=== PATIENT | female | born 1935 | race Caucasian/White ===

== ENCOUNTER 2016-12-10 23:31 | Inpatient (IN) | payer MEDICARE, OTHER ==
[~2016-12-10] VITALS: Ht 152.4 cm; Wt 103.5 kg
[~2016-12-10 23:31] MED LIST: ALBU2.5V3 NEB; ASPI-664 PO; ATOR40TA68 PO; BEN50 PO; CALC500T12 PO; CHOL50009 PO; ESOM40CA PO; FER325 PO; FURO40TA4 PO; LEVO112T42 PO; LORA-444 PO; METO25TA7 PO; NYST15CR28 TOP; OMEG-135 PO; PIOG45TA15 PO; POTA8CAP PO; QUET150T PO
[2016-12-10 23:45] VITALS: Ht 152.4 cm; Wt 103.5 kg
[2016-12-10] MEDS ORDERED: SOD CHLORIDE 0.9% 250 ML IV STA (23:56)
[2016-12-10] MEDS ORDERED: ONDANSETRON 4 MG INJ IV STA (23:56)
[2016-12-10] MEDS ORDERED: morphine 4 MG/ML VIAL IV STA (23:56)
[2016-12-11] VITALS (9 sets, daily range): BP systolic 90–161; BP diastolic 49–72; PULSE 70–90; RESP 14–27; TEMP 98.4
[2016-12-11 00:39] LABS: ADD SCAN DIFF NO
[2016-12-11 00:40] LABS: BASOPHILS % 0.3 % (0.0-2.0); EOSINOPHILS # 0.1 10^3/ul (0.0-0.5); HEMATOCRIT 39.2 % (37.0-47.0); HEMOGLOBIN 12.7 g/dl (12.0-16.0); LYMPHOCYTES # 2.3 10^3/ul (0.8-2.9); LYMPHOCYTES % 26.1 % (15.0-51.0); MEAN CORPUSCULAR HGB CONC 32.4 g/dl (32.0-37.0); MEAN CORPUSCULAR VOLUME 92.7 fl (82.0-101.0); MEAN PLATELET VOLUME 10.3 fl (7.4-10.4); MONOCYTE # 0.6 10^3/ul (0.3-0.9); MONOCYTES % 6.4 % (0.0-11.0); NEUTROPHIL # 5.8 10^3/ul (1.6-7.5); NEUTROPHILS % 65.7 % (39.0-77.0); PLATELET COUNT 246 10^3/UL (140-415); RED BLOOD COUNT 4.23 10^6/ul (4.20-5.40); RED CELL DISTRIBUTION WIDTH 13.4 % (11.5-14.5); WHITE BLOOD COUNT 8.8 10^3/ul (4.8-10.8)
[2016-12-11 00:54] LABS: INR 0.95; PROTIME 12.7 Sec (12.2-14.2)
[2016-12-11 00:55] LABS: PARTIAL THROMBOPLASTIN TIME 23.8 Sec (25.0-35.0)
[2016-12-11 00:56] LABS: ALANINE AMINOTRANSFERASE 24 IU/L (13-69); ALBUMIN/GLOBULIN RATIO 1.14; ALKALINE PHOSPHATASE 85 IU/L (42-121); ANION GAP 15 (8-16); ASPARTATE AMINO TRANSFERASE 27 IU/L (15-46); BILIRUBIN,INDIRECT 0.6 mg/dl (0-1.1); BILIRUBIN,TOTAL 0.6 mg/dl (0.2-1.3); BLOOD UREA NITROGEN 15 mg/dl (7-20); CALCIUM 8.8 mg/dl (8.4-10.2); CARBON DIOXIDE 32 mmol/L (21-31); CHLORIDE 94 mmol/L (97-110); CREATININE 0.91 mg/dl (0.44-1.00); GLUCOSE 144 mg/dl (70-220); POTASSIUM 4.5 mmol/L (3.5-5.1); SODIUM 136 mmol/L (135-144); TOTAL PROTEIN 7.5 g/dl (6.1-8.1)
[2016-12-11 01:08] LABS: TROPONIN-I < 0.012 ng/ml (0.00-0.12)
--- NOTE | 2016-12-11 02:28 | RADRPT ---
PROCEDURE: CT Abdomen and pelvis without contrast. CLINICAL INDICATION: Abdominal pain. TECHNIQUE: CT scan of the abdomen and pelvis was performed on a multi-detector high-resolution CT scanner. Contiguous axial images were obtained from the lung bases to the ischial tuberosities wit hout intravenous contrast. Coronal and sagittal reformatted images were also obtained. Images were reviewed on the PACS workstation. One or more of the following dose reduction techniques were used: - Automated exposure control. - Adjustment of the mA and/or kV according to patient size. - Use of iterative reconstruction technique. Exam CTD/vol = 22.85 mGy. Total exam DLP = 1325.36 mGy-cm. COMPARISON: 05/04/2016. FINDINGS: Evaluation of the lung bases demonstrates again demonstrates multiple nodules measuring up to 10 mm in size. There is mild bibasilar atelectasis. The heart is moderately enlarged. Abdomen: The liver is normal in size. There is no focal mass or dilatation of the biliary tree. T he gallbladder is not distended. The spleen, pancreas and bilateral adrenal glands are within rui l limits. Bilateral kidneys are normal in size with multiple left renal cysts. There is no radiopa que renal or ureteral calculus identified. There is no hydronephrosis or hydroureter. There is no retroperitoneal adenopathy. The abdominal aorta is of normal caliber with scattered atherosclerotic calcifications. There is a moderate right lower abdominal ventral wall hernia containing loops of small bowel and om ental fat. There is resultant small bowel obstruction. There is no free air. A normal appendix is identified. There is no diverticulosis or diverticulitis. There is no ascites. Pelvis: The bladder is unremarkable. The uterus and adnexa are within normal limits. There is no significant pelvic adenopathy or free fluid. Evaluation of the osseous structures demonstrates no suspicious lytic or blastic lesion. There are b ilateral calcified injection granulomas. IMPRESSION: Moderate right lower ventral abdominal wall hernia containing multiple loops of small bowel, increas ed in size compared with 05/04/2016. There is resultant small bowel obstruction. Multiple pulmonary nodules bilaterally suggestive of metastatic disease, slightly increased compared with 05/14/2016. Moderate cardiomegaly. Vascular calcifications reflective of atherosclerosis. Mild bibasilar atelectasis. .Wilfredo Chowdary MD, MD Date Time Electronically viewed and signed by .Wilfredo Chowdary MD, MD on 12/11/2016 02:27 .T/
[2016-12-11] MEDS ORDERED: FENTAnyl 50 MCG/ML VIAL IV ONE ×2 (03:00→05:00)
[2016-12-11] MEDS ORDERED: ONDANSETRON 4 MG INJ IV PRN ×3 (04:00→17:30)
[2016-12-11] MEDS ORDERED: ACETAMINOPHEN 325 MG TAB PO PRN (04:00)
--- NOTE | 2016-12-11 04:20 | ERA ---
ER Documentation Chief Complaint Date/Time DATE: 12/11/16 TIME: 04:11 Chief Complaint ABDOMINAL PAIN, LACK OF APPETITE HPI 80-year-old female with a history of metastatic thyroid cancer status post tracheostomy and a history of ventral abdominal wall hernia presenting to the ER with generalized abdominal pain. It started about 2 hours prior to arrival. It is a constant, dull pain. 8 out of 10. Nonradiating. No associated nausea, vomiting, diarrhea. Last bowel movement was in the morning. Her grandson notes that she has been burping a lot today. They have also noted that her hernia has been sticking out and is not going back in like it normally does. In May 2016 she had a similar episode like this and they were able to reduce her hernia in the ER. They did not follow-up for surgical repair since. ROS All systems reviewed and are negative except as per history of present illness. Medications Home Meds Reported Medications Lorazepam* (Ativan*) 2 Mg Tablet, 2 MG PO HS Y for ANXIETY, #30 TAB 05/04/16 Potassium Chloride* (Potassium Chloride*) 8 Meq Capsule.er, 8 MEQ PO DAILY, CAP 05/04/16 Diphenhydramine Hcl* (Benadryl*) 50 Mg Cap, 50 MG PO DAILY Y for ALLERGIC REACTION, CAP 05/04/16 Pioglitazone Hcl* (Pioglitazone Hcl*) 45 Mg Tablet, 45 MG PO DAILY, TAB 05/04/16 Albuterol Sulfate* (Albuterol Sulfate* Neb) 0.083%-3 Ml Neb, 2.5 MG NEB Q4H WHILE AWAKE Y for WHEEZING AND SOB, #30 VIAL 05/04/16 Aspirin* (Aspirin* EC) 81 Mg Tablet.dr, 81 MG PO DAILY, TAB 05/04/16 Cholecalciferol* (Vitamin D*) 5,000 Unit Tablet, 5000 UNIT PO DAILY, TAB 08/19/15 Levothyroxine Sodium* (Levoxyl*) 112 Mcg Tablet, 112 MCG PO BEFORE BREAKFAST, # 30 TAB 08/19/15 Quetiapine Fumarate* (Seroquel* XR) 150 Mg Tab.sr.24h, 150 MG PO DAILY, TAB.SA 08/19/15 Calcium Carbonate* (Oysco-500*) 1 Tab Tablet, 1 TAB PO TID, TAB 08/19/15 Nystatin* (Nystatin*) 15 Gm Cr, 1 APPLIC TOP TID, #1 TUB 08/19/15 Esomeprazole Mag Trihydrate (Nexium) 40 Mg Capsule.dr, 40 MG PO DAILY, #30 CAP 08/19/15 Metoprolol Succinate* (Toprol XL*) 25 Mg Tab.sr.24h, 25 MG PO DAILY, #30 TAB 08/19/15 Fish Oil* (Fish Oil*) 1,000 Mg Cap, 1000 MG PO TID, CAP 08/19/15 Atorvastatin* (Atorvastatin*) 40 Mg Tablet, 40 MG PO QHS, #30 TAB 08/19/15 Furosemide* (Furosemide*) 40 Mg Tablet, 40 MG PO DAILY, TAB 08/19/15 Ferrous Sulfate* (Ferrous Sulfate*) 325 Mg Tabec, 325 MG PO DAILY, TAB 08/19/15 Allergies Allergies: Coded Allergies: prednisone (Verified Allergy, Mild, HALLUCINATIONS, 12/04/13) clindamycin (Verified Allergy, Unknown, 12/10/16) PMhx/Soc History of Surgery: Yes (Trach placement) Anesthesia Reaction: No Hx Neurological Disorder: No Hx Respiratory Disorders: Yes (Tracheostomy) Hx Cardiac Disorders: Yes (HTN) Hx Psychiatric Problems: Yes (Anxiety, Bipolar ) Hx Miscellaneous Medical Probl: Yes Hx Alcohol Use: No Hx Substance Use: No Hx Tobacco Use: No Smoking Status: Unknown if ever smoked FmHx Family History: No diabetes Physical Exam Vitals Vital Signs Date Time Temp Pulse Resp B/P Pulse Ox O2 Delivery O2 Flow Rate FiO2 12/11/16 03:06 66 20 129/81 98 Trach Collar Venturi Mask 12/11/16 02:00 68 20 115/81 97 Trach Collar Venturi Mask 12/11/16 01:15 98 8.0 35 12/11/16 01:00 67 20 129/72 97 Trach Collar Venturi Mask 12/11/16 00:00 68 20 113/52 98 Trach Collar Venturi Mask 12/10/16 23:45 98.7 74 18 126/79 95 Physical Exam Const: Chronically ill-appearing, large body habitus, no significant distress, nontoxic Head: Atraumatic Eyes: Normal Conjunctiva ENT: Dry oral mucosa Neck: Full range of motion. Trach in place Resp: Clear to auscultation bilaterally, however she has poor respiratory effort Cardio: Regular rate and rhythm, no murmurs Abd: Soft, mildly distended, supraumbilical hernia, not reducible, mildly tender to palpation. Otherwise no abdominal tenderness. Normal bowel sounds Skin: No petechiae or rashes Back: No midline or flank tenderness Ext: No cyanosis, or edema Neur: Awake and alert Psych: Normal Mood and Affect Result Diagram: 12/11/16 0022 12/11/16 0022 Results 24 hrs Laboratory Tests Test 12/11/16 00:22 White Blood Count 8.810^3/ul Red Blood Count 4.2310^6/ul Hemoglobin 12.7g/dl Hematocrit 39.2% Mean Corpuscular Volume 92.7fl Mean Corpuscular Hemoglobin 30.0pg Mean Corpuscular Hemoglobin Concent 32.4g/dl Red Cell Distribution Width 13.4% Platelet Count 34291^3/UL Mean Platelet Volume 10.3fl Neutrophils % 65.7% Lymphocytes % 26.1% Monocytes % 6.4% Eosinophils % 1.0% Basophils % 0.3% Nucleated Red Blood Cells % 0.0/100WBC Neutrophils # 5.810^3/ul Lymphocytes # 2.310^3/ul Monocytes # 0.610^3/ul Eosinophils # 0.110^3/ul Basophils # 0.010^3/ul Nucleated Red Blood Cells # 0.010^3/ul Prothrombin Time 12.7Sec Prothrombin Time Ratio 1.0 INR International Normalized Ratio 0.95 Activated Partial Thromboplast Time 23.8Sec Sodium Level 136mmol/L Potassium Level 4.5mmol/L Chloride Level 94mmol/L Carbon Dioxide Level 32mmol/L Anion Gap 15 Blood Urea Nitrogen 15mg/dl Creatinine 0.91mg/dl Glucose Level 144mg/dl Lactic Acid Level 1.3mmol/L Calcium Level 8.8mg/dl Total Bilirubin 0.6mg/dl Direct Bilirubin 0.00mg/dl Indirect Bilirubin 0.6mg/dl Aspartate Amino Transf (AST/SGOT) 27IU/L Alanine Aminotransferase (ALT/SGPT) 24IU/L Alkaline Phosphatase 85IU/L Troponin I < 0.012ng/ml Total Protein 7.5g/dl Albumin 4.0g/dl Globulin 3.50g/dl Albumin/Globulin Ratio 1.14 Lipase 23U/L Current Medications Medications (Trade) Dose Ordered Sig/Dahiana Route PRN Reason Start Time Stop Time Status Last Admin Dose Admin Sodium Chloride (NS) 250 ml @ 250 mls/hr Q1H STAT IV 12/10/16 23:56 12/11/16 00:55 DC 12/11/16 00:26 Morphine Sulfate (morphine) 4 mg ONCE STAT IV 12/10/16 23:56 12/10/16 23:58 DC 12/11/16 00:26 Ondansetron HCl (Zofran Inj) 4 mg ONCE STAT IV 12/10/16 23:56 12/10/16 23:58 DC 12/11/16 00:26 Fentanyl (Sublimaze) 50 mcg ONCE ONCE IV 12/11/16 03:00 12/11/16 03:01 DC 12/11/16 03:09 Ondansetron HCl (Zofran Inj) 4 mg BRIDGE ORDER PRN IV NAUSEA AND/OR VOMITING 12/11/16 04:00 12/12/16 03:59 Acetaminophen (Tylenol Tab) 650 mg ER BRIDGE PRN PO MILD PAIN/FEVER 12/11/16 04:00 12/12/16 03:59 Procedures/MDM Labs: CBC and CMP normal, troponin negative EKG: Rate/Rhythm: Normal Sinus Rhythm QRS, ST, T-waves: Nonspecific T-wave changes, no changes consistent w/ acute ischemia Impression: No evidence of ischemia or arrhythmia CT abdomen and pelvis: IMPRESSION: Moderate right lower ventral abdominal wall hernia containing multiple loops of small bowel, increased in size compared with 05/04/2016. There is resultant small bowel obstruction. Multiple pulmonary nodules bilaterally suggestive of metastatic disease, slightly increased compared with 05/14/2016. Moderate cardiomegaly. Vascular calcifications reflective of atherosclerosis. Mild bibasilar atelectasis. .Wilfredo Chowdary MD, Date Time Electronically viewed and signed by .iWlfredo Chowdary MD, on 12/11/2016 02:27 MDM: Patient is presenting with an irreducible ventral hernia, concerning for incarceration and bowel obstruction. Vitals are stable. I have a low suspicion for ischemic bowel, strangulation. CT abdomen and pelvis confirmed ventral hernia with signs of bowel obstruction secondary to hernia. NG tube was placed. I attempted reduction of the hernia after IV pain medications, but this was unsuccessful. I spoke with Dr. Carrillo, who has seen the patient in the past, and he recommended hernia repair. He stated he could not see the patient until tomorrow evening. I spoke with the family regarding need for possible hernia repair and they really do not want her to undergo surgery if possible. I advised him to discuss her options with Dr. Carrillo. I will admit the patient to the [facility] floor. I will defer further management decisions the inpatient team and surgeon. Accepting Care Team: Current data and ongoing care discussed. Time: Time of admission Primary Provider: Karuna Consulting: Lorena Outstanding Data: none Departure Diagnosis: Primary Impression: Incarcerated ventral hernia Condition: Serious EVETTE COWART MD Dec 11, 2016 04:20
--- NOTE | 2016-12-11 05:21 | CONS ---
DATE OF ADMISSION: 12/10/2016 DATE OF CONSULTATION: 12/11/2016 HISTORY OF PRESENT ILLNESS: Ms. Young is an 80-year-old female with a history of metastatic thy roid cancer, status post tracheostomy, who presents to the ER with nausea, vomiting, and generalized abdominal pain. She has had a lot of ____ today and is not feeling well. She presented to the ER. She has a known ventral hernia which was reduced by me in May 2016. She was supposed to und ergo surgical repair but failed to do so. ALLERGIES 1. PREDNISONE. 2. CLINDAMYCIN. PAST SURGICAL HISTORY: She has a tracheostomy for metastatic thyroid cancer and some abdominal surg damien in the past either for an umbilical hernia or possibly hysterectomy. MEDICATIONS: She is on 1. Lorazepam. 2. Potassium chloride. 3. Pioglitazone. 4. Albuterol. 5. Aspirin. 6. Levoxyl. 7. Seroquel 8. Nexium. 9. Toprol. 10. Atorvastatin. 11. Furosemide. 12. Ferrous sulfate. PAST MEDICAL HISTORY: Asthma, hypertension, hypothyroidism, hypercholesterolemia, diabetes mellitus . PHYSICAL EXAMINATION: GENERAL: She is an obese female in no apparent distress. She has a tracheostomy in place but is re sting comfortably. VITAL SIGNS: She is afebrile. Vital signs stable. CHEST: Clear to auscultation bilaterally. HEART: Regular rhythm. ABDOMEN: Soft, nondistended but significant periumbilical nonreducible tender hernia. LABORATORY DATA: Reveal a white count of 9, hematocrit of 39, and platelets of 246. Sodium 136, po tassium 4.5, chloride 94, CO2 32, BUN and creatinine 15 and 0.9, and glucose of 144. INR is 1, and PTT is 23.8. A CT of the abdomen and pelvis revealed a moderate right lower ventral abdominal herni a containing multiple loops of small bowel, increased in size, with resultant small bowel obstructio n. ASSESSMENT AND PLAN: Ms. Young is an 80-year-old female with an incisional hernia with a small bowel obstruction. While it is not strangulated, it is incarcerated and is unable to be reduced. I tried twice to reduce it as well as the emergency room doctor. There really is no other option bes ides surgical. I could attempt to give contrast to see if there is no obstruction, but this would n ot resolve the incarceration and would only lead to further problems. I discussed proceeding with grace knutson with the patient as well as her son. I discussed repair of the incisional hernia with possib le mesh and possible bowel resection. All benefits, risks, and alternatives were discussed in detai l and questions answered. The patient elected to proceed. Right now, NG tube, n.p.o., and IV fluid s. If this spontaneously reduces later in the day, then obviously we can hold off on emergency surg damien, but that is unlikely. Dictated By: CYNTHIA BRANHAM/NTS Conf#: [id number] DID#: [id number]
[2016-12-11] MEDS ORDERED: hydrALAzine 20 MG INJ IV PRN ×2 (06:00→20:30)
[2016-12-11] MEDS ORDERED: morphine 4 MG/ML VIAL IV PRN (06:00)
[2016-12-11] MEDS ORDERED: GLUCOSE GEL 15 GRAM TUBE PO PRN ×2 (06:30)
[2016-12-11] MEDS ORDERED: GLUCOSE GEL 15 GRAM TUBE BUCCAL PRN (06:30)
[2016-12-11] MEDS ORDERED: DEXTROSE 50% 50 ML SYRINGE IV PRN ×2 (06:30)
[2016-12-11] MEDS ORDERED: GLUCAGON 1 MG INJ IM PRN (06:30)
[2016-12-11] MEDS ORDERED: SEVOFLURANE 15 MIN ONE (07:00)
[2016-12-11] MEDS ORDERED: CEFAZOLIN 1 GM INJ ONE (07:00)
[2016-12-11] MEDS: INSULIN ASPART [NOVOLOG] 3 ML PEN SC SCH ×3 (07:39→17:19)
[2016-12-11] MEDS: DEXTROSE 5%-0.45% NACL 1,000 ML IV SCH ×3 (07:39→16:00)
--- NOTE | 2016-12-11 08:35 | HP ---
Date/Time of Note Date/Time of Note DATE: 12/11/16 TIME: 08:27 Assessment/Plan VTE Prophylaxis VTE Prophylaxis Intervention: SCD's Lines/Catheters IV Catheter Type (from Nrsg): Saline Lock Assessment/Plan Assessment/Plan IMPRESSION 1. Incarcerated Abdominal Hernia 2. Metastatic Thyroid Cancer 3. Tracheostomy, to air 4. Diabetes 5. Anxiety/Bipolar PLAN Keep NPO with IV fluid NG tube to suction provide PRN pain meds Hold po meds Insulin for diabetes HPI/ROS Admit Date/Time Admit Date/Time Dec 11, 2016 at 03:42 Hx of Present Illness This is an 80-year-old female with a history of metastatic thyroid cancer status post tracheostomy and a history of ventral abdominal wall hernia presenting to the ER with generalized abdominal pain. It started about 2 hours prior to arrival. It is a constant, dull pain. 8 out of 10. Nonradiating. No associated nausea, vomiting, diarrhea. Last bowel movement was in the morning. Her grandson notes that she has been burping a lot today. They have also noted that her hernia has been sticking out and is not going back in like it normally does. In May 2016 she had a similar episode like this and they were able to reduce her hernia in the ER. Today in ER, CT abd/pelvis showed Moderate right lower ventral abdominal wall hernia containing multiple loops of small bowel, increased in size compared with 05/04/2016. There is resultant small bowel obstruction. Pt has already seen by Dr. Carrillo with plan for surgical intervention. PMH/Family/Social Past Medical History Medical History: cancer, diabetes Past Surgical History Past Surgical Hx: other (tracheostomy) Social History Alcohol Use: none Smoking Status: Never smoker Drug Use: none Exam/Review of Systems Vital Signs Vitals Vital Signs Date Time Temp Pulse Resp B/P Pulse Ox O2 Delivery O2 Flow Rate FiO2 12/11/16 07:11 98.2 72 16 116/53 99 12/11/16 06:04 Trach Collar 12/11/16 05:55 5.0 28 Exam Constitutional: distress Head: atraumatic, normocephalic Eyes: PERRL ENMT: other (NG tube in place) Neck: other (trach tune in place) Respiratory: diminished breath sounds, other (at the bases) Cardiovascular: regular rate and rhythm Gastrointestinal: other (non-reducible hernia), soft, tender Extremities: normal pulses Labs Result Diagram: 12/11/16 0022 12/11/16 0022 Medications Medications Current Medications Dextrose/Sodium Chloride (D5-1/2ns) 1,000 ml @ 100 mls/hr Q10H IV ; Start 12/11 at 06:00 Morphine Sulfate (morphine) 3 mg Q4H PRN IV PAIN; Start 12/11/16 at 06:00 Ondansetron HCl (Zofran Inj) 4 mg Q6H PRN IV NAUSEA AND/OR VOMITING; Start at 06:00 Lorazepam (Ativan) 1 mg Q4H PRN IV ANXIETY; Start 12/11/16 at 06:00 Hydralazine HCl (Apresoline) 10 mg Q6H PRN IV SBP ABOVE 160; Start 12/11/16 at 06:00 Insulin Aspart (Novolog Insulin Pen) NOVOLOG *MILD* ALGORI... Q6 SC ; Start at 06:00 Miscellaneous Information 1 ea NOTE XX ; Start 12/11/16 at 06:30 Glucose (Glutose) 15 gm Q15M PRN PO DECREASED GLUCOSE; Start 12/11/16 at 06:30 Glucose (Glutose) 22.5 gm Q15M PRN PO DECREASED GLUCOSE; Start 12/11/16 at 06: 30 Dextrose (D50w Syringe) 25 ml Q15M PRN IV DECREASED GLUCOSE; Start 12/11/16 at 06:30 Dextrose (D50w Syringe) 50 ml Q15M PRN IV DECREASED GLUCOSE; Start 12/11/16 at 06:30 Glucagon (Glucagen) 1 mg Q15M PRN IM DECREASED GLUCOSE; Start 12/11/16 at 06:30 Glucose (Glutose) 15 gm Q15M PRN BUCCAL DECREASED GLUCOSE; Start 12/11/16 at 06 :30 JESSE NAIDU MD Dec 11, 2016 08:35
[2016-12-11] MEDS: LORAZEPAM 2 MG INJ IV PRN ×2 (08:36→22:58)
--- NOTE | 2016-12-11 15:46 | PN ---
Date/Time of Note Date/Time of Note DATE: 12/11/16 TIME: 15:38 Assessment/Plan VTE Prophylaxis VTE Prophylaxis Intervention: contraindicated (bleeding risk) Lines/Catheters IV Catheter Type (from Nrsg): Peripheral IV Assessment/Plan Chief Complaint/Hosp Course S- abd pain/n remain. min flatus. no cp/dyspnea. occ constipation. family updated. O- vss PE no pallor; trach c/d/i s1s2 reg; no m/g/r ctab Bs dimin; mild tender; nd; obese. hernia noted. no r/r/g mild edema A/P 1. Incarcerated V hernia; stable. may need surgery. -low/intermediate sabine -op risk. r/b ratio weights in favor of proceeding directly to surgery. cxr/ekg pending. 2. M obesity; recurrent risk explained to family. 3. SBO? 4. Trach status 5. Metastatic Thyroid Ca; lung mets. no ho cardiac/liver/colon mets. 6. Dm/DL/obesity/ metabolic syndrome 7. Asthma; no ho intubation 8. Hypothyroidism 9. Psychosis? Problems: Exam/Review of Systems Vital Signs Vitals Vital Signs Date Time Temp Pulse Resp B/P Pulse Ox O2 Delivery O2 Flow Rate FiO2 12/11/16 15:00 95 28 12/11/16 07:11 98.2 72 16 116/53 12/11/16 06:04 Trach Collar 12/11/16 05:55 5.0 Results Result Diagram: 12/11/16 0022 12/11/16 0022 Results 24 hrs Laboratory Tests Test 12/11/16 00:22 12/11/16 12:35 White Blood Count 8.8 # Red Blood Count 4.23 Hemoglobin 12.7 Hematocrit 39.2 Mean Corpuscular Volume 92.7 Mean Corpuscular Hemoglobin 30.0 Mean Corpuscular Hemoglobin Concent 32.4 Red Cell Distribution Width 13.4 Platelet Count 246 Mean Platelet Volume 10.3 # Neutrophils % 65.7 Lymphocytes % 26.1 Monocytes % 6.4 Eosinophils % 1.0 Basophils % 0.3 Nucleated Red Blood Cells % 0.0 Neutrophils # 5.8 Lymphocytes # 2.3 Monocytes # 0.6 Eosinophils # 0.1 Basophils # 0.0 Nucleated Red Blood Cells # 0.0 Prothrombin Time 12.7 Prothrombin Time Ratio 1.0 INR International Normalized Ratio 0.95 Activated Partial Thromboplast Time 23.8 L Sodium Level 136 Potassium Level 4.5 Chloride Level 94 L Carbon Dioxide Level 32 H Anion Gap 15 Blood Urea Nitrogen 15 Creatinine 0.91 Glucose Level 144 Lactic Acid Level 1.3 Calcium Level 8.8 Total Bilirubin 0.6 Direct Bilirubin 0.00 Indirect Bilirubin 0.6 Aspartate Amino Transf (AST/SGOT) 27 Alanine Aminotransferase (ALT/SGPT) 24 Alkaline Phosphatase 85 Troponin I < 0.012 Total Protein 7.5 Albumin 4.0 Globulin 3.50 H Albumin/Globulin Ratio 1.14 Lipase 23 Bedside Glucose 140 Medications Medications Current Medications Dextrose/Sodium Chloride (D5-1/2ns) 1,000 ml @ 100 mls/hr Q10H IV Last administered on 12/11/16 10:15; Admin Dose 100 MLS/HR; Start 12/11/16 at 06:00 Morphine Sulfate (morphine) 3 mg Q4H PRN IV PAIN Last administered on 10:01; Admin Dose 3 MG; Start 12/11/16 at 06:00 Ondansetron HCl (Zofran Inj) 4 mg Q6H PRN IV NAUSEA AND/OR VOMITING; Start at 06:00 Lorazepam (Ativan) 1 mg Q4H PRN IV ANXIETY Last administered on 12/11/16 08:36 ; Admin Dose 1 MG; Start 12/11/16 at 06:00 Hydralazine HCl (Apresoline) 10 mg Q6H PRN IV SBP ABOVE 160; Start 12/11/16 at 06:00 Insulin Aspart (Novolog Insulin Pen) NOVOLOG *MILD* ALGORI... Q6 SC ; Start at 06:00 Miscellaneous Information 1 ea NOTE XX ; Start 12/11/16 at 06:30 Glucose (Glutose) 15 gm Q15M PRN PO DECREASED GLUCOSE; Start 12/11/16 at 06:30 Glucose (Glutose) 22.5 gm Q15M PRN PO DECREASED GLUCOSE; Start 12/11/16 at 06: 30 Dextrose (D50w Syringe) 25 ml Q15M PRN IV DECREASED GLUCOSE; Start 12/11/16 at 06:30 Dextrose (D50w Syringe) 50 ml Q15M PRN IV DECREASED GLUCOSE; Start 12/11/16 at 06:30 Glucagon (Glucagen) 1 mg Q15M PRN IM DECREASED GLUCOSE; Start 12/11/16 at 06:30 Glucose (Glutose) 15 gm Q15M PRN BUCCAL DECREASED GLUCOSE; Start 12/11/16 at 06 :30 Famotidine (Pepcid Iv) 20 mg DAILY IV ; Start 12/11/16 at 15:30 Ibuprofen (Motrin) 800 mg Q6H PRN PO MODERATE PAIN LEVEL 4-6; Start 12/12/16 at 09:00 ADELAIDA MADISON MD Dec 11, 2016 15:46
[2016-12-11] MEDS: FAMOTIDINE 20 MG INJ IV SCH (16:00)
--- NOTE | 2016-12-11 16:49 | RADRPT ---
PROCEDURE: XR Chest. CLINICAL INDICATION: Preoperative. TECHNIQUE: Single frontal view. COMPARISON: Chest x-ray dated 05/04/2016. CT scan of the chest dated 12/11/2016. FINDINGS: There is a nasogastric tube with the tip not visualized. Bilateral pulmonary nodules seen on CT sca n are not well visualized. The heart is enlarged. There is a tracheostomy tube. Sternal wires are noted. Vascular calcificat ions are present consistent with atherosclerosis. There is no pleural effusion. There is no pneumothorax. IMPRESSION: 1. Nasogastric tube tip not visualized. Correlation with abdomen radiograph should be considered. 2. Bilateral pulmonary nodules seen on CT scan are not well seen with plain radiograph. 3. Cardiomegaly and atherosclerosis. 4. Tracheostomy tube and sternal wires. RPTAT: QQ .Dm Bar MD, MD Date Time Electronically viewed and signed by .Dm Bar MD, MD on 12/11/2016 16:49 .R/
[2016-12-11] MEDS ORDERED: IBUPROFEN 600 MG TAB PO PRN (17:30)
[2016-12-11] MEDS ORDERED: OXYCODONE/ACETAMINOPHEN (5/325) TAB PO PRN (17:30)
[2016-12-11] MEDS: CEFAZOLIN 2 GM/50 ML (PMX) 50 ML IVPB SCH (18:30)
--- NOTE | 2016-12-11 19:07 | RADRPT ---
PROCEDURE: CT Chest without contrast. CLINICAL INDICATION: History of thyroid cancer, evaluate great vessels, evaluate for mediastinal mas s TECHNIQUE: CT scan of the chest without contrast was performed on a multidetector high-resolution CT scanner. Coronal and sagittal reformatted images were obtained from the axial source images. The total exam CTDI equals 16.7 mGy and the total exam DLP equals 673.83 mGy-cm. One or more the following does reduction techniques were utilized: Automated exposure control, adjus tment of the mA/ or kV according to patient's size, or use of iterative reconstruction technique. COMPARISON: Chest x-ray of 12/11/2016 FINDINGS: Multiple bilateral lung 1 cm and smaller nodules suspicious for metastases are seen. There is parti al posterior basilar segment region right lower lobe atelectasis. Sternal wires. Tracheostomy tube is well above the milad. Nasogastric tube in stomach. Coronary artery calcification. Scattered l inear atelectasis/fibrosis is seen in the lungs. Calcification in thoracoabdominal aorta and great vessels. Tortuosity of thoracic aorta. Degenerative changes at shoulders. There is appearance of fluid density measuring approximately 1.7 x 1.1 cm to the left of the tracheostomy in region of its insertion in subcutaneous fat of uncertain etiology. No mediastinal mass is seen. Calcification in region of aortic valve. Likely cysts arising from left kidney the largest 4.4 cm superiorly. No ad renal mass is seen. Calcification in superior mesenteric and left renal arteries. Degenerative memo nges in thoracic spine. Thoracic kyphosis. IMPRESSION: Multiple bilateral lung nodules suspicious for metastases. Atherosclerosis. No mediastinal mass see n. Please see above. Discussed with the operating room nurse at 07:02 p.m. on 12/11/2016. RPTAT: HJES .Dominguez Barron MD, Date Time Electronically viewed and signed by .Dominguez Barron MD, on 12/11/2016 19:07 .S/
[2016-12-11] MEDS ORDERED: LORAZEPAM 2 MG INJ IV ONE (19:30)
[2016-12-11] MEDS ORDERED: POLYMYXIN/BACITRACIN 1L IRRIG ONE (20:08)
[2016-12-11] MEDS ORDERED: SUCCINYLCHOLINE CHLORIDE 100 MG/5 ML SYG IV ONE (20:13)
[2016-12-11] MEDS ORDERED: ROCURONIUM 50 MG INJ ONE (20:13)
[2016-12-11] MEDS ORDERED: PROPOFOL 20 ML ONE (20:13)
[2016-12-11] MEDS ORDERED: FENTAnyl 50 MCG/ML VIAL ONE (20:17)
[2016-12-11] MEDS ORDERED: LABETALOL HCL 20MG INJ IV PRN (20:30)
[2016-12-11] MEDS ORDERED: HYDROmorphONE (0.2 MG/ML) 10ML SYG IV PRN ×2 (20:30)
[2016-12-11] MEDS ORDERED: LEVALBUTEROL (NEB) 0.63 MG/3 ML AMP HHN ONE (20:30)
[2016-12-11] MEDS ORDERED: FENTAnyl 50 MCG/ML VIAL IV PRN (20:30)
[2016-12-11] MEDS ORDERED: ALBUTEROL 0.083% (NEB) 2.5 MG/3 ML AMP HHN ONE (20:30)
[2016-12-11] MEDS ORDERED: BUPIVACAINE 0.25%/EPI (SDV) 30 ML INJ ONE (20:34)
[2016-12-11 22:38] LABS: AADO2 Arterial 271.9 mmHg (7.0-24.0); Allen Test ACCEPTAB; Arterial Base Excess 5.2 mmol/L (-3.0-3); Arterial COHb 0.3 % (0.0-3.0); Arterial Fraction of Oxyhgb 96.9 % (93.0-99.0); Arterial HCO3 30.9 mmol/L (22.0-26.0); Arterial MetHb 0.3 % (0.0-1.5); Arterial Total Hemglobin 13.2 g/dl (12.0-18.0); Blood Gas PS 10; MODE VENT - SIMV
[2016-12-11] MEDS: morphine 2 MG INJ IV PRN (22:58)
[2016-12-11] MEDS: D5-NS + KCL 20 MEQ 1,000 ML IV SCH (23:07)
[2016-12-12] VITALS (22 sets, daily range): BP systolic 93–153; BP diastolic 25–62; PULSE 63–95; RESP 11–26
[2016-12-12] MEDS: morphine 2 MG INJ IV PRN ×5 (03:02→20:04)
[2016-12-12] MEDS: D5-NS + KCL 20 MEQ 1,000 ML IV SCH ×2 (03:21→11:55)
[2016-12-12] MEDS: CEFAZOLIN 2 GM/50 ML (PMX) 50 ML IVPB SCH ×2 (03:21→10:58)
[2016-12-12 04:45] LABS: ADD SCAN DIFF NO
[2016-12-12 04:52] LABS: BASOPHILS % 0.4 % (0.0-2.0); EOSINOPHILS % 0.2 % (0.0-7.0); HEMATOCRIT 36.1 % (37.0-47.0); HEMOGLOBIN 11.2 g/dl (12.0-16.0); LYMPHOCYTES # 1.7 10^3/ul (0.8-2.9); LYMPHOCYTES % 21.1 % (15.0-51.0); MEAN CORPUSCULAR HEMOGLOBIN 29.3 pg (29.0-33.0); MEAN CORPUSCULAR VOLUME 94.5 fl (82.0-101.0); MEAN PLATELET VOLUME 9.8 fl (7.4-10.4); MONOCYTE # 0.7 10^3/ul (0.3-0.9); MONOCYTES % 8.1 % (0.0-11.0); NEUTROPHIL # 5.7 10^3/ul (1.6-7.5); NEUTROPHILS % 69.8 % (39.0-77.0); PLATELET COUNT 217 10^3/UL (140-415); RED BLOOD COUNT 3.82 10^6/ul (4.20-5.40); RED CELL DISTRIBUTION WIDTH 13.6 % (11.5-14.5); WHITE BLOOD COUNT 8.2 10^3/ul (4.8-10.8)
[2016-12-12] MEDS: INSULIN ASPART [NOVOLOG] 3 ML PEN SC SCH ×4 (05:40→17:46)
[2016-12-12 05:43] LABS: ALBUMIN 3.2 g/dl (3.3-4.9); ALBUMIN/GLOBULIN RATIO 1.1; CALCIUM 8.1 mg/dl (8.4-10.2); CREATININE 0.9 mg/dl (0.44-1.00); MAGNESIUM 2.1 mg/dl (1.7-2.5); TOTAL PROTEIN 6.1 g/dl (6.1-8.1)
[2016-12-12] MEDS: LORAZEPAM 2 MG INJ IV PRN (06:11)
[2016-12-12] MEDS: ENOXAPARIN 40 MG/0.4 ML SYG SC SCH (06:17)
[2016-12-12 06:52] LABS: THYROID STIMULATING HORMONE 1.1 MIU/L (0.465-4.680)
--- NOTE | 2016-12-12 07:18 | OPR ---
DATE OF OPERATION: 12/11/2016 PREOPERATIVE DIAGNOSIS: Incarcerated umbilical hernia with small-bowel obstruction. POSTOPERATIVE DIAGNOSIS: Incarcerated umbilical hernia with small-bowel obstruction. PROCEDURES: 1. Repair of umbilical hernia with mesh. 2. Reduction of small-bowel obstruction. SURGEON: Cynthia Carrillo MD OIL AND GAS RECRUITER: None. ANESTHESIA: General endotracheal. ANESTHESIOLOGIST: Manny Luu MD ESTIMATED BLOOD LOSS: Minimal. COMPLICATIONS: None. SPECIMENS: None. FINDINGS: A 4 cm umbilical hernia with a small-bowel obstruction. MESH: Large Ventralex mesh. INDICATIONS: Ms. Young is an 80-year-old female with an incarcerated umbilical hernia who has been obstructed in the past. She has elected to not have this elective surgery, but she presented to the ER last night with an incarcerated umbilical hernia with a small bowel obstruction. The hernia was unable to be reduced, and therefore we needed to proceed with surgery. I discussed repair of her umbilical hernia with mesh and possible small-bowel resection depending on the status of her bowel with the patient as well as her family. All benefits, risks, alternatives were discussed in detail, questions answered. Family elected to proceed. This was a high-risk procedure, but we were left with no alternative as the small bowel was obstructed. PROCEDURE: The patient was brought to the operating room, placed supine on the table. After preoperative antibiotics and SCDs were applied, patient was placed on the ventilator since she had a tracheostomy. The abdomen was cleaned , prepped, draped in usual sterile fashion. A midline incision was made over the hernia and used electrocautery to take it down to the subcutaneous tissue until identified the hernia. I then identified and opened the hernia sac. There were multiple loops of colon in the hernia sac. They were not ischemic or necrotic. Using electrocautery, I was able to dissect the omentum as well as the colon off of the fascial defect and reduce the omentum and colon back through the abdominal wall, thus resolving the bowel obstruction. There was no enterotomies made. At this point, once the bowel and omentum was placed back in the abdomen, I removed the hernia sac with electrocautery and identified the fascial defect. The defect was approximately 4 cm. I created space laterally on both sides above the anterior fascia. I then placed a large Ventralex mesh through the fascial defect and brought it up against the abdominal wall. Tjhe two leaves of the mesh were then sutured at the 9- and 3-o 'clock position to the full thickness abdominal wall with 0 Ethibond sutures. I sutured the 12- and 6-o'clock position full-thickness abdominal wall to the polypropylene portion of the Ventralex mesh. The mesh had nicely covered the defect well. There were small gaps between these 4 corners, and these were closed with full-thickness polypropylene and then full-thickness sutures. At this point, there was no gas noted. The wound was irrigated. The subcutaneous tissue was then brought together with interrupted 3-0 Vicryl. Skin was closed with 4-0 Monocryl, Mastisol, Steri-Strips. The patient tolerated procedure well and was transferred back into the ICU in stable condition. Dictated By: CYNTHIA BRANHAM/SIVAKUMAR Conf#: [id number] DID#: [id number]
[2016-12-12] MEDS: FAMOTIDINE 20 MG INJ IV SCH (08:30)
[2016-12-12] MEDS ORDERED: IBUPROFEN 800 MG TAB PO PRN (09:00)
--- NOTE | 2016-12-12 09:05 | RADRPT ---
PROCEDURE: XR Chest. CLINICAL INDICATION: Shortness of breath. TECHNIQUE: Single frontal view. COMPARISON: 12/11/2016. FINDINGS: The tracheostomy tube remains in position. The nasogastric tube has been removed. There is mild at electasis at the right lung base. Small pulmonary nodules seen on prior CT scan are not well seen w ith plain radiograph. The heart is enlarged. There is calcification in the aorta consistent with atherosclerosis. There are sternal wires. There is no pleural effusion. There is no pneumothorax. IMPRESSION: 1. Nasogastric tube removed. 2. No other significant change from 12/11/2016. RPTAT: QQ .Dm Bar MD, MD Date Time Electronically viewed and signed by .Dm Bar MD, MD on 12/12/2016 09:05 .R/
--- NOTE | 2016-12-12 09:54 | CONS ---
Date/Time of Note Date/Time of Note DATE: 12/12/16 TIME: 09:48 Assessment/Plan Assessment/Plan Additional Assessment/Plan Chest x-ray was reviewed from yesterday which is showing bilateral nodular changes which is consistent with metastatic thyroid cancer. CT chest also was reviewed which is showing similar findings. Current ventilator settings are: SIMV of 6, tidal volume 500, PEEP of 5, 40% FiO2. Assessment recommendations; 1. Patient admitted for incarcerated ventral hernia status post surgery. 2. Chronic respiratory failure, maintain on T-piece at prison. 3. Metastatic thyroid cancer. 4. Obesity. Recommendations: switch the patient back to T-piece as tolerated. Meanwhile continue current supportive care. Consultation Date/Type/Reason Admit Date/Time Dec 11, 2016 at 03:42 Date of Consultation: Dec 12, 2016 Type of Consultation: Pulmonary/critical care Reason for Consultation Family consultation requested for evaluation of respiratory failure. History presenting his; patient is a pleasant 80-year-old white lady who was admitted yesterday transferred over from prison with complaints of abdominal pain. Patient was diagnosed with incarcerated ventral hernia she underwent surgical resection yesterday which was uneventful. Patient however could not be weaned off to T-piece and was maintained on mechanical ventilation overnight. By the time I saw the patient the patient completely awake alert denies any shortness of breath chest pain abdominal pain. Past medical history; 1. Patient with history of respiratory failure however maintained on T-piece. 2. Metastatic thyroid cancer. 3. Anxiety and depression. 4. Diabetes. Medications; were reviewed. Allergies; are to clindamycin and prednisone. Social history; most of any smoking. Family history; not available. Occupational history; patient has a miscellaneous occupation. Review systems; denies any headache, seizures. Chest pain. Denies any shortness of breath, denies any nausea, vomiting. General exam; elderly lady, on ventilator via tracheostomy awake and alert. Past Medical History Medical History: cancer, diabetes Past Surgical History Past Surgical Hx: other (tracheostomy) Social History Alcohol Use: none Smoking Status: Never smoker Drug Use: none Exam/Review of Systems Vital Signs Vitals Vital Signs Date Time Temp Pulse Resp B/P Pulse Ox O2 Delivery O2 Flow Rate FiO2 12/12/16 07:22 63 11 100 40 12/12/16 06:00 129/55 Mechanical Ventilator 12/12/16 04:00 98.5 12/11/16 05:55 5.0 Intake and Output 12/11/16 12/11/16 12/12/16 15:00 23:00 07:00 Intake Total 1200 ml 650 ml Output Total 960 ml 360 ml Balance 240 ml 290 ml Exam HEENT exam; supple neck, no JVD. No lymphadenopathy. Midline trachea. No thyromegaly. Tracheostomy in place with clean insertion site. Pupils are equal and reactive to light bilaterally. Extraocular movements are intact. Patient is edentulous. Chest exam; diminished but clear vessel bilaterally. S1-S2 audible, no murmurs. Regular rhythm. Abdomen exam is; soft, there is mild lower abdominal tenderness present. There is a dressing applied over midline area. Bowel sounds are audible. No organomegaly. Extremity exam; trace peripheral edema. Pulses 1+ bilaterally. No clubbing. SURVEYOR'S ASSISTANT examination; no focal deficit. Results Result Diagram: 12/12/16 0427 12/12/16 0427 Results 24 hrs Laboratory Tests Test 12/11/16 12:35 12/11/16 21:21 12/12/16 00:11 12/12/16 04:27 Bedside Glucose 140 141 Blood Gas Specimen Source Blood arterial Arterial Blood Date Drawn 12/11/2016 10:30:12 PM Arterial Blood pH (Temp corrected) 7.412 Arterial Blood pCO2 (Temp correct) 49.6 H Arterial Blood pO2 (Temp corrected) 101.3 H Arterial Blood HCO3 30.9 H Arterial Blood Base Excess 5.2 H Arterial Blood Oxygen Saturation 97.5 Tonny Test ACCEPTAB Arterial Blood Gas Puncture Site Left Radial Arterial Blood Carboxyhemoglobin 0.3 Arterial Blood Methemoglobin 0.3 Blood Gas A-a O2 Differential 271.9 H Oxyhemoglobin Percent 96.9 Total Hemoglobin 13.2 Blood Gas Temperature 37.0 Blood Gas Respiration Rate 6.0 Blood Gas Actual Respiration Rate 16 Blood Gas Modality VENT - SIMV FiO2 60.0 Blood Gas Tidal Volume 500.0 Blood Gas Low PEEP Setting 5.0 Blood Gas Pressure Support 10 Blood Gas Notified Whom MA Blood Gas Notified Time 12/11/2016 10:38:05 PM White Blood Count 8.2 Red Blood Count 3.82 L Hemoglobin 11.2 L Hematocrit 36.1 L Mean Corpuscular Volume 94.5 Mean Corpuscular Hemoglobin 29.3 Mean Corpuscular Hemoglobin Concent 31.0 L Red Cell Distribution Width 13.6 Platelet Count 217 Mean Platelet Volume 9.8 Neutrophils % 69.8 Lymphocytes % 21.1 Monocytes % 8.1 Eosinophils % 0.2 Basophils % 0.4 Nucleated Red Blood Cells % 0.0 Neutrophils # 5.7 Lymphocytes # 1.7 Monocytes # 0.7 Eosinophils # 0.0 Basophils # 0.0 Nucleated Red Blood Cells # 0.0 Sodium Level 139 Potassium Level 4.0 Chloride Level 101 Carbon Dioxide Level 33 H Anion Gap 9 # Blood Urea Nitrogen 12 Creatinine 0.90 Glucose Level 126 Hemoglobin A1c 5.8 Calcium Level 8.1 L Phosphorus Level 4.0 Magnesium Level 2.1 Total Bilirubin 0.0 L Direct Bilirubin 0.00 Indirect Bilirubin 0.0 Aspartate Amino Transf (AST/SGOT) 21 Alanine Aminotransferase (ALT/SGPT) 23 Alkaline Phosphatase 70 Total Protein 6.1 # Albumin 3.2 L Globulin 2.90 Albumin/Globulin Ratio 1.10 Thyroid Stimulating Hormone (TSH) 1.100 Test 12/12/16 05:38 12/12/16 08:42 Bedside Glucose 111 117 Medications Medications Current Medications Lorazepam (Ativan) 1 mg Q4H PRN IV ANXIETY Last administered on 12/12/16t 06:11 ; Admin Dose 1 MG; Start 12/11/16 at 06:00 Hydralazine HCl (Apresoline) 10 mg Q6H PRN IV SBP ABOVE 160; Start 12/11/16 at 06:00 Insulin Aspart (Novolog Insulin Pen) NOVOLOG *MILD* ALGORI... Q6 SC ; Start at 06:00 Miscellaneous Information 1 ea NOTE XX ; Start 12/11/16 at 06:30 Glucose (Glutose) 15 gm Q15M PRN PO DECREASED GLUCOSE; Start 12/11/16 at 06:30 Glucose (Glutose) 22.5 gm Q15M PRN PO DECREASED GLUCOSE; Start 12/11/16 at 06: 30 Dextrose (D50w Syringe) 25 ml Q15M PRN IV DECREASED GLUCOSE; Start 12/11/16 at 06:30 Dextrose (D50w Syringe) 50 ml Q15M PRN IV DECREASED GLUCOSE; Start 12/11/16 at 06:30 Glucagon (Glucagen) 1 mg Q15M PRN IM DECREASED GLUCOSE; Start 12/11/16 at 06:30 Glucose (Glutose) 15 gm Q15M PRN BUCCAL DECREASED GLUCOSE; Start 12/11/16 at 06 :30 Famotidine 20 mg 20 mg DAILY IV Last administered on 12/12/16 08:30; Admin Dose 20 MG; Start 12/11/16 at 15:30 Cefazolin Sodium/ Dextrose (Ancef 2 Gm/50 ml (Pmx)) 50 ml @ 100 mls/hr Q8H IVPB Last administered on 12/12/16 03:21; Admin Dose 100 MLS/HR; Start at 18:30; Stop 12/12/16 at 18:29 Morphine Sulfate (morphine) 2 mg Q2H PRN IV PAIN LEVEL 6-10 Last administered on 12/12/16 08:32; Admin Dose 2 MG; Start 12/11/16 at 17:30 Oxycodone/ Acetaminophen (Percocet (5/ 325)) 1 tab Q6H PRN PO PAIN LEVEL 6-10; Start 12/11/16 at 17:30 Acetaminophen (Tylenol Tab) 650 mg Q6H PRN PO PAIN AND OR ELEVATED TEMP; Start 12/11/16 at 17:30 Ibuprofen (Motrin) 600 mg Q6H PRN PO PAIN LEVEL 1-5; Start 12/11/16 at 17:30 Ondansetron HCl 4 mg 4 mg Q6H PRN IV NAUSEA AND/OR VOMITING; Start 12/11/16 at 17:30 Potassium Chloride/Dextrose/ Sod Cl (D5-NS + KCl 20 Meq) 1,000 ml @ 100 mls/hr Q10H IV Last administered on 12/12/16 03:21; Admin Dose 100 MLS/HR; Start at 17:15 Enoxaparin Sodium (Lovenox) 40 mg DAILY@07 SC Last administered on 12/12/16 06 :17; Admin Dose 40 MG; Start 12/12/16 at 07:00 BRANDEN SCOTT Dec 12, 2016 09:54
--- NOTE | 2016-12-12 10:38 | RADRPT ---
Echocardiogram Report Patient Name: GALE JUÁREZ Gender: Female Date: 1935 Study Date: 11-Dec-2016 Cokeman: [facility] Location: PACU Ref. Physician: CYNTHIA LEE Quality: Technically Difficult Study Procedures: Transthoracic echocardiogram with complete 2D, M-Mode, and doppler examination. Indications: Pre-op. 2D/M Mode Doppler Measurement Value Normal Ranges Measurement Value Normal Ranges LVIDd 2D 2.9 3.5 - 5.6 cm KATHRYN Vmax 1.7 cm2 LVIDs 2D 2.3 2.1 - 4.1 cm KATHRYN VTI 1.7 cm2 LVPWd 2D 1.2 0.6 - 1.1 cm AV Peak Francis 0.9 m/sec IVSd 2D 1.2 0.6 - 1.1 cm AV Peak PG 3.3 mmHg AoR Diam 2D 2.5 2.0 - 3.7 cm LVOT Peak Francis 0.6 m/sec EDV 2D 32.8 cm3 LVOT Peak PG 1.6 mmHg ESV 2D 12.9 cm3 MV E Peak Francis 0.8 m/sec LVOT Diam 1.8 cm MV A Peak Francis 0.6 m/sec MV E/A 1.3 MV Decel Time 187 msec MV Decel [place] 5 MV E/A 1.3 Findings Left Ventricle: Normal left ventricular systolic function. Overall, normal left ventricular systolic function. Not all segments visualized. Normal left ventricular cavity size. Mild concentric left ventricular hypertrophy. Ejection fraction is visually estimated at 65 %. Right Ventricle: Not well visualized. Left Atrium: There is severe enlargement of left atrium. Right Atrium: There is severe enlargement of right atrium. RA Pressure=3. Mitral Valve: Mild mitral annular calcification. Mild mitral valve regurgitation. Aortic Valve: Aortic valve not well visualized. Appears calcified and with some flow acceleration. Possible mild stenosis but doppler studies were not assessed. Tricuspid Valve: Tricuspid valve not well visualized. There is trace tricuspid regurgitation. Pulmonic Valve: There is trace pulmonic regurgitation. Pericardium: There is an anterior echo free space consistent with epicardial fat pad. Aorta: Normal aortic root. IVC: The IVC is not well visualized. Conclusions 1.Technically difficult study. 2.Overall, normal left ventricular systolic function. Not all segments visualized. Normal left ventricular cavity size. Mild concentric left ventricular hypertrophy. Ejection fraction is visually estimated at 65 %. 3.Aortic valve appears calcified and with some flow acceleration. Possible mild stenosis but doppler studies were not assessed. 4.PA and RA pressure could not be assessed. Electronically Signed By: Herrera Trejo 12-Dec-2016 10:36:53 -0700 Patient Name: GALE JUÁREZ Study Date: 11-Dec-2016 [id number]
--- NOTE | 2016-12-12 12:22 | PN ---
Date/Time of Note Date/Time of Note DATE: 12/12/16 TIME: 12:19 Assessment/Plan VTE Prophylaxis VTE Prophylaxis Intervention: LMWH Lines/Catheters IV Catheter Type (from Nrsg): Peripheral IV Urinary Cath still in place: Yes Reason Cath still needed: urinary retention Assessment/Plan Chief Complaint/Hosp Course S- 12/11 abd pain/n remain. min flatus. no cp/dyspnea. occ constipation. family updated. 12/12 sp umbilical hernia repair with mesh. Remains under pulmonary care in ICU. O- vss PE no pallor; trach c/d/i s1s2 reg; no m/g/r ctab Bs dimin; tender; nd; obese. no r/r/g. Dressing c/d/i mild edema A/P 1. Incarcerated Hernia; stable. sp Umbilical hernia repair. Once stable advance diet/ activity. May need short-term snf/PT/DME. 2. M obesity; recurrent risk explained to family. 3. SBO; status post hernia repair 4. Trach status 5. Metastatic Thyroid Ca; lung mets. no ho cardiac/liver/colon mets. Echo stable 6. Dm/DL/obesity/ metabolic syndrome 7. Asthma; no ho intubation 8. Hypothyroidism 9. Psychosis? 10. Deconditioning may need PT. Problems: Exam/Review of Systems Vital Signs Vitals Vital Signs Date Time Temp Pulse Resp B/P Pulse Ox O2 Delivery O2 Flow Rate FiO2 12/12/16 11:16 8.0 30 12/12/16 08:00 71 12/12/16 07:22 11 100 12/12/16 06:00 129/55 Mechanical Ventilator 12/12/16 04:00 98.5 Intake and Output 12/11/16 12/11/16 12/12/16 15:00 23:00 07:00 Intake Total 1200 ml 650 ml Output Total 960 ml 360 ml Balance 240 ml 290 ml Results Result Diagram: 12/12/16 0427 12/12/16 0427 Results 24 hrs Laboratory Tests Test 12/11/16 12:35 12/11/16 21:21 12/12/16 00:11 12/12/16 04:27 Bedside Glucose 140 141 Blood Gas Specimen Source Blood arterial Arterial Blood Date Drawn 12/11/2016 10:30:12 PM Arterial Blood pH (Temp corrected) 7.412 Arterial Blood pCO2 (Temp correct) 49.6 H Arterial Blood pO2 (Temp corrected) 101.3 H Arterial Blood HCO3 30.9 H Arterial Blood Base Excess 5.2 H Arterial Blood Oxygen Saturation 97.5 Tonny Test ACCEPTAB Arterial Blood Gas Puncture Site Left Radial Arterial Blood Carboxyhemoglobin 0.3 Arterial Blood Methemoglobin 0.3 Blood Gas A-a O2 Differential 271.9 H Oxyhemoglobin Percent 96.9 Total Hemoglobin 13.2 Blood Gas Temperature 37.0 Blood Gas Respiration Rate 6.0 Blood Gas Actual Respiration Rate 16 Blood Gas Modality VENT - SIMV FiO2 60.0 Blood Gas Tidal Volume 500.0 Blood Gas Low PEEP Setting 5.0 Blood Gas Pressure Support 10 Blood Gas Notified Whom MA Blood Gas Notified Time 12/11/2016 10:38:05 PM White Blood Count 8.2 Red Blood Count 3.82 L Hemoglobin 11.2 L Hematocrit 36.1 L Mean Corpuscular Volume 94.5 Mean Corpuscular Hemoglobin 29.3 Mean Corpuscular Hemoglobin Concent 31.0 L Red Cell Distribution Width 13.6 Platelet Count 217 Mean Platelet Volume 9.8 Neutrophils % 69.8 Lymphocytes % 21.1 Monocytes % 8.1 Eosinophils % 0.2 Basophils % 0.4 Nucleated Red Blood Cells % 0.0 Neutrophils # 5.7 Lymphocytes # 1.7 Monocytes # 0.7 Eosinophils # 0.0 Basophils # 0.0 Nucleated Red Blood Cells # 0.0 Sodium Level 139 Potassium Level 4.0 Chloride Level 101 Carbon Dioxide Level 33 H Anion Gap 9 # Blood Urea Nitrogen 12 Creatinine 0.90 Glucose Level 126 Hemoglobin A1c 5.8 Calcium Level 8.1 L Phosphorus Level 4.0 Magnesium Level 2.1 Total Bilirubin 0.0 L Direct Bilirubin 0.00 Indirect Bilirubin 0.0 Aspartate Amino Transf (AST/SGOT) 21 Alanine Aminotransferase (ALT/SGPT) 23 Alkaline Phosphatase 70 Total Protein 6.1 # Albumin 3.2 L Globulin 2.90 Albumin/Globulin Ratio 1.10 Thyroid Stimulating Hormone (TSH) 1.100 Test 12/12/16 05:38 12/12/16 08:42 12/12/16 11:53 Bedside Glucose 111 117 97 Medications Medications Current Medications Lorazepam (Ativan) 1 mg Q4H PRN IV ANXIETY Last administered on 12/12/16t 06:11 ; Admin Dose 1 MG; Start 12/11/16 at 06:00 Hydralazine HCl (Apresoline) 10 mg Q6H PRN IV SBP ABOVE 160; Start 12/11/16 at 06:00 Insulin Aspart (Novolog Insulin Pen) NOVOLOG *MILD* ALGORI... Q6 SC ; Start at 06:00 Miscellaneous Information 1 ea NOTE XX ; Start 12/11/16 at 06:30 Glucose (Glutose) 15 gm Q15M PRN PO DECREASED GLUCOSE; Start 12/11/16 at 06:30 Glucose (Glutose) 22.5 gm Q15M PRN PO DECREASED GLUCOSE; Start 12/11/16 at 06: 30 Dextrose (D50w Syringe) 25 ml Q15M PRN IV DECREASED GLUCOSE; Start 12/11/16 at 06:30 Dextrose (D50w Syringe) 50 ml Q15M PRN IV DECREASED GLUCOSE; Start 12/11/16 at 06:30 Glucagon (Glucagen) 1 mg Q15M PRN IM DECREASED GLUCOSE; Start 12/11/16 at 06:30 Glucose (Glutose) 15 gm Q15M PRN BUCCAL DECREASED GLUCOSE; Start 12/11/16 at 06 :30 Famotidine 20 mg 20 mg DAILY IV Last administered on 12/12/16 08:30; Admin Dose 20 MG; Start 12/11/16 at 15:30 Cefazolin Sodium/ Dextrose (Ancef 2 Gm/50 ml (Pmx)) 50 ml @ 100 mls/hr Q8H IVPB Last administered on 12/12/16 10:58; Admin Dose 100 MLS/HR; Start at 18:30; Stop 12/12/16 at 18:29 Morphine Sulfate (morphine) 2 mg Q2H PRN IV PAIN LEVEL 6-10 Last administered on 12/12/16 08:32; Admin Dose 2 MG; Start 12/11/16 at 17:30 Oxycodone/ Acetaminophen (Percocet (5/ 325)) 1 tab Q6H PRN PO PAIN LEVEL 6-10; Start 12/11/16 at 17:30 Acetaminophen (Tylenol Tab) 650 mg Q6H PRN PO PAIN AND OR ELEVATED TEMP; Start 12/11/16 at 17:30 Ibuprofen (Motrin) 600 mg Q6H PRN PO PAIN LEVEL 1-5; Start 12/11/16 at 17:30 Ondansetron HCl 4 mg 4 mg Q6H PRN IV NAUSEA AND/OR VOMITING; Start 12/11/16 at 17:30 Potassium Chloride/Dextrose/ Sod Cl (D5-NS + KCl 20 Meq) 1,000 ml @ 100 mls/hr Q10H IV Last administered on 12/12/16 11:55; Admin Dose 100 MLS/HR; Start at 17:15 Enoxaparin Sodium (Lovenox) 40 mg DAILY@07 SC Last administered on 12/12/16 06 :17; Admin Dose 40 MG; Start 12/12/16 at 07:00 ADELAIDA MADISON MD Dec 12, 2016 12:22
--- NOTE | 2016-12-12 20:58 | RADRPT ---
Vent Rate: 85 bpm RR Interval: 0 msec [place] Interval: 132 msec QRS Duration: 84 msec QT Interval: 384 msec QTC Interval: 456 msec P-R-T [place]: 53 - 2 - 31 degrees Sinus rhythm with premature atrial complexes Possible Anterolateral infarct , age undetermined Abnormal ECG Electronically Signed By: Tong Torre [id number]
--- NOTE | 2016-12-12 23:59 | PN ---
DATE: 12/12/2016 SUBJECTIVE: Ms. Young is postop day 1 from incarcerated incisional hernia repair with mesh. Th e patient is without complaints. She is tolerating clears. PHYSICAL EXAMINATION: She is currently afebrile. Vital signs stable. Her abdomen is soft, nontend er, nondistended. Her wound is clean, dry, and intact. She voided 5 times as well today. LABORATORY DATA: Today reveal white count of 8, hematocrit 36 and platelets of 217. Sodium 139, po tassium 4, chloride 101, CO2 33, BUN and creatinine 12 and 0.9, and glucose 126. ASSESSMENT AND PLAN: 1. Ms. Young is postop day 1 from an incarcerated incisional hernia repair with mesh. 2. Doing well. 3. Advance diet to soft diet in a.m. 4. Okay for discharge from a surgical perspective when cleared by Medicine. 5. The patient is to follow up in my office in 2 weeks. Dictated By: CYNTHIA BRANHAM/SIVAKUMAR Conf#: [id number] DID#: [id number]
[2016-12-13] VITALS (13 sets, daily range): BP systolic 114–158; BP diastolic 58–87; PULSE 77–101; RESP 16–22
[2016-12-13] MEDS: LORAZEPAM 2 MG INJ IV PRN ×3 (00:16→18:21)
[2016-12-13] MEDS: D5-NS + KCL 20 MEQ 1,000 ML IV SCH ×2 (00:44→10:42)
[2016-12-13] MEDS: INSULIN ASPART [NOVOLOG] 3 ML PEN SC SCH ×6 (06:00→20:43)
[2016-12-13] MEDS: ENOXAPARIN 40 MG/0.4 ML SYG SC SCH (06:36)
--- NOTE | 2016-12-13 07:46 | PN ---
Date/Time of Note Date/Time of Note DATE: 12/13/16 TIME: 07:45 Assessment/Plan VTE Prophylaxis VTE Prophylaxis Intervention: LMWH Lines/Catheters IV Catheter Type (from Nrsg): Peripheral IV Urinary Cath still in place: Yes Reason Cath still needed: urinary retention Assessment/Plan Chief Complaint/Hosp Course S- 12/11 abd pain/n remain. min flatus. no cp/dyspnea. occ constipation. family updated. 12/12 sp umbilical hernia repair with mesh. Remains under pulmonary care in ICU. 12/13- dyspnea? trach discomfort? anxiety/ heat intoleance from narcotics? trach adjusted. son updated. advancing activity/diet. O- vss PE no pallor; trach c/d/i s1s2 reg; no m/g/r ctab Bs dimin; tender; nd; obese. no r/r/g. Dressing c/d/i mild edema A/P 1. Incarcerated Hernia; stable. sp Umbilical hernia repair. Stable advance diet / activity. May need short-term snf/PT/DME. 2. M obesity; recurrent risk explained to family. 3. SBO; status post hernia repair 4. Trach status 5. Metastatic Thyroid Ca; lung mets. no ho cardiac/liver/colon mets. Echo stable 6. Dm/DL/obesity/ metabolic syndrome 7. Asthma; no ho intubation 8. Hypothyroidism 9. Psychosis? 10. Deconditioning may need PT. Problems: Exam/Review of Systems Vital Signs Vitals Vital Signs Date Time Temp Pulse Resp B/P Pulse Ox O2 Delivery O2 Flow Rate FiO2 12/13/16 07:29 98.5 95 121/58 95 12/13/16 05:13 22 Aerosol 5.0 30 Aerosol Mask Intake and Output 12/12/16 12/12/16 12/13/16 15:00 23:00 07:00 Intake Total 400 ml Output Total 100 ml Balance 300 ml Results Result Diagram: 12/12/16 0427 12/12/16 0427 Results 24 hrs Laboratory Tests Test 12/12/16 08:42 12/12/16 11:53 12/12/16 17:42 12/13/16 00:43 Bedside Glucose 117 97 126 117 Test 12/13/16 06:38 Bedside Glucose 121 Medications Medications Current Medications Lorazepam (Ativan) 1 mg Q4H PRN IV ANXIETY Last administered on 12/13/16t 06:40 ; Admin Dose 1 MG; Start 12/11/16 at 06:00 Hydralazine HCl (Apresoline) 10 mg Q6H PRN IV SBP ABOVE 160; Start 12/11/16 at 06:00 Insulin Aspart (Novolog Insulin Pen) NOVOLOG *MILD* ALGORI... Q6 SC ; Start at 06:00 Miscellaneous Information 1 ea NOTE XX ; Start 12/11/16 at 06:30 Glucose (Glutose) 15 gm Q15M PRN PO DECREASED GLUCOSE; Start 12/11/16 at 06:30 Glucose (Glutose) 22.5 gm Q15M PRN PO DECREASED GLUCOSE; Start 12/11/16 at 06: 30 Dextrose (D50w Syringe) 25 ml Q15M PRN IV DECREASED GLUCOSE; Start 12/11/16 at 06:30 Dextrose (D50w Syringe) 50 ml Q15M PRN IV DECREASED GLUCOSE; Start 12/11/16 at 06:30 Glucagon (Glucagen) 1 mg Q15M PRN IM DECREASED GLUCOSE; Start 12/11/16 at 06:30 Glucose (Glutose) 15 gm Q15M PRN BUCCAL DECREASED GLUCOSE; Start 12/11/16 at 06 :30 Famotidine (Pepcid Iv) 20 mg DAILY IV Last administered on 12/12/16 08:30; Admin Dose 20 MG; Start 12/11/16 at 15:30 Morphine Sulfate (morphine) 2 mg Q2H PRN IV PAIN LEVEL 6-10 Last administered on 12/12/16 20:04; Admin Dose 2 MG; Start 12/11/16 at 17:30 Oxycodone/ Acetaminophen (Percocet (5/ 325)) 1 tab Q6H PRN PO PAIN LEVEL 6-10; Start 12/11/16 at 17:30 Acetaminophen (Tylenol Tab) 650 mg Q6H PRN PO PAIN AND OR ELEVATED TEMP; Start 12/11/16 at 17:30 Ibuprofen (Motrin) 600 mg Q6H PRN PO PAIN LEVEL 1-5; Start 12/11/16 at 17:30 Ondansetron HCl 4 mg 4 mg Q6H PRN IV NAUSEA AND/OR VOMITING; Start 12/11/16 at 17:30 Potassium Chloride/Dextrose/ Sod Cl (D5-NS + KCl 20 Meq) 1,000 ml @ 100 mls/hr Q10H IV Last administered on 12/13/16 00:44; Admin Dose 100 MLS/HR; Start at 17:15 Enoxaparin Sodium (Lovenox) 40 mg DAILY@07 SC Last administered on 12/13/16 06 :36; Admin Dose 40 MG; Start 12/12/16 at 07:00 ADELAIDA MADISON MD Dec 13, 2016 07:46
[2016-12-13] MEDS ORDERED: LORAZEPAM 2 MG INJ IV ONE (08:30)
[2016-12-13] MEDS: ASPIRIN (EC) 81 MG TAB PO SCH (08:36)
[2016-12-13] MEDS: FAMOTIDINE 20 MG INJ IV SCH (08:43)
[2016-12-13 09:39] LABS: ADD SCAN DIFF NO
[2016-12-13 09:44] LABS: BASOPHILS % 0.3 % (0.0-2.0); EOSINOPHILS # 0.1 10^3/ul (0.0-0.5); HEMATOCRIT 36.7 % (37.0-47.0); HEMOGLOBIN 11.5 g/dl (12.0-16.0); LYMPHOCYTES # 1.8 10^3/ul (0.8-2.9); LYMPHOCYTES % 24.3 % (15.0-51.0); MEAN CORPUSCULAR HEMOGLOBIN 29.9 pg (29.0-33.0); MEAN CORPUSCULAR HGB CONC 31.3 g/dl (32.0-37.0); MEAN CORPUSCULAR VOLUME 95.6 fl (82.0-101.0); MONOCYTE # 0.7 10^3/ul (0.3-0.9); MONOCYTES % 9.5 % (0.0-11.0); NEUTROPHIL # 4.7 10^3/ul (1.6-7.5); NEUTROPHILS % 64.5 % (39.0-77.0); PLATELET COUNT 201 10^3/UL (140-415); RED BLOOD COUNT 3.84 10^6/ul (4.20-5.40); RED CELL DISTRIBUTION WIDTH 13.3 % (11.5-14.5); WHITE BLOOD COUNT 7.3 10^3/ul (4.8-10.8)
[2016-12-13 09:57] LABS: ALBUMIN 3.2 g/dl (3.3-4.9); ALBUMIN/GLOBULIN RATIO 1.06; BILIRUBIN,INDIRECT 0.4 mg/dl (0-1.1); BILIRUBIN,TOTAL 0.4 mg/dl (0.2-1.3); CALCIUM 8.1 mg/dl (8.4-10.2); CREATININE 0.76 mg/dl (0.44-1.00); MAGNESIUM 2.1 mg/dl (1.7-2.5); PHOSPHORUS 3.3 mg/dl (2.5-4.9); POTASSIUM 4.1 mmol/L (3.5-5.1); TOTAL PROTEIN 6.2 g/dl (6.1-8.1)
[2016-12-13 10:25] LABS: THYROID STIMULATING HORMONE 0.886 MIU/L (0.465-4.680)
--- NOTE | 2016-12-13 11:06 | CONS ---
Date/Time of Note Date/Time of Note DATE: 12/13/16 TIME: 11:04 Assessment/Plan Assessment/Plan Additional Assessment/Plan Assessment recommendations; next 1. Patient admitted for incarcerated ventral hernia status post surgery doing very well. 2. Chronic respiratory failure, maintain on tracheostomy with Passy-Baldwin valve. 3. Metastatic thyroid cancer. Continue current treatment. Patient can be discharged home. Consultation Date/Type/Reason Admit Date/Time Dec 12, 2016 at 08:42 Initial Consult Date 12/12/16 Type of Consultation: Pulmonary/critical care 24 HR Interval Summary Free Text/Dictation Patient is doing very well. Has been weaned down to T-piece and is handling Passy-Baldwin valve very well. Transfer out of ICU to telemetry unit. General exam; elderly lady, awake alert currently in no distress able to talk. Denies any shortness of breath or abdominal pain nausea vomiting. Exam/Review of Systems Vital Signs Vitals Vital Signs Date Time Temp Pulse Resp B/P Pulse Ox O2 Delivery O2 Flow Rate FiO2 12/13/16 08:24 101 12/13/16 07:29 98.5 121/58 95 12/13/16 05:13 22 Aerosol 5.0 30 Aerosol Mask Intake and Output 12/12/16 12/12/16 12/13/16 15:00 23:00 07:00 Intake Total 400 ml 100 ml Output Total 100 ml Balance 300 ml 100 ml Exam HEENT exam is; supple neck, no JVD. No lymphadenopathy. Midline trachea. Patient is edentulous. Tracheostomy in place with clean insertion site. Chest exam; diminished but clear vessel bilaterally. S1-S2 audible, no murmurs. Regular rhythm. Abdomen exam is; soft, midline dressing in place. Bowel sounds audible. No organomegaly. Protuberant. Extremity exam; no peripheral edema. Pulses 1+ bilaterally. SIEVE MAKER exam is; no focal deficit. Results Result Diagram: 12/13/1620 12/13/16 0920 Results 24 hrs Laboratory Tests Test 12/12/16 11:53 12/12/16 17:42 12/13/16 00:43 12/13/16 06:38 Bedside Glucose 97 126 117 121 Test 12/13/16 09:20 White Blood Count 7.3 Red Blood Count 3.84 L Hemoglobin 11.5 L Hematocrit 36.7 L Mean Corpuscular Volume 95.6 Mean Corpuscular Hemoglobin 29.9 Mean Corpuscular Hemoglobin Concent 31.3 L Red Cell Distribution Width 13.3 Platelet Count 201 Mean Platelet Volume 10.0 Neutrophils % 64.5 Lymphocytes % 24.3 Monocytes % 9.5 Eosinophils % 1.0 Basophils % 0.3 Nucleated Red Blood Cells % 0.0 Neutrophils # 4.7 Lymphocytes # 1.8 Monocytes # 0.7 Eosinophils # 0.1 Basophils # 0.0 Nucleated Red Blood Cells # 0.0 Sodium Level 139 Potassium Level 4.1 Chloride Level 103 Carbon Dioxide Level 32 H Anion Gap 8 Blood Urea Nitrogen 9 Creatinine 0.76 Glucose Level 111 Hemoglobin A1c 5.8 Calcium Level 8.1 L Phosphorus Level 3.3 Magnesium Level 2.1 Total Bilirubin 0.4 Direct Bilirubin 0.00 Indirect Bilirubin 0.4 Aspartate Amino Transf (AST/SGOT) 21 Alanine Aminotransferase (ALT/SGPT) 22 Alkaline Phosphatase 69 Total Protein 6.2 Albumin 3.2 L Globulin 3.00 Albumin/Globulin Ratio 1.06 Thyroid Stimulating Hormone (TSH) 0.886 Medications Medications Current Medications Lorazepam (Ativan) 1 mg Q4H PRN IV ANXIETY Last administered on 12/13/16t 06:40 ; Admin Dose 1 MG; Start 12/11/16 at 06:00 Hydralazine HCl (Apresoline) 10 mg Q6H PRN IV SBP ABOVE 160; Start 12/11/16 at 06:00 Insulin Aspart (Novolog Insulin Pen) NOVOLOG *MILD* ALGORI... Q6 SC ; Start at 06:00 Miscellaneous Information 1 ea NOTE XX ; Start 12/11/16 at 06:30 Glucose (Glutose) 15 gm Q15M PRN PO DECREASED GLUCOSE; Start 12/11/16 at 06:30 Glucose (Glutose) 22.5 gm Q15M PRN PO DECREASED GLUCOSE; Start 12/11/16 at 06: 30 Dextrose (D50w Syringe) 25 ml Q15M PRN IV DECREASED GLUCOSE; Start 12/11/16 at 06:30 Dextrose (D50w Syringe) 50 ml Q15M PRN IV DECREASED GLUCOSE; Start 12/11/16 at 06:30 Glucagon (Glucagen) 1 mg Q15M PRN IM DECREASED GLUCOSE; Start 12/11/16 at 06:30 Glucose (Glutose) 15 gm Q15M PRN BUCCAL DECREASED GLUCOSE; Start 12/11/16 at 06 :30 Famotidine (Pepcid Iv) 20 mg DAILY IV Last administered on 12/12/16 08:30; Admin Dose 20 MG; Start 12/11/16 at 15:30 Morphine Sulfate (morphine) 2 mg Q2H PRN IV PAIN LEVEL 6-10 Last administered on 12/12/16 20:04; Admin Dose 2 MG; Start 12/11/16 at 17:30 Oxycodone/ Acetaminophen (Percocet (5/ 325)) 1 tab Q6H PRN PO PAIN LEVEL 6-10; Start 12/11/16 at 17:30 Acetaminophen (Tylenol Tab) 650 mg Q6H PRN PO PAIN AND OR ELEVATED TEMP; Start 12/11/16 at 17:30 Ibuprofen (Motrin) 600 mg Q6H PRN PO PAIN LEVEL 1-5; Start 12/11/16 at 17:30 Ondansetron HCl 4 mg 4 mg Q6H PRN IV NAUSEA AND/OR VOMITING; Start 12/11/16 at 17:30 Potassium Chloride/Dextrose/ Sod Cl (D5-NS + KCl 20 Meq) 1,000 ml @ 50 mls/hr Q20H IV Last administered on 12/13/16 00:44; Admin Dose 100 MLS/HR; Start at 17:15 Enoxaparin Sodium (Lovenox) 40 mg DAILY@07 SC Last administered on 12/13/16 06 :36; Admin Dose 40 MG; Start 12/12/16 at 07:00 Senna/Docusate Sodium (Senokot-S) 2 tab HS PO ; Start 12/13/16 at 21:00 Aspirin (Halfprin) 81 mg DAILY PO Last administered on 12/13/16 08:36; Admin Dose 81 MG; Start 12/13/16 at 09:00 BRANDEN SCOTT Dec 13, 2016 11:06
[2016-12-13] MEDS: MUPIROCIN 2% 22 GM OINT TOP SCH ×2 (12:58→23:13)
[2016-12-13] MEDS: ALBUTEROL 0.083% (NEB) 2.5 MG/3 ML AMP HHN PRN (13:41)
[2016-12-13] MEDS: ACETAMINOPHEN 325 MG TAB PO PRN (19:55)
[2016-12-13] MEDS ORDERED: SENNA/DOCUSATE NA (8.6MG/50MG) TAB PO SCH (21:00)
[2016-12-13] MEDS ORDERED: Insulin NOVOLOG SS MILD Algorithm (SS with meals and bedtime) SC SCH (21:00)
[2016-12-13] MEDS ORDERED: INSULIN ASPART [NOVOLOG] 3 ML PEN SC SCH (21:00)
[2016-12-14] VITALS (9 sets, daily range): BP systolic 118–144; BP diastolic 61–91; PULSE 77–116; RESP 18–21
[2016-12-14] MEDS ORDERED: ACCU-CHEK XX SCH (02:00)
[2016-12-14] MEDS ORDERED: ACCUCHECK AT 2AM (Patients on SS coverage) XX SCH (02:00)
[2016-12-14] MEDS: ENOXAPARIN 40 MG/0.4 ML SYG SC SCH (05:47)
[2016-12-14] MEDS: LORAZEPAM 2 MG INJ IV PRN (06:02)
[2016-12-14] MEDS: D5-NS + KCL 20 MEQ 1,000 ML IV SCH (06:03)
[2016-12-14 06:35] LABS: ADD SCAN DIFF NO
[2016-12-14] MEDS: LEVOTHYROXINE 112 MCG TAB PO SCH ×3 (06:37→06:49)
[2016-12-14 06:54] LABS: BASOPHILS % 0.2 % (0.0-2.0); EOSINOPHILS # 0.1 10^3/ul (0.0-0.5); EOSINOPHILS % 0.6 % (0.0-7.0); HEMATOCRIT 35.7 % (37.0-47.0); HEMOGLOBIN 11.1 g/dl (12.0-16.0); LYMPHOCYTES # 2.9 10^3/ul (0.8-2.9); LYMPHOCYTES % 32.5 % (15.0-51.0); MEAN CORPUSCULAR HEMOGLOBIN 29.7 pg (29.0-33.0); MEAN CORPUSCULAR HGB CONC 31.1 g/dl (32.0-37.0); MEAN CORPUSCULAR VOLUME 95.5 fl (82.0-101.0); MEAN PLATELET VOLUME 10.6 fl (7.4-10.4); MONOCYTES % 10.9 % (0.0-11.0); NEUTROPHIL # 4.9 10^3/ul (1.6-7.5); NEUTROPHILS % 55.5 % (39.0-77.0); PLATELET COUNT 220 10^3/UL (140-415); RED BLOOD COUNT 3.74 10^6/ul (4.20-5.40); RED CELL DISTRIBUTION WIDTH 13.6 % (11.5-14.5); WHITE BLOOD COUNT 8.8 10^3/ul (4.8-10.8)
[2016-12-14 07:07] LABS: ALANINE AMINOTRANSFERASE 22 IU/L (13-69); ALBUMIN 3.2 g/dl (3.3-4.9); ALBUMIN/GLOBULIN RATIO 1.03; ALKALINE PHOSPHATASE 69 IU/L (42-121); ANION GAP 10 (8-16); ASPARTATE AMINO TRANSFERASE 19 IU/L (15-46); BILIRUBIN,INDIRECT 0.6 mg/dl (0-1.1); BILIRUBIN,TOTAL 0.6 mg/dl (0.2-1.3); BLOOD UREA NITROGEN 10 mg/dl (7-20); CALCIUM 8.2 mg/dl (8.4-10.2); CARBON DIOXIDE 31 mmol/L (21-31); CHLORIDE 104 mmol/L (97-110); CREATININE 0.76 mg/dl (0.44-1.00); GLUCOSE 134 mg/dl (70-220); MAGNESIUM 2.1 mg/dl (1.7-2.5); PHOSPHORUS 2.9 mg/dl (2.5-4.9); SODIUM 141 mmol/L (135-144); TOTAL PROTEIN 6.3 g/dl (6.1-8.1)
[2016-12-14 07:13] LABS: TROPONIN-I < 0.012 ng/ml (0.00-0.12)
[2016-12-14] MEDS: INSULIN ASPART [NOVOLOG] 3 ML PEN SC SCH ×3 (07:55→17:55)
[2016-12-14] MEDS: ASPIRIN (EC) 81 MG TAB PO SCH (08:54)
[2016-12-14] MEDS: FAMOTIDINE 20 MG INJ IV SCH (08:54)
[2016-12-14] MEDS: MUPIROCIN 2% 22 GM OINT TOP SCH (08:54)
[2016-12-14] MEDS: ALBUTEROL 0.083% (NEB) 2.5 MG/3 ML AMP HHN PRN ×2 (11:34→17:43)
[2016-12-14] MEDS: ACETAMINOPHEN 325 MG TAB PO PRN (12:14)
--- NOTE | 2016-12-14 17:08 | PDOCDIS ---
Discharge Instructions DIAGNOSIS Discharge Diagnosis: bowel obstruction due to hernia CONDITION Patient Condition: Stable HOME CARE INSTRUCTIONS: Diet Instructions: Low Fat /CholesterolSpecial Diet: stay hydrated ACTIVITY: Activity Restrictions: Slowly Increase Activity Avoid heavy lifting FOLLOW UP/APPOINTMENTS Appointments Appt Dr Carrillo (surgeon) 1wk PCP 1wk ADELAIDA MADISON MD Dec 14, 2016 17:08
[2016-12-14] MEDS ORDERED: ACET325T40 PO (17:17)
[2016-12-14] MEDS ORDERED: DOCU-144 PO (17:17)
--- NOTE | 2016-12-14 19:19 | DS ---
DATE OF ADMISSION: 12/12/2016 DATE OF DISCHARGE: 12/14/2016 PRIMARY CARE PHYSICIAN: Unknown. CONSULTANTS: Dr. Lee, Dr. Arguelles DIAGNOSIS ON ADMISSION: Small-bowel obstruction. DIAGNOSES ON DISCHARGE: 1. Small-bowel obstruction. 2. Incarcerated hernia. 3. Tracheostomy status. 4. Deconditioning. 5. Prediabetes. 6. Methicillin resistant Staphylococcus aureus nares status, daughter updated. 7. Mild anemia. HOSPITAL COURSE: This is an 80-year-old female admitted with small-bowel obstruction due to incarce rated ventral hernia. The patient underwent repair of umbilical hernia with mesh, reduction of smal l-bowel obstruction under the care of Dr. Lee. Please see operative report for complete details. Large Ventralex mesh placed. The patient is presently stable, tolerating diet, pain is controlled , and she is stable and fit for discharge. The patient was seen in postoperative care by pulmonary. Tracheostomy addressed. This patient has metastatic thyroid cancer. Needs advanced care planning established. The patient is presently stable and fit for discharge. IMAGING STUDIES: A 2-D echo EF of 65, mild concentric LVH. Last chest x-ray shows cardiomegaly. C AT scan of the chest done notes multiple bilateral lung nodules suspicious for metastases, atheroscl erosis. There is known metastases in the lungs according to the family. CAT scan abdomen and pelvi s was read as moderate right lower ventral abdominal wall hernia containing multiple loops of small bowel, resulting in small-bowel obstruction, multiple bilateral pulmonary nodules, moderate cardiome honey. LABORATORY DATA: MRSA nares positive, colonized. White cell count of 8.8, hemoglobin and hematocri t of 11 and 35, platelets of 220. INR 0.9. CMP unremarkable. A1c of 5.8. TSH 0.88. DISCHARGE PLAN: Home. Follow up with primary in 1 week. General surgery 1 week. DIET: Low cholesterol, salt. ACTIVITY: No heavy lifting. DURABLE MEDICAL EQUIPMENT: Binder. BARRIERS TO DISCHARGE: None. PENDING TESTS: None. FUNCTIONAL STATUS: The patient is awake, alert. She and daughter accept the plan of care and optio ns. REASON FOR ADMISSION: Abdominal pain, bowel obstruction. ALLERGIES: CLINDAMYCIN AND PREDNISONE. STOPPED MEDICATIONS: 1. Os-Jai. 2. Benadryl. 3. Iron. 4. Lasix. 5. Potassium. 6. Ativan. CONTINUED MEDICATIONS: 1. Albuterol every 4 hours as needed. 2. Aspirin 81 daily. 3. Lipitor 40. 4. Vitamin D 50,000 units ____. 5. Nexium 40. 6. Fish oil 1000 mg 3 times daily. 7. Synthroid 112 mcg daily. 8. Toprol-XL 25 mg daily. 9. Nystatin topically daily. 10. Actos 45 daily. 11. Seroquel XR 150 mg at bedtime daily. ALTERED MEDICATIONS: None. NEW MEDICATIONS: 1. Tylenol as needed. 2. Colace 200 daily. 3. Demorest 10 one every 4 to 6 hours as needed for pain. Dictated By: ADELAIDA TREJO/NTS Conf#: [id number] DID#: [id number] CC: CYNTHIA LEE MD; JESSE NAIDU MD; BRANDEN ARGUELLES MD;*EndCC*
== END 2016-12-14 18:20 | disposition home health service (06) | DRG 354 ==
LOC: E/R 23:31 → MS2 12-11 03:42 → ICU 12-11 21:12 → OBSVTOIN 12-12 08:42 → TEL 12-12 23:53
PROVIDERS: ADMIT Internal Medicine; ATTEND Internal Medicine
PROC: 0WUF0JZ Supplement Abdominal Wall with Synthetic Substitute, Open Approach (ICD-10-PCS; principal; 2016-12-11 17:30)
DX: K43.6 Other and unspecified ventral hernia with obstruction, without gangrene (principal); Z68.41 Body mass index [BMI] 40.0-44.9, adult; Z93.0 Tracheostomy status; C78.00 Secondary malignant neoplasm of unspecified lung; J96.10 Chronic respiratory failure, unspecified whether with hypoxia or hypercapnia; D64.9 Anemia, unspecified; E11.9 Type 2 diabetes mellitus without complications; E66.01 Morbid (severe) obesity due to excess calories; E88.81 Metabolic syndrome and other insulin resistance; R73.03 Prediabetes; Z22.322 Carrier or suspected carrier of Methicillin resistant Staphylococcus aureus; E03.9 Hypothyroidism, unspecified; I10 Essential (primary) hypertension; J45.909 Unspecified asthma, uncomplicated; E78.00 Pure hypercholesterolemia, unspecified; F41.9 Anxiety disorder, unspecified; C73 Malignant neoplasm of thyroid gland; F32.9 Major depressive disorder, single episode, unspecified
CPT/HCPCS: 36415; 36600; 71010; 71250; 74176; 80053; 82306; 82803; 82962; 83036; 83605; 83690; 83735; 84100; 84443; 84484; 85025; 85610; 85730; 87081; 93005; 93306; 94002; 94003; 94640; 94664; 96374; 96375; 96376; 97162; 99217; C1781; G0378; J0330; J0690; J1650; J1815; J2060; J2270; J2405; J3010; J3480; J7040; J7042

== ENCOUNTER 2018-07-02 13:09 | Inpatient (IN) | END 2018-07-05 14:15 | disposition home or self-care (01) | DRG 177 ==

== ENCOUNTER 2018-09-13 04:21 | Inpatient (IN) | payer MEDICARE, OTHER ==
[~2018-09-13] VITALS: Ht 165.1 cm; Wt 98.4 kg
[2018-09-13] VITALS (8 sets, daily range): BP systolic 95–110; BP diastolic 47–55; PULSE 72–103; RESP 18–19; Ht 165.1 cm; Wt 98.4 kg
[~2018-09-13 04:21] MED LIST changes: -ALBU2.5V3 NEB; +AMOX1TAB10 PO; -ASPI-664 PO; -ATOR40TA68 PO; -BEN50 PO; -CALC500T12 PO; +CALC500T91 PO; -CHOL50009 PO; +DEXA0.5T PO; +FURO20TA3 PO; -FURO40TA4 PO; +LEVA15HF6 INH; -LEVO112T42 PO; +LEVO25TA6 PO; -LORA-444 PO; +MAGN64TA10 PO; +METO-335 PO; -METO25TA7 PO; -NYST15CR28 TOP; -OMEG-135 PO; +ONDA8TAB14 PO; -PIOG45TA15 PO; +POTA20TA96 PO; -POTA8CAP PO; -QUET150T PO; +QUET50TA PO; +SENN-120 PO; +SPIR25TA PO
[2018-09-13] MEDS ORDERED: CEFEPIME 1GM/50 ML (PMX) 50 ML IVPB STA (05:55)
[2018-09-13] MEDS ORDERED: VANCOMYCIN 1 GM (PMX) 250 ML IVPB STA (05:55)
[2018-09-13] MEDS: PANTOPRAZOLE (EC) 40 MG TAB PO SCH (06:00)
[2018-09-13] MEDS ORDERED: ACETAMINOPHEN 650 MG SUPP PR ONE (06:30)
[2018-09-13] MEDS: SOD CHLORIDE 0.9% 1,000 ML IV SCH ×2 (06:56→22:51)
[2018-09-13] MEDS ORDERED: ONDANSETRON 4 MG INJ IV PRN (07:00)
[2018-09-13] MEDS: LEVOTHYROXINE 25 MCG TAB PO SCH (07:00)
[2018-09-13] MEDS ORDERED: NACL 0.9% 3 ML SYG IV SCH (07:00)
[2018-09-13] MEDS ORDERED: VANCOMYCIN IV PER PHARMACY XX SCH (07:30)
[2018-09-13] MEDS ORDERED: LEVO112T57 ORAL (07:46)
[2018-09-13] MEDS ORDERED: IBUP-1542 ORAL (07:48)
[2018-09-13] MEDS ORDERED: LORA-444 PO (07:48)
[2018-09-13] MEDS ORDERED: PIOG45TA64 ORAL (07:48)
[2018-09-13] MEDS ORDERED: COLC0.6T6 PO (07:53)
--- NOTE | 2018-09-13 07:54 | HP ---
Date/Time of Note Date/Time of Note DATE: 09/13/18 TIME: 07:01 Assessment/Plan VTE Prophylaxis SCD applied (from Nsg): Yes Pharmacological prophylaxis: heparin Lines/Catheters IV Catheter Type (from Nrsg): Saline Lock Assessment/Plan Hospital Course This is a 82-year-old female being admitted to the telemetry floor for: #1 acute on chronic respiratory failure: Hypoxic event secondary to dislodged trach which was subsequently reinserted. Patient at the current time is satting 100% on 4 L trach collar. He does have coarse breath sounds bilaterally however given her history of pulmonary nodules unsure whether there is a possible underlying infectious process. Given that the fact that she did present with a fever and in respiratory distress, there is concern for possible sepsis with source possibly being underlying pneumonia. #2 suspect sepsis: Patient did present with a fever In respiratory distress, suspect possible community-acquired/aspiration pneumonia versus other. We will try to obtain urinalysis as well. Lactate within normal values. Continue antibiotics at the current time of Vanco and Zosyn. Await culture results. I have also requested to obtain a urinalysis however the family at the current time is not wanting a Tan catheter straight catheter to get a urine sample as I do not want to cause the patient any discomfort. We will try to see if we can get a urine sample upon clean catch. #3 acute encephalopathy: Toxic metabolic versus other. Patient at the current time is arousable to sternal rub and verbal commands however she subsequently falls back asleep. Will obtain a CT of the brain without contrast to further assess. Will avoid any sedatives at the current time. Will monitor mental status. Swallow evaluation. #4 Acute kidney injury: With contraction alkalosis ,likely secondary to mild dehydration, possible sepsis. At the current time will hydrate the patient with normal saline. Avoid neurotoxic agents. Monitor closely. #5history of metastatic thyroid cancer: S/p surgical resection with known pulmonary metastases with tracheostomy, follow-up outpatient oncology. #6 history of aspiration pneumonia: Please see #1 #7 GERD: IV Protonix at the current time, will once patient passes swallow eval can resume p.o. #8 hypothyroidism: IV levothyroxine 12.5 mcg, once patient passes p.o. can resume home dose. #9 suspect anemia of chronic disease: Currently hemoglobin is stable. Continue to monitor #10 hypertension: Resume home blood pressure medications once blood pressures are more stable. #11 DVT GI prophylaxis: Heparin subcu, Protonix No. # 12 CODE STATUS: DNR, DNI, okay for trach to vent temporary purposes. We will also consult palliative care for possible hospice evaluation as the family would like more information on this. Further treatment strategy will be implemented as per the clinical course Result Diagram: 09/13/18 0435 09/13/18 0435 Results 24hrs Laboratory Tests Test 09/13/18 04:35 09/13/18 05:25 White Blood Count 6.6 Red Blood Count 3.80 L Hemoglobin 11.1 L Hematocrit 37.3 Mean Corpuscular Volume 98.2 Mean Corpuscular Hemoglobin 29.2 Mean Corpuscular Hemoglobin Concent 29.8 L Red Cell Distribution Width 14.0 Platelet Count 196 # Mean Platelet Volume 10.8 H Immature Granulocytes % 0.600 H Neutrophils % 72.5 Lymphocytes % 19.4 Monocytes % 6.1 Eosinophils % 0.9 Basophils % 0.5 Nucleated Red Blood Cells % 0.0 Immature Granulocytes # 0.040 H Neutrophils # 4.8 Lymphocytes # 1.3 Monocytes # 0.4 Eosinophils # 0.1 Basophils # 0.0 Nucleated Red Blood Cells # 0.0 Prothrombin Time 13.0 Prothrombin Time Ratio 1.0 INR International Normalized Ratio 0.97 Activated Partial Thromboplast Time 25.2 Sodium Level 142 Potassium Level 3.9 Chloride Level 85 L Carbon Dioxide Level 44 *H Anion Gap 13 Blood Urea Nitrogen 35 H Creatinine 1.24 H Est Glomerular Filtrat Rate mL/min Glucose Level 155 Calcium Level 8.1 L Total Bilirubin 0.2 Direct Bilirubin 0.00 Indirect Bilirubin 0.2 Aspartate Amino Transf (AST/SGOT) 23 Alanine Aminotransferase (ALT/SGPT) 26 Alkaline Phosphatase 52 Troponin I 0.037 Total Protein 7.3 Albumin 4.0 Globulin 3.30 H Albumin/Globulin Ratio 1.21 POC Venous Lactate 1.7 HPI/ROS Admit Date/Time Admit Date/Time Hx of Present Illness Chief complaint shortness of breath, dislodged trach This is a 82-year-old female with a medical history of metastatic thyroid cancer s/p surgical resection with known pulmonary metastases with tracheostomy who presented after an episode of respiratory distress at home today. She is accompanied by her family at the bedside. The daughter reports that the patient was in respiratory distress and when she went into the room she noticed that the patient's trach was slightly dislodged. The daughter repositioned the trach which did subsequently help the patient to improve her breathing. Upon arrival to the emergency department the patient was noted to to not be in any respiratory distress. As per the family the patient had been noted to be agitated over the last day or so. They do not report any fevers or cough or shortness of breath. Patient has not been reporting any chest pains. No blue discoloration of the skin or cyanosis as per the daughter.. They have reported that at times he noticed bloody secretions coming out of the trach site for which she has an appointment with her ENT in the coming week or so. At baseline the family states that the patient does still communicate and she tolerates a pured diet. Patient has a history of thyroid cancer and she is being followed at [facility], she is currently not undergoing any treatments. Patient also is a DNR, DNI she is okay to connect to the vent for temporary measures but not prolonged care. Allergies: Clindamycin, iodine, morphine, prednisone Medications: See MARY BETH RODRIGUEZ Subjective hx not possible: pt critical status (Patient is arousable to sternal rub but at the current time she is altered) PMH/Family/Social Past Medical History history of metastatic thyroid cancer s/p surgical resection with known pulmonary metastases with tracheostomy, history of aspiration pneumonia, GERD, hypothyroidism, anemia, hypertension Medications Current Medications Vancomycin HCl 250 ml @ 125 mls/hr ONCE STAT IVPB ; Start 09/13/18 at 05:55; Stop 09/13/18 at 07:54 Sodium Chloride 1,000 ml @ 70 mls/hr [id number] IV ; Start 09/13/18 at 06:56; Status UNV IV Flush (NS 3 ml) 3 ml PER PROTOCOL IV ; Start 09/13/18 at 07:00; Status UNV Ondansetron HCl (Zofran Inj) 4 mg Q6H PRN IV NAUSEA AND/OR VOMITING; Start 09/13/18 at 07:00; Status UNV Acetaminophen (Tylenol Tab) 650 mg Q6H PRN PO PAIN LEVEL 1-3 OR FEVER; Start 09/13/18 at 07:00; Status UNV Heparin Sodium (Porcine) (Heparin (5000 Units/1ml)) 5,000 unit Q12 SC ; Start 09/13/18 at 09:00; Status UNV Coded Allergies: prednisone (Verified Allergy, Mild, HALLUCINATIONS, 12/04/13) clindamycin (Verified Allergy, Unknown, 12/10/16) iodine (Verified Allergy, Unknown, RASHES, 07/03/18) morphine (Verified Allergy, Unknown, RASHES, 07/03/18) Past Surgical History Tracheostomy Past Surgical Hx: other Family History Significant Family History: no pertinent family hx Social History Alcohol Use: none Smoking Status: Unknown if ever smoked Drug Use: none Exam/Review of Systems Vital Signs Vitals Vital Signs Date Temp Pulse Resp B/P (MAP) Pulse Ox O2 O2 Flow FiO2 Time Delivery Rate 09/13/18 99.5 06:56 09/13/18 66 21 101/47 98 Trach 4.0 06:45 (65) Collar Exam Exam General: Patient lying in bed in no acute distress, lethargic arousable with sternal rub and voice commands, when she gets up she does look around but she falls back asleep. HEENT: Atraumatic, normocephalic. Left pupil appears oblong reactive to light, secondary to surgery, right pupil reactive to light. Neck: Supple with full range of motion. Trach in place Chest: Nontender Lungs: Coarse breath sounds bilaterally Heart: Normal S1-S2, Regular rhythm and rate. No murmur, S3, or S4 Abdomen: Soft , nontender, nondistended , bowel sounds are present. No guarding no rebound tenderness , No masses or organomegaly. No costovertebral temporal angle mass Extremities: Normal to inspection, no edema no cyanosis Neurologic: Lethargic, arousable with sternal rub and voice commands however she does fall asleep. Full neurological exam unable to be performed given patient's clinical status. Additional Comments PROCEDURE: XR Chest. CLINICAL INDICATION: Sepsis. Reported history of metastatic neoplasm. TECHNIQUE: Portable single view of the chest COMPARISON: CT CHESTW 07/02/2018; DR MORENO 07/02/2018 FINDINGS: Tracheostomy tube is again present, with its distal portion overlying the tracheal air column. The lung volumes remain diminished. There are extensive nodular opacities present throughout both lungs, with overall slight increase in degree of opacification including within the upper left hemithorax. Blunting of the left costophrenic sulcus is unchanged in may be on the basis of atelectasis rather than small effusion, when correlating with prior CT. No right-sided pleural effusion is seen. No pneumothorax. Enlargement of cardiomediastinal silhouette is stable including cardiomegaly, aortic ectasia and atherosclerotic calcification. There has been prior median sternotomy. There is again left carotid vascular calcification with surgical clips seen in the left lower neck. Ovoid 2.3 cm radiodense focus overlies the right humeral shaft on the current exam, and was not present previously. The bones are osteopenic with multilevel degenerative changes present. IMPRESSION: Widespread pulmonary nodules throughout both lungs, appearing slightly increased, perhaps reflecting worsening of metastatic disease versus superimposed process such as airspace disease.. Stable findings of cardiomegaly, aortic ectasia and atherosclerotic calcification. 2.3 cm ovoid radiodensity overlying the right humeral shaft, which may be on a metastatic basis if interosseus, or may be related to overlying support structures, for which attention on follow-up is recommended. RPTAT: [facility]SA[facility] Physician Sugar Date Time Electronically viewed and signed by Physician Sugar on 09/13/2018 06:10 RF/ CC: JESSE MIRANDA [id number] EKG shows normal sinus rhythm at approximately 79 bpm, no ST or T wave abnormalities noted for acute ischemia. MAGGIE AGARWAL Sep 13, 2018 07:18
[2018-09-13] MEDS ORDERED: GABA100C14 ORAL (08:01)
[2018-09-13] MEDS ORDERED: ASPI-817 ORAL (08:01)
[2018-09-13] MEDS ORDERED: ATOR40TA68 ORAL (08:04)
[2018-09-13] MEDS: HEPARIN 5,000 UNIT/1 ML VIAL SC SCH ×2 (09:00→20:41)
[2018-09-13] MEDS ORDERED: LEVALBUTEROL (HFA) 15 GM INHALER INH PRN (10:00)
[2018-09-13] MEDS ORDERED: PIPER-TAZO 3.375 GM IV (PMX) 100 ML IVPB SCH ×2 (10:00→12:00)
[2018-09-13] MEDS ORDERED: VANCOMYCIN 1 GM 250 ML IVPB SCH (12:00)
[2018-09-13] MEDS ORDERED: LORAZEPAM 1 MG TAB PO PRN (14:00)
[2018-09-13] MEDS: LEVALBUTEROL (NEB) 1.25 MG/0.5 ML AMP HHN SCH ×2 (14:06→19:24)
--- NOTE | 2018-09-13 15:12 | NUR ---
VANCO PER RX PROTOCOL: DAY #1 S/O: 82 YO FEMALE W/ RESP FAILURE, SEPSIS, ANTHONY, METASTATIC THYROID CA. TMAX = 100.5 SCR/BUN = 1.24/35 WBC = 6.6 A/P: VANCO 2GM LD, FOLLOWED BY 1GM Q 24HR. TR LEVEL WHEN APPROPRIATE TO CHECK VANCO CLEARANCE. WILL CONTINUE TO FOLLOW.
[2018-09-13] MEDS: ACETAMINOPHEN 325 MG TAB PO PRN (16:07)
--- NOTE | 2018-09-13 16:25 | NUR ---
RT NOTE: PT AND FAMILY REFUSING ABG ASKING FOR IT TO BE POSTPONED FOR TOMORROW MORNING. RN DEMETRIO NUR
--- NOTE | 2018-09-13 16:47 | PN ---
Date/Time of Note Date/Time of Note DATE: 09/13/18 TIME: 16:42 Assessment/Plan VTE Prophylaxis SCD applied (from Nsg): Yes Pharmacological prophylaxis: heparin Lines/Catheters IV Catheter Type (from Nrsg): Saline Lock Urinary Cath still in place: No Assessment/Plan Hospital Course 1. Acute on chronic respiratory failure secondary to dislodged tracheostomy Trach has now been reinserted Continue antibiotics for possible underlying pneumonia 2. Sepsis secondary to possible pneumonia Continue broad spectrum antibiotics 3. Acute toxic/metabolic encephalopathy-resolved CT brain with no acute findings 4. Acute kidney injury IV fluid 5. Metastatic thyroid cancer status post surgical resection with known pulmonary metastasis Follow-up with outpatient oncologist 6. History of aspiration pneumonia 7. Hypothyroidism Continue Synthroid 8. Anemia chronic disease Monitor 9. Hypertension Continue home meds Prophylaxis: Heparin DC planning: Possible DC home tomorrow Result Diagram: 09/13/185 09/13/185 Results 24hrs Laboratory Tests Test 09/13/18 04:35 09/13/18 05:25 09/13/18 07:48 09/13/18 09:57 White Blood Count 6.6 Red Blood Count 3.80 L Hemoglobin 11.1 L Hematocrit 37.3 Mean Corpuscular 98.2 Volume Mean Corpuscular 29.2 Hemoglobin Mean Corpuscular 29.8 L Hemoglobin Concent Red Cell 14.0 Distribution Width Platelet Count 196 # Mean Platelet Volume 10.8 H Immature 0.600 H Granulocytes % Neutrophils % 72.5 Lymphocytes % 19.4 Monocytes % 6.1 Eosinophils % 0.9 Basophils % 0.5 Nucleated Red Blood 0.0 Cells % Immature 0.040 H Granulocytes # Neutrophils # 4.8 Lymphocytes # 1.3 Monocytes # 0.4 Eosinophils # 0.1 Basophils # 0.0 Nucleated Red Blood 0.0 Cells # Prothrombin Time 13.0 Prothrombin Time 1.0 Ratio INR International 0.97 Normalized Ratio Activated 25.2 Partial Thromboplast Time Sodium Level 142 Potassium Level 3.9 Chloride Level 85 L Carbon Dioxide Level 44 *H Anion Gap 13 Blood Urea Nitrogen 35 H Creatinine 1.24 H Est Glomerular Filtrat Rate mL/min Glucose Level 155 Calcium Level 8.1 L Total Bilirubin 0.2 Direct Bilirubin 0.00 Indirect Bilirubin 0.2 Aspartate Amino 23 Transf (AST/SGOT) Alanine 26 Aminotransferase (AL T/SGPT) Alkaline Phosphatase 52 Troponin I 0.037 Total Protein 7.3 Albumin 4.0 Globulin 3.30 H Albumin/Globulin 1.21 Ratio Thyroid Stimulating 2.580 Hormone (TSH) POC Venous Lactate 1.7 1.3 Lactic Acid Level 0.8 Subjective 24 Hr Interval Summary Constitutional: no complaints Exam/Review of Systems Vital Signs Vitals Vital Signs Date Temp Pulse Resp B/P (MAP) Pulse Ox O2 O2 Flow FiO2 Time Delivery Rate 09/13/18 88 16:29 09/13/18 100.1 16:07 09/13/18 19 95/48 (64) 93 15:23 09/13/18 Aerosol 98 14:06 T Tube 09/13/18 10.0 14:06 Exam Constitutional: alert Respiratory: clear to auscultation Cardiovascular: regular rate and rhythm Gastrointestinal: soft; No distended Musculoskeletal: nl extremities to inspection Medications Medications Current Medications Sodium Chloride 1,000 ml @ 70 mls/hr [id number] IV ; Start 09/13/18 at 06:56 IV Flush (NS 3 ml) 3 ml PER PROTOCOL IV ; Start 09/13/18 at 07:00 Ondansetron HCl (Zofran Inj) 4 mg Q6H PRN IV NAUSEA AND/OR VOMITING; Start 09/13/18 at 07:00 Acetaminophen (Tylenol Tab) 650 mg Q6H PRN PO PAIN LEVEL 1-3 OR FEVER Last administered on 09/13/18at 16:07; Admin Dose 650 MG; Start 09/13/18 at 07:00 Heparin Sodium (Porcine) (Heparin (5000 Units/1ml)) 5,000 unit Q12 SC ; Start 09/13/18 at 09:00 Levothyroxine Sodium (Synthroid) 25 mcg BEFORE BREAKFAST PO ; Start 09/13/18 at 07:00 Pantoprazole (Protonix Tab) 40 mg DAILY@06 PO ; Start 09/13/18 at 06:00 Vancomycin HCl (Vanco Iv Per Pharmacy) VANCOMYCIN PER PHARMACY PER PROTOCOL XX ; Start 09/13/18 at 07:30 Levalbuterol (Xopenex Hfa) 1.25 puff Q4H PRN INH WHEEZING AND SOB; Start 09/13/18 at 10:00 Lorazepam (Ativan) 2 mg BID PRN PO anxiety Last administered on 09/13/18at 14:12; Admin Dose 2 MG; Start 09/13/18 at 14:00 Levalbuterol (Xopenex Neb) 1.25 mg Q6H RESP THERAPY HHN Last administered on 09/13/18at 14:06; Admin Dose 1.25 MG; Start 09/13/18 at 14:00 Vancomycin HCl 250 ml @ 125 mls/hr Q24H IVPB ; Start 09/14/18 at 13:00 Piperacillin Sod/ Tazobactam Sod 100 ml @ 200 mls/hr Q8 IVPB ; Start 09/13/18 at 22:00 MAINE ZAMORANO Sep 13, 2018 16:47
--- NOTE | 2018-09-13 17:58 | NUR ---
EOSS: Pt admitted from ER. Dx: Pneumonia, trach collar, O2 at 10L 60% fiO2. O2 sat 92%. AO x 3, Ethiopian speaking. Family at the bedside, updated on plan of care. Will endorse accordingly to oncoming shift.
--- NOTE | 2018-09-13 20:16 | NUR ---
family requesting sitter for patient got order from Dr Karuna mccray RN made aware.
[2018-09-13] MEDS: PIPER-TAZO 3.375 GM IV (PMX) 100 ML IVPB SCH (22:50)
--- NOTE | 2018-09-13 23:15 | NUR ---
pt has trach with aerosol mist 10L. removed mask and saturation down to 70 .pt very restless called R/T to give HHN tx. johnnie at bedside refusing ABG .Pt pulled out saline lock #24 inserted to rt hand.
--- NOTE | 2018-09-13 23:38 | NUR ---
Pt in respiratory distress. Karuna aware, orders received. Pt's grandson at bedside currently refusing for pt to have ABG's done. Pt's grandson is also refusing for pt to have IV Ativan, and for pt to be in restraints. Pt has currently pulled out IV. Pt has been pulling at trach. Explained to pt's grandson that if pt pulls trach out, it could possibly be a life and situation. Pt's grandson also attempted to video tape nursing interventions. Explained to grandson that the nurses does not want to be video taped. Delfin put his phone away. Addendum: 09/13/18 at 2348 by LUANA OLEARY RN Charge nurse Ignacio, primary nurse Gisel, 1:1 RT Jose Luna and Stefanie, Staff nurse Luana and Manjinder at pt bedside.
--- NOTE | 2018-09-13 23:48 | NUR ---
GOT CALLED TO 602 DUE TO PT IN RESP.DISTRESS AND DESATURATING. PMV WAS REMOVED FROM TRACH AND PT WAS SUCTIONED WITH MODERATE YELLOW THICK SECRETION. FIO2 WAS INCREASED TO 80% 10L. SATURATION WAS NOT ABLE TO OBTAIN @ THIS TIME. PT WAS AGITATED BUT NO SIGNS OF CYANOSIS NOTED. BREATHING TX GIVEN PER CHARGE NURSE REQUESTED. RT ART ALVAREZ TOOK OVER WHILE PT WAS ON HHN TX. LEAD RT NOTIFIED.
--- NOTE | 2018-09-13 23:56 | NUR ---
nursing incinerator plant general supervisor here to talk to pts grandson.
[2018-09-14] VITALS (40 sets, daily range): BP systolic 71–197; BP diastolic 38–178; PULSE 63–105; RESP 14–29
--- NOTE | 2018-09-14 00:03 | NUR ---
notified Dr Beckman re pt condition and sat remained 80-88% ordered to increase O2 to 15 liters R/T made aware.johnnie finally agreed to have ABG done.
--- NOTE | 2018-09-14 00:30 | NUR ---
pts grandson made aware re MD order to transfer pt to ICU . grandson refusing pt to go to ICU. charge account identification clerk made aware. and talked to pts grandson.
--- NOTE | 2018-09-14 00:57 | NUR ---
pts grandson still refusing transfer notified Dr Beckman ordered to document refusal.
--- NOTE | 2018-09-14 00:59 | NUR ---
pt resting comfortably at this time resp unlabored color pink . tele rhythm shows SR/Sinus arrythmia rate 88-90. O2 sat 97-99 on 10l O2 via aerosol mist. will continue to monitor patient.
[2018-09-14] MEDS: LEVALBUTEROL (NEB) 1.25 MG/0.5 ML AMP HHN SCH ×4 (01:07→19:41)
--- NOTE | 2018-09-14 02:26 | NUR ---
notified Dr Bcekman re [id number] made him aware that pt had blood culture yesterday and she is on antibiotic no order given. cooling measures done and will give tylenol prn.
[2018-09-14] MEDS: ACETAMINOPHEN 325 MG TAB PO PRN (03:18)
--- NOTE | 2018-09-14 03:37 | ERD ---
ER Documentation Chief Complaint Chief Complaint bib ra from home for "choking on something" pulled out trach cuff, put back HPI This is a 82-year-old female brought in by rescue comfort choking on something. Apparently she told her trachea was able to dislodge what it was choking but since then she developed a fever. No nausea vomiting. History of prematurity and limited history per patient. ROS All systems reviewed and are negative except as per history of present illness. Medications Home Meds Reported Medications Atorvastatin* (Atorvastatin*) 40 Mg Tablet, 40 MG ORAL HS 09/13/18 Gabapentin* (Gabapentin*) 100 Mg Capsule, 100 MG ORAL BID PRN for NERVE PAIN 09/13/18 Aspirin* (Aspirin* EC) 81 Mg Tablet.dr, 81 MG ORAL DAILY 09/13/18 Colchicine* (Colcrys*) 0.6 Mg Tablet, 0.6 MG PO Q8H PRN for gout, TAB 09/13/18 Lorazepam* (Ativan*) 2 Mg Tablet, 2 MG PO BID PRN for ANXIETY, #30 TAB 09/13/18 Ibuprofen* (Ibuprofen*) 600 Mg Tablet, 600 MG ORAL Q6H PRN for PAIN LEVEL 1-5 09/13/18 Pioglitazone Hcl* (Pioglitazone Hcl*) 45 Mg Tablet, 45 MG ORAL DAILY 09/13/18 Ondansetron (Ondansetron Odt) 8 Mg Tab.rapdis, 8 MG PO Q6H PRN for NAUSEA AND/OR VOMITING, TAB 07/02/18 Levalbuterol* (Xopenex* HFA) 15 Gm Inha, 2 PUFFS INH Q4H PRN for WHEEZING AND SOB, INHALER 07/02/18 Spironolactone* (Aldactone*) 25 Mg Tablet, 12.5 MG PO DAILY, #30 TAB 07/02/18 Levothyroxine Sodium* (Levothyroxine Sodium*) 25 Mcg Tablet, 25 MCG PO BEFORE BREAKFAST, #30 TAB 07/02/18 Quetiapine Fumarate* (Seroquel*) 50 Mg Tablet, 50 MG PO HS, TAB 07/02/18 Sennosides* (Senna Lax*) 8.6 Mg Tablet, 1 TAB PO DAILY PRN for CONSTIPATION, TAB 07/02/18 Potassium Chloride* (Potassium Chloride*) 20 Meq Tablet.er, 20 MEQ PO DAILY, TAB.SA 07/02/18 Calcium Carbonate ([id number]) 500 Mg Tablet, 500 MG PO TID, TAB 07/02/18 Esomeprazole Mag Trihydrate (Nexium) 40 Mg Capsule.dr, 40 MG PO AC BREAKFAST, #30 CAP 07/02/18 Metoprolol Succinate* (Toprol XL*) 25 Mg Tab.sr.24h, 25 MG PO DAILY, #30 TAB 07/02/18 Magnesium Chloride* (Mag 64*) 64 Mg Tabsr, 64 MG PO DAILY, TAB 07/02/18 Furosemide* (Furosemide*) 20 Mg Tablet, 20 MG PO DAILY, #60 TAB 07/02/18 Ferrous Sulfate* (Ferrous Sulfate*) 325 Mg Tabec, 325 MG PO Q48H, TAB 07/02/18 Discontinued Reported Medications Levothyroxine Sodium* (Levothyroxine Sodium*) 112 Mcg Tablet, 112 MCG ORAL DAILY 09/13/18 Dexamethasone* (Dexamethasone*) 0.5 Mg Tablet, 0.5 MG PO Q12, TAB 07/02/18 Discontinued Scripts Amoxicillin/Potassium Clav (Amox-Clav 875-125 mg Tablet) 875-125 mg Tab, 1 TAB PO BID for 4 Days, #8 TAB Prov:JOSLYN NUR MD 07/04/18 Allergies Allergies: Coded Allergies: prednisone (Verified Allergy, Mild, HALLUCINATIONS, 12/04/13) clindamycin (Verified Allergy, Unknown, 12/10/16) iodine (Verified Allergy, Unknown, RASHES, 07/03/18) morphine (Verified Allergy, Unknown, RASHES, 07/03/18) PMhx/Soc History of Surgery: Yes (Thyroid resection) Anesthesia Reaction: No Hx Neurological Disorder: No Hx Respiratory Disorders: Yes Hx Cardiac Disorders: Yes (HTN) Hx Psychiatric Problems: Yes (anxiety) Hx Miscellaneous Medical Probl: No Hx Alcohol Use: No Hx Substance Use: No Hx Tobacco Use: No Smoking Status: Never smoker Physical Exam Vitals Vital Signs Date Temp Pulse Resp B/P (MAP) Pulse Ox O2 O2 Flow FiO2 Time Delivery Rate 09/13/18 100.5 67 21 94/47 (63) 98 Trach 05:48 Collar 09/13/18 100.5 77 14 116/57 Trach 04:36 (76) Collar 09/13/18 98 4.0 04:30 09/13/18 99.9 74 14 130/118 100 04:24 (122) 09/13/18 103 00:00 Physical Exam Const: No acute distress Head: Atraumatic Eyes: Normal Conjunctiva ENT: Normal External Ears, Nose and Mouth. Neck: Full range of motion. No meningismus. Resp: Clear to auscultation bilaterally Cardio: Regular rate and rhythm, no murmurs Abd: Soft, non tender, non distended. Normal bowel sounds Skin: No petechiae or rashes Back: No midline or flank tenderness Ext: No cyanosis, or edema Neur: Awake and alert Psych: Normal Mood and Affect Result Diagram: 09/13/18 0435 09/13/18 0435 Results 24 hrs Laboratory Tests Test 09/13/18 04:35 09/13/18 05:25 White Blood Count 6.6 10^3/ul Red Blood Count 3.80 10^6/ul Hemoglobin 11.1 g/dl Hematocrit 37.3 % Mean Corpuscular Volume 98.2 fl Mean Corpuscular Hemoglobin 29.2 pg Mean Corpuscular Hemoglobin Concent 29.8 g/dl Red Cell Distribution Width 14.0 % Platelet Count 196 10^3/UL Mean Platelet Volume 10.8 fl Immature Granulocytes % 0.600 % Neutrophils % 72.5 % Lymphocytes % 19.4 % Monocytes % 6.1 % Eosinophils % 0.9 % Basophils % 0.5 % Nucleated Red Blood Cells % 0.0 /100WBC Immature Granulocytes # 0.040 10^3/ul Neutrophils # 4.8 10^3/ul Lymphocytes # 1.3 10^3/ul Monocytes # 0.4 10^3/ul Eosinophils # 0.1 10^3/ul Basophils # 0.0 10^3/ul Nucleated Red Blood Cells # 0.0 10^3/ul Prothrombin Time 13.0 Sec Prothrombin Time Ratio 1.0 INR International Normalized Ratio 0.97 Activated Partial Thromboplast Time 25.2 Sec Sodium Level 142 mmol/L Potassium Level 3.9 mmol/L Chloride Level 85 mmol/L Carbon Dioxide Level 44 mmol/L Anion Gap 13 Blood Urea Nitrogen 35 mg/dl Creatinine 1.24 mg/dl Est Glomerular Filtrat Rate mL/min mL/min Glucose Level 155 mg/dl Calcium Level 8.1 mg/dl Total Bilirubin 0.2 mg/dl Direct Bilirubin 0.00 mg/dl Indirect Bilirubin 0.2 mg/dl Aspartate Amino Transf (AST/SGOT) 23 IU/L Alanine Aminotransferase (ALT/SGPT) 26 IU/L Alkaline Phosphatase 52 IU/L Troponin I 0.037 ng/ml Total Protein 7.3 g/dl Albumin 4.0 g/dl Globulin 3.30 g/dl Albumin/Globulin Ratio 1.21 Thyroid Stimulating Hormone (TSH) 2.580 MIU/L POC Venous Lactate 1.7 mmol/L Current Medications Medications Dose Sig/Dahiana Start Time Status Last (Trade) Ordered Route PRN Stop Time Admin Dose Reason Admin Cefepime HCl 50 ml @ ONCE STAT 09/13/18 DC 09/13/18 100 mls/hr IVPB 05:55 06:54 09/13/18 06:24 Vancomycin 250 ml @ ONCE STAT 09/13/18 DC 09/13/18 HCl 125 mls/hr IVPB 05:55 08:33 09/13/18 07:54 Procedures/MDM EKG: Rate/Rhythm: [Normal Sinus Rhythm] QRS, ST, T-waves: [No changes consistent w/ acute ischemia] Impression: [No evidence of ischemia or arrhythmia] Chest X-ray 1V Interpreted by me: Soft Tissue: No acute abnormalities Bones: No acute abnormalities Mediastinum/Cardiac Silhouette/Lungs: Multiple nodules consistent with metastatic disease. Possible airspace disease Medical decision makin-year-old female febrile with metastatic cancer. Likely superimposed pneumonia. Start antibiotics post cultures. Given fluids. Admitted to hospital for further evaluation management Departure Diagnosis: Primary Impression: Pneumonia Pneumonia type: due to unspecified organism Laterality: unspecified laterality Lung location: unspecified part of lung Qualified Codes: J18.9 - Pneumonia, unspecified organism Additional Impression: Shortness of breath Condition: Serious JESSE MIRANDA Sep 14, 2018 03:37
--- NOTE | 2018-09-14 05:56 | NUR ---
eoss; pt is resting at this time with HOB elevated . gets sob on minimal exertion with continous O2 via trach 10l .with 80% fio2 on aerosol mist. pt gets agitated at times with 1;1 sitter. suctioned PRN. fall precaution and aspiration precaution observed.pt is febrile and Dr. Beckman is aware with iv antibiotic infusing. tele rhythm shows SR 84. will continue to monitor patient.
[2018-09-14] MEDS: LEVOTHYROXINE 25 MCG TAB PO SCH (06:23)
[2018-09-14] MEDS: PANTOPRAZOLE (EC) 40 MG TAB PO SCH (06:23)
[2018-09-14] MEDS: PIPER-TAZO 3.375 GM IV (PMX) 100 ML IVPB SCH ×3 (06:23→20:52)
--- NOTE | 2018-09-14 06:43 | NUR ---
tried to call Alec Javed decision maker left message to answering machine awaiting for him to call back.
--- NOTE | 2018-09-14 07:14 | NUR ---
Alec decision maker in chart she said that she is the daughter in law and Baltazar is the son and daughter that makes decision for the pt. updated her re condition of the patient. endorsed to AM RN .
--- NOTE | 2018-09-14 08:27 | CONS ---
Date/Time of Note Date/Time of Note DATE: 09/14/18 TIME: 08:25 Assessment/Plan Assessment/Plan Assessment/Plan Patient with respiratory distress status post tracheostomy History of metastatic thyroid cancer Sepsis syndrome Encephalopathy I have asked case management to schedule a family conference with Britishyudith griffith rpjulia to discuss goals of care and discuss hospice benefits. Result Diagram: 09/14/18 0456 09/14/18 0456 Results 24hrs Laboratory Tests Test 09/13/18 09:57 09/13/18 23:32 09/14/18 04:56 Lactic Acid Level 0.8 Blood Gas Specimen Source Blood arterial Arterial Blood Date Drawn 09/14/2018 12:05:28 AM Arterial Blood pH 7.400 (Temp corrected) Arterial Blood pCO2 70.9 H (Temp correct) Arterial Blood pO2 47.4 *L (Temp corrected) Arterial Blood HCO3 42.9 *H Arterial Blood Base Excess 15.0 H Arterial Blood 84.3 L Oxygen Saturation Tonny Test ACCEPTAB Arterial Blood Gas Right Brachial Puncture Site Arterial 0.6 Blood Carboxyhemoglobin Arterial Blood 0.2 Methemoglobin Blood Gas A-a O2 156.3 H Differential Oxyhemoglobin Percent 83.6 L Blood Gas Temperature 37.0 Blood Gas Actual 24 Respiration Rate Blood Gas Modality TRACH COLLAR FiO2 40.0 Blood Gas Critical Value Cherri Vo RN Read Back Blood Gas Notified Whom Susana Blood Gas Notified Time 09/14/2018 12:21:45 AM White Blood Count 10.4 # Red Blood Count 3.37 L Hemoglobin 9.8 L Hematocrit 33.0 L Mean Corpuscular Volume 97.9 Mean Corpuscular Hemoglobin 29.1 Mean Corpuscular 29.7 L Hemoglobin Concent Red Cell Distribution Width 14.0 Platelet Count 149 # Mean Platelet Volume 10.3 Immature Granulocytes % 0.600 H Neutrophils % 86.2 H Lymphocytes % 3.9 L Monocytes % 6.6 Eosinophils % 2.4 Basophils % 0.3 Nucleated Red Blood Cells % 0.0 Immature Granulocytes # 0.060 H Neutrophils # 9.0 H Lymphocytes # 0.4 L Monocytes # 0.7 Eosinophils # 0.3 Basophils # 0.0 Nucleated Red Blood Cells # 0.0 Sodium Level 141 Potassium Level 3.3 L Chloride Level 92 L Carbon Dioxide Level 42 *H Anion Gap 7 Blood Urea Nitrogen 29 H Creatinine 1.22 H Est Glomerular Filtrat Rate mL/min Glucose Level 123 Hemoglobin A1c 5.4 Calcium Level 7.6 L Total Bilirubin 0.2 Direct Bilirubin 0.00 Indirect Bilirubin 0.2 Aspartate Amino 22 Transf (AST/SGOT) Alanine 20 Aminotransferase (ALT/SGPT) Alkaline Phosphatase 40 L Total Protein 5.9 #L Albumin 3.2 L Globulin 2.70 Albumin/Globulin Ratio 1.18 Consultation Date/Type/Reason Admit Date/Time Hx of Present Illness Asked to see patient to evaluate goals of care and is 82-year-old female with a history of metastatic thyroid cancer. Patient is a [id number] [place] female whose daughters at the bedside who speaks no Irish either therefore firstly I have asked social work service to schedule a family conference soon as possible. 20 medical records patient is metastatic thyroid cancer status post resection but has pulmonary metastasis as well as trach presented to emergency room in respiratory distress. According to records patient's trach was dislodged and her breathing improved but she was referred to the emergency room where she was found to be Cognitive status is still experiencing respiratory difficulties. Seen in emergency room was 100% FiO2. Diagnosed with sepsis syndrome started off on broad-spectrum IV antibiotic coverage and admitted. Patient is DNR/DNI according medical records admitting physician asked for a evaluation by palliative care to evaluate for outpatient hospice care when patient is discharged, and family members like more information on hospice care benefits. Past Medical History Medications Current Medications Sodium Chloride 1,000 ml @ 70 mls/hr [id number] IV Last administered on 09/13/18at 22:51; Admin Dose 70 MLS/HR; Start 09/13/18 at 06:56 IV Flush (NS 3 ml) 3 ml PER PROTOCOL IV ; Start 09/13/18 at 07:00 Ondansetron HCl (Zofran Inj) 4 mg Q6H PRN IV NAUSEA AND/OR VOMITING; Start 09/13/18 at 07:00 Acetaminophen (Tylenol Tab) 650 mg Q6H PRN PO PAIN LEVEL 1-3 OR FEVER Last administered on 09/14/18at 03:18; Admin Dose 650 MG; Start 09/13/18 at 07:00 Heparin Sodium (Porcine) (Heparin (5000 Units/1ml)) 5,000 unit Q12 SC Last administered on 09/13/18at 20:41; Admin Dose 5,000 UNIT; Start 09/13/18 at 09:00 Levothyroxine Sodium (Synthroid) 25 mcg BEFORE BREAKFAST PO Last administered on 09/14/18at 06:23; Admin Dose 25 MCG; Start 09/13/18 at 07:00 Pantoprazole (Protonix Tab) 40 mg DAILY@06 PO Last administered on 09/14/18at 06:23; Admin Dose 40 MG; Start 09/13/18 at 06:00 Vancomycin HCl (Vanco Iv Per Pharmacy) VANCOMYCIN PER PHARMACY PER PROTOCOL XX ; Start 09/13/18 at 07:30 Levalbuterol (Xopenex Hfa) 1.25 puff Q4H PRN INH WHEEZING AND SOB; Start 09/13/18 at 10:00 Lorazepam (Ativan) 2 mg BID PRN PO anxiety Last administered on 09/13/18at 14:12; Admin Dose 2 MG; Start 09/13/18 at 14:00 Levalbuterol (Xopenex Neb) 1.25 mg Q6H RESP THERAPY HHN Last administered on 09/14/18at 07:56; Admin Dose 1.25 MG; Start 09/13/18 at 14:00 Vancomycin HCl 250 ml @ 125 mls/hr Q24H IVPB ; Start 09/14/18 at 13:00 Piperacillin Sod/ Tazobactam Sod 100 ml @ 200 mls/hr Q8 IVPB Last administered on 09/14/18at 06:23; Admin Dose 200 MLS/HR; Start 09/13/18 at 22:00 Allergies: Coded Allergies: prednisone (Verified Allergy, Mild, HALLUCINATIONS, 12/04/13) clindamycin (Verified Allergy, Unknown, 12/10/16) iodine (Verified Allergy, Unknown, RASHES, 07/03/18) morphine (Verified Allergy, Unknown, RASHES, 07/03/18) Past Surgical History Past Surgical Hx: other Social History Alcohol Use: none Smoking Status: Never smoker Drug Use: none Exam/Review of Systems Vital Signs Vitals Vital Signs Date Temp Pulse Resp B/P (MAP) Pulse Ox O2 O2 Flow FiO2 Time Delivery Rate 09/14/18 97 10.0 60 08:01 09/14/18 85 20 Aerosol 08:00 T Tube 09/14/18 98.8 103/51 07:44 (68) Intake and Output 09/13/18 09/13/18 09/14/18 1515:00 23:00 07:00 IntakeIntake Total 350 ml 800 ml 180 ml BalanceBalance 350 ml 800 ml 180 ml Medications Medications Current Medications Sodium Chloride 1,000 ml @ 70 mls/hr [id number] IV Last administered on 09/13/18at 22:51; Admin Dose 70 MLS/HR; Start 09/13/18 at 06:56 IV Flush (NS 3 ml) 3 ml PER PROTOCOL IV ; Start 09/13/18 at 07:00 Ondansetron HCl (Zofran Inj) 4 mg Q6H PRN IV NAUSEA AND/OR VOMITING; Start 09/13/18 at 07:00 Acetaminophen (Tylenol Tab) 650 mg Q6H PRN PO PAIN LEVEL 1-3 OR FEVER Last administered on 09/14/18 03:18; Admin Dose 650 MG; Start 09/13/18 at 07:00 Heparin Sodium (Porcine) (Heparin (5000 Units/1ml)) 5,000 unit Q12 SC Last administered on 09/13/18at 20:41; Admin Dose 5,000 UNIT; Start 09/13/18 at 09:00 Levothyroxine Sodium (Synthroid) 25 mcg BEFORE BREAKFAST PO Last administered on 09/14/18 06:23; Admin Dose 25 MCG; Start 09/13/18 at 07:00 Pantoprazole (Protonix Tab) 40 mg DAILY@06 PO Last administered on 09/14/18 06:23; Admin Dose 40 MG; Start 09/13/18 at 06:00 Vancomycin HCl (Vanco Iv Per Pharmacy) VANCOMYCIN PER PHARMACY PER PROTOCOL XX ; Start 09/13/18 at 07:30 Levalbuterol (Xopenex Hfa) 1.25 puff Q4H PRN INH WHEEZING AND SOB; Start 09/13/18 at 10:00 Lorazepam (Ativan) 2 mg BID PRN PO anxiety Last administered on 09/13/18 14:12; Admin Dose 2 MG; Start 09/13/18 at 14:00 Levalbuterol (Xopenex Neb) 1.25 mg Q6H RESP THERAPY HHN Last administered on 09/14/18 07:56; Admin Dose 1.25 MG; Start 09/13/18 at 14:00 Vancomycin HCl 250 ml @ 125 mls/hr Q24H IVPB ; Start 09/14/18 at 13:00 Piperacillin Sod/ Tazobactam Sod 100 ml @ 200 mls/hr Q8 IVPB Last administered on 09/14/18at 06:23; Admin Dose 200 MLS/HR; Start 09/13/18 at 22:00 CARLOS CAGLE Sep 14, 2018 08:27
[2018-09-14] MEDS: HEPARIN 5,000 UNIT/1 ML VIAL SC SCH ×2 (08:49→20:52)
--- NOTE | 2018-09-14 09:08 | NUR ---
SW: ARRANGING FAMILY CONFERENCE DR. Zambrano requested a family conference. FELICIA spoke with patient's daughter Breanna ([phone]) who states that she and patient's son Dm ([phone]) are surrogate spokespersons. Dr. Zambrano states he is available today at 12:00pm or tomorrow any time for a family conference. Breanna states she is available tomorrow at 10:00am for a family conference. A family conference has been arranged for 10:00am tomorrow, 09/15/18. Breanna states she will also notify her siblings so they are all available for the conference. SW remains available as needed. Addendum: 09/14/18 at 1129 by DELPHINE NELSON MSW Family conference cancelled, per Dr. Jarvis request as patient was to be d/c'd. However, patient declined and is being transferred to ICU. Dr. Beavers held a family conference with family today. SW remains available as needed.
--- NOTE | 2018-09-14 11:20 | NUR ---
Transfer: Report given to Family aware of room assignment. 104 Addendum: 09/14/18 at 1132 by DEMETRIO BAZAN RN All belongings with patient's family, skin intact.
--- NOTE | 2018-09-14 12:16 | NUR ---
0800 Found patient on Cool Aerosol with a PMV valve on. Attempted to remove valve however family refused taking it off. PMV was kept on. 1200 Transferred patient to ICU and placed on vent
[2018-09-14] MEDS: SOD CHLORIDE 0.9% 1,000 ML IV SCH (13:23)
[2018-09-14] MEDS: VANCOMYCIN 1 GM 250 ML IVPB SCH (13:30)
--- NOTE | 2018-09-14 13:42 | CONS ---
DATE OF ADMISSION: 09/13/2018 DATE OF CONSULTATION: TYPE OF CONSULTATION: Pulmonary. REASON FOR CONSULTATION: Ventilator management. Thank you, Dr. Connor, for this consultation. HISTORY OF PRESENT ILLNESS: This is an unfortunate 82-year-old lady with multiple medical problems i ncluding chronic respiratory failure with tracheostomy, history of metastatic thyroid cancer status p ost resection of pulmonary mets, who came in with fever, altered mental status, respiratory distress this morning, found to be more lethargic with progressive respiratory acidosis requiring tracheostomy changed to cuffed, transitioned to mechanical ventilation and transferred to intensive care unit. T he patient remains lethargic present. PAST MEDICAL HISTORY: As above. MEDICATIONS: Per chart. ALLERGIES: CLINDAMYCIN, IODINE, MORPHINE AND PREDNISONE. SOCIAL HISTORY: She is a nonsmoker, no alcohol, no history of drug use. FAMILY HISTORY: Noncontributory. SYSTEMS REVIEW: A 12-point review of systems currently unable to perform. PHYSICAL EXAMINATION: GENERAL: A chronically ill-appearing lady, lethargic on cool aerosol. VITAL SIGNS: Temperature 98, pulse 79, blood pressure 103/51, O2 saturation 96%, FIO2 of 10 liters. NECK: Supple. HEENT: Trach site clean and intact. CARDIAC: S1, S2, no added sounds or murmurs. CHEST: Diminished air entry bilaterally. ABDOMEN: Soft, nontender. No guarding or rebound. EXTREMITIES: No cyanosis, clubbing, edema +2. NEUROLOGIC: Generalized weakness. LABORATORY DATA: White count 10.4, hemoglobin 9.8, platelets of 149. BUN 29, creatinine 1.22. INR 0.97. ABG: pH 7.27, pCO2 of 105, pO2 of 103. INR 0.97. Chest x-ray 2 days ago showed extensive bi lateral infiltrates. IMPRESSION AND PLAN: 1. Progressive hypoxemic and hypercapnic respiratory failure. 2. History of metastatic thyroid carcinoma. 3. Possible healthcare versus community-acquired pneumonia. 4. Encephalopathy, toxic metabolic. PLAN: 1. Transition to mechanical ventilation as stated above. 2. Repeat arterial blood gas. 3. Continue broad-spectrum antibiotic coverage. 4. Appreciate palliative care consult as overall prognosis is very poor. 5. Deep vein thrombosis and gastrointestinal prophylaxis. Dictated By: ADILENE DHALIWAL/SIVAKUMAR Conf#: [id number] DID#: [id number] CC: MAGGIE CONNOR MD;*End*
--- NOTE | 2018-09-14 14:11 | PN ---
Date/Time of Note Date/Time of Note DATE: 09/14/18 TIME: 14:06 Assessment/Plan VTE Prophylaxis Risk score (from Nsg)>0 risk: 9 Pharmacological prophylaxis: heparin Lines/Catheters IV Catheter Type (from Nrsg): Saline Lock Urinary Cath still in place: No Assessment/Plan Hospital Course 1. Acute on hypoxemic and hypercapnic on respiratory failure secondary to dislodged tracheostomy and like pneumonia on chronic lung metastasis Trach has now been reinserted Continue antibiotics for possible underlying pneumonia Transfer to ICU and will connect mechanical ventilation to tracheostomy Pulmonology consultation obtained 2. Sepsis secondary to possible pneumonia Continue broad spectrum antibiotics 3. Acute metabolic encephalopathy secondary to hypercapnia and sepsis ABG is consistent with severe hypercapnia with respiratory acidosis Transfer To ICU and begin mechanical ventilation CT brain with no acute findings 4. Acute kidney injury IV fluid 5. Metastatic thyroid cancer status post surgical resection with known pulmonary metastasis Follow-up with outpatient oncologist Patient is status post tracheostomy several years ago 6. History of aspiration pneumonia 7. Hypothyroidism Continue Synthroid 8. Anemia chronic disease Monitor 9. Hypertension Continue home meds Prophylaxis: Heparin DC planning: Not stable for DC Result Diagram: 09/14/18 0456 09/14/18 0456 Results 24hrs Laboratory Tests Test 09/13/18 23:32 09/14/18 04:56 09/14/18 11:19 Blood Gas Specimen Blood arterial Blood arterial Source Arterial Blood Date 09/14/2018 12:05:28 09/14/2018 11:45:46 Drawn AM AM Arterial Blood pH 7.400 7.277 *L (Temp corrected) Arterial Blood pCO2 70.9 H 105.5 *H (Temp correct) Arterial Blood pO2 47.4 *L 103.4 H (Temp corrected) Arterial Blood HCO3 42.9 *H 48.1 *H Arterial Blood Base 15.0 H 17.0 H Excess Arterial Blood 84.3 L 97.1 Oxygen Saturation Tonny Test ACCEPTAB N/A Arterial Blood Gas Right Brachial Right Brachial Puncture Site Arterial 0.6 0.2 Blood Carboxyhemoglob in Arterial Blood 0.2 0.3 Methemoglobin Blood Gas A-a O2 156.3 H 208.4 H Differential Oxyhemoglobin Percent 83.6 L 96.6 Blood Gas Temperature 37.0 37.0 Blood Gas Actual 24 Respiration Rate Blood Gas Modality TRACH COLLAR TRACH COLLAR FiO2 40.0 60.0 Blood Gas Critical G Manaois RN L.YAMILA RN Value Read Back Blood Gas Notified Susana BOSS Whom Blood Gas Notified 09/14/2018 12:21:45 09/14/2018 11:53:26 Time AM AM White Blood Count 10.4 # Red Blood Count 3.37 L Hemoglobin 9.8 L Hematocrit 33.0 L Mean Corpuscular 97.9 Volume Mean Corpuscular 29.1 Hemoglobin Mean Corpuscular 29.7 L Hemoglobin Concent Red Cell Distribution 14.0 Width Platelet Count 149 # Mean Platelet Volume 10.3 Immature Granulocytes 0.600 H % Neutrophils % 86.2 H Lymphocytes % 3.9 L Monocytes % 6.6 Eosinophils % 2.4 Basophils % 0.3 Nucleated Red Blood 0.0 Cells % Immature Granulocytes 0.060 H # Neutrophils # 9.0 H Lymphocytes # 0.4 L Monocytes # 0.7 Eosinophils # 0.3 Basophils # 0.0 Nucleated Red Blood 0.0 Cells # Sodium Level 141 Potassium Level 3.3 L Chloride Level 92 L Carbon Dioxide Level 42 *H Anion Gap 7 Blood Urea Nitrogen 29 H Creatinine 1.22 H Est Glomerular Filtrat Rate mL/min Glucose Level 123 Hemoglobin A1c 5.4 Calcium Level 7.6 L Total Bilirubin 0.2 Direct Bilirubin 0.00 Indirect Bilirubin 0.2 Aspartate Amino 22 Transf (AST/SGOT) Alanine 20 Aminotransferase (ALT /SGPT) Alkaline Phosphatase 40 L Total Protein 5.9 #L Albumin 3.2 L Globulin 2.70 Albumin/Globulin 1.18 Ratio Subjective 24 Hr Interval Summary Constitutional: disoriented Exam/Review of Systems Vital Signs Vitals Vital Signs Date Temp Pulse Resp B/P (MAP) Pulse Ox O2 O2 Flow FiO2 Time Delivery Rate 09/14/18 80 24 103/53 100 13:45 (70) 09/14/18 [place] 13:00 l Ventilato r 09/14/18 100.9 12:05 09/14/18 10.0 60 12:00 Intake and Output 09/13/18 09/13/18 09/14/18 1515:00 23:00 07:00 IntakeIntake Total 350 ml 800 ml 180 ml BalanceBalance 350 ml 800 ml 180 ml Exam Psych: confusion Respiratory: clear to auscultation Cardiovascular: regular rate and rhythm Gastrointestinal: soft; No distended Musculoskeletal: nl extremities to inspection Medications Medications Current Medications Sodium Chloride 1,000 ml @ 70 mls/hr [id number] IV Last administered on 09/14/18 13:23; Admin Dose 70 MLS/HR; Start 09/13/18 at 06:56 IV Flush (NS 3 ml) 3 ml PER PROTOCOL IV ; Start 09/13/18 at 07:00 Ondansetron HCl (Zofran Inj) 4 mg Q6H PRN IV NAUSEA AND/OR VOMITING; Start 09/13/18 at 07:00 Acetaminophen (Tylenol Tab) 650 mg Q6H PRN PO PAIN LEVEL 1-3 OR FEVER Last administered on 09/14/18 03:18; Admin Dose 650 MG; Start 09/13/18 at 07:00 Heparin Sodium (Porcine) (Heparin (5000 Units/1ml)) 5,000 unit Q12 SC Last administered on 09/14/18 08:49; Admin Dose 5,000 UNIT; Start 09/13/18 at 09:00 Levothyroxine Sodium (Synthroid) 25 mcg BEFORE BREAKFAST PO Last administered on 09/14/18 06:23; Admin Dose 25 MCG; Start 09/13/18 at 07:00 Pantoprazole (Protonix Tab) 40 mg DAILY@06 PO Last administered on 09/14/18 06:23; Admin Dose 40 MG; Start 09/13/18 at 06:00 Vancomycin HCl (Vanco Iv Per Pharmacy) VANCOMYCIN PER PHARMACY PER PROTOCOL XX ; Start 09/13/18 at 07:30 Levalbuterol (Xopenex Hfa) 1.25 puff Q4H PRN INH WHEEZING AND SOB; Start 09/13/18 at 10:00 Lorazepam (Ativan) 2 mg BID PRN PO anxiety Last administered on 09/13/18 14:12; Admin Dose 2 MG; Start 09/13/18 at 14:00 Levalbuterol (Xopenex Neb) 1.25 mg Q6H RESP THERAPY HHN Last administered on 09/14/18 07:56; Admin Dose 1.25 MG; Start 09/13/18 at 14:00 Vancomycin HCl 250 ml @ 125 mls/hr Q24H IVPB Last administered on 09/14/18 13:30; Admin Dose 125 MLS/HR; Start 09/14/18 at 13:00 Piperacillin Sod/ Tazobactam Sod 100 ml @ 200 mls/hr Q8 IVPB Last administered on 09/14/18at 06:23; Admin Dose 200 MLS/HR; Start 09/13/18 at 22:00 Miscellaneous Information (*Rx Drug Level Order Reminder*) VANCOMYCIN TROUGH AT 1200 ONCE ONCE XX ; Start 09/15/18 at 12:00; Stop 09/15/18 at 12:01 Propofol 100 ml @ 2.952 mls/ hr Q12H IV ; Start 09/14/18 at 13:00 MAINE ZAMORANO Sep 14, 2018 14:11
[2018-09-14] MEDS: PROPOFOL 100 ML IV SCH ×2 (14:47→19:37)
[2018-09-14] MEDS: POTASSIUM CHLORIDE 100 ML IVPB SCH ×2 (16:31→18:49)
[2018-09-14] MEDS ORDERED: LIDOCAINE 1% (MPF) 5 ML VIAL SC ONE (17:00)
[2018-09-14] MEDS ORDERED: NORepinephrine 8MG/250 ML (PMX 250 ML IV SCH (19:30)
[2018-09-15] VITALS (29 sets, daily range): BP systolic 70–143; BP diastolic 49–97; PULSE 58–208; RESP 0–34
[2018-09-15] MEDS: SOD CHLORIDE 0.9% 1,000 ML IV SCH ×2 (00:06→13:27)
[2018-09-15] MEDS: LEVALBUTEROL (NEB) 1.25 MG/0.5 ML AMP HHN SCH ×4 (01:21→19:27)
[2018-09-15] MEDS: LEVOTHYROXINE 25 MCG TAB PO SCH (05:01)
[2018-09-15] MEDS: PIPER-TAZO 3.375 GM IV (PMX) 100 ML IVPB SCH ×3 (05:01→20:13)
[2018-09-15] MEDS: PANTOPRAZOLE (EC) 40 MG TAB PO SCH (05:01)
[2018-09-15] MEDS ORDERED: ADENOSINE 3 MG/ML SYRINGE IV ONE (07:00)
--- NOTE | 2018-09-15 09:23 | CONS ---
Date/Time of Note Date/Time of Note DATE: 09/15/18 TIME: 09:20 Assessment/Plan Assessment/Plan Assessment/Plan Chest x-ray was reviewed from today which is showing significant bilateral pneumonia pronounced in right lung. Ventilator setting; AC of 16, pressure-controlled mode of ventilation. PEEP of 5. 50% FiO2. Patient is currently on propofol at 5 mics per kilogram per minute. Assessment and recommendations; 1. Patient with history of metastatic thyroid cancer to the lungs admitted for hypercapnic respiratory failure, patient was maintained on T-piece at [facility] now requiring full invasive mechanical ventilation. 2. Anemia and thrombocytopenia. 3. Prior sternotomy. Continue current supportive care. Wean down FiO2 as tolerated. Prognosis appears poor. Family to decide about possible comfort care measures. Obtain follow-up chest x-ray 24 hours. Result Diagram: 09/15/1807 09/15/18 0607 Results 24hrs Laboratory Tests Test 09/14/18 11:19 09/14/18 14:00 09/15/18 06:07 09/15/18 07:00 Blood Gas Blood arterial Blood arterial Blood Specimen arterial Source Arterial Blood 09/14/2018 11:45 09/14/2018 2:00: 09/15/2018 8:40 Date Drawn :46 AM 06 PM :03 AM Arterial Blood 7.277 *L 7.458 H 7.512 H pH (Temp corrected ) Arterial Blood 105.5 *H 62.8 H 45.9 H pCO2 (Temp correct) Arterial Blood 103.4 H 69.1 L 97.9 H pO2 (Temp corrected ) Arterial Blood 48.1 *H 43.5 *H 36.0 H HCO3 Arterial Blood 17.0 H 16.8 H 11.7 H Base Excess Arterial Blood 97.1 95.2 97.5 Oxygen Saturati on Tonny Test N/A N/A ACCEPTAB Arterial Blood Right Brachial Right Brachial Right Radial Gas Puncture Site Arterial 0.2 0.3 0.3 Blood Carboxyhe moglobin Arterial Blood 0.3 0.2 0.2 Methemoglobin Blood Gas A-a 208.4 H 216.8 H 279.4 H O2 Differential Oxyhemoglobin 96.6 94.7 97.0 Percent Blood Gas 37.0 37.0 37.0 Temperature Blood Gas TRACH COLLAR VENT - PC NIMV Modality FiO2 60.0 50.0 60.0 Blood Gas EMILY HOWARD RN Critical Value Read Back Blood Gas TM TM Holly RG Notified Whom Blood Gas 09/14/2018 11:53 09/14/2018 2:09: 09/15/2018 8:59 Notified Time :26 AM 56 PM :49 AM Blood Gas 16.0 16.0 Respiration Rate Blood Gas 17 16 Actual Respiration Rat e Blood Gas Low 5.0 PEEP Setting Blood Gas 25.0 Inspiratory Pressure White Blood 5.8 # Count Red Blood Count 3.26 L Hemoglobin 9.6 L Hematocrit 31.1 L Mean 95.4 Corpuscular Volume Mean 29.4 Corpuscular Hemoglobin Mean 30.9 L Corpuscular Hemoglobin Conc ent Red Cell 14.0 Distribution Width Platelet Count 118 #L Mean Platelet 9.9 Volume Immature 0.300 Granulocytes % Neutrophils % 75.4 Lymphocytes % 12.5 L Monocytes % 5.0 Eosinophils % 6.3 Basophils % 0.5 Nucleated Red 0.0 Blood Cells % Immature 0.020 Granulocytes # Neutrophils # 4.4 Lymphocytes # 0.7 L Monocytes # 0.3 Eosinophils # 0.4 Basophils # 0.0 Nucleated Red 0.0 Blood Cells # Sodium Level 142 Potassium Level 3.4 L Chloride Level 100 Carbon Dioxide 37 H Level Anion Gap 5 Blood Urea 32 H Nitrogen Creatinine 1.10 H Est Glomerular Filtrat Rate mL/min Glucose Level 92 Calcium Level 7.7 L Phosphorus 2.2 L Level Magnesium Level 2.1 Blood Gas 1.0 Inspiratory Time Blood Gas 25/5 IPAP/EPAP Ratio Consultation Date/Type/Reason Admit Date/Time Sep 13, 2018 at 05:56 Initial Consult Date Type of Consult Pulmonary/critical care Reason for Consultation Patient's condition remains tenuous at best. Still requiring full invasive mechanical ventilation. Patient however has remained hemodynamically stable. General exam; elderly female, on ventilator via tracheostomy, sedated, currently in no distress. Exam/Review of Systems Vital Signs Vitals Vital Signs Date Temp Pulse Resp B/P (MAP) Pulse Ox O2 O2 Flow FiO2 Time Delivery Rate 09/15/18 59 96/53 (67) 96 Mechanical 06:00 Ventilator 09/15/18 16 60 05:10 09/15/18 98.5 01:00 09/14/18 10.0 20:00 Intake and Output 09/14/18 09/14/18 09/15/18 1515:00 23:00 07:00 IntakeIntake Total 144.72 ml 224.16 ml OutputOutput Total 655 ml 215 ml BalanceBalance 144.72 ml -430.84 ml -215 ml Exam H EENT exam; supple neck, no JVD. No lymphadenopathy. Midline trachea. No thyromegaly. Patient is edentulous. Tracheostomy in place. No neck masses. Chest exam; diminished breath sounds throughout. S1-S2 audible, no murmurs. Regular rhythm. Abdomen exam; soft, G-tube in place. No organomegaly. Bowel sounds are sluggish. Extremity exam; trace edema. With patchy ecchymosis. DATA TYPIST exam; patient is sedated. Medications Medications Current Medications Sodium Chloride 1,000 ml @ 70 mls/hr [id number] IV Last administered on 09/15/18at 00:06; Admin Dose 70 MLS/HR; Start 09/13/18 at 06:56 IV Flush (NS 3 ml) 3 ml PER PROTOCOL IV ; Start 09/13/18 at 07:00 Ondansetron HCl (Zofran Inj) 4 mg Q6H PRN IV NAUSEA AND/OR VOMITING; Start 09/13/18 at 07:00 Acetaminophen (Tylenol Tab) 650 mg Q6H PRN PO PAIN LEVEL 1-3 OR FEVER Last administered on 09/14/18at 03:18; Admin Dose 650 MG; Start 09/13/18 at 07:00 Heparin Sodium (Porcine) (Heparin (5000 Units/1ml)) 5,000 unit Q12 SC Last administered on 09/14/18at 20:52; Admin Dose 5,000 UNIT; Start 09/13/18 at 09:00 Levothyroxine Sodium (Synthroid) 25 mcg BEFORE BREAKFAST PO Last administered on 09/14/18at 06:23; Admin Dose 25 MCG; Start 09/13/18 at 07:00 Pantoprazole (Protonix Tab) 40 mg DAILY@06 PO Last administered on 09/14/18at 06:23; Admin Dose 40 MG; Start 09/13/18 at 06:00 Vancomycin HCl (Vanco Iv Per Pharmacy) VANCOMYCIN PER PHARMACY PER PROTOCOL XX ; Start 09/13/18 at 07:30 Levalbuterol (Xopenex Hfa) 1.25 puff Q4H PRN INH WHEEZING AND SOB; Start 09/13/18 at 10:00 Lorazepam (Ativan) 2 mg BID PRN PO anxiety Last administered on 09/13/18at 14:12; Admin Dose 2 MG; Start 09/13/18 at 14:00 Levalbuterol (Xopenex Neb) 1.25 mg Q6H RESP THERAPY HHN Last administered on 09/15/18at 01:21; Admin Dose 1.25 MG; Start 09/13/18 at 14:00 Vancomycin HCl 250 ml @ 125 mls/hr Q24H IVPB Last administered on 09/14/18at 13:30; Admin Dose 125 MLS/HR; Start 09/14/18 at 13:00 Piperacillin Sod/ Tazobactam Sod 100 ml @ 200 mls/hr Q8 IVPB Last administered on 09/15/18at 05:01; Admin Dose 200 MLS/HR; Start 09/13/18 at 22:00 Miscellaneous Information (*Rx Drug Level Order Reminder*) VANCOMYCIN TROUGH AT 1200 ONCE ONCE XX ; Start 09/15/18 at 12:00; Stop 09/15/18 at 12:01 Propofol 100 ml @ 2.952 mls/ hr Q12H IV Last administered on 09/14/18at 19:37; Admin Dose 2.952 MLS/HR; Start 09/14/18 at 13:00 Norepinephrine 250 ml @ 1.875 mls/ hr TITRATE IV ; Start 09/14/18 at 19:30 Potassium Chloride 50 ml @ 50 mls/hr K PROTOCOL PRN IVPB PENDING LAB VALUE; Start 09/15/18 at 08:00 Potassium Chloride 50 ml @ 50 mls/hr Q1H IVPB ; Start 09/15/18 at 08:40; Stop 09/15/18 at 10:39 BRANDEN SCOTT Sep 15, 2018 09:23
[2018-09-15] MEDS: POTASSIUM CHLORIDE 50 ML IVPB SCH ×2 (09:51→10:47)
[2018-09-15] MEDS: HEPARIN 5,000 UNIT/1 ML VIAL SC SCH ×2 (09:51→20:20)
--- NOTE | 2018-09-15 11:45 | NUR ---
PASSY DESMOND VALVE PATIENT'S PASSY DESMOND VALVE NOW IN FAMILY'S POSSESSION. GIVEN TO PATIENT'S SON, GREG, BY THIS RN. WITNESSED BY PHOTOGRAPHER, THEO, AND RESPIRATORY THERAPIST, JERRY.
[2018-09-15] MEDS: PROPOFOL 100 ML IV SCH (12:50)
[2018-09-15] MEDS: VANCOMYCIN 1 GM 250 ML IVPB SCH (12:57)
--- NOTE | 2018-09-15 13:55 | NUR ---
RX NOTE RE: VANCOMYCIN DAY #3 VANCO PER RX BUN/SCR: 32/1.10 TMAX: 99.4 WBC: 5.8 ALLERGIES: CLINDAMYCIN, PREDNISONE, IODINE, MORPHINE OTHER ABX: ZOSYN VANCO TROUGH: 13.7 CONTINUE CURRENT REGIMEN OF VANCOMYCIN 1GM IV Q24HR PHARMACY TO FOLLOW
--- NOTE | 2018-09-15 14:07 | PN ---
Date/Time of Note Date/Time of Note DATE: 09/15/18 TIME: 13:55 Assessment/Plan VTE Prophylaxis Risk score (from Nsg)>0 risk: 9 Pharmacological prophylaxis: heparin Lines/Catheters IV Catheter Type (from Nrsg): Peripheral IV Assessment/Plan Hospital Course 1. Acute on chronic hypoxemic and hypercapnic on respiratory failure secondary to dislodged tracheostomy and pneumonia on chronic lung metastasis and OHS Trach has been reinserted Hypercapnia and altered mentation has resolved Continuing another day of vent support secondary to hypoxia Continue antibiotics for possible underlying pneumonia Pulmonology consultation appreciated 2. Sepsis secondary to possible pneumonia Continue broad spectrum antibiotics 3. Acute metabolic encephalopathy secondary to hypercapnia-resolved ABG now shows resolution of hypercapnia CT brain with no acute findings 4. Acute kidney injuryimproved IV fluid 5. Metastatic thyroid cancer status post surgical resection with known pulmonary metastasis Follow-up with outpatient oncologist Patient is status post tracheostomy several years ago 6. History of aspiration pneumonia 7. Hypothyroidism Continue Synthroid 8. Anemia chronic disease Monitor 9. Hypertension Continue home meds Prophylaxis: Heparin DC planning: Not stable for DC Result Diagram: 09/15/18 0607 09/15/18 0607 Results 24hrs Laboratory Tests Test 09/14/18 14:00 09/15/18 06:07 09/15/18 07:00 09/15/18 12:25 Blood Gas Blood arterial Blood arterial Specimen Source Arterial Blood 09/14/2018 2:00: 09/15/2018 8:40: Date Drawn 06 PM 03 AM Arterial Blood 7.458 H 7.512 H pH (Temp corrected) Arterial Blood 62.8 H 45.9 H pCO2 (Temp correct) Arterial Blood 69.1 L 97.9 H pO2 (Temp corrected) Arterial Blood 43.5 *H 36.0 H HCO3 Arterial Blood 16.8 H 11.7 H Base Excess Arterial Blood 95.2 97.5 Oxygen Saturatio n Tonny Test N/A ACCEPTAB Arterial Blood Right Brachial Right Radial Gas Puncture Site Arterial 0.3 0.3 Blood Carboxyhem oglobin Arterial Blood 0.2 0.2 Methemoglobin Blood Gas A-a O2 216.8 H 279.4 H Differential Oxyhemoglobin 94.7 97.0 Percent Blood Gas 37.0 37.0 Temperature Blood Gas 16.0 16.0 Respiration Rate Blood Gas Actual 17 16 Respiration Rate Blood Gas VENT - PC NIMV Modality FiO2 50.0 60.0 Blood Gas Low 5.0 PEEP Setting Blood Gas 25.0 Inspiratory Pressure Blood Gas LEE MARTÍNEZ Critical Value Read Back Blood Gas TM Holly RG Notified Whom Blood Gas 09/14/2018 2:09: 09/15/2018 8:59: Notified Time 56 PM 49 AM White Blood 5.8 # Count Red Blood Count 3.26 L Hemoglobin 9.6 L Hematocrit 31.1 L Mean Corpuscular 95.4 Volume Mean Corpuscular 29.4 Hemoglobin Mean Corpuscular 30.9 L Hemoglobin Puja nt Red Cell 14.0 Distribution Width Platelet Count 118 #L Mean Platelet 9.9 Volume Immature 0.300 Granulocytes % Neutrophils % 75.4 Lymphocytes % 12.5 L Monocytes % 5.0 Eosinophils % 6.3 Basophils % 0.5 Nucleated Red 0.0 Blood Cells % Immature 0.020 Granulocytes # Neutrophils # 4.4 Lymphocytes # 0.7 L Monocytes # 0.3 Eosinophils # 0.4 Basophils # 0.0 Nucleated Red 0.0 Blood Cells # Sodium Level 142 Potassium Level 3.4 L Chloride Level 100 Carbon Dioxide 37 H Level Anion Gap 5 Blood Urea 32 H Nitrogen Creatinine 1.10 H Est Glomerular Filtrat Rate mL/min Glucose Level 92 Calcium Level 7.7 L Phosphorus Level 2.2 L Magnesium Level 2.1 Blood Gas 1.0 Inspiratory Time Blood Gas 25/5 IPAP/EPAP Ratio Vancomycin Level 13.7 Trough Subjective 24 Hr Interval Summary Constitutional: no complaints Exam/Review of Systems Vital Signs Vitals Vital Signs Date Temp Pulse Resp B/P (MAP) Pulse Ox O2 O2 Flow FiO2 Time Delivery Rate 09/15/18 60 21 99/71 (80) 100 Trach 13:00 Collar 09/15/18 99.4 12:00 09/15/18 60 10:49 09/14/18 10.0 20:00 Intake and Output 09/14/18 09/14/18 09/15/18 1515:00 23:00 07:00 IntakeIntake Total 144.72 ml 224.16 ml 72.952 ml OutputOutput Total 655 ml 245 ml BalanceBalance 144.72 ml -430.84 ml -172.048 ml Exam Constitutional: alert Respiratory: clear to auscultation Cardiovascular: regular rate and rhythm Gastrointestinal: soft; No distended Musculoskeletal: nl extremities to inspection Medications Medications Current Medications Sodium Chloride 1,000 ml @ 70 mls/hr [id number] IV Last administered on 09/15/18 13:27; Admin Dose 70 MLS/HR; Start 09/13/18 at 06:56 IV Flush (NS 3 ml) 3 ml PER PROTOCOL IV ; Start 09/13/18 at 07:00 Ondansetron HCl (Zofran Inj) 4 mg Q6H PRN IV NAUSEA AND/OR VOMITING; Start 09/13/18 at 07:00 Acetaminophen (Tylenol Tab) 650 mg Q6H PRN PO PAIN LEVEL 1-3 OR FEVER Last administered on 09/14/18 03:18; Admin Dose 650 MG; Start 09/13/18 at 07:00 Heparin Sodium (Porcine) (Heparin (5000 Units/1ml)) 5,000 unit Q12 SC Last administered on 09/15/18at 09:51; Admin Dose 5,000 UNIT; Start 09/13/18 at 09:00 Levothyroxine Sodium (Synthroid) 25 mcg BEFORE BREAKFAST PO Last administered on 09/14/18at 06:23; Admin Dose 25 MCG; Start 09/13/18 at 07:00 Pantoprazole (Protonix Tab) 40 mg DAILY@06 PO Last administered on 09/14/18at 06:23; Admin Dose 40 MG; Start 09/13/18 at 06:00 Vancomycin HCl (Vanco Iv Per Pharmacy) VANCOMYCIN PER PHARMACY PER PROTOCOL XX ; Start 09/13/18 at 07:30 Levalbuterol (Xopenex Hfa) 1.25 puff Q4H PRN INH WHEEZING AND SOB; Start 09/13/18 at 10:00 Lorazepam (Ativan) 2 mg BID PRN PO anxiety Last administered on 09/13/18at 14:12; Admin Dose 2 MG; Start 09/13/18 at 14:00 Levalbuterol (Xopenex Neb) 1.25 mg Q6H RESP THERAPY HHN Last administered on 09/15/18at 08:05; Admin Dose 1.25 MG; Start 09/13/18 at 14:00 Vancomycin HCl 250 ml @ 125 mls/hr Q24H IVPB Last administered on 09/15/18at 12:57; Admin Dose 125 MLS/HR; Start 09/14/18 at 13:00 Piperacillin Sod/ Tazobactam Sod 100 ml @ 200 mls/hr Q8 IVPB Last administered on 09/15/18at 05:01; Admin Dose 200 MLS/HR; Start 09/13/18 at 22:00 Propofol 100 ml @ 2.952 mls/ hr Q12H IV Last administered on 09/14/18at 19:37; Admin Dose 2.952 MLS/HR; Start 09/14/18 at 13:00 Norepinephrine 250 ml @ 1.875 mls/ hr TITRATE IV ; Start 09/14/18 at 19:30 Potassium Chloride 50 ml @ 50 mls/hr K PROTOCOL PRN IVPB PENDING LAB VALUE; Start 09/15/18 at 08:00 Docusate Sodium (Colace) 100 mg BID PO ; Start 09/15/18 at 21:00 MAINE ZAMORANO Sep 15, 2018 14:07
--- NOTE | 2018-09-15 15:36 | NUR ---
PICC INSERTION REFUSED CHAITANYA MARTÍNEZ ATTEMPTED PICC LINE INSERTION. HOWEVER, PATIENT WOULD NOT STAY STILL FOR PROCEDURE DESPITE INSTRUCTION/ ENCOURAGEMENT. PATIENT SHOOK HER HEAD "NO", AND REFUSED TO LET CHAITANYA ASSESS HER ARM. UPDATED PATIENT'S DAUGHTER OF SITUATION. WILL ATTEMPT PICC LINE INSERTION, IF STILL NEEDED, TOMORROW WITH PATIENT'S SON AT BEDSIDE TO KEEP PATIENT CALM.
--- NOTE | 2018-09-15 15:53 | NUR ---
PICC LINE INSERTION- THIS NURSE TO ICU BED 104 FOR PICC LINE INSERTION X'S 3 TODAY. PT REFUSED X'S 3 ATTEMPTS TO HAVE PICC LINE INSERTED. PROCEDURE EXPLAINED TO PT AND FAMILY VERBALIZED UNDERSTANDING. CONSENT SIGNED BY PT AND PHYSICIAN. PT HAS ESTABLISHED IV ACCESS.
[2018-09-15] MEDS: LORAZEPAM 4 MG/ML VIAL IV PRN ×2 (16:56→22:56)
--- NOTE | 2018-09-15 18:48 | NUR ---
END OF SHIFT SUMMARY Patient awake and alert, and able to follow commands. Episodes of agitation. Patient afebrile. Rhythm as charted. On T-collar, FiO2 60%. NPO; awaiting speech therapy evaluation due to high risk of aspiration. (Puree diet order still active from before patient's OPTIONS ADVISOR/ respiratory distress Skin/wound care provided as ordered. No new development of wounds. Patient turned/repositioned Q2H per protocol. Comfort and safety measures/ fall precautions in place. Plan for PICC line insertion tomorrow. Family at bedside throughout shift. Patient and family updated on patient's status, and plan of care. All of patient's needs met, and no acute distress/events. Will continue to monitor, and endorse care to overnight houseperson RN.
[2018-09-15] MEDS: DOCUSATE SODIUM 100 MG CAP PO SCH (20:12)
[2018-09-15] MEDS: DIPHENHYDRAMINE 50 MG INJ IV PRN (20:13)
--- NOTE | 2018-09-15 23:00 | NUR ---
HEART MONITOR SHOWING SVT , [id number] , INFORMED DR. NAIDU. ADENOSIN IV. METAPROLOL IV AND AMIODARON LOAD GIVEN. HR STILL IS 160,S , AMIODARON IV 1 MG/ MIN STARTED AT MID NIGHT FOR 6 HOURS. PT IS UNDER CLOSE OBSERVATION
[2018-09-15] MEDS ORDERED: METOPROLOL 5 MG INJ ONE (23:09)
[2018-09-15] MEDS ORDERED: DILTIAZEM 25 MG INJ ONE (23:13)
[2018-09-15] MEDS ORDERED: AMIODARONE 150MG/D5W BOLUS 100 ML ONE (23:18)
[2018-09-15] MEDS ORDERED: METOPROLOL 5 MG INJ IV ONE (23:30)
[2018-09-15] MEDS ORDERED: AMIODARONE 150MG/D5W BOLUS 100 ML IV ONE (23:30)
[2018-09-15] MEDS ORDERED: AMIODARONE 900 MG in DEXTROSE 5% 482 ML IV SCH (23:30)
[2018-09-15] MEDS ORDERED: ADENOSINE 6 MG INJ IV ONE ×2 (23:30)
[2018-09-16] VITALS (42 sets, daily range): BP systolic 79–108; BP diastolic 48–93; PULSE 57–176; RESP 3–24
[2018-09-16] MEDS: PROPOFOL 100 ML IV SCH ×3 (01:00→19:56)
[2018-09-16] MEDS: LEVALBUTEROL (NEB) 1.25 MG/0.5 ML AMP HHN SCH ×4 (01:19→20:55)
[2018-09-16] MEDS: LORAZEPAM 4 MG/ML VIAL IV PRN ×2 (03:12→21:08)
--- NOTE | 2018-09-16 04:45 | NUR ---
INFORMED TO DR. NAIDU, STILL HEART RATE IS AFIB . 160 S. MD ORDERED TO GIVE 1 LIT NS TO KEEP BP HIGHER AND WHILE BP STABLE TO BE CALL MD TO GIVE BETA ADEN. IF STILL LOW BP MAY BE NEED START PRESSOR.
[2018-09-16] MEDS ORDERED: SOD CHLORIDE 0.9% 1,000 ML IV ONE (05:00)
[2018-09-16] MEDS: PANTOPRAZOLE (EC) 40 MG TAB PO SCH (05:18)
[2018-09-16] MEDS: PIPER-TAZO 3.375 GM IV (PMX) 100 ML IVPB SCH ×3 (05:18→21:08)
[2018-09-16] MEDS: LEVOTHYROXINE 25 MCG TAB PO SCH (05:18)
--- NOTE | 2018-09-16 06:45 | NUR ---
HEART MONITOR IS SHOWING NSR, HR=60 S
[2018-09-16] MEDS: SOD CHLORIDE 0.9% 1,000 ML IV SCH ×2 (07:07→20:44)
--- NOTE | 2018-09-16 08:00 | CONS ---
Date/Time of Note Date/Time of Note DATE: 09/16/18 TIME: 07:57 Assessment/Plan Assessment/Plan Assessment/Plan Chest x-ray showing extensive bilateral pneumonia. Ventilator setting; AC of 16, pressure-controlled mode, 80% FiO2 PEEP of 5. Patient is currently on amiodarone 2.5 mg/min. Assessment and recommendations; 1. Patient with history of chronic respiratory failure maintained on T-piece admitted for severe bilateral pneumonia and severe hypoxemic and hypercapnic respiratory failure. 2. Metastatic thyroid cancer. 3. Anemia and thrombocytopenia. 4. Episode of SVT. Patient currently in junctional rhythm. 5. History of G-tube placement. 6. Prior sternotomy. 7. Encephalopathy. Continue current supportive care. Prognosis is extremely poor. Hospice should be considered. I did have a detailed discussion with the patient's grandson at bedside and answered all his questions. 35 minutes of critical care time was spent evaluating patient. Result Diagram: 09/16/18 0452 09/16/18 0452 Results 24hrs Laboratory Tests Test 09/15/18 12:25 09/15/18 23:15 09/16/18 04:52 Vancomycin Level Trough 13.7 Blood Gas Specimen Source Blood arterial Arterial Blood Date Drawn 09/15/2018 11:40:00 PM Arterial Blood pH 7.388 (Temp corrected) Arterial Blood pCO2 55.4 H (Temp correct) Arterial Blood pO2 108.6 H (Temp corrected) Arterial Blood HCO3 32.6 H Arterial Blood Base Excess 6.3 H Arterial Blood 97.7 Oxygen Saturation Tonny Test ACCEPTAB Arterial Blood Gas Right Radial Puncture Site Arterial 0.3 Blood Carboxyhemoglobin Arterial Blood 0.2 Methemoglobin Blood Gas A-a O2 549.0 H Differential Oxyhemoglobin Percent 97.2 Blood Gas Temperature 37.0 Blood Gas Respiration Rate 16.0 Blood Gas Actual 18 Respiration Rate Blood Gas Modality NIMV FiO2 100.0 Blood Gas Inspiratory Time 1.0 Blood Gas Pressure Support 25/5 Blood Gas Notified Whom MA Blood Gas Notified Time 09/15/2018 11:55:00 PM White Blood Count 6.3 Red Blood Count 3.48 L Hemoglobin 10.3 L Hematocrit 33.4 L Mean Corpuscular Volume 96.0 Mean Corpuscular Hemoglobin 29.6 Mean Corpuscular 30.8 L Hemoglobin Concent Red Cell Distribution Width 14.9 H Platelet Count 124 L Mean Platelet Volume 11.0 H Immature Granulocytes % 0.300 Neutrophils % 75.6 Lymphocytes % 9.5 L Monocytes % 7.6 Eosinophils % 6.7 Basophils % 0.3 Nucleated Red Blood Cells % 0.0 Immature Granulocytes # 0.020 Neutrophils # 4.8 Lymphocytes # 0.6 L Monocytes # 0.5 Eosinophils # 0.4 Basophils # 0.0 Nucleated Red Blood Cells # 0.0 Sodium Level 142 Potassium Level 4.0 Chloride Level 104 Carbon Dioxide Level 30 Anion Gap 8 Blood Urea Nitrogen 30 H Creatinine 1.08 H Est Glomerular Filtrat Rate mL/min Glucose Level 122 Calcium Level 7.7 L Consultation Date/Type/Reason Admit Date/Time Sep 13, 2018 at 05:56 Initial Consult Date Type of Consult Pulmonary/critical care 24 HR Interval Summary Free Text/Dictation Patient's condition is critical. Patient developed SVT yesterday. General exam; elderly female, on ventilator via tracheostomy, unresponsive, currently in no distress. But according to the nurse, patient does wake up off and on. Exam/Review of Systems Vital Signs Vitals Vital Signs Date Temp Pulse Resp B/P (MAP) Pulse Ox O2 O2 Flow FiO2 Time Delivery Rate 09/16/18 58 13 91/57 (68) 100 06:45 09/16/18 98.0 06:00 09/16/18 50 05:12 09/16/18 Mechanical 02:30 Ventilator 09/15/18 10.0 23:00 Intake and Output 09/15/18 09/15/18 09/16/18 1515:00 23:00 07:00 IntakeIntake Total 1012.952 ml 210 ml OutputOutput Total 210 ml 225 ml 215 ml BalanceBalance 802.952 ml -15 ml -215 ml Exam HEENT exam; supple neck, no JVD. No lymphadenopathy. Midline trachea. No thyromegaly. Patient is edentulous. Tracheostomy in place. No neck masses. Chest exam; diminished breath sounds throughout. S1-S2 audible, no murmurs. Regular rhythm. Abdomen exam; soft, no organomegaly. G-tube in place. Bowel sounds are sluggish. Extremity exam; no peripheral edema. DISTANCE LEARNING PROGRAM COORDINATOR exam; patient is currently unresponsive. Medications Medications Current Medications Sodium Chloride 1,000 ml @ 70 mls/hr [id number] IV Last administered on 09/16/18at 07:07; Admin Dose 70 MLS/HR; Start 09/13/18 at 06:56 IV Flush (NS 3 ml) 3 ml PER PROTOCOL IV ; Start 09/13/18 at 07:00 Ondansetron HCl (Zofran Inj) 4 mg Q6H PRN IV NAUSEA AND/OR VOMITING; Start 09/13/18 at 07:00 Acetaminophen (Tylenol Tab) 650 mg Q6H PRN PO PAIN LEVEL 1-3 OR FEVER Last administered on 09/14/18at 03:18; Admin Dose 650 MG; Start 09/13/18 at 07:00 Heparin Sodium (Porcine) (Heparin (5000 Units/1ml)) 5,000 unit Q12 SC Last administered on 09/15/18 20:20; Admin Dose 5,000 UNIT; Start 09/13/18 at 09:00 Levothyroxine Sodium (Synthroid) 25 mcg BEFORE BREAKFAST PO Last administered on 09/14/18at 06:23; Admin Dose 25 MCG; Start 09/13/18 at 07:00 Pantoprazole (Protonix Tab) 40 mg DAILY@06 PO Last administered on 09/14/18at 06:23; Admin Dose 40 MG; Start 09/13/18 at 06:00 Vancomycin HCl (Vanco Iv Per Pharmacy) VANCOMYCIN PER PHARMACY PER PROTOCOL XX ; Start 09/13/18 at 07:30 Levalbuterol (Xopenex Hfa) 1.25 puff Q4H PRN INH WHEEZING AND SOB; Start 09/13/18 at 10:00 Levalbuterol (Xopenex Neb) 1.25 mg Q6H RESP THERAPY HHN Last administered on 09/16/18at 01:19; Admin Dose 1.25 MG; Start 09/13/18 at 14:00 Vancomycin HCl 250 ml @ 125 mls/hr Q24H IVPB Last administered on 09/15/18at 12:57; Admin Dose 125 MLS/HR; Start 09/14/18 at 13:00 Piperacillin Sod/ Tazobactam Sod 100 ml @ 200 mls/hr Q8 IVPB Last administered on 09/16/18at 05:18; Admin Dose 200 MLS/HR; Start 09/13/18 at 22:00 Propofol 100 ml @ 2.952 mls/ hr Q12H IV Last administered on 09/14/18at 19:37; Admin Dose 2.952 MLS/HR; Start 09/14/18 at 13:00 Norepinephrine 250 ml @ 1.875 mls/ hr TITRATE IV ; Start 09/14/18 at 19:30 Potassium Chloride 50 ml @ 50 mls/hr K PROTOCOL PRN IVPB PENDING LAB VALUE; Start 09/15/18 at 08:00 Docusate Sodium (Colace) 100 mg BID PO ; Start 09/15/18 at 21:00 Lorazepam (Ativan) 2 mg Q6H PRN IV AGITATION/ANXIETY Last administered on 09/15/18at 22:56; Admin Dose 2 MG; Start 09/15/18 at 16:30 Diphenhydramine HCl (Benadryl) 25 mg Q6H PRN IV ITCHING Last administered on 09/15/18at 20:13; Admin Dose 25 MG; Start 09/15/18 at 20:00 Amiodarone HCl 900 mg/Dextrose 500 ml @ 0 mls/hr Q0M IV Last administered on 09/16/18at 00:03; Admin Dose 1 MLS/HR; Start 09/15/18 at 23:30; Stop 09/16/18 at 23:29 BRANDEN SCOTT Sep 16, 2018 08:00
[2018-09-16] MEDS: DOCUSATE SODIUM 100 MG CAP PO SCH ×2 (09:00→19:55)
[2018-09-16] MEDS: HEPARIN 5,000 UNIT/1 ML VIAL SC SCH ×2 (09:31→20:46)
[2018-09-16] MEDS ORDERED: SOD CHLORIDE 0.9% 500 ML IV ONE (12:30)
[2018-09-16] MEDS: VANCOMYCIN 1 GM 250 ML IVPB SCH (13:32)
--- NOTE | 2018-09-16 14:52 | PN ---
Date/Time of Note Date/Time of Note DATE: 09/16/18 TIME: 14:48 Assessment/Plan VTE Prophylaxis Risk score (from Ns)>0 risk: 12 SCD applied (from Ns): Yes Pharmacological prophylaxis: heparin Lines/Catheters IV Catheter Type (from Nrs): Peripheral IV Assessment/Plan Hospital Course 1. Acute on chronic hypoxemic and hypercapnic on respiratory failure secondary to dislodged tracheostomy and pneumonia on chronic lung metastasis and OHS Trach has been fixed Hypercapnia and altered mentation has resolved Continuing vent support secondary to hypoxia, patient did have vent removed but became tachycardic and was reinserted Continue antibiotics for underlying pneumonia Chest x-ray from today shows increased opacities Pulmonology consultation appreciated 2. Sepsis secondary to possible pneumonia Continue broad spectrum antibiotics 3. Acute metabolic encephalopathy secondary to hypercapnia-resolved ABG shows resolution of hypercapnia CT brain with no acute findings 4. Acute kidney injuryimproved IV fluid 5. Metastatic thyroid cancer status post surgical resection with known p ulmonary metastasis Follow-up with outpatient oncologist Patient is status post tracheostomy several years ago 6. History of aspiration pneumonia 7. Hypothyroidism Continue Synthroid 8. Anemia chronic disease Monitor 9. Hypertension Continue home meds Prophylaxis: Heparin DC planning: Not stable for DC Result Diagram: 09/16/18 0452 09/16/18 0452 Results 24hrs Laboratory Tests Test 09/15/18 23:15 09/16/18 04:52 Blood Gas Specimen Source Blood arterial Arterial Blood Date Drawn 09/15/2018 11:40:00 PM Arterial Blood pH (Temp corrected) 7.388 Arterial Blood pCO2 (Temp correct) 55.4 H Arterial Blood pO2 (Temp corrected) 108.6 H Arterial Blood HCO3 32.6 H Arterial Blood Base Excess 6.3 H Arterial Blood Oxygen Saturation 97.7 Tonny Test ACCEPTAB Arterial Blood Gas Puncture Site Right Radial Arterial Blood Carboxyhemoglobin 0.3 Arterial Blood Methemoglobin 0.2 Blood Gas A-a O2 Differential 549.0 H Oxyhemoglobin Percent 97.2 Blood Gas Temperature 37.0 Blood Gas Respiration Rate 16.0 Blood Gas Actual Respiration Rate 18 Blood Gas Modality NIMV FiO2 100.0 Blood Gas Inspiratory Time 1.0 Blood Gas Pressure Support 25/5 Blood Gas Notified Whom MA Blood Gas Notified Time 09/15/2018 11:55:00 PM White Blood Count 6.3 Red Blood Count 3.48 L Hemoglobin 10.3 L Hematocrit 33.4 L Mean Corpuscular Volume 96.0 Mean Corpuscular Hemoglobin 29.6 Mean Corpuscular Hemoglobin Concent 30.8 L Red Cell Distribution Width 14.9 H Platelet Count 124 L Mean Platelet Volume 11.0 H Immature Granulocytes % 0.300 Neutrophils % 75.6 Lymphocytes % 9.5 L Monocytes % 7.6 Eosinophils % 6.7 Basophils % 0.3 Nucleated Red Blood Cells % 0.0 Immature Granulocytes # 0.020 Neutrophils # 4.8 Lymphocytes # 0.6 L Monocytes # 0.5 Eosinophils # 0.4 Basophils # 0.0 Nucleated Red Blood Cells # 0.0 Sodium Level 142 Potassium Level 4.0 Chloride Level 104 Carbon Dioxide Level 30 Anion Gap 8 Blood Urea Nitrogen 30 H Creatinine 1.08 H Est Glomerular Filtrat Rate mL/min Glucose Level 122 Calcium Level 7.7 L Subjective 24 Hr Interval Summary Subjective hx not possible: pt non-verbal Exam/Review of Systems Vital Signs Vitals Vital Signs Date Temp Pulse Resp B/P (MAP) Pulse Ox O2 O2 Flow FiO2 Time Delivery Rate 09/16/18 57 17 82/62 (69) 100 Mechanical 13:00 Ventilator 09/16/18 98.3 12:00 09/16/18 50 11:00 09/15/18 10.0 23:00 Intake and Output 09/15/18 09/15/18 09/16/18 1515:00 23:00 07:00 IntakeIntake Total 1012.952 ml 210 ml 86.6 ml OutputOutput Total 210 ml 225 ml 245 ml BalanceBalance 802.952 ml -15 ml -158.4 ml Exam Constitutional: non-verbal ENMT: intubated Respiratory: clear to auscultation Cardiovascular: regular rate and rhythm Gastrointestinal: soft; No distended Musculoskeletal: nl extremities to inspection Medications Medications Current Medications Sodium Chloride 1,000 ml @ 70 mls/hr [id number] IV Last administered on 09/16/18at 07:07; Admin Dose 70 MLS/HR; Start 09/13/18 at 06:56 IV Flush (NS 3 ml) 3 ml PER PROTOCOL IV ; Start 09/13/18 at 07:00 Ondansetron HCl (Zofran Inj) 4 mg Q6H PRN IV NAUSEA AND/OR VOMITING; Start 09/13/18 at 07:00 Acetaminophen (Tylenol Tab) 650 mg Q6H PRN PO PAIN LEVEL 1-3 OR FEVER Last administered on 09/14/18 03:18; Admin Dose 650 MG; Start 09/13/18 at 07:00 Heparin Sodium (Porcine) (Heparin (5000 Units/1ml)) 5,000 unit Q12 SC Last administered on 09/16/18 09:31; Admin Dose 5,000 UNIT; Start 09/13/18 at 09:00 Levothyroxine Sodium (Synthroid) 25 mcg BEFORE BREAKFAST PO Last administered on 09/14/18 06:23; Admin Dose 25 MCG; Start 09/13/18 at 07:00 Pantoprazole (Protonix Tab) 40 mg DAILY@06 PO Last administered on 09/14/18 06:23; Admin Dose 40 MG; Start 09/13/18 at 06:00 Vancomycin HCl (Vanco Iv Per Pharmacy) VANCOMYCIN PER PHARMACY PER PROTOCOL XX ; Start 09/13/18 at 07:30 Levalbuterol (Xopenex Hfa) 1.25 puff Q4H PRN INH WHEEZING AND SOB; Start 09/13/18 at 10:00 Levalbuterol (Xopenex Neb) 1.25 mg Q6H RESP THERAPY HHN Last administered on 09/16/18at 09:25; Admin Dose 1.25 MG; Start 09/13/18 at 14:00 Vancomycin HCl 250 ml @ 125 mls/hr Q24H IVPB Last administered on 09/16/18 13:32; Admin Dose 125 MLS/HR; Start 09/14/18 at 13:00 Piperacillin Sod/ Tazobactam Sod 100 ml @ 200 mls/hr Q8 IVPB Last administered on 09/16/18at 13:34; Admin Dose 200 MLS/HR; Start 09/13/18 at 22:00 Propofol 100 ml @ 2.952 mls/ hr Q12H IV Last administered on 09/14/18at 19:37; Admin Dose 2.952 MLS/HR; Start 09/14/18 at 13:00 Norepinephrine 250 ml @ 1.875 mls/ hr TITRATE IV ; Start 09/14/18 at 19:30 Potassium Chloride 50 ml @ 50 mls/hr K PROTOCOL PRN IVPB PENDING LAB VALUE; Start 09/15/18 at 08:00 Docusate Sodium (Colace) 100 mg BID PO ; Start 09/15/18 at 21:00 Lorazepam (Ativan) 2 mg Q6H PRN IV AGITATION/ANXIETY Last administered on 09/15/18at 22:56; Admin Dose 2 MG; Start 09/15/18 at 16:30 Diphenhydramine HCl (Benadryl) 25 mg Q6H PRN IV ITCHING Last administered on 09/15/18at 20:13; Admin Dose 25 MG; Start 09/15/18 at 20:00 Amiodarone HCl 900 mg/Dextrose 500 ml @ 0 mls/hr Q0M IV Last administered on 09/16/18at 00:03; Admin Dose 1 MLS/HR; Start 09/15/18 at 23:30; Stop 09/16/18 at 23:29; Status Hold MAINE ZAMORANO Sep 16, 2018 14:52
--- NOTE | 2018-09-16 15:25 | NUR ---
ST order received and appreciated. Pt was unarousable despite max prompting and increased words of encouragement. Pt is currently on Vent/trach. Education and counseling was provided to pts family present at bedside, with Occitan-interpretation. Family reported that they want her to continue to eat. ST will f/u as schedule permits and pending pts overall status inorder to complete swallow evaluation and passy-mendoza valve evaluation.
--- NOTE | 2018-09-16 16:28 | NUR ---
PICC Insertion. This nurse to ICU bed 104 for peripherally inserted central catheter (PICC) insertion. Patient awake, alert, oriented x 4. Patient has had previous PICC's in the past. Procedure reviewed, patient agreed to proceed. Signed consent on chart for PICC. LUE prepped with chlorhexidene, then maximum barrier drape applied. 5 FR double lumen Arrow Power PICC inserted into brachial vein, blue tip intact, using U/S guidance and sterile technique. 40cm internal,0cm exposed CXR performed; tip confirmed in lower 1/3 SVC. Sterile dressing applied. Patient tolerated procedure well.
--- NOTE | 2018-09-16 16:42 | NUR ---
RESTRAINT PTS DAUGHTER AT BEDSIDE. REMOVED PATIENTS RESTRAINTS DESPITE EDUCATION ON THEM BEING ON FOR SAFETY.
--- NOTE | 2018-09-16 16:50 | NUR ---
RESTRAINTS PT KEPT PULLING AT TRACH. DAUGHTER ASKED NURSE TO PLACE RESTRAINTS BACK FOR SAFETY.
--- NOTE | 2018-09-16 18:57 | NUR ---
EOSS MAP <65 AND ACCELERATED JUNCTIONAL RHYTHM -> REFERRED TO DR ZAMORANO--> NS 500 IV BOLUS GIVEN AND AMIODARONE DRIP HELD, LATEST BP 92/68(76), DR ZAMORANO ALSO MADE AWARE OF U.O. TREND ,CONTINUED WITH MAINTENANCE IV. DR SCOTT CHANGED TRACH TODAY TO [place]ILEY #4 CUFFED DUE TO EXCESSIVE LEAK. FIO2 80% DOWN TO 40% AT END OF SHIFT, ABLE TO MOUTHS WORDS, AGITATED ON AND OFF ASKING FOR WATER, EXPLAINED MULTIPLE TIMES PURPOSE OF NPO.
--- NOTE | 2018-09-16 21:48 | RADRPT ---
Vent Rate: 184 bpm RR Interval: 0 msec WA Interval: 0 msec QRS Duration: 70 msec QT Interval: 224 msec QTC Interval: 392 msec P-R-T [place]: 0 - 31 - 134 degrees Atrial fibrillation with rapid ventricular response Low voltage QRS Nonspecific T wave abnormality , probably digitalis effect Abnormal ECG Electronically Signed By: Zain Mirza [id number]
--- NOTE | 2018-09-16 21:51 | RADRPT ---
Vent Rate: 64 bpm RR Interval: 0 msec CO Interval: 104 msec QRS Duration: 82 msec QT Interval: 456 msec QTC Interval: 470 msec P-R-T [place]: -43 - 9 - 25 degrees Unusual P axis, possible ectopic atrial rhythm with premature supraventricular complexes Abnormal ECG Electronically Signed By: Zain Mirza [id number]
[2018-09-16] MEDS: DIPHENHYDRAMINE 50 MG INJ IV PRN (23:37)
[2018-09-17] VITALS (55 sets, daily range): BP systolic 83–144; BP diastolic 39–110; PULSE 42–63; RESP 0–20
[2018-09-17] MEDS: LEVALBUTEROL (NEB) 1.25 MG/0.5 ML AMP HHN SCH ×3 (01:37→15:09)
[2018-09-17] MEDS: PROPOFOL 100 ML IV SCH ×2 (01:41→12:48)
--- NOTE | 2018-09-17 03:52 | NUR ---
Called Dr. Beckman re low urine output in the last 2 hours, 10 cc/hr. Will carry out order for 250 cc NS bolus.
[2018-09-17] MEDS ORDERED: SOD CHLORIDE 0.9% 250 ML IV ONE (04:00)
[2018-09-17] MEDS: PANTOPRAZOLE (EC) 40 MG TAB PO SCH (06:00)
[2018-09-17] MEDS: PIPER-TAZO 3.375 GM IV (PMX) 100 ML IVPB SCH ×3 (06:05→21:55)
[2018-09-17] MEDS: SOD CHLORIDE 0.9% 1,000 ML IV SCH (06:06)
[2018-09-17] MEDS: LEVOTHYROXINE 25 MCG TAB PO SCH (06:47)
--- NOTE | 2018-09-17 07:11 | NUR ---
Pt. was always anxious, agitated, pulling tubes since beginning of my shift; at 0141 AM , had to start her on Propofol since Ativan, Benadryl didn't work. Later , when she calmed down and lightly sedated w/ propofol, discontinued mittens; family at bedside. Called Dr. Beckman when urine output went low for 2 hrs in a row at about 0400, carried out bolus of 250 cc NS.
[2018-09-17] MEDS: HEPARIN 5,000 UNIT/1 ML VIAL SC SCH ×2 (08:12→21:23)
[2018-09-17] MEDS: POTASSIUM CHLORIDE 50 ML IVPB PRN ×3 (08:14→10:41)
[2018-09-17] MEDS: DOCUSATE SODIUM 100 MG CAP PO SCH ×2 (08:34→21:00)
--- NOTE | 2018-09-17 09:37 | CONS ---
Date/Time of Note Date/Time of Note DATE: 09/17/18 TIME: 09:32 Assessment/Plan Assessment/Plan Assessment/Plan Chest x-ray was reviewed from today which is showing extensive bilateral infiltrates. Ventilator setting; AC of 16, tidal volume 450, PEEP of 5, 40% FiO2. Patient is currently on propofol at 12 mics per kilogram per minute. Assessment recommendations; 1. Patient with history of chronic respiratory failure maintained on T-piece at [facility] admitted for severe hypercapnia and hypoxemia due to extensive pneumonia with possibility of extensive thyroid cancer metastatic to the lungs. 2. Paroxysmal atrial fibrillation/junctional rhythm. Currently in sinus rhythm. 3. Prior history of sternotomy. 4. Anemia and thrombocytopenia. 5. History of hypothyroidism. 6. Mild acute renal injury with normalization of renal function. Continue current supportive care. Prognosis is extremely poor. At this time I would not recommend weaning the patient from ventilator. Obtain cardiology evaluation for bradycardia/cardiac arrhythmia. I did have a detailed discussion with the patient's daughter at bedside answered all her questions. 35 minutes of critical care time was spent evaluating the patient. Result Diagram: 09/17/18 0445 09/17/18 0445 Results 24hrs Laboratory Tests Test 09/17/18 04:45 White Blood Count 4.8 # Red Blood Count 2.98 L Hemoglobin 8.7 L Hematocrit 28.3 L Mean Corpuscular Volume 95.0 Mean Corpuscular Hemoglobin 29.2 Mean Corpuscular Hemoglobin Concent 30.7 L Red Cell Distribution Width 14.8 H Platelet Count 114 L Mean Platelet Volume 11.2 H Immature Granulocytes % 0.400 Neutrophils % 63.4 Lymphocytes % 18.1 Monocytes % 8.2 Eosinophils % 9.5 H Basophils % 0.4 Nucleated Red Blood Cells % 0.0 Immature Granulocytes # 0.020 Neutrophils # 3.0 Lymphocytes # 0.9 Monocytes # 0.4 Eosinophils # 0.5 Basophils # 0.0 Nucleated Red Blood Cells # 0.0 Sodium Level 145 H Potassium Level 3.0 L Chloride Level 108 Carbon Dioxide Level 32 H Anion Gap 5 Blood Urea Nitrogen 27 H Creatinine 1.10 H Est Glomerular Filtrat Rate mL/min Glucose Level 78 # Calcium Level 7.6 L Consultation Date/Type/Reason Admit Date/Time Sep 13, 2018 at 05:56 Initial Consult Date Type of Consult Pulmonary/critical care 24 HR Interval Summary Free Text/Dictation Patient's condition is critical. Patient however has remained hemodynamically stable. No further cardiac arrhythmias reported. Patient underwent tracheostomy change yesterday to a cuffed tube. General exam; elderly female, sedated, currently in no distress. Exam/Review of Systems Vital Signs Vitals Vital Signs Date Temp Pulse Resp B/P (MAP) Pulse Ox O2 O2 Flow FiO2 Time Delivery Rate 09/17/18 49 16 112/63 98 Mechanical 08:30 (79) Ventilator Trach Collar 09/17/18 98.6 08:00 09/17/18 40 05:21 09/15/18 10.0 23:00 Intake and Output 09/16/18 09/16/18 09/17/18 1515:00 23:00 07:00 IntakeIntake Total 1228.0 ml 610 ml 788.8 ml OutputOutput Total 230 ml 240 ml 130 ml BalanceBalance 998.0 ml 370 ml 658.8 ml Exam H EENT exam; supple neck, positive JVD. No lymphadenopathy. Midline trachea. No thyromegaly. Patient is edentulous. Tracheostomy in place. Insertion site is clean. Chest exam; diminished breath sounds throughout with crackles in lung bases. S1-S2 audible, no murmurs. Regular rhythm. There is a well-healed sternotomy scar. Abdomen exam; soft, nondistended. No organomegaly. Bowel sounds audible. Extremity exam; trace edema. No clubbing. WALL INSULATION SPRAYER exam; patient is sedated. Medications Medications Current Medications Sodium Chloride 1,000 ml @ 70 mls/hr [id number] IV Last administered on 09/17/18at 06:06; Admin Dose 70 MLS/HR; Start 09/13/18 at 06:56 IV Flush (NS 3 ml) 3 ml PER PROTOCOL IV ; Start 09/13/18 at 07:00 Ondansetron HCl (Zofran Inj) 4 mg Q6H PRN IV NAUSEA AND/OR VOMITING; Start 09/13/18 at 07:00 Acetaminophen (Tylenol Tab) 650 mg Q6H PRN PO PAIN LEVEL 1-3 OR FEVER Last administered on 09/14/18at 03:18; Admin Dose 650 MG; Start 09/13/18 at 07:00 Heparin Sodium (Porcine) (Heparin (5000 Units/1ml)) 5,000 unit Q12 SC Last administered on 09/17/18 08:12; Admin Dose 5,000 UNIT; Start 09/13/18 at 09:00 Levothyroxine Sodium (Synthroid) 25 mcg BEFORE BREAKFAST PO Last administered on 09/14/18 06:23; Admin Dose 25 MCG; Start 09/13/18 at 07:00 Pantoprazole (Protonix Tab) 40 mg DAILY@06 PO Last administered on 09/14/18 06:23; Admin Dose 40 MG; Start 09/13/18 at 06:00 Vancomycin HCl (Vanco Iv Per Pharmacy) VANCOMYCIN PER PHARMACY PER PROTOCOL XX ; Start 09/13/18 at 07:30 Levalbuterol (Xopenex Hfa) 1.25 puff Q4H PRN INH WHEEZING AND SOB; Start 09/13/18 at 10:00 Levalbuterol (Xopenex Neb) 1.25 mg Q6H RESP THERAPY HHN Last administered on 09/17/18 08:40; Admin Dose 1.25 MG; Start 09/13/18 at 14:00 Vancomycin HCl 250 ml @ 125 mls/hr Q24H IVPB Last administered on 09/16/18 13:32; Admin Dose 125 MLS/HR; Start 09/14/18 at 13:00 Piperacillin Sod/ Tazobactam Sod 100 ml @ 200 mls/hr Q8 IVPB Last administered on 09/17/18 06:05; Admin Dose 200 MLS/HR; Start 09/13/18 at 22:00 Propofol 100 ml @ 2.952 mls/ hr Q12H IV Last administered on 09/17/18 01:41; Admin Dose 2.952 MLS/HR; Start 09/14/18 at 13:00 Norepinephrine 250 ml @ 1.875 mls/ hr TITRATE IV ; Start 09/14/18 at 19:30 Potassium Chloride 50 ml @ 50 mls/hr K PROTOCOL PRN IVPB PENDING LAB VALUE Last administered on 09/17/18 09:25; Admin Dose 50 MLS/HR; Start 09/15/18 at 08:00 Docusate Sodium (Colace) 100 mg BID PO ; Start 09/15/18 at 21:00 Lorazepam (Ativan) 2 mg Q6H PRN IV AGITATION/ANXIETY Last administered on 1/17/19at 21:08; Admin Dose 2 MG; Start 09/15/18 at 16:30 Diphenhydramine HCl (Benadryl) 25 mg Q6H PRN IV ITCHING Last administered on 09/16/18at 23:37; Admin Dose 25 MG; Start 09/15/18 at 20:00 IV Flush (NS 10 ml) 10 ml PRN PRN IV FLUSH LINE; Start 09/16/18 at 16:30 BRANDEN SCOTT Sep 17, 2018 09:37
--- NOTE | 2018-09-17 11:01 | NUR ---
Attempted to see pt for f/u bedside swallow evaluation. RN reports pt has been started on Propofol 2/2 agitation and pulling at trach. Not safe to participate in evaluation at this time. ST to f/u as pt becomes appropriate.
--- NOTE | 2018-09-17 12:00 | NUR ---
Low HR -Spoke to Dr. Beavers about heart rate in 40s is being more sustained. He recommends to continue to monitor and notify him if pt becomes hypotensive. He explained that there was no need for Cardiology consult at this point yet until blood pressure becomes involved.
[2018-09-17] MEDS: VANCOMYCIN 1 GM 250 ML IVPB SCH (13:17)
--- NOTE | 2018-09-17 16:07 | NUR ---
[facility] PET Scan - Dr. Beavers made a request for [facility] in [facility] records. Spoke to shiv titus and had them fax the PET scan report and latest progress notes -Received Report and added to chart
--- NOTE | 2018-09-17 16:10 | NUR ---
Feeding Inquiry -Spoke to family about different feeding options. Family strongly does not want an NG put in due to previous bad experience with infection and trauma suffered to the nose in a previous facility. -Dr. Beavers said we will hold off weaning right now and re-evaluate on daily basis based on patient status. -
--- NOTE | 2018-09-17 17:35 | PN ---
Date/Time of Note Date/Time of Note DATE: 09/17/18 TIME: 17:30 Assessment/Plan VTE [place]axis [place] [facility] [place]: 12 SCD applied [place] [facility] [place] Yes Pharmacological prophylaxis: heparin Assessment/Plan Hospital Course 1. Acute on chronic hypoxemic and hypercapnic on respiratory failure secondary to dislodged tracheostomy and pneumonia on chronic lung metastasis and OHS Trach has been fixed Hypercapnia and altered mentation has resolved Continuing vent support secondary to hypoxia, patient did have vent removed but became tachycardic and was reinserted Continue antibiotics for underlying pneumonia Chest x-ray from today shows increased opacities with increased congestion and effusion Pulmonology consultation appreciated 2. Sepsis secondary to possible pneumonia Continue broad spectrum antibiotics 3. Acute metabolic encephalopathy secondary to hypercapnia-resolved ABG shows resolution of hypercapnia CT brain with no acute findings 4. Acute kidney injuryimproved IV fluid 5. Metastatic thyroid cancer status post surgical resection with known pulmonary metastasis Follow-up with outpatient oncologist Patient is status post tracheostomy several years ago 6. History of aspiration pneumonia 7. Hypothyroidism Continue Synthroid 8. Anemia chronic disease Monitor 9. Hypertension Resume home meds when able Prophylaxis: Heparin DC planning: Patient with poor prognosis, chest x-ray continues to show increased opacities, patient with likely pneumonitis/ARDS secondary to underlying metastatic lung disease with possible pneumonia Result Diagram: 09/17/1844409/17/18444 Results 24hrs Laboratory Tests Test 09/17/18 04:45 White Blood Count 4.8 # Red Blood Count 2.98 L Hemoglobin 8.7 L Hematocrit 28.3 L Mean Corpuscular Volume 95.0 Mean Corpuscular Hemoglobin 29.2 Mean Corpuscular Hemoglobin Concent 30.7 L Red Cell Distribution Width 14.8 H Platelet Count 114 L Mean Platelet Volume 11.2 H Immature Granulocytes % 0.400 Neutrophils % 63.4 Lymphocytes % 18.1 Monocytes % 8.2 Eosinophils % 9.5 H Basophils % 0.4 Nucleated Red Blood Cells % 0.0 Immature Granulocytes # 0.020 Neutrophils # 3.0 Lymphocytes # 0.9 Monocytes # 0.4 Eosinophils # 0.5 Basophils # 0.0 Nucleated Red Blood Cells # 0.0 Sodium Level 145 H Potassium Level 3.0 L Chloride Level 108 Carbon Dioxide Level 32 H Anion Gap 5 Blood Urea Nitrogen 27 H Creatinine 1.10 H Est Glomerular Filtrat Rate mL/min Glucose Level 78 # Calcium Level 7.6 L Subjective 24 Hr Interval Summary Subjective hx not possible: pt non-verbal Exam/Review of Systems Vital Signs Vitals Vital Signs Date Temp Pulse Resp B/P (MAP) Pulse Ox O2 O2 Flow FiO2 Time Delivery Rate 09/17/18 56 16 99 40 17:10 09/17/18 98.5 107/58 16:00 (74) 09/17/18 Mechanical 10:30 Ventilator Trach Collar 09/15/18 10.0 23:00 Intake and Output 09/16/18 09/16/18 09/17/18 1515:00 23:00 07:00 IntakeIntake Total 1228.0 ml 610 ml 788.8 ml OutputOutput Total 230 ml 240 ml 135 ml BalanceBalance 998.0 ml 370 ml 653.8 ml Exam Constitutional: non-verbal ENMT: intubated Respiratory: clear to auscultation Cardiovascular: regular rate and rhythm Gastrointestinal: soft; No distended Musculoskeletal: nl extremities to inspection Medications Medications Current Medications Sodium Chloride 1,000 ml @ 70 mls/hr [id number] IV Last administered on 09/17/18 06:06; Admin Dose 70 MLS/HR; Start 09/13/18 at 06:56 IV Flush (NS 3 ml) 3 ml PER PROTOCOL IV ; Start 09/13/18 at 07:00 Ondansetron HCl (Zofran Inj) 4 mg Q6H PRN IV NAUSEA AND/OR VOMITING; Start 09/13/18 at 07:00 Acetaminophen (Tylenol Tab) 650 mg Q6H PRN PO PAIN LEVEL 1-3 OR FEVER Last administered on 09/14/18at 03:18; Admin Dose 650 MG; Start 09/13/18 at 07:00 Heparin Sodium (Porcine) (Heparin (5000 Units/1ml)) 5,000 unit Q12 SC Last administered on 09/17/18at 08:12; Admin Dose 5,000 UNIT; Start 09/13/18 at 09:00 Levothyroxine Sodium (Synthroid) 25 mcg BEFORE BREAKFAST PO Last administered on 09/14/18 06:23; Admin Dose 25 MCG; Start 09/13/18 at 07:00 Pantoprazole (Protonix Tab) 40 mg DAILY@06 PO Last administered on 1/15/19at 06:23; Admin Dose 40 MG; Start 09/13/18 at 06:00 Vancomycin HCl (Vanco Iv Per Pharmacy) VANCOMYCIN PER PHARMACY PER PROTOCOL XX ; Start 09/13/18 at 07:30 Levalbuterol (Xopenex Hfa) 1.25 puff Q4H PRN INH WHEEZING AND SOB; Start 09/13/18 at 10:00 Levalbuterol (Xopenex Neb) 1.25 mg Q6H RESP THERAPY HHN Last administered on 09/17/18at 15:09; Admin Dose 1.25 MG; Start 09/13/18 at 14:00 Vancomycin HCl 250 ml @ 125 mls/hr Q24H IVPB Last administered on 09/17/18at 13:17; Admin Dose 125 MLS/HR; Start 09/14/18 at 13:00 Piperacillin Sod/ Tazobactam Sod 100 ml @ 200 mls/hr Q8 IVPB Last administered on 09/17/18at 15:31; Admin Dose 200 MLS/HR; Start 09/13/18 at 22:00 Propofol 100 ml @ 2.952 mls/ hr Q12H IV Last administered on 09/17/18at 12:48; Admin Dose 7.085 MLS/HR; Start 09/14/18 at 13:00 Norepinephrine 250 ml @ 1.875 mls/ hr TITRATE IV ; Start 09/14/18 at 19:30 Potassium Chloride 50 ml @ 50 mls/hr K PROTOCOL PRN IVPB PENDING LAB VALUE Last administered on 09/17/18at 10:41; Admin Dose 50 MLS/HR; Start 09/15/18 at 08:00 Docusate Sodium (Colace) 100 mg BID PO ; Start 09/15/18 at 21:00 Lorazepam (Ativan) 2 mg Q6H PRN IV AGITATION/ANXIETY Last administered on 09/16/18at 21:08; Admin Dose 2 MG; Start 09/15/18 at 16:30 Diphenhydramine HCl (Benadryl) 25 mg Q6H PRN IV ITCHING Last administered on 09/16/18at 23:37; Admin Dose 25 MG; Start 09/15/18 at 20:00 IV Flush (NS 10 ml) 10 ml PRN PRN IV FLUSH LINE; Start 09/16/18 at 16:30 MAINE ZAMORANO Sep 17, 2018 17:35
--- NOTE | 2018-09-17 18:46 | NUR ---
EOSS -Pt remained stabilized through shift -Notified Dr. Beavers and Dr. Arguelles of Low hr in the 40s.No cardiology consult ordered - Pt was put on mittens due to pulling on Vent tubing and lines -Pt was also hitting nurses - Family notified of mittens - Doctors aware of low urine output - propofol titrated to goal of RAss -2 -Spoke to Daughter and son about plan of care and feeding options. Dr. Beavers said to wait for now. Family is not open to NGT placement -Replaced potassium according to k protocol - Trach Cx taken by respiratory - will continue to monitor pt
[2018-09-17] MEDS: LEVALBUTEROL (HFA) 15 GM INHALER INH SCH (20:59)
[2018-09-18] VITALS (47 sets, daily range): BP systolic 59–143; BP diastolic 43–100; PULSE 38–94; RESP 5–33
[2018-09-18] MEDS: LEVALBUTEROL (HFA) 15 GM INHALER INH SCH ×4 (01:14→19:26)
[2018-09-18] MEDS: SOD CHLORIDE 0.9% 1,000 ML IV SCH ×2 (01:21→16:02)
[2018-09-18] MEDS: PROPOFOL 100 ML IV SCH (01:21)
[2018-09-18] MEDS: LORAZEPAM 4 MG/ML VIAL IV PRN (05:50)
[2018-09-18] MEDS: PIPER-TAZO 3.375 GM IV (PMX) 100 ML IVPB SCH ×3 (05:50→21:16)
[2018-09-18] MEDS: PANTOPRAZOLE (EC) 40 MG TAB PO SCH (06:00)
[2018-09-18] MEDS: LEVOTHYROXINE 25 MCG TAB PO SCH (06:53)
--- NOTE | 2018-09-18 07:30 | NUR ---
EOSS: Pt. remains trach-vent @ 40% FiO2. Overnight pt. became very agitated and restless, Propofol has been turned off due to bradycardia as low as 38. Pt. was given Ativan @ 0550. Urine output remains minimal. No acute changes. ALl infomration has been endorsed to day shift RN- MAURICIO LESTER
[2018-09-18] MEDS: DOCUSATE SODIUM 100 MG CAP PO SCH ×2 (09:00→20:06)
[2018-09-18] MEDS: POTASSIUM CHLORIDE 100 ML IVPB SCH ×2 (10:08→12:08)
--- NOTE | 2018-09-18 10:33 | CONS ---
Date/Time of Note Date/Time of Note DATE: 09/18/18 TIME: 10:27 Consult Date/Type/Reason Admit Date/Time Sep 13, 2018 at 05:56 Initial Consult Date Type of Consultation: Pulm/CCM Subjective No events overnight. Appears agitated. Family at bedside. Objective Vital Signs Date Temp Pulse Resp B/P (MAP) Pulse Ox O2 O2 Flow FiO2 Time Delivery Rate 09/18/18 42 16 111/67 97 06:30 (82) 09/18/18 Mechanical 06:00 Ventilator 09/18/18 40 05:36 09/18/18 97.9 04:00 09/15/18 10.0 23:00 Intake and Output 09/17/18 09/17/18 09/18/18 1515:00 23:00 07:00 IntakeIntake Total 691.625 ml 926.680 ml 654.526 ml OutputOutput Total 140 ml 145 ml 105 ml BalanceBalance 551.625 ml 781.680 ml 549.526 ml Exam HEENT: Neck supple; no JVD; no LAD, + trach CVS: RRR, S1 and S2 CHEST: Decreased BS ABD: Soft, NT, + BS EXT: No c/c; tr edema Results/Medications Result Diagram: 09/18/188 09/18/188 Results 24 hrs Laboratory Tests Test 09/18/18 04:48 09/18/18 08:19 White Blood Count 5.0 Red Blood Count 3.08 L Hemoglobin 9.0 L Hematocrit 29.1 L Mean Corpuscular Volume 94.5 Mean Corpuscular Hemoglobin 29.2 Mean Corpuscular Hemoglobin Concent 30.9 L Red Cell Distribution Width 14.9 H Platelet Count 113 L Mean Platelet Volume 11.2 H Immature Granulocytes % 0.400 Neutrophils % 63.7 Lymphocytes % 17.5 Monocytes % 7.5 Eosinophils % 10.7 H Basophils % 0.2 Nucleated Red Blood Cells % 0.0 Immature Granulocytes # 0.020 Neutrophils # 3.2 Lymphocytes # 0.9 Monocytes # 0.4 Eosinophils # 0.5 Basophils # 0.0 Nucleated Red Blood Cells # 0.0 Sodium Level 146 H Potassium Level 3.3 L Chloride Level 109 Carbon Dioxide Level 28 Anion Gap 9 Blood Urea Nitrogen 23 H Creatinine 1.05 H Est Glomerular Filtrat Rate mL/min Glucose Level 67 #L Calcium Level 7.8 L Bedside Glucose 90 Medications Current Medications Sodium Chloride 1,000 ml @ 70 mls/hr [id number] IV Last administered on 09/18/18 01:21; Admin Dose 70 MLS/HR; Start 09/13/18 at 06:56 IV Flush (NS 3 ml) 3 ml PER PROTOCOL IV ; Start 09/13/18 at 07:00 Ondansetron HCl (Zofran Inj) 4 mg Q6H PRN IV NAUSEA AND/OR VOMITING; Start 09/13/18 at 07:00 Acetaminophen (Tylenol Tab) 650 mg Q6H PRN PO PAIN LEVEL 1-3 OR FEVER Last administered on 09/14/18 03:18; Admin Dose 650 MG; Start 09/13/18 at 07:00 Heparin Sodium (Porcine) (Heparin (5000 Units/1ml)) 5,000 unit Q12 SC Last administered on 09/17/18at 21:23; Admin Dose 5,000 UNIT; Start 09/13/18 at 09:00 Levothyroxine Sodium (Synthroid) 25 mcg BEFORE BREAKFAST PO Last administered on 09/14/18 06:23; Admin Dose 25 MCG; Start 09/13/18 at 07:00 Pantoprazole (Protonix Tab) 40 mg DAILY@06 PO Last administered on 09/14/18 06:23; Admin Dose 40 MG; Start 09/13/18 at 06:00 Vancomycin HCl (Vanco Iv Per Pharmacy) VANCOMYCIN PER PHARMACY PER PROTOCOL XX ; Start 09/13/18 at 07:30 Levalbuterol (Xopenex Hfa) 1.25 puff Q4H PRN INH WHEEZING AND SOB; Start 09/13/18 at 10:00 Vancomycin HCl 250 ml @ 125 mls/hr Q24H IVPB Last administered on 09/17/18 13:17; Admin Dose 125 MLS/HR; Start 09/14/18 at 13:00 Piperacillin Sod/ Tazobactam Sod 100 ml @ 200 mls/hr Q8 IVPB Last administered on 09/18/18at 05:50; Admin Dose 200 MLS/HR; Start 09/13/18 at 22:00 Propofol 100 ml @ 2.952 mls/ hr Q12H IV Last administered on 09/18/18 01:21; Admin Dose 9.446 MLS/HR; Start 09/14/18 at 13:00 Norepinephrine 250 ml @ 1.875 mls/ hr TITRATE IV ; Start 09/14/18 at 19:30 Potassium Chloride 50 ml @ 50 mls/hr K PROTOCOL PRN IVPB PENDING LAB VALUE Last administered on 09/17/18at 10:41; Admin Dose 50 MLS/HR; Start 09/15/18 at 08:00 Docusate Sodium (Colace) 100 mg BID PO ; Start 09/15/18 at 21:00 Lorazepam (Ativan) 2 mg Q6H PRN IV AGITATION/ANXIETY Last administered on 09/18/18at 05:50; Admin Dose 2 MG; Start 09/15/18 at 16:30 Diphenhydramine HCl (Benadryl) 25 mg Q6H PRN IV ITCHING Last administered on 09/16/18at 23:37; Admin Dose 25 MG; Start 09/15/18 at 20:00 IV Flush (NS 10 ml) 10 ml PRN PRN IV FLUSH LINE; Start 09/16/18 at 16:30 Levalbuterol (Xopenex Hfa) 2 puff Q6H RESP THERAPY INH Last administered on 09/18/18at 01:14; Admin Dose 2 PUFF; Start 09/17/18 at 20:00 Potassium Chloride 100 ml @ 50 mls/hr Q2H IVPB ; Start 09/18/18 at 09:00; Stop 09/18/18 at 12:59 Assessment/Plan Additional Assessment/Plan IMP: 1. 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 History of metastatic thyroid carcinoma 3. Healthcare versus community-acquired pneumonia. 4. Encephalopathy, toxic metabolic--improved 5. HypoK+ RECS: 1. Transition to CPAP 5 PS 14; lower FiO2 30% 2. Minimize benzo's, though chronic use an issue 3. Family wants to avoid seroquel given memory changes on the medication 4. Can try low dose mitrazepine at nights 5. VSE on Thursday 6. Replete lytes 7. Am labs/ABG Case d/w family in detail. 40 min cc time at bedside CHITRA LAGUERRE MD Sep 18, 2018 10:33
[2018-09-18] MEDS: HEPARIN 5,000 UNIT/1 ML VIAL SC SCH ×2 (10:39→20:08)
--- NOTE | 2018-09-18 10:54 | NUR ---
82-year-old female admitted d/t fever and respiratory distress. Pt had hypoxic event d/t dislodged tracheostomy tube as well. This was replaced. Pt currently has a #4 L trach and is on mechanical ventilation at 40% FIO2. RN reported agitation last night and received Ativan this am. However, patient awake and cooperative at this time. PMH (+) metastatic thyroid cancer, s/p surgical resection with pulmonary mets, aspiration pneumonia, GERD and HTN. Chest x-ray 09/17/2018 revealed bilateral hazy air space disease favored to be on the basis of pulmonary edema and overall worsening since prior exam. FINDINGS: Positioned HOB up at 90 degrees. Given a trial of ice chips, pureed and thin liquids. ICE CHIPS: Given small ice chips x 5. Intact oral stage with prompt swallows. No obvious s/s of aspiration. PUREED: Given chocolate pudding via 1/2 tsp trials. Again, timely oral stage with prompt swallows. No immediate or delayed cough noted. Pt consumed nearly 4 oz of the chocolate pudding. THIN LIQUID: Given via tsp and multiple self-regulated cup sips. Again, no immediate or delayed cough observed. IMPRESSION: Swallow appears WFL for pureed diet with regular liquids though silent aspiration cannot be ruled out. RECOMMENDATIONS: VFSS for further evaluation of swallow function. In the meantime, patient appears safe for pureed textures and regular liquids for oral gratification. STG: Patient will tolerate pureed diet w/o s/s of aspiration. Patient will tolerate thin liquids w/o s/s of aspiration. Patient/caregivers will f/t with safe swallow strategies 80% of the time with min assist. LTG: Tolerate least restrictive diet w/o s/s of aspiration.
[2018-09-18] MEDS ORDERED: LORAZEPAM 4 MG/ML VIAL IV PRN (11:00)
--- NOTE | 2018-09-18 11:35 | PN ---
Date/Time of Note Date/Time of Note DATE: 09/18/18 TIME: 11:32 Assessment/Plan VTE Prophylaxis Risk score (from [facility])>0 risk: 14 SCD applied (from [facility]): Yes Pharmacological prophylaxis: heparin Assessment/Plan Hospital Course 1. Acute on chronic hypoxemic and hypercapnic on respiratory failure secondary to dislodged tracheostomy and pneumonia on chronic lung metastasis and OHS Trach has been fixed Hypercapnia and altered mentation has resolved Continuing vent support secondary to hypoxia, patient did have vent removed but became tachycardic and was reinserted Continue antibiotics for underlying pneumonia Chest x-ray from today showed increased opacities with increased congestion and effusion, follow-up on chest x-ray from today Pulmonology consultation appreciated 2. Sepsis secondary to possible pneumonia Continue broad spectrum antibiotics 3. Acute metabolic encephalopathy secondary to hypercapnia-resolved ABG shows resolution of hypercapnia CT brain with no acute findings 4. Acute kidney injuryimproved IV fluid 5. Metastatic thyroid cancer status post surgical resection and radioactive iodine with known pulmonary metastasis Follow-up with outpatient oncologist, patient did have a recent PET scan at [facility] and requested for records to be transferred to this facility According to family there are no further plans for therapy Patient is status post tracheostomy several years ago 6. History of aspiration pneumonia 7. Hypothyroidism Continue Synthroid 8. Anemia chronic disease Monitor 9. Hypertension Resume home meds when able 10. Dysphagia Speech therapy is following, patient is able to tolerate pured diet for gratification Video swallow study planned for Thursday for further evaluation Prophylaxis: Heparin DC planning: Mentation and clinical status has improved Result Diagram: 09/18/188 09/18/188 Results 24hrs Laboratory Tests Test 09/18/18 04:48 09/18/18 08:19 White Blood Count 5.0 Red Blood Count 3.08 L Hemoglobin 9.0 L Hematocrit 29.1 L Mean Corpuscular Volume 94.5 Mean Corpuscular Hemoglobin 29.2 Mean Corpuscular Hemoglobin Concent 30.9 L Red Cell Distribution Width 14.9 H Platelet Count 113 L Mean Platelet Volume 11.2 H Immature Granulocytes % 0.400 Neutrophils % 63.7 Lymphocytes % 17.5 Monocytes % 7.5 Eosinophils % 10.7 H Basophils % 0.2 Nucleated Red Blood Cells % 0.0 Immature Granulocytes # 0.020 Neutrophils # 3.2 Lymphocytes # 0.9 Monocytes # 0.4 Eosinophils # 0.5 Basophils # 0.0 Nucleated Red Blood Cells # 0.0 Sodium Level 146 H Potassium Level 3.3 L Chloride Level 109 Carbon Dioxide Level 28 Anion Gap 9 Blood Urea Nitrogen 23 H Creatinine 1.05 H Est Glomerular Filtrat Rate mL/min Glucose Level 67 #L Calcium Level 7.8 L Bedside Glucose 90 Subjective 24 Hr Interval Summary Constitutional: no complaints Exam/Review of Systems Vital Signs Vitals Vital Signs Date Temp Pulse Resp B/P (MAP) Pulse Ox O2 O2 Flow FiO2 Time Delivery Rate 09/18/18 54 08:00 09/18/18 16 111/67 97 06:30 (82) 09/18/18 Mechanical 06:00 Ventilator 09/18/18 40 05:36 09/18/18 97.9 04:00 09/15/18 10.0 23:00 Intake and Output 09/17/18 09/17/18 09/18/18 1515:00 23:00 07:00 IntakeIntake Total 691.625 ml 926.680 ml 654.526 ml OutputOutput Total 140 ml 145 ml 105 ml BalanceBalance 551.625 ml 781.680 ml 549.526 ml Exam Constitutional: alert Respiratory: clear to auscultation Cardiovascular: regular rate and rhythm Gastrointestinal: soft; No distended Musculoskeletal: nl extremities to inspection Medications Medications Current Medications Sodium Chloride 1,000 ml @ 70 mls/hr [id number] IV Last administered on 09/18/18at 01:21; Admin Dose 70 MLS/HR; Start 09/13/18 at 06:56 IV Flush (NS 3 ml) 3 ml PER PROTOCOL IV ; Start 09/13/18 at 07:00 Ondansetron HCl (Zofran Inj) 4 mg Q6H PRN IV NAUSEA AND/OR VOMITING; Start 09/13/18 at 07:00 Acetaminophen (Tylenol Tab) 650 mg Q6H PRN PO PAIN LEVEL 1-3 OR FEVER Last administered on 09/14/18at 03:18; Admin Dose 650 MG; Start 09/13/18 at 07:00 Heparin Sodium (Porcine) (Heparin (5000 Units/1ml)) 5,000 unit Q12 SC Last administered on 09/18/18at 10:39; Admin Dose 5,000 UNIT; Start 09/13/18 at 09:00 Levothyroxine Sodium (Synthroid) 25 mcg BEFORE BREAKFAST PO Last administered on 09/14/18at 06:23; Admin Dose 25 MCG; Start 09/13/18 at 07:00 Pantoprazole (Protonix Tab) 40 mg DAILY@06 PO Last administered on 09/14/18at 06:23; Admin Dose 40 MG; Start 09/13/18 at 06:00 Vancomycin HCl (Vanco Iv Per Pharmacy) VANCOMYCIN PER PHARMACY PER PROTOCOL XX ; Start 09/13/18 at 07:30 Levalbuterol (Xopenex Hfa) 1.25 puff Q4H PRN INH WHEEZING AND SOB; Start 09/13/18 at 10:00 Vancomycin HCl 250 ml @ 125 mls/hr Q24H IVPB Last administered on 09/17/18at 13:17; Admin Dose 125 MLS/HR; Start 09/14/18 at 13:00 Piperacillin Sod/ Tazobactam Sod 100 ml @ 200 mls/hr Q8 IVPB Last administered on 09/18/18at 05:50; Admin Dose 200 MLS/HR; Start 09/13/18 at 22:00 Propofol 100 ml @ 2.952 mls/ hr Q12H IV Last administered on 09/18/18at 01:21; Admin Dose 9.446 MLS/HR; Start 09/14/18 at 13:00 Norepinephrine 250 ml @ 1.875 mls/ hr TITRATE IV ; Start 09/14/18 at 19:30 Potassium Chloride 50 ml @ 50 mls/hr K PROTOCOL PRN IVPB PENDING LAB VALUE Last administered on 09/17/18at 10:41; Admin Dose 50 MLS/HR; Start 09/15/18 at 08:00 Docusate Sodium (Colace) 100 mg BID PO ; Start 09/15/18 at 21:00 Diphenhydramine HCl (Benadryl) 25 mg Q6H PRN IV ITCHING Last administered on 09/16/18at 23:37; Admin Dose 25 MG; Start 09/15/18 at 20:00 IV Flush (NS 10 ml) 10 ml PRN PRN IV FLUSH LINE; Start 09/16/18 at 16:30 Levalbuterol (Xopenex Hfa) 2 puff Q6H RESP THERAPY INH Last administered on 09/18/18at 01:14; Admin Dose 2 PUFF; Start 09/17/18 at 20:00 Potassium Chloride 100 ml @ 50 mls/hr Q2H IVPB Last administered on 09/18/18at 10:08; Admin Dose 50 MLS/HR; Start 09/18/18 at 09:00; Stop 09/18/18 at 12:59 Lorazepam (Ativan) 2 mg Q8 PRN IV AGITATION/ANXIETY; Start 09/18/18 at 11:00 Mirtazapine (Remeron) 7.5 mg QHS PO ; Start 09/18/18 at 21:00 MAINE ZAMORANO Sep 18, 2018 11:35
[2018-09-18] MEDS: POTASSIUM CHLORIDE 50 ML IVPB PRN (12:04)
[2018-09-18] MEDS: VANCOMYCIN 1 GM 250 ML IVPB SCH (13:49)
[2018-09-18] MEDS ORDERED: DEXMEDETOMIDINE HCL 200 MCG in SOD CHLORIDE 0.9% 48 ML IV SCH (16:30)
--- NOTE | 2018-09-18 19:49 | NUR ---
EOSS -Received pt off of propofol but given Ativan, - Pt has family at bedside -ST came by and did a swallow eval. Pt was able to tolerate pureed food but ST and I talked to Dr. Beavers and both agree no official diet should be initiated but a few spoonfuls of puree or liquid for oral satisfaction. Possible Video swallow eval next week - Spoke with Dr. Durham and family about treating patients anxiety and agitation with different medications. Pt takes 2mg of ativan BID at home. family is very hesitant about sedative medications because they want her calm but functional enough to eat. - while on Lunch break the pt pulled trach out with caregiver at bedside. Charge nurse and RT were able to reinsert. Dr. Durham was notified. No orders given and Pt remained properly ventilated. - pt had 3 bowel movements. - rotated war pulse ox and changed heel protectors and sacrum allelvyn - replace potassium 40 meq - pt has episodes of strong agitation and hits and pinches nurses. Ativan given. not effective at current dose. Family later came and was able to help keep her calm - pt tried to get out of bed several times in shift - pt has orders for tele but due to the possibility of being escalated to [facility] has her staying here longer in ICU. Charge nurse notified. - Family educated at bedside about pt safety and alternative ways to manage her agitation -will continue to monitor Addendum: 09/18/18 at 2015 by TAYLER BALDERAS RN CPAP pt with Dr. Durham and pt did not tolerate procedure and put back on vent
[2018-09-18] MEDS: MIRTAZAPINE 15 MG TAB PO SCH (20:07)
[2018-09-18] MEDS: HYDROmorphONE 0.5 MG/0.5 ML SYG IV PRN (20:25)
[2018-09-19] VITALS (37 sets, daily range): BP systolic 86–140; BP diastolic 50–118; PULSE 36–65; RESP 11–19
[2018-09-19] MEDS: LEVALBUTEROL (HFA) 15 GM INHALER INH SCH ×4 (01:26→20:21)
[2018-09-19] MEDS: HYDROmorphONE 0.5 MG/0.5 ML SYG IV PRN ×2 (03:50→17:45)
[2018-09-19] MEDS: PANTOPRAZOLE (EC) 40 MG TAB PO SCH (06:00)
--- NOTE | 2018-09-19 06:32 | NUR ---
EOSS: PATIENT REMAINED STABLE THIS SHIFT AND CONTINUES TO BE TRACHED AND VENTED.VENT SETTINGS: AC 16, TV 450, FIO2 40% PEE 5. CURRENTLY HAS RUNNING AT 70MLS/HR WHEN COMING ON SHIFT PATIENT WAS VERY ANXIOUS AND TRYING TO CLIMB OUT OF BED, PER MD ARGUELLES GIVEN FOLLOWED BY SUSANNEID PATIENT BECAME MORE CALM AND SLEPT AFTER THE DILAUDID. FAMILY AT BEDSIDE THROUGHOUT THE NIGHT. ALL QUESTIONS CONCERNS ADDRESSED. PATIENT CHECKED ON HOURLY AND PRN BY NURSING STAFF.
[2018-09-19] MEDS: PIPER-TAZO 3.375 GM IV (PMX) 100 ML IVPB SCH ×3 (06:37→21:40)
[2018-09-19] MEDS: SOD CHLORIDE 0.9% 1,000 ML IV SCH ×2 (06:37→20:14)
[2018-09-19] MEDS: LEVOTHYROXINE 25 MCG TAB PO SCH (06:37)
[2018-09-19] MEDS: DOCUSATE SODIUM 100 MG CAP PO SCH ×2 (08:16→21:40)
[2018-09-19] MEDS: HEPARIN 5,000 UNIT/1 ML VIAL SC SCH ×2 (08:21→21:41)
[2018-09-19] MEDS ORDERED: LORAZEPAM 2 MG INJ ONE (09:13)
[2018-09-19] MEDS: LORAZEPAM 2 MG INJ IV PRN ×2 (09:23→18:20)
--- NOTE | 2018-09-19 10:25 | NUR ---
RN note: Pt conts to be agitated despite medication, conts to attempt to pull trach and pulled PICC line. PICC tip intact. Pressure applied. No signs of bleeding observed. Order to restrain pt obtain. Gerry titus at bedside requesting to hold off on restrains. Charge aware. Ww will cont to monitor,.
[2018-09-19] MEDS ORDERED: LIDOCAINE 1% (MPF) 5 ML VIAL SC ONE ×2 (11:00→11:30)
--- NOTE | 2018-09-19 12:24 | CONS ---
Date/Time of Note Date/Time of Note DATE: 09/19/18 TIME: 12:19 Consult Date/Type/Reason Admit Date/Time Sep 13, 2018 at 05:56 Initial Consult Date Type of Consultation: Pulm/CCM Subjective Failed CPAP with PS yesterday. Becomes very agitated and pulls lines and tubes. Objective Vital Signs Date Temp Pulse Resp B/P (MAP) Pulse Ox O2 O2 Flow FiO2 Time Delivery Rate 09/19/18 40 12:04 09/19/18 98.1 48 16 109/59 100 Mechanical 12:01 (76) Ventilator 09/15/18 10.0 23:00 Intake and Output 09/18/18 09/18/18 09/19/18 1515:00 23:00 07:00 IntakeIntake Total 930 ml 760 ml 490 ml OutputOutput Total 100 ml 172 ml 160 ml BalanceBalance 830 ml 588 ml 330 ml Exam HEENT: Neck supple; no JVD; no LAD, + trach CVS: RRR, S1 and S2 CHEST: Decreased BS ABD: Soft, NT, + BS EXT: No c/c; tr edema Results/Medications Result Diagram: 09/19/18 0430 09/19/18 0430 Results 24 hrs Laboratory Tests Test 09/19/18 04:30 09/19/18 05:00 White Blood Count 5.3 Red Blood Count 3.15 L Hemoglobin 9.0 L Hematocrit 30.2 L Mean Corpuscular Volume 95.9 Mean Corpuscular Hemoglobin 28.6 L Mean Corpuscular Hemoglobin Concent 29.8 L Red Cell Distribution Width 14.7 H Platelet Count 133 L Mean Platelet Volume 11.2 H Immature Granulocytes % 0.400 Neutrophils % 66.3 Lymphocytes % 16.1 Monocytes % 8.5 Eosinophils % 8.3 H Basophils % 0.4 Nucleated Red Blood Cells % 0.0 Immature Granulocytes # 0.020 Neutrophils # 3.5 Lymphocytes # 0.9 Monocytes # 0.5 Eosinophils # 0.4 Basophils # 0.0 Nucleated Red Blood Cells # 0.0 Sodium Level 147 H Potassium Level 3.7 Chloride Level 114 H Carbon Dioxide Level 26 Anion Gap 7 Blood Urea Nitrogen 20 Creatinine 1.07 H Est Glomerular Filtrat Rate mL/min Glucose Level 73 Calcium Level 8.1 L Blood Gas Specimen Source Blood arterial Arterial Blood Date Drawn 09/19/2018 4:37:52 AM Arterial Blood pH (Temp corrected) 7.442 Arterial Blood pCO2 (Temp correct) 32.1 L Arterial Blood pO2 (Temp corrected) 78.3 L Arterial Blood HCO3 21.4 L Arterial Blood Base Excess -2.0 Arterial Blood Oxygen Saturation 94.9 L Tonny Test ACCEPTAB Arterial Blood Gas Puncture Site Left Radial Arterial Blood Carboxyhemoglobin 0.3 Arterial Blood Methemoglobin 0.2 Blood Gas A-a O2 Differential 170.0 H Oxyhemoglobin Percent 94.4 Blood Gas Temperature 37.0 Blood Gas Respiration Rate 16.0 Blood Gas Actual Respiration Rate 16 Blood Gas Modality VENT - AC FiO2 40.0 Blood Gas Tidal Volume 450.0 Blood Gas Low PEEP Setting 5.0 Blood Gas Inspiratory Pressure 27.0 Blood Gas Notified Whom KM Blood Gas Notified Time 09/19/2018 4:50:22 AM Medications Current Medications Sodium Chloride 1,000 ml @ 70 mls/hr [id number] IV Last administered on 09/19/18at 06:37; Admin Dose 70 MLS/HR; Start 09/13/18 at 06:56 IV Flush (NS 3 ml) 3 ml PER PROTOCOL IV ; Start 09/13/18 at 07:00 Ondansetron HCl (Zofran Inj) 4 mg Q6H PRN IV NAUSEA AND/OR VOMITING; Start 09/13/18 at 07:00 Acetaminophen (Tylenol Tab) 650 mg Q6H PRN PO PAIN LEVEL 1-3 OR FEVER Last administered on 09/14/18at 03:18; Admin Dose 650 MG; Start 09/13/18 at 07:00 Heparin Sodium (Porcine) (Heparin (5000 Units/1ml)) 5,000 unit Q12 SC Last administered on 09/19/18at 08:21; Admin Dose 5,000 UNIT; Start 09/13/18 at 09:00 Levothyroxine Sodium (Synthroid) 25 mcg BEFORE BREAKFAST PO Last administered on 09/19/18at 06:37; Admin Dose 25 MCG; Start 09/13/18 at 07:00 Pantoprazole (Protonix Tab) 40 mg DAILY@06 PO Last administered on 09/14/18at 06:23; Admin Dose 40 MG; Start 09/13/18 at 06:00 Vancomycin HCl (Vanco Iv Per Pharmacy) VANCOMYCIN PER PHARMACY PER PROTOCOL XX ; Start 09/13/18 at 07:30 Levalbuterol (Xopenex Hfa) 1.25 puff Q4H PRN INH WHEEZING AND SOB; Start 09/13/18 at 10:00 Vancomycin HCl 250 ml @ 125 mls/hr Q24H IVPB Last administered on 09/18/18at 13:49; Admin Dose 125 MLS/HR; Start 09/14/18 at 13:00 Piperacillin Sod/ Tazobactam Sod 100 ml @ 200 mls/hr Q8 IVPB Last administered on 09/19/18at 06:37; Admin Dose 200 MLS/HR; Start 09/13/18 at 22:00 Potassium Chloride 50 ml @ 50 mls/hr K PROTOCOL PRN IVPB PENDING LAB VALUE Last administered on 09/17/18at 10:41; Admin Dose 50 MLS/HR; Start 09/15/18 at 08:00 Docusate Sodium (Colace) 100 mg BID PO Last administered on 09/19/18 08:16; Admin Dose 100 MG; Start 09/15/18 at 21:00 Diphenhydramine HCl (Benadryl) 25 mg Q6H PRN IV ITCHING Last administered on 09/16/18at 23:37; Admin Dose 25 MG; Start 09/15/18 at 20:00 IV Flush (NS 10 ml) 10 ml PRN PRN IV FLUSH LINE; Start 09/16/18 at 16:30 Levalbuterol (Xopenex Hfa) 2 puff Q6H RESP THERAPY INH Last administered on 09/19/18 08:01; Admin Dose 2 PUFF; Start 09/17/18 at 20:00 Mirtazapine (Remeron) 7.5 mg QHS PO Last administered on 09/18/18 20:07; Admin Dose 7.5 MG; Start 09/18/18 at 21:00 Hydromorphone HCl (Dilaudid) 0.5 mg Q6H PRN IV SEVERE PAIN LEVEL 7-10 Last administered on 09/19/18at 03:50; Admin Dose 0.5 MG; Start 09/18/18 at 15:30 Dexmedetomidine HCl 200 mcg/ Sodium Chloride 50 ml @ 19.68 mls/ hr TITRATE IV ; Start 09/18/18 at 16:30 Lorazepam (Ativan) 2 mg Q8 PRN IV AGITATION/ANXIETY Last administered on 09/19/18at 09:23; Admin Dose 2 MG; Start 09/19/18 at 09:30 Assessment/Plan Additional Assessment/Plan IMP: 1. 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 History of metastatic thyroid carcinoma 3. Healthcare versus community-acquired pneumonia 4. Encephalopathy, toxic metabolic--improved 5. HypoK+ 6. Anemia 7. Dysphagia RECS: 1. Will retry weaning in am tomorrow--though she may be a candidate for Oh for slow weaning 2. Minimize benzo's, though chronic use an issue 3. Family wants to avoid seroquel given memory changes on the medication 4. continue mitrazepine at nights 5. VSE on Thursday 6. Replete lytes 7. Am labs/CXR 8. She may ultimately require a G-tube to meet nutritional needs 9. Obtain prior imaging from [facility] Case d/w family in detail. 40 min cc time at bedside CHITRA LAGUERRE MD Sep 19, 2018 12:24
[2018-09-19] MEDS ORDERED: LORAZEPAM 2 MG INJ IM ONE (16:30)
--- NOTE | 2018-09-19 18:15 | NUR ---
PICC Insertion. ICU bed 104-A for peripherally inserted central catheter (PICC) insertion. Patient (awake, alert, oriented x 3). Patient has had previous PICC's in the past. Procedure reviewed, patient's daughter in-law agreed to proceed. Signed consent on chart for PICC by patient's daughter in-law. RUE noted to be swollen and ecchymotic.Previous PICC line placed several days ago.Patient's daughter in-law stated her arm is sore to touch and prefers we do not use site for new PICC line placement. Patient's agitated trying to pull out tubes arms waving in the air. Order for IM Ativan obtained and given by RN. LUE prepped with chlorhexidene, then maximum barrier drape applied. 5 FR double lumen Arrow Power PICC inserted into basilic vein without difficulty. Unable to advance guidewire. Brachial vein attempted without difficulty,unable to advance guidewire. PICC line placement was attempted with patient's nurse in room holding down Left arm for the insertion.Procedure stopped secondary to patient's condition. DOOR PATCHER was able to place peripheral IV catheter right antecubital site. LUE site patent,no swelling or redness noted.Faint ecchymotic sites present prior to PICC line attempt.Lidocaine 1% sac route given LUE 3ML.Patient tolerated procedure fair secondary to her agitation and restlessness.
--- NOTE | 2018-09-19 18:17 | PN ---
Date/Time of Note Date/Time of Note DATE: 09/19/18 TIME: 18:14 Assessment/Plan VTE Prophylaxis Risk score (from Ns)>0 risk: 10 SCD applied (from Ns): Yes Pharmacological prophylaxis: heparin Assessment/Plan Hospital Course 1. Acute on chronic hypoxemic and hypercapnic on respiratory failure secondary to dislodged tracheostomy and pneumonia on chronic lung metastasis and OHS Trach has been fixed Hypercapnia and altered mentation has resolved Continuing vent support secondary to hypoxia, patient did have vent removed but became tachycardic and was reinserted Continue antibiotics for underlying pneumonia Chest x-ray was showing increased opacities with increased congestion and effusion, follow-up on chest x-ray from yesterday was stable Pulmonology consultation appreciated 2. Sepsis secondary to likely aspiration pneumonia Continue broad spectrum antibiotics 3. Acute metabolic encephalopathy secondary to hypercapnia-resolved ABG shows resolution of hypercapnia CT brain with no acute findings 4. Acute kidney injuryimproved IV fluid 5. Metastatic thyroid cancer status post surgical resection and radioactive iodine with known pulmonary metastasis Follow-up with outpatient oncologist, patient did have a recent PET scan at [facility] and requested for records to be transferred to this facility According to family there are no further plans for therapy Patient is status post tracheostomy several years ago 6. History of aspiration Video swallow study planned for tomorrow 7. Hypothyroidism Continue Synthroid 8. Anemia chronic disease Monitor 9. Hypertension Resume home meds when able 10. Dysphagia Speech therapy is following, patient is able to tolerate pured diet for gratif ication Video swallow study planned for tomorrow for further evaluation Prophylaxis: Heparin DC planning: Downgrade to telemetry, video swallow tomorrow, continue vent support and wean if able, continue antibiotics for likely aspiration pneumonia Result Diagram: 09/19/18 0430 09/19/18 0430 Results 24hrs Laboratory Tests Test 09/19/18 04:30 09/19/18 05:00 White Blood Count 5.3 Red Blood Count 3.15 L Hemoglobin 9.0 L Hematocrit 30.2 L Mean Corpuscular Volume 95.9 Mean Corpuscular Hemoglobin 28.6 L Mean Corpuscular Hemoglobin Concent 29.8 L Red Cell Distribution Width 14.7 H Platelet Count 133 L Mean Platelet Volume 11.2 H Immature Granulocytes % 0.400 Neutrophils % 66.3 Lymphocytes % 16.1 Monocytes % 8.5 Eosinophils % 8.3 H Basophils % 0.4 Nucleated Red Blood Cells % 0.0 Immature Granulocytes # 0.020 Neutrophils # 3.5 Lymphocytes # 0.9 Monocytes # 0.5 Eosinophils # 0.4 Basophils # 0.0 Nucleated Red Blood Cells # 0.0 Sodium Level 147 H Potassium Level 3.7 Chloride Level 114 H Carbon Dioxide Level 26 Anion Gap 7 Blood Urea Nitrogen 20 Creatinine 1.07 H Est Glomerular Filtrat Rate mL/min Glucose Level 73 Calcium Level 8.1 L Blood Gas Specimen Source Blood arterial Arterial Blood Date Drawn 09/19/2018 4:37:52 AM Arterial Blood pH (Temp corrected) 7.442 Arterial Blood pCO2 (Temp correct) 32.1 L Arterial Blood pO2 (Temp corrected) 78.3 L Arterial Blood HCO3 21.4 L Arterial Blood Base Excess -2.0 Arterial Blood Oxygen Saturation 94.9 L Tonny Test ACCEPTAB Arterial Blood Gas Puncture Site Left Radial Arterial Blood Carboxyhemoglobin 0.3 Arterial Blood Methemoglobin 0.2 Blood Gas A-a O2 Differential 170.0 H Oxyhemoglobin Percent 94.4 Blood Gas Temperature 37.0 Blood Gas Respiration Rate 16.0 Blood Gas Actual Respiration Rate 16 Blood Gas Modality VENT - AC FiO2 40.0 Blood Gas Tidal Volume 450.0 Blood Gas Low PEEP Setting 5.0 Blood Gas Inspiratory Pressure 27.0 Blood Gas Notified Whom KM Blood Gas Notified Time 09/19/2018 4:50:22 AM Subjective 24 Hr Interval Summary Subjective hx not possible: pt non-verbal Exam/Review of Systems Vital Signs Vitals Vital Signs Date Temp Pulse Resp B/P (MAP) Pulse Ox O2 O2 Flow FiO2 Time Delivery Rate 09/19/18 59 16 99 40 17:45 09/19/18 98.6 122/58 Mechanical 17:29 (79) Ventilator 09/15/18 10.0 23:00 Intake and Output 09/18/18 09/18/18 09/19/18 1515:00 23:00 07:00 IntakeIntake Total 930 ml 760 ml 490 ml OutputOutput Total 100 ml 172 ml 160 ml BalanceBalance 830 ml 588 ml 330 ml Exam Constitutional: non-verbal Respiratory: clear to auscultation Cardiovascular: regular rate and rhythm Gastrointestinal: soft; No distended Musculoskeletal: nl extremities to inspection Medications Medications Current Medications Sodium Chloride 1,000 ml @ 70 mls/hr [id number] IV Last administered on 09/19/18 06:37; Admin Dose 70 MLS/HR; Start 09/13/18 at 06:56 IV Flush (NS 3 ml) 3 ml PER PROTOCOL IV ; Start 09/13/18 at 07:00 Ondansetron HCl (Zofran Inj) 4 mg Q6H PRN IV NAUSEA AND/OR VOMITING; Start 09/13/18 at 07:00 Acetaminophen (Tylenol Tab) 650 mg Q6H PRN PO PAIN LEVEL 1-3 OR FEVER Last administered on 09/14/18at 03:18; Admin Dose 650 MG; Start 09/13/18 at 07:00 Heparin Sodium (Porcine) (Heparin (5000 Units/1ml)) 5,000 unit Q12 SC Last administered on 09/19/18 08:21; Admin Dose 5,000 UNIT; Start 09/13/18 at 09:00 Levothyroxine Sodium (Synthroid) 25 mcg BEFORE BREAKFAST PO Last administered on 09/19/18 06:37; Admin Dose 25 MCG; Start 09/13/18 at 07:00 Pantoprazole (Protonix Tab) 40 mg DAILY@06 PO Last administered on 09/14/18 06:23; Admin Dose 40 MG; Start 09/13/18 at 06:00 Vancomycin HCl (Vanco Iv Per Pharmacy) VANCOMYCIN PER PHARMACY PER PROTOCOL XX ; Start 09/13/18 at 07:30 Levalbuterol (Xopenex Hfa) 1.25 puff Q4H PRN INH WHEEZING AND SOB; Start 09/13/18 at 10:00 Vancomycin HCl 250 ml @ 125 mls/hr Q24H IVPB Last administered on 09/18/18at 13:49; Admin Dose 125 MLS/HR; Start 09/14/18 at 13:00 Piperacillin Sod/ Tazobactam Sod 100 ml @ 200 mls/hr Q8 IVPB Last administered on 09/19/18at 17:41; Admin Dose 200 MLS/HR; Start 09/13/18 at 22:00 Potassium Chloride 50 ml @ 50 mls/hr K PROTOCOL PRN IVPB PENDING LAB VALUE Last administered on 09/17/18at 10:41; Admin Dose 50 MLS/HR; Start 09/15/18 at 08:00 Docusate Sodium (Colace) 100 mg BID PO Last administered on 09/19/18 08:16; Admin Dose 100 MG; Start 09/15/18 at 21:00 Diphenhydramine HCl (Benadryl) 25 mg Q6H PRN IV ITCHING Last administered on 09/16/18at 23:37; Admin Dose 25 MG; Start 09/15/18 at 20:00 IV Flush (NS 10 ml) 10 ml PRN PRN IV FLUSH LINE; Start 09/16/18 at 16:30 Levalbuterol (Xopenex Hfa) 2 puff Q6H RESP THERAPY INH Last administered on 09/19/18 15:20; Admin Dose 2 PUFF; Start 09/17/18 at 20:00 Mirtazapine (Remeron) 7.5 mg QHS PO Last administered on 09/18/18 20:07; Admin Dose 7.5 MG; Start 09/18/18 at 21:00 Hydromorphone HCl (Dilaudid) 0.5 mg Q6H PRN IV SEVERE PAIN LEVEL 7-10 Last administered on 09/19/18at 17:45; Admin Dose 0.5 MG; Start 09/18/18 at 15:30 Dexmedetomidine HCl 200 mcg/ Sodium Chloride 50 ml @ 19.68 mls/ hr TITRATE IV ; Start 09/18/18 at 16:30 Lorazepam (Ativan) 2 mg Q8 PRN IV AGITATION/ANXIETY Last administered on 09/19/18 09:23; Admin Dose 2 MG; Start 09/19/18 at 09:30 MAINE ZAMORANO Sep 19, 2018 18:17
[2018-09-19] MEDS: VANCOMYCIN 1 GM 250 ML IVPB SCH (18:38)
--- NOTE | 2018-09-19 19:13 | NUR ---
EOSS AO x 2, vital signs within ranges, SR -SB as low as 38 on the monitor and asymptomatic during event. Pt conts to be agitated and confused, often attempts to pull lines. PRN meds given accordingly without success. Pt was placed on restrains after removing PICC line. PICC line nurse attempted to re- insert a new line but was not able. MD and family aware of all events. For video swallow and PICC insertion tomorrow. Family at bedside with multiple needs and questions. Pt cleaned and repositioned accordingly. All needs met at bedside. Pt on tele status. Will endorse
[2018-09-19] MEDS ORDERED: FUROSEMIDE 20 MG INJ IV ONE (21:00)
[2018-09-19] MEDS: MIRTAZAPINE 15 MG TAB PO SCH (21:39)
[2018-09-19] MEDS: MUPIROCIN 2% 22 GM OINT TOP SCH (23:40)
[2018-09-20] VITALS (35 sets, daily range): BP systolic 92–123; BP diastolic 49–94; PULSE 44–82; RESP 10–21
[2018-09-20] MEDS: LEVALBUTEROL (HFA) 15 GM INHALER INH SCH ×4 (01:33→19:50)
[2018-09-20] MEDS: HYDROmorphONE 0.5 MG/0.5 ML SYG IV PRN ×2 (02:40→14:58)
[2018-09-20] MEDS: PANTOPRAZOLE (EC) 40 MG TAB PO SCH (05:39)
[2018-09-20] MEDS: PIPER-TAZO 3.375 GM IV (PMX) 100 ML IVPB SCH ×3 (05:57→21:46)
[2018-09-20] MEDS: LEVOTHYROXINE 25 MCG TAB PO SCH (06:00)
--- NOTE | 2018-09-20 06:38 | NUR ---
EOSS: PATIENT IS A+O X2, VITAL SINGS WNL, NSR/SB IN LOW 40S ASYMPTOMATIC. PT CONTINUES TO BE AGITATED AND CONFUSED THROUGHOUT THE NIGHT AND CONTINUES TO PULL OUT LINES AND TUBES. CONTINUES TO BE ON RESTRAINS. GRANDSON AT BESIDE ALL NIGHT. ALL QUESTIONS AND CONCERNS ADDRESSED. CHECKED ON PATIENT HOURLY AND PRN BY NURSING STAFF.
[2018-09-20] MEDS: MUPIROCIN 2% 22 GM OINT TOP SCH ×2 (08:06→21:46)
[2018-09-20] MEDS: HEPARIN 5,000 UNIT/1 ML VIAL SC SCH ×2 (08:22→21:46)
--- NOTE | 2018-09-20 08:55 | PN ---
Date/Time of Note Date/Time of Note DATE: 09/20/18 TIME: 08:55 Assessment/Plan VTE Prophylaxis Risk score (from Nsg)>0 risk: 13 SCD applied (from Nsg): Yes Pharmacological prophylaxis: heparin Lines/Catheters IV Catheter Type (from Nrsg): Peripheral IV Urinary Cath still in place: Yes Reason Cath still needed: skin wounds contaminated by urine Assessment/Plan Assessment/Plan 1. Acute on chronic hypoxemic and hypercapnic on respiratory failure secondary to dislodged tracheostomy and pneumonia on chronic lung metastasis and OHS - Pulmonology consultation appreciated and weaning off vent as tolerated - Discussed pulm rehab with family but not interested at this time with patient being moved anywhere out of the ICU - Continue on current antibiotics - Will repeat CXR in the am 2. Sepsis secondary to likely aspiration pneumonia - on antibiotics - WBC normalized and remains afebrile 3. Acute metabolic encephalopathy secondary to hypercapnia-resolved - CT brain with no acute findings 4. Acute kidney injuryimproved - on gentle IVF - avoid nephrotoxic agents 5. Metastatic thyroid cancer status post surgical resection and radioactive iodine with known pulmonary metastasis - Follow-up with outpatient oncologist, patient did have a recent PET scan at [facility] and requested for records - Patient is status post tracheostomy several years ago 6. History of aspiration - Video swallow study planned - discussed with daughter need for Gtube if continues to fail swallow evaluation. Would like to avoid placement at this time as her mother has had one in the past and they are familiar with it 7. Hypothyroidism - Continue Synthroid 8. Anemia chronic disease - Monitor 9. Hypertension - hold home meds in setting of low BP 10. Dysphagia - Speech on board and recommending pureed for gratification - plans for video swallow evaluation 11. Disposition - Discussed with family patient safe to transfer to Telemetry but requesting 1 more day in ICU - continue current treatment and will repeat CXR in the am Result Diagram: 09/20/18 0503 09/20/18 0503 Results 24hrs Laboratory Tests Test 09/20/18 05:03 White Blood Count 6.0 Red Blood Count 3.48 L Hemoglobin 10.0 L Hematocrit 33.5 L Mean Corpuscular Volume 96.3 Mean Corpuscular Hemoglobin 28.7 L Mean Corpuscular Hemoglobin Concent 29.9 L Red Cell Distribution Width 14.6 H Platelet Count 146 Mean Platelet Volume 11.3 H Immature Granulocytes % 0.300 Neutrophils % 60.9 Lymphocytes % 22.9 Monocytes % 7.8 Eosinophils % 7.8 H Basophils % 0.3 Nucleated Red Blood Cells % 0.0 Immature Granulocytes # 0.020 Neutrophils # 3.7 Lymphocytes # 1.4 Monocytes # 0.5 Eosinophils # 0.5 Basophils # 0.0 Nucleated Red Blood Cells # 0.0 Sodium Level 147 H Potassium Level 3.5 Chloride Level 112 H Carbon Dioxide Level 26 Anion Gap 9 Blood Urea Nitrogen 18 Creatinine 1.10 H Est Glomerular Filtrat Rate mL/min Glucose Level 72 Calcium Level 8.4 Subjective 24 Hr Interval Summary Free Text/Dictation Patient requesting water and food. Family at bedside. Had long discussion regarding transfer out of ICU and grandson continues to insist keeping patient in ICU since "already exposed to germs in ICU." Also discussed not using/giving any essential oils on patient since disturbing other patients/families in the ICU since strong odor. Discussed need for Gtube as well but family would like to hold off at this time. Exam/Review of Systems Vital Signs Vitals Vital Signs Date Temp Pulse Resp B/P (MAP) Pulse Ox O2 O2 Flow FiO2 Time Delivery Rate 09/20/18 48 12 110/61 100 Mechanical 06:00 (77) Ventilator 09/20/18 40 05:32 09/20/18 98.6 04:00 Intake and Output 09/19/18 09/19/18 09/20/18 1515:00 23:00 07:00 IntakeIntake Total 865 ml 490 ml OutputOutput Total 590 ml 715 ml BalanceBalance 275 ml -225 ml Exam General: Patient is laying in bed. frustrated since would like to eat/drink Head: Normocephalic atraumatic Eyes: EOMI, pupils reactive to light Neck: Supple, nontender, midline Respiratory: Clear to auscultation bilaterally. diminished but no wheezing or rhonchi Cardiovascular: regular rhythm, bradycardia, no obvious murmurs Gastrointestinal: soft, non-tender to palpation, nondistended, bowel sounds heard. Neurological: Moves all extremities spontaneously Skin: No new skin lesions Medications Medications Current Medications Sodium Chloride 1,000 ml @ 70 mls/hr [id number] IV Last administered on 09/19/18at 06:37; Admin Dose 70 MLS/HR; Start 09/13/18 at 06:56 IV Flush (NS 3 ml) 3 ml PER PROTOCOL IV ; Start 09/13/18 at 07:00 Ondansetron HCl (Zofran Inj) 4 mg Q6H PRN IV NAUSEA AND/OR VOMITING; Start 08/31 12/17 at 07:00 Acetaminophen (Tylenol Tab) 650 mg Q6H PRN PO PAIN LEVEL 1-3 OR FEVER Last administered on 09/14/18at 03:18; Admin Dose 650 MG; Start 09/13/18 at 07:00 Heparin Sodium (Porcine) (Heparin (5000 Units/1ml)) 5,000 unit Q12 SC Last administered on 09/20/18at 08:22; Admin Dose 5,000 UNIT; Start 09/13/18 at 09:00 Levothyroxine Sodium (Synthroid) 25 mcg BEFORE BREAKFAST PO Last administered on 09/20/18at 06:00; Admin Dose 25 MCG; Start 09/13/18 at 07:00 Pantoprazole (Protonix Tab) 40 mg DAILY@06 PO Last administered on 09/14/18at 06:23; Admin Dose 40 MG; Start 09/13/18 at 06:00 Vancomycin HCl (Vanco Iv Per Pharmacy) VANCOMYCIN PER PHARMACY PER PROTOCOL XX ; Start 09/13/18 at 07:30 Levalbuterol (Xopenex Hfa) 1.25 puff Q4H PRN INH WHEEZING AND SOB; Start 09/13/18 at 10:00 Piperacillin Sod/ Tazobactam Sod 100 ml @ 200 mls/hr Q8 IVPB Last administered on 09/20/18at 05:57; Admin Dose 200 MLS/HR; Start 09/13/18 at 22:00 Potassium Chloride 50 ml @ 50 mls/hr K PROTOCOL PRN IVPB PENDING LAB VALUE Last administered on 09/17/18at 10:41; Admin Dose 50 MLS/HR; Start 09/15/18 at 08:00 Diphenhydramine HCl (Benadryl) 25 mg Q6H PRN IV ITCHING Last administered on 09/16/18at 23:37; Admin Dose 25 MG; Start 09/15/18 at 20:00 IV Flush (NS 10 ml) 10 ml PRN PRN IV FLUSH LINE; Start 09/16/18 at 16:30 Levalbuterol (Xopenex Hfa) 2 puff Q6H RESP THERAPY INH Last administered on 09/20/18 01:33; Admin Dose 2 PUFF; Start 09/17/18 at 20:00 Mirtazapine (Remeron) 7.5 mg QHS PO Last administered on 09/19/18at 21:39; Admin Dose 7.5 MG; Start 09/18/18 at 21:00 Hydromorphone HCl (Dilaudid) 0.5 mg Q6H PRN IV SEVERE PAIN LEVEL 7-10 Last administered on 09/20/18at 02:40; Admin Dose 0.5 MG; Start 09/18/18 at 15:30 Lorazepam (Ativan) 2 mg Q8 PRN IV AGITATION/ANXIETY Last administered on 09/19/18at 18:20; Admin Dose 2 MG; Start 09/19/18 at 09:30 Vancomycin HCl 250 ml @ 125 mls/hr Q24H IVPB ; Start 09/20/18 at 18:00 Mupirocin (Bactroban) 1 applic BID TOP Last administered on 09/20/18at 08:06; Ad min Dose 1 APPLIC; Start 09/19/18 at 23:00 Docusate Sodium (Colace Liquid Cup) 100 mg BID PO ; Start 09/20/18 at 09:00 KRISTYN JAY MD Sep 20, 2018 08:55
--- NOTE | 2018-09-20 09:15 | NUR ---
S/W grandshiv at bedside as this RN witnessed him placing drops of something from a dropper bottle into a water bottle and giving it to the patient to drink. He at first denied giving her anything and then stated it was essential oils. When this RN asked to see the bottle, johnnie refused. Asked that he please not give her anything that her medical team is unaware of as it is possible it is not compatible with her treatment and advised that he needs to speak with her MD prior to giving her anything else. S/w Dr. Aranda. She advised she would speak with the family regarding this. Family is also refusing transfer to telemetry unit. Explained that pt does not meet criteria at this time for ICU, however, there are no telemetry beds. Advised that she will be transferred once a room is available. Family again declines transfer. S/w condominium manager to speak with family regarding transfer to telemetry.
--- NOTE | 2018-09-20 09:31 | CONS ---
Date/Time of Note Date/Time of Note DATE: 09/20/18 TIME: 09:29 Assessment/Plan Assessment/Plan Assessment/Plan Ventilator setting; AC of 16, tidal volume 450, PEEP of 5, 40% FiO2. Assessment and recommendations; 1. Patient with history of metastatic thyroid cancer and chronic respiratory failure, maintained on T-piece at skilled nursing admitted for respiratory failure due to severe bilateral pneumonia with significant radiological improvement. 2. Acute renal injury with normalization of renal function. 3. Mild anemia and thrombocytopenia. 4. History of hypothyroidism. 5. 1 out of 2 blood cultures positive for coagulase negative staph aureus. Likely contaminant. 6. History of prior sternotomy. Continue current supportive care. Patient will need to have a G-tube placed. Overall prognosis remains poor. Patient can be transferred to medical floor. Result Diagram: 09/20/18 0503 09/20/18 0503 Results 24hrs Laboratory Tests Test 09/20/18 05:03 White Blood Count 6.0 Red Blood Count 3.48 L Hemoglobin 10.0 L Hematocrit 33.5 L Mean Corpuscular Volume 96.3 Mean Corpuscular Hemoglobin 28.7 L Mean Corpuscular Hemoglobin Concent 29.9 L Red Cell Distribution Width 14.6 H Platelet Count 146 Mean Platelet Volume 11.3 H Immature Granulocytes % 0.300 Neutrophils % 60.9 Lymphocytes % 22.9 Monocytes % 7.8 Eosinophils % 7.8 H Basophils % 0.3 Nucleated Red Blood Cells % 0.0 Immature Granulocytes # 0.020 Neutrophils # 3.7 Lymphocytes # 1.4 Monocytes # 0.5 Eosinophils # 0.5 Basophils # 0.0 Nucleated Red Blood Cells # 0.0 Sodium Level 147 H Potassium Level 3.5 Chloride Level 112 H Carbon Dioxide Level 26 Anion Gap 9 Blood Urea Nitrogen 18 Creatinine 1.10 H Est Glomerular Filtrat Rate mL/min Glucose Level 72 Calcium Level 8.4 Consultation Date/Type/Reason Admit Date/Time Sep 13, 2018 at 05:56 Initial Consult Date Type of Consult Pulmonary/critical care 24 HR Interval Summary Free Text/Dictation Patient's condition is stable. Remains awake and alert. Has remained hemodynamically stable. General exam; elderly female, on ventilator via tracheostomy. Awake. Currently no distress. Exam/Review of Systems Vital Signs Vitals Vital Signs Date Temp Pulse Resp B/P (MAP) Pulse Ox O2 O2 Flow FiO2 Time Delivery Rate 09/20/18 47 16 99/63 (75) 99 Mechanical 09:00 Ventilator 09/20/18 98.3 08:00 09/20/18 40 05:32 Intake and Output 09/19/18 09/19/18 09/20/18 1515:00 23:00 07:00 IntakeIntake Total 865 ml 490 ml OutputOutput Total 590 ml 730 ml BalanceBalance 275 ml -240 ml Exam HEENT exam; supple neck, no JVD. No lymphadenopathy. Midline trachea. No thyromegaly. Patient is edentulous. Tracheostomy in place. Insertion site is clean. No neck masses. Chest exam; diminished breath sounds bilaterally. S1-S2 audible, no murmurs. Regular rhythm. There is a well-healed sternal scar. Abdomen exam; soft, no organomegaly. Nontender. Bowel sounds audible. Extremity exam; trace edema lower extremities. RIVERBOAT CAPTAIN exam; no focal deficit. Medications Medications Current Medications Sodium Chloride 1,000 ml @ 70 mls/hr [id number] IV Last administered on 09/19/18at 06:37; Admin Dose 70 MLS/HR; Start 09/13/18 at 06:56 IV Flush (NS 3 ml) 3 ml PER PROTOCOL IV ; Start 09/13/18 at 07:00 Ondansetron HCl (Zofran Inj) 4 mg Q6H PRN IV NAUSEA AND/OR VOMITING; Start 09/13/18 at 07:00 Acetaminophen (Tylenol Tab) 650 mg Q6H PRN PO PAIN LEVEL 1-3 OR FEVER Last administered on 09/14/18at 03:18; Admin Dose 650 MG; Start 09/13/18 at 07:00 Heparin Sodium (Porcine) (Heparin (5000 Units/1ml)) 5,000 unit Q12 SC Last administered on 09/20/18at 08:22; Admin Dose 5,000 UNIT; Start 09/13/18 at 09:00 Levothyroxine Sodium (Synthroid) 25 mcg BEFORE BREAKFAST PO Last administered on 09/20/18at 06:00; Admin Dose 25 MCG; Start 09/13/18 at 07:00 Pantoprazole (Protonix Tab) 40 mg DAILY@06 PO Last administered on 09/14/18at 06:23; Admin Dose 40 MG; Start 09/13/18 at 06:00 Vancomycin HCl (Vanco Iv Per Pharmacy) VANCOMYCIN PER PHARMACY PER PROTOCOL XX ; Start 09/13/18 at 07:30 Levalbuterol (Xopenex Hfa) 1.25 puff Q4H PRN INH WHEEZING AND SOB; Start 09/13/18 at 10:00 Piperacillin Sod/ Tazobactam Sod 100 ml @ 200 mls/hr Q8 IVPB Last administered on 09/20/18at 05:57; Admin Dose 200 MLS/HR; Start 09/13/18 at 22:00 Potassium Chloride 50 ml @ 50 mls/hr K PROTOCOL PRN IVPB PENDING LAB VALUE Last administered on 09/17/18at 10:41; Admin Dose 50 MLS/HR; Start 09/15/18 at 08:00 Diphenhydramine HCl (Benadryl) 25 mg Q6H PRN IV ITCHING Last administered on 09/16/18at 23:37; Admin Dose 25 MG; Start 09/15/18 at 20:00 IV Flush (NS 10 ml) 10 ml PRN PRN IV FLUSH LINE; Start 09/16/18 at 16:30 Levalbuterol (Xopenex Hfa) 2 puff Q6H RESP THERAPY INH Last administered on 09/20/18 01:33; Admin Dose 2 PUFF; Start 09/17/18 at 20:00 Mirtazapine (Remeron) 7.5 mg QHS PO Last administered on 09/19/18at 21:39; Admin Dose 7.5 MG; Start 09/18/18 at 21:00 Hydromorphone HCl (Dilaudid) 0.5 mg Q6H PRN IV SEVERE PAIN LEVEL 7-10 Last administered on 09/20/18at 02:40; Admin Dose 0.5 MG; Start 09/18/18 at 15:30 Lorazepam (Ativan) 2 mg Q8 PRN IV AGITATION/ANXIETY Last administered on 09/19/18 18:20; Admin Dose 2 MG; Start 09/19/18 at 09:30 Vancomycin HCl 250 ml @ 125 mls/hr Q24H IVPB ; Start 09/20/18 at 18:00 Mupirocin (Bactroban) 1 applic BID TOP Last administered on 09/20/18at 08:06; Admin Dose 1 APPLIC; Start 09/19/18 at 23:00 Docusate Sodium (Colace Liquid Cup) 100 mg BID PO ; Start 09/20/18 at 09:00 BRANDEN SCOTT Sep 20, 2018 09:31
[2018-09-20] MEDS: DOCUSATE SODIUM 10 MG/ML (10ML CUP) PO SCH ×2 (10:00→21:00)
[2018-09-20] MEDS: SOD CHLORIDE 0.9% 1,000 ML IV SCH (10:42)
--- NOTE | 2018-09-20 11:00 | NUR ---
GUANAKITO NOTES: SPOKE WITH LUCIANO REGARDING PT'S DX. LUCIANO FLAHERTY WILL SEE THE PT TODAY REGARDING THE HOME SITUATION. A CM WILL REMAIN AVAILABLE. DAISY GAYLE LEAD CM [id number]
[2018-09-20] MEDS ORDERED: FUROSEMIDE 20 MG INJ IV ONE ×2 (11:30→18:00)
[2018-09-20] MEDS: LORAZEPAM 2 MG INJ IV PRN (13:40)
--- NOTE | 2018-09-20 15:53 | NUR ---
SS NOTE: FELICIA RECD A CALL FROM RN THAT PT'S FAMILY HAS REQUESTED A FAMILY CONFERENCE WITH DR. CAGLE. FELICIA CALLED AND SPOKE WITH DR. CAGLE, AVAILABLE ON 09/21/18 AT 10 AM. FELICIA CALLED PT'S SON GREG, , HE CONFIRMED THAT HE IS AVAILABLE FOR THE FAMILY CONFERENCE WITH DR. CAGLE AT 10AM ON 09/21/18. ADVISED GREG TO MEET IN PT'S ROOM, VERBALIZED UNDERSTANDING. STAFF AWARE. FELICIA WILL FOLLOW UP.
--- NOTE | 2018-09-20 16:35 | NUR ---
GUANAKITO NOTES: S/W BEDSIDE NURSE AND PT'S SON IS CONSIDERING PALLIATIVE CARE. CURRENTLY, PT DOES NOT HAVE PEG. FAMILY CONFERENCE IS SCHEDULED TOMORROW AT 10:00AM. DAISY GAYLE LEAD GUANAKITO [id number]
[2018-09-20] MEDS ORDERED: VANCOMYCIN 1 GM 250 ML IVPB SCH (18:00)
--- NOTE | 2018-09-20 18:31 | NUR ---
EOSS stable BP even with HR 40-60s, tachycardic when agitated--> given Ativan but no effect, eventually given Dilaudid and then pt calmed down and slept. BM 1x this shift , u.o. better with Lasix, for Video swallow in am. pt's son Dm expressed desire to talk to palliative MD to explore options in goals of care, pt's children also spoke with Dr Aranda at length re: pt status and goals of care . Remains DNR status.
[2018-09-20] MEDS: MIRTAZAPINE 15 MG TAB PO SCH (21:46)
[2018-09-21] VITALS (28 sets, daily range): BP systolic 92–134; BP diastolic 46–107; PULSE 44–88; RESP 16–47
[2018-09-21] MEDS: HYDROmorphONE 0.5 MG/0.5 ML SYG IV PRN ×2 (00:43→09:20)
[2018-09-21] MEDS: SOD CHLORIDE 0.9% 1,000 ML IV SCH ×2 (01:03→15:08)
[2018-09-21] MEDS: LEVALBUTEROL (HFA) 15 GM INHALER INH SCH ×4 (01:13→21:11)
[2018-09-21] MEDS ORDERED: QUETIAPINE 25 MG TAB PO ONE (02:00)
[2018-09-21] MEDS: LORAZEPAM 2 MG INJ IV PRN ×2 (02:08→23:04)
[2018-09-21] MEDS: DIPHENHYDRAMINE 50 MG INJ IV PRN (03:03)
[2018-09-21] MEDS: PANTOPRAZOLE (EC) 40 MG TAB PO SCH (06:28)
[2018-09-21] MEDS: PIPER-TAZO 3.375 GM IV (PMX) 100 ML IVPB SCH ×3 (06:28→21:17)
[2018-09-21] MEDS: LEVOTHYROXINE 25 MCG TAB PO SCH (06:28)
--- NOTE | 2018-09-21 08:53 | CONS ---
Date/Time of Note Date/Time of Note DATE: 09/21/18 TIME: 08:50 Assessment/Plan Assessment/Plan Assessment/Plan Chest x-ray showing diffuse bilateral pneumonia. Ventilator setting; AC of 16, tidal volume 450, PEEP of 5, 30% FiO2. Assessment and recommendations; 1. Patient with history of metastatic thyroid cancer admitted for respiratory failure due to hypercapnia, patient was maintained on T-piece at [facility]. Possibly there is underlying hypoventilation. 2. Extensive bilateral pneumonia. Difficult to rule out superimposed metastatic disease. 3. Anemia and thrombocytopenia. 4. Episodes of sinus bradycardia. Without causing any hemodynamic compromise. 5. History of depression. 6. CHF. 7. History of hypothyroidism. Continue current supportive care. Patient currently is not been able from inva sive mechanical ventilation. Consider hospice evaluation. Consider transfer to telemetry unit/fdc. Result Diagram: 09/21/18 0456 09/21/18 0457 Results 24hrs Laboratory Tests Test 09/20/18 16:59 09/21/18 04:56 09/21/18 04:57 Vancomycin Level Trough 11.2 White Blood Count 5.7 Red Blood Count 3.61 L Hemoglobin 10.4 L Hematocrit 33.4 L Mean Corpuscular Volume 92.5 Mean Corpuscular Hemoglobin 28.8 L Mean Corpuscular Hemoglobin Concent 31.1 L Red Cell Distribution Width 14.5 Platelet Count 145 Mean Platelet Volume 10.6 H Immature Granulocytes % 0.400 Neutrophils % 61.9 Lymphocytes % 22.5 Monocytes % 7.4 Eosinophils % 7.6 H Basophils % 0.2 Nucleated Red Blood Cells % 0.0 Immature Granulocytes # 0.020 Neutrophils # 3.5 Lymphocytes # 1.3 Monocytes # 0.4 Eosinophils # 0.4 Basophils # 0.0 Nucleated Red Blood Cells # 0.0 Sodium Level 144 Potassium Level 3.3 L Chloride Level 108 Carbon Dioxide Level 28 Anion Gap 8 Blood Urea Nitrogen 15 Creatinine 1.16 H Glucose Level 74 Calcium Level 8.4 Phosphorus Level 4.0 Magnesium Level 1.7 Albumin 3.3 Consultation Date/Type/Reason Admit Date/Time Sep 13, 2018 at 05:56 Initial Consult Date Type of Consult Pulmonary/critical care 24 HR Interval Summary Free Text/Dictation Patient's condition remains critical. Still requiring full invasive mechanical ventilation. General exam; elderly woman, on ventilator via tracheostomy, awake, currently no distress. Exam/Review of Systems Vital Signs Vitals Vital Signs Date Temp Pulse Resp B/P (MAP) Pulse Ox O2 O2 Flow FiO2 Time Delivery Rate 09/21/18 97.6 66 19 130/65 97 Mechanical 07:00 (86) Ventilator 09/21/18 30 05:00 Intake and Output 09/20/18 09/20/18 09/21/18 1414:59 22:59 06:59 IntakeIntake Total 640 ml 920 ml 560 ml OutputOutput Total 690 ml 1775 ml 900 ml BalanceBalance -50 ml -855 ml -340 ml Exam H EENT exam; supple neck, positive JVD. No lymphadenopathy. Midline trachea. No thyromegaly. Patient is edentulous. Tracheostomy in place. No neck masses. Chest exam; diminished breath sounds bilaterally. S1-S2 audible, no murmurs. Regular rhythm. Abdomen exam; soft, no organomegaly. There is a well-healed infraumbilical scar. Bowel sounds audible. Nontender. Extremity exam; trace edema. Pulses 1+. MILL MANAGER exam; patient is awake responsive. No focal motor deficit. Medications Medications Current Medications Sodium Chloride 1,000 ml @ 70 mls/hr [id number] IV Last administered on 09/21/18at 01:03; Admin Dose 70 MLS/HR; Start 09/13/18 at 06:56 IV Flush (NS 3 ml) 3 ml PER PROTOCOL IV ; Start 09/13/18 at 07:00 Ondansetron HCl (Zofran Inj) 4 mg Q6H PRN IV NAUSEA AND/OR VOMITING; Start 09/13/18 at 07:00 Acetaminophen (Tylenol Tab) 650 mg Q6H PRN PO PAIN LEVEL 1-3 OR FEVER Last administered on 09/14/18at 03:18; Admin Dose 650 MG; Start 09/13/18 at 07:00 Heparin Sodium (Porcine) (Heparin (5000 Units/1ml)) 5,000 unit Q12 SC Last administered on 09/20/18at 21:46; Admin Dose 5,000 UNIT; Start 09/13/18 at 09:00 Levothyroxine Sodium (Synthroid) 25 mcg BEFORE BREAKFAST PO Last administered on 09/21/18at 06:28; Admin Dose 25 MCG; Start 09/13/18 at 07:00 Pantoprazole (Protonix Tab) 40 mg DAILY@06 PO Last administered on 09/21/18 06:28; Admin Dose 40 MG; Start 09/13/18 at 06:00 Vancomycin HCl (Vanco Iv Per Pharmacy) VANCOMYCIN PER PHARMACY PER PROTOCOL XX ; Start 09/13/18 at 07:30 Levalbuterol (Xopenex Hfa) 1.25 puff Q4H PRN INH WHEEZING AND SOB; Start 09/13/18 at 10:00 Piperacillin Sod/ Tazobactam Sod 100 ml @ 200 mls/hr Q8 IVPB Last administered on 09/21/18 06:28; Admin Dose 200 MLS/HR; Start 09/13/18 at 22:00 Potassium Chloride 50 ml @ 50 mls/hr K PROTOCOL PRN IVPB PENDING LAB VALUE Last administered on 09/17/18 10:41; Admin Dose 50 MLS/HR; Start 09/15/18 at 08:00 Diphenhydramine HCl (Benadryl) 25 mg Q6H PRN IV ITCHING Last administered on 09/21/18 03:03; Admin Dose 25 MG; Start 09/15/18 at 20:00 IV Flush (NS 10 ml) 10 ml PRN PRN IV FLUSH LINE; Start 09/16/18 at 16:30 Levalbuterol (Xopenex Hfa) 2 puff Q6H RESP THERAPY INH Last administered on 09/21/18 07:41; Admin Dose 2 PUFF; Start 09/17/18 at 20:00 Hydromorphone HCl (Dilaudid) 0.5 mg Q6H PRN IV SEVERE PAIN LEVEL 7-10 Last administered on 09/21/18 00:43; Admin Dose 0.5 MG; Start 09/18/18 at 15:30 Lorazepam (Ativan) 2 mg Q8 PRN IV AGITATION/ANXIETY Last administered on 09/21/18 02:08; Admin Dose 2 MG; Start 09/19/18 at 09:30 Vancomycin HCl 250 ml @ 125 mls/hr Q24H IVPB Last administered on 09/20/18 18:51; Admin Dose 125 MLS/HR; Start 09/20/18 at 18:00 Mupirocin (Bactroban) 1 applic BID TOP Last administered on 1/21/19at 21:46; Admin Dose 1 APPLIC; Start 09/19/18 at 23:00 Docusate Sodium (Colace Liquid Cup) 100 mg BID PO ; Start 09/20/18 at 09:00 Mirtazapine (Remeron) 15 mg QHS PO Last administered on 09/20/18at 21:46; Admin Dose 15 MG; Start 09/20/18 at 21:00 BRANDEN SCOTT Sep 21, 2018 08:52
--- NOTE | 2018-09-21 09:08 | PN ---
Date/Time of Note Date/Time of Note DATE: 09/21/18 TIME: 09:08 Assessment/Plan VTE Prophylaxis Risk score (from Nsg)>0 risk: 13 SCD applied (from Nsg): Yes Pharmacological prophylaxis: heparin Lines/Catheters IV Catheter Type (from Nrsg): Peripheral IV Urinary Cath still in place: Yes Reason Cath still needed: skin wounds contaminated by urine Assessment/Plan Assessment/Plan 1. Acute on chronic hypoxemic and hypercapnic on respiratory failure secondary to dislodged tracheostomy and pneumonia on chronic lung metastasis and OHS - Still on vent and weaning as able. Discussed with family goals of care and plan to take patient home with palliative on vent. CM aware and assisting with arrangements - Pulmonology consultation appreciated - Continue on current antibiotics - CXR noted with worsening right infiltrate 2. Sepsis secondary to likely aspiration pneumonia - on antibiotics - WBC normal and remains afebrile 3. Acute metabolic encephalopathy secondary to hypercapnia-resolved - CT brain with no acute findings 4. Acute kidney injurystable - on gentle IVF - avoid nephrotoxic agents 5. Metastatic thyroid cancer status post surgical resection and radioactive iodine with known pulmonary metastasis - Follow-up with outpatient oncologist, patient did have a recent PET scan at [facility] and requested for records - Patient is status post tracheostomy several years ago 6. History of aspiration - Video swallow study planned when patient more awake - discussed with daughter need for Gtube if continues to fail swallow evaluation. Would like to avoid placement at this time as her mother has had one in the past and they are familiar with it 7. Hypothyroidism - Continue Synthroid 8. Anemia chronic disease - Monitor 9. Hypertension - hold home meds in setting of low BP 10. Dysphagia - Speech on board and recommending pureed for gratification - plans for video swallow evaluation when patient able 11. Disposition - Awaiting Telemetry bed - CM on board assisting with arrangements for transition home with home hospital for palliative care on vent Result Diagram: 09/21/18 0456 09/21/18 0457 Results 24hrs Laboratory Tests Test 09/20/18 16:59 09/21/18 04:56 09/21/18 04:57 Vancomycin Level Trough 11.2 White Blood Count 5.7 Red Blood Count 3.61 L Hemoglobin 10.4 L Hematocrit 33.4 L Mean Corpuscular Volume 92.5 Mean Corpuscular Hemoglobin 28.8 L Mean Corpuscular Hemoglobin Concent 31.1 L Red Cell Distribution Width 14.5 Platelet Count 145 Mean Platelet Volume 10.6 H Immature Granulocytes % 0.400 Neutrophils % 61.9 Lymphocytes % 22.5 Monocytes % 7.4 Eosinophils % 7.6 H Basophils % 0.2 Nucleated Red Blood Cells % 0.0 Immature Granulocytes # 0.020 Neutrophils # 3.5 Lymphocytes # 1.3 Monocytes # 0.4 Eosinophils # 0.4 Basophils # 0.0 Nucleated Red Blood Cells # 0.0 Sodium Level 144 Potassium Level 3.3 L Chloride Level 108 Carbon Dioxide Level 28 Anion Gap 8 Blood Urea Nitrogen 15 Creatinine 1.16 H Glucose Level 74 Calcium Level 8.4 Phosphorus Level 4.0 Magnesium Level 1.7 Albumin 3.3 Subjective 24 Hr Interval Summary Free Text/Dictation Patient agitated overnight and accidently pull out IV. She has been restless this am as well. Discussion was held with family and they would like to take patient home with palliative care on the ventilator. Exam/Review of Systems Vital Signs Vitals Vital Signs Date Temp Pulse Resp B/P (MAP) Pulse Ox O2 O2 Flow FiO2 Time Delivery Rate 09/21/18 88 08:03 09/21/18 30 08:03 09/21/18 97.6 19 130/65 97 Mechanical 07:00 (86) Ventilator Intake and Output 09/20/18 09/20/18 09/21/18 1515:00 23:00 07:00 IntakeIntake Total 670 ml 890 ml 490 ml OutputOutput Total 900 ml 1700 ml 750 ml BalanceBalance -230 ml -810 ml -260 ml Exam General: Patient is laying in bed. restless but in no acute distress Head: Normocephalic atraumatic Eyes: EOMI, pupils reactive to light Neck: Supple, nontender, midline Respiratory: Clear to auscultation bilaterally. diminished but no wheezing or rhonchi Cardiovascular: regular rhythm, bradycardia, no obvious murmurs Gastrointestinal: soft, non-tender to palpation, nondistended, bowel sounds heard. Neurological: Moves all extremities spontaneously Skin: No new skin lesions Medications Medications Current Medications Sodium Chloride 1,000 ml @ 70 mls/hr [id number] IV Last administered on 09/21/18at 01:03; Admin Dose 70 MLS/HR; Start 09/13/18 at 06:56 IV Flush (NS 3 ml) 3 ml PER PROTOCOL IV ; Start 09/13/18 at 07:00 Ondansetron HCl (Zofran Inj) 4 mg Q6H PRN IV NAUSEA AND/OR VOMITING; Start 09/13/18 at 07:00 Acetaminophen (Tylenol Tab) 650 mg Q6H PRN PO PAIN LEVEL 1-3 OR FEVER Last administered on 09/14/18 03:18; Admin Dose 650 MG; Start 09/13/18 at 07:00 Heparin Sodium (Porcine) (Heparin (5000 Units/1ml)) 5,000 unit Q12 SC Last administered on 09/20/18 21:46; Admin Dose 5,000 UNIT; Start 09/13/18 at 09:00 Levothyroxine Sodium (Synthroid) 25 mcg BEFORE BREAKFAST PO Last administered on 09/21/18 06:28; Admin Dose 25 MCG; Start 09/13/18 at 07:00 Pantoprazole (Protonix Tab) 40 mg DAILY@06 PO Last administered on 09/21/18 06:28; Admin Dose 40 MG; Start 09/13/18 at 06:00 Vancomycin HCl (Vanco Iv Per Pharmacy) VANCOMYCIN PER PHARMACY PER PROTOCOL XX ; Start 09/13/18 at 07:30 Levalbuterol (Xopenex Hfa) 1.25 puff Q4H PRN INH WHEEZING AND SOB; Start 09/13/18 at 10:00 Piperacillin Sod/ Tazobactam Sod 100 ml @ 200 mls/hr Q8 IVPB Last administered on 09/21/18 06:28; Admin Dose 200 MLS/HR; Start 09/13/18 at 22:00 Potassium Chloride 50 ml @ 50 mls/hr K PROTOCOL PRN IVPB PENDING LAB VALUE Last administered on 09/17/18at 10:41; Admin Dose 50 MLS/HR; Start 09/15/18 at 08:00 Diphenhydramine HCl (Benadryl) 25 mg Q6H PRN IV ITCHING Last administered on 09/21/18 03:03; Admin Dose 25 MG; Start 09/15/18 at 20:00 IV Flush (NS 10 ml) 10 ml PRN PRN IV FLUSH LINE; Start 09/16/18 at 16:30 Levalbuterol (Xopenex Hfa) 2 puff Q6H RESP THERAPY INH Last administered on 09/21/18 07:41; Admin Dose 2 PUFF; Start 09/17/18 at 20:00 Hydromorphone HCl (Dilaudid) 0.5 mg Q6H PRN IV SEVERE PAIN LEVEL 7-10 Last administered on 09/21/18 00:43; Admin Dose 0.5 MG; Start 09/18/18 at 15:30 Lorazepam (Ativan) 2 mg Q8 PRN IV AGITATION/ANXIETY Last administered on 09/21/18 02:08; Admin Dose 2 MG; Start 09/19/18 at 09:30 Vancomycin HCl 250 ml @ 125 mls/hr Q24H IVPB Last administered on 09/20/18 18:51; Admin Dose 125 MLS/HR; Start 09/20/18 at 18:00 Mupirocin (Bactroban) 1 applic BID TOP Last administered on 09/20/18at 21:46; Admin Dose 1 APPLIC; Start 09/19/18 at 23:00 Docusate Sodium (Colace Liquid Cup) 100 mg BID PO ; Start 09/20/18 at 09:00 Mirtazapine (Remeron) 15 mg QHS PO Last administered on 09/20/18at 21:46; Admin Dose 15 MG; Start 09/20/18 at 21:00 KRISTYN JAY MD Sep 21, 2018 09:08
[2018-09-21] MEDS: DOCUSATE SODIUM 10 MG/ML (10ML CUP) PO SCH ×2 (09:18→21:00)
[2018-09-21] MEDS: MUPIROCIN 2% 22 GM OINT TOP SCH ×2 (09:26→21:17)
[2018-09-21] MEDS: HEPARIN 5,000 UNIT/1 ML VIAL SC SCH ×2 (09:28→21:31)
--- NOTE | 2018-09-21 09:30 | NUR ---
IV DILAUDID PT GIVEN IV DILAUDID DUE TO INCREASING PAIN/ DISCOMFORT. DAUGHTERS AT BEDSIDE. POSITIONS OF COMFORT MAINTAINED. TO BE SEEN BY DR. HAYWARD FOR PAIN MANAGEMENT/ POSSIBLE HOSPICE PLAN.
[2018-09-21] MEDS: POTASSIUM CHLORIDE 100 ML IVPB SCH ×2 (10:56→14:07)
[2018-09-21] MEDS: POTASSIUM CHLORIDE 50 ML IVPB PRN ×2 (10:56→14:05)
--- NOTE | 2018-09-21 10:59 | CONS ---
Date/Time of Note Date/Time of Note DATE: 09/21/18 TIME: 10:59 Assessment/Plan Assessment/Plan Result Diagram: 09/21/18 0456 09/21/18 0457 Results 24hrs Laboratory Tests Test 09/20/18 16:59 09/21/18 04:56 09/21/18 04:57 Vancomycin Level Trough 11.2 White Blood Count 5.7 Red Blood Count 3.61 L Hemoglobin 10.4 L Hematocrit 33.4 L Mean Corpuscular Volume 92.5 Mean Corpuscular Hemoglobin 28.8 L Mean Corpuscular Hemoglobin Concent 31.1 L Red Cell Distribution Width 14.5 Platelet Count 145 Mean Platelet Volume 10.6 H Immature Granulocytes % 0.400 Neutrophils % 61.9 Lymphocytes % 22.5 Monocytes % 7.4 Eosinophils % 7.6 H Basophils % 0.2 Nucleated Red Blood Cells % 0.0 Immature Granulocytes # 0.020 Neutrophils # 3.5 Lymphocytes # 1.3 Monocytes # 0.4 Eosinophils # 0.4 Basophils # 0.0 Nucleated Red Blood Cells # 0.0 Sodium Level 144 Potassium Level 3.3 L Chloride Level 108 Carbon Dioxide Level 28 Anion Gap 8 Blood Urea Nitrogen 15 Creatinine 1.16 H Glucose Level 74 Calcium Level 8.4 Phosphorus Level 4.0 Magnesium Level 1.7 Albumin 3.3 Consultation Date/Type/Reason Admit Date/Time Sep 13, 2018 at 05:56 Hx of Present Illness Conference today with patient's son and daughter. Patient is in the intensive care unit is actually on telemetry and is considered to be stable enough to be moved out of the intensive care unit when a bed is open. We discussed ongoing goals of care and the fact that patient is still suffering on a ventilator and is not significantly improving especially since her last time I seen her. F amily members did state to me that patient said she did not want to live like this and would rather . Her wishes have not been respected. Patient's primary caregiver is her daughter who is tearful is my impressions are she does not want to give up at this time. Decision makers are both children. They acknowledge the fact that patient is suffering we will would like to have another week to see if she improves with the intent of bringing her home with hospice care. If she does not improve significantly based upon this conversation the goal of care would be comfort measures in the hospital. Patient's family request another week of this level of care. Have discussed with Dr. Aranda. Past Medical History Medications Current Medications Sodium Chloride 1,000 ml @ 70 mls/hr [id number] IV Last administered on 09/21/18 01:03; Admin Dose 70 MLS/HR; Start 09/13/18 at 06:56 IV Flush (NS 3 ml) 3 ml PER PROTOCOL IV ; Start 09/13/18 at 07:00 Ondansetron HCl (Zofran Inj) 4 mg Q6H PRN IV NAUSEA AND/OR VOMITING; Start 09/13/18 at 07:00 Acetaminophen (Tylenol Tab) 650 mg Q6H PRN PO PAIN LEVEL 1-3 OR FEVER Last administered on 09/14/18 03:18; Admin Dose 650 MG; Start 09/13/18 at 07:00 Heparin Sodium (Porcine) (Heparin (5000 Units/1ml)) 5,000 unit Q12 SC Last administered on 09/21/18 09:28; Admin Dose 5,000 UNIT; Start 09/13/18 at 09:00 Levothyroxine Sodium (Synthroid) 25 mcg BEFORE BREAKFAST PO Last administered on 09/21/18 06:28; Admin Dose 25 MCG; Start 09/13/18 at 07:00 Pantoprazole (Protonix Tab) 40 mg DAILY@06 PO Last administered on 09/21/18 06:28; Admin Dose 40 MG; Start 09/13/18 at 06:00 Vancomycin HCl (Vanco Iv Per Pharmacy) VANCOMYCIN PER PHARMACY PER PROTOCOL XX ; Start 09/13/18 at 07:30 Levalbuterol (Xopenex Hfa) 1.25 puff Q4H PRN INH WHEEZING AND SOB; Start 09/13/18 at 10:00 Piperacillin Sod/ Tazobactam Sod 100 ml @ 200 mls/hr Q8 IVPB Last administered on 09/21/18 06:28; Admin Dose 200 MLS/HR; Start 09/13/18 at 22:00 Potassium Chloride 50 ml @ 50 mls/hr K PROTOCOL PRN IVPB PENDING LAB VALUE Last administered on 09/17/18at 10:41; Admin Dose 50 MLS/HR; Start 09/15/18 at 08:00 Diphenhydramine HCl (Benadryl) 25 mg Q6H PRN IV ITCHING Last administered on 09/21/18 03:03; Admin Dose 25 MG; Start 09/15/18 at 20:00 IV Flush (NS 10 ml) 10 ml PRN PRN IV FLUSH LINE; Start 09/16/18 at 16:30 Levalbuterol (Xopenex Hfa) 2 puff Q6H RESP THERAPY INH Last administered on 09/21/18 07:41; Admin Dose 2 PUFF; Start 09/17/18 at 20:00 Hydromorphone HCl (Dilaudid) 0.5 mg Q6H PRN IV SEVERE PAIN LEVEL 7-10 Last administered on 09/21/18 09:20; Admin Dose 0.5 MG; Start 09/18/18 at 15:30 Lorazepam (Ativan) 2 mg Q8 PRN IV AGITATION/ANXIETY Last administered on 09/21/18 02:08; Admin Dose 2 MG; Start 09/19/18 at 09:30 Vancomycin HCl 250 ml @ 125 mls/hr Q24H IVPB Last administered on 09/20/18 18:51; Admin Dose 125 MLS/HR; Start 09/20/18 at 18:00 Mupirocin (Bactroban) 1 applic BID TOP Last administered on 09/21/18 09:26; Admin Dose 1 APPLIC; Start 09/19/18 at 23:00 Docusate Sodium (Colace Liquid Cup) 100 mg BID PO Last administered on 09/21/18 09:18; Admin Dose 100 MG; Start 09/20/18 at 09:00 Mirtazapine (Remeron) 15 mg QHS PO Last administered on 09/20/18 21:46; Admin Dose 15 MG; Start 09/20/18 at 21:00 Potassium Chloride 100 ml @ 50 mls/hr Q2H IVPB ; Start 09/21/18 at 09:30; Stop 09/21/18 at 13:29 Allergies: Coded Allergies: prednisone (Verified Allergy, Mild, HALLUCINATIONS, 12/04/13) clindamycin (Verified Allergy, Unknown, 12/10/16) iodine (Verified Allergy, Unknown, RASHES, 07/03/18) morphine (Verified Allergy, Unknown, RASHES, 07/03/18) Past Surgical History Past Surgical Hx: other Social History Alcohol Use: none Smoking Status: Never smoker Drug Use: none Exam/Review of Systems Vital Signs Vitals Vital Signs Date Temp Pulse Resp B/P (MAP) Pulse Ox O2 O2 Flow FiO2 Time Delivery Rate 09/21/18 98.2 62 17 128/88 98 Mechanical 10:30 (101) Ventilator 09/21/18 30 08:03 Intake and Output 09/20/18 09/20/18 09/21/18 1414:59 22:59 06:59 IntakeIntake Total 640 ml 920 ml 560 ml OutputOutput Total 690 ml 1775 ml 900 ml BalanceBalance -50 ml -855 ml -340 ml Medications Medications Current Medications Sodium Chloride 1,000 ml @ 70 mls/hr [id number] IV Last administered on 09/21/18at 01:03; Admin Dose 70 MLS/HR; Start 09/13/18 at 06:56 IV Flush (NS 3 ml) 3 ml PER PROTOCOL IV ; Start 09/13/18 at 07:00 Ondansetron HCl (Zofran Inj) 4 mg Q6H PRN IV NAUSEA AND/OR VOMITING; Start 09/13/18 at 07:00 Acetaminophen (Tylenol Tab) 650 mg Q6H PRN PO PAIN LEVEL 1-3 OR FEVER Last administered on 09/14/18at 03:18; Admin Dose 650 MG; Start 09/13/18 at 07:00 Heparin Sodium (Porcine) (Heparin (5000 Units/1ml)) 5,000 unit Q12 SC Last administered on 09/21/18at 09:28; Admin Dose 5,000 UNIT; Start 09/13/18 at 09:00 Levothyroxine Sodium (Synthroid) 25 mcg BEFORE BREAKFAST PO Last administered on 09/21/18at 06:28; Admin Dose 25 MCG; Start 09/13/18 at 07:00 Pantoprazole (Protonix Tab) 40 mg DAILY@06 PO Last administered on 09/21/18at 06:28; Admin Dose 40 MG; Start 09/13/18 at 06:00 Vancomycin HCl (Vanco Iv Per Pharmacy) VANCOMYCIN PER PHARMACY PER PROTOCOL XX ; Start 09/13/18 at 07:30 Levalbuterol (Xopenex Hfa) 1.25 puff Q4H PRN INH WHEEZING AND SOB; Start at 10:00 Piperacillin Sod/ Tazobactam Sod 100 ml @ 200 mls/hr Q8 IVPB Last administered on 09/21/18 06:28; Admin Dose 200 MLS/HR; Start 09/13/18 at 22:00 Potassium Chloride 50 ml @ 50 mls/hr K PROTOCOL PRN IVPB PENDING LAB VALUE Last administered on 09/17/18 10:41; Admin Dose 50 MLS/HR; Start 09/15/18 at 08:00 Diphenhydramine HCl (Benadryl) 25 mg Q6H PRN IV ITCHING Last administered on 09/21/18 03:03; Admin Dose 25 MG; Start 09/15/18 at 20:00 IV Flush (NS 10 ml) 10 ml PRN PRN IV FLUSH LINE; Start 09/16/18 at 16:30 Levalbuterol (Xopenex Hfa) 2 puff Q6H RESP THERAPY INH Last administered on 09/21/18 07:41; Admin Dose 2 PUFF; Start 09/17/18 at 20:00 Hydromorphone HCl (Dilaudid) 0.5 mg Q6H PRN IV SEVERE PAIN LEVEL 7-10 Last administered on 09/21/18 09:20; Admin Dose 0.5 MG; Start 09/18/18 at 15:30 Lorazepam (Ativan) 2 mg Q8 PRN IV AGITATION/ANXIETY Last administered on 02:08; Admin Dose 2 MG; Start 09/19/18 at 09:30 Vancomycin HCl 250 ml @ 125 mls/hr Q24H IVPB Last administered on 09/20/18 18:51; Admin Dose 125 MLS/HR; Start 09/20/18 at 18:00 Mupirocin (Bactroban) 1 applic BID TOP Last administered on 09/21/18 09:26; Admin Dose 1 APPLIC; Start 09/19/18 at 23:00 Docusate Sodium (Colace Liquid Cup) 100 mg BID PO Last administered on 09/21/18 09:18; Admin Dose 100 MG; Start 09/20/18 at 09:00 Mirtazapine (Remeron) 15 mg QHS PO Last administered on 09/20/18 21:46; Admin Dose 15 MG; Start 09/20/18 at 21:00 Potassium Chloride 100 ml @ 50 mls/hr Q2H IVPB ; Start 09/21/18 at 09:30; Stop 09/21/18 at 13:29 CARLOS CAGLE Sep 21, 2018 10:59
--- NOTE | 2018-09-21 11:00 | NUR ---
SS NOTE: FAMILY CONF DR. CAGLE HAD A FAMILY CONFERENCE WITH PT'S CHILDREN. AFTER THE CONFERENCE, DR. CAGLE REPORTED THAT FAMILY WILL PROCEED WITH POSSIBLE HOSPICE/PALLIATIVE CARE IF PT REMAINS THE SAME OR DECLINES DURING THIS WEEK. SW WILL REMAIN AVAILABLE.
[2018-09-21] MEDS ORDERED: BARIUM SULFATE 135 ML (E-Z HD) PO ONE (11:25)
--- NOTE | 2018-09-21 11:33 | NUR ---
RX NOTE RE: VANCOMYCIN DAY# 9 OF VANCO PER RX BUN/SCR: 15/.16 TMAX: 98.2 WBC: 5.7 ALLERGIES: PREDNISONE, CLINDA, IODINE, MORPHINE OTHER ABX: ZOSYN VANCO TROUGH: 11.2 CONTINUE CURRENT REGIMEN OF VANCO 1GM IV Q24HR PHARMACY TO FOLLOW.
--- NOTE | 2018-09-21 11:57 | NUR ---
ST NOTE: unable to do video swallow as RN "Lucia" called radiology at 11:50 stating pt sedating/asleep sec. to being given Diluadid at 9:20am for pain despite video scheduled for 11:30; only other time frame is poss 13:00 but unsure if pt would be awake for study and cannot hold time frame; will plan to try video tomorrow when pt awake and able to participate; will coordinate with radiology. delay in the study not due to radiology or speech
--- NOTE | 2018-09-21 15:03 | NUR ---
LOW HEART RATE AT AROUND 1400, HEART RATE RANGE = 44-48/MIN. PT CONTINUOUSLY MONITORED; VITAL SIGNS OTHER COSTA STABLE. DR. JAY MADE AWARE.
--- NOTE | 2018-09-21 15:29 | NUR ---
CM NOTES: RECEIVED ORDER FOR [facility] WITH HOME [facility]ENT SET UP. THIS CM T/C [facility] [phone] AND S/W WITH JOVANI. THIS CM ASKED JOVANI TO ASK A LIAISON TO CALL THIS CM BACK REGARDING THE ORDER. AWAITING FOR A CALL BACK. THIS CM WILL REMAIN AVAILABLE. DAISY GAYLE LEAD CM [phone]
--- NOTE | 2018-09-21 15:37 | NUR ---
CM NOTES: RECEIVED A CALL BACK FROM [facility] [phone] DUSTY AND SHE INDICATED THAT PT HAS NO MEDICARE PART A. THIS CM INFORMED HER THAT PT DOES HAVE MEDICARE PART A AND THIS CM PROVIDED HER THE POLICY OF MEDICARE. SHE WILL RE-RUN THE INSURANCE. SHE WILL CALL THIS CM BACK WITH THE INFORMATION. DAISY GAYLE LEAD CM [phone]
--- NOTE | 2018-09-21 18:30 | NUR ---
FOR TRANSFER TO [facility] PT FOR TRANSFER TO [facility]/ ROOM 528; HAND OFF REPORT GIVEN TO RECEIVING RN: EMILIANO. AWAITING TRANSPORT.
[2018-09-21] MEDS: MIRTAZAPINE 15 MG TAB PO SCH (21:00)
[2018-09-22] VITALS (22 sets, daily range): BP systolic 99–152; BP diastolic 48–80; PULSE 42–87; RESP 14–21
[2018-09-22] MEDS: LEVALBUTEROL (HFA) 15 GM INHALER INH SCH ×4 (02:00→19:24)
[2018-09-22] MEDS: SOD CHLORIDE 0.9% 1,000 ML IV SCH (05:26)
[2018-09-22] MEDS: PANTOPRAZOLE (EC) 40 MG TAB PO SCH (05:37)
[2018-09-22] MEDS: PIPER-TAZO 3.375 GM IV (PMX) 100 ML IVPB SCH ×3 (05:47→21:32)
--- NOTE | 2018-09-22 06:12 | NUR ---
PT IS SLEEPING CALMLY. GRANDSON AT BEDSIDE AND REQUESTED FOR THE PT TO BE PUT ON RESTRAINT AND HE VERBALIZED THAT HER GRANDMOTHER DOES PULL LINES AND TUBES WHENEVER SHE IS AWAKE. EXPLAINED TO FAMILY MEMBER THAT THE PT IS CALM AT THIS MOMENT AND RESTRAINT IS NOT NECESSARY. GRANDSON INSISTED FOR RESTRAINT. SPOKE TO FAMILY'S DECISION MAKER AND AGREED WITH THE GRANDSONS REQUEST FOR RESTRAINT. SPOKE TO DR AGARWAL AND MADE HIM AWARE ABOUT THE SITUATION AND ORDERED SOFT AMBER UPPER EXTREMITY RESTRAINT. WILL CONTINUE TO MONITOR
--- NOTE | 2018-09-22 06:20 | NUR ---
UNABLE TO TAKE PICTURE OF BILATERAL HEELS. PT GRANDSONS SAID TO JUST DO IT WHEN THE PT IS MORE AWAKE AND TOLD THE COMMUNITY DIRECTOR NOT TO DO MORNING HYGIENE THIS MORNING SO THAT HIS GRANDMOTHER CAN REST WELL. WILL CONTINUE TO MONITOR
[2018-09-22] MEDS: LEVOTHYROXINE 25 MCG TAB PO SCH (06:35)
--- NOTE | 2018-09-22 08:00 | NUR ---
Unable to take pictures of patient's skin as grandon is at bedside and requesting to let her relax for now. Will attempt again at a later time. Clinical Video News Editor Milan and Downstairs Maid Pro Tucker, aware.
[2018-09-22] MEDS: DOCUSATE SODIUM 10 MG/ML (10ML CUP) PO SCH ×2 (09:00→21:00)
[2018-09-22] MEDS: MUPIROCIN 2% 22 GM OINT TOP SCH ×2 (09:17→21:31)
[2018-09-22] MEDS: HEPARIN 5,000 UNIT/1 ML VIAL SC SCH ×2 (09:29→21:15)
--- NOTE | 2018-09-22 09:30 | PN ---
Date/Time of Note Date/Time of Note DATE: 09/22/18 TIME: 09:30 Assessment/Plan VTE Prophylaxis Risk score (from Nsg)>0 risk: 11 SCD applied (from Nsg): Yes Pharmacological prophylaxis: heparin Lines/Catheters IV Catheter Type (from Nrsg): Peripheral IV Urinary Cath still in place: Yes Reason Cath still needed: urinary retention Assessment/Plan Assessment/Plan 1. Acute on chronic hypoxemic and hypercapnic on respiratory failure secondary to dislodged tracheostomy and pneumonia on chronic lung metastasis and OHS - Continue weaning off vent as able but discussed with family may be able to take patient home on vent with therapy provided - Pulmonology consultation appreciated and given dose of Bumex given pulmonary congestion - Continue on current antibiotics - Discussed with family aspirations most likely exacerbating pulmonary deterioration 2. Sepsis secondary to likely aspiration pneumonia - on antibiotics - WBC normal and remains afebrile 3. Acute metabolic encephalopathy secondary to hypercapnia-resolved - CT brain with no acute findings 4. Acute kidney injurystable - avoid nephrotoxic agents 5. Metastatic thyroid cancer status post surgical resection and radioactive iodine with known pulmonary metastasis - Follow-up with outpatient oncologist, patient did have a recent PET scan at [facility] and requested for records - Patient is status post tracheostomy several years ago 6. History of aspiration - Video swallow study performed this am and discussed with Kortney. Patient aspirates with thin liquids and less when head turned to left and given pureed. Still not safe for full meals but okay for oral gratification. Still recommending PEG placement 7. Hypothyroidism - Continue Synthroid 8. Anemia chronic disease - Monitor 9. Hypertension - hold home meds in setting of low BP 10. Dysphagia - Speech on board and recommending pureed for gratification only 11. Disposition - Continue current treatment and attempt weaning from vent - CM on board assisting with arrangements for transition home on vent with palliative care Result Diagram: 09/21/18 0456 09/21/18 0457 Subjective 24 Hr Interval Summary Free Text/Dictation Patient in better spirits this am after coming back from video swallow and was seen prayer with family around. Still with episodes of agitation and asking to go home. Exam/Review of Systems Vital Signs Vitals Vital Signs Date Temp Pulse Resp B/P (MAP) Pulse Ox O2 O2 Flow FiO2 Time Delivery Rate 09/22/18 52 08:39 09/22/18 18 100 30 08:34 09/22/18 97.9 118/73 07:40 (88) 09/22/18 Mechanical 06:00 Ventilator Intake and Output 09/21/18 09/21/18 09/22/18 1515:00 23:00 07:00 IntakeIntake Total 100 ml OutputOutput Total 210 ml 160 ml 400 ml BalanceBalance -110 ml -160 ml -400 ml Exam General: Patient is laying in bed. no acute distress Head: Normocephalic atraumatic Eyes: EOMI, pupils reactive to light Neck: Supple, nontender, midline Respiratory: Clear to auscultation bilaterally. diminished but no wheezing or rhonchi Cardiovascular: regular rhythm, bradycardia, no obvious murmurs Gastrointestinal: soft, non-tender to palpation, nondistended, bowel sounds heard. Neurological: Moves all extremities spontaneously Skin: No new skin lesions Medications Medications Current Medications Sodium Chloride 1,000 ml @ 70 mls/hr [id number] IV Last administered on 09/21/18at 01:03; Admin Dose 70 MLS/HR; Start 09/13/18 at 06:56 IV Flush (NS 3 ml) 3 ml PER PROTOCOL IV ; Start 09/13/18 at 07:00 Ondansetron HCl (Zofran Inj) 4 mg Q6H PRN IV NAUSEA AND/OR VOMITING; Start 09/13/18 at 07:00 Acetaminophen (Tylenol Tab) 650 mg Q6H PRN PO PAIN LEVEL 1-3 OR FEVER Last administered on 09/14/18at 03:18; Admin Dose 650 MG; Start 09/13/18 at 07:00 Heparin Sodium (Porcine) (Heparin (5000 Units/1ml)) 5,000 unit Q12 SC Last administered on 09/22/18at 09:29; Admin Dose 5,000 UNIT; Start 09/13/18 at 09:00 Levothyroxine Sodium (Synthroid) 25 mcg BEFORE BREAKFAST PO Last administered on 09/21/18at 06:28; Admin Dose 25 MCG; Start 09/13/18 at 07:00 Pantoprazole (Protonix Tab) 40 mg DAILY@06 PO Last administered on 09/21/18at 06:28; Admin Dose 40 MG; Start 09/13/18 at 06:00 Levalbuterol (Xopenex Hfa) 1.25 puff Q4H PRN INH WHEEZING AND SOB; Start 09/13/18 at 10:00 Piperacillin Sod/ Tazobactam Sod 100 ml @ 200 mls/hr Q8 IVPB Last administered on 09/22/18 05:47; Admin Dose 200 MLS/HR; Start 09/13/18 at 22:00; Stop 09/27/18 at 21:59 Diphenhydramine HCl (Benadryl) 25 mg Q6H PRN IV ITCHING Last administered on 09/21/18 03:03; Admin Dose 25 MG; Start 09/15/18 at 20:00 IV Flush (NS 10 ml) 10 ml PRN PRN IV FLUSH LINE; Start 09/16/18 at 16:30 Levalbuterol (Xopenex Hfa) 2 puff Q6H RESP THERAPY INH Last administered on 09/22/18 08:32; Admin Dose 2 PUFF; Start 09/17/18 at 20:00 Hydromorphone HCl (Dilaudid) 0.5 mg Q6H PRN IV SEVERE PAIN LEVEL 7-10 Last administered on 09/21/18 09:20; Admin Dose 0.5 MG; Start 09/18/18 at 15:30 Lorazepam (Ativan) 2 mg Q8 PRN IV AGITATION/ANXIETY Last administered on 09/21/18 23:04; Admin Dose 2 MG; Start 09/19/18 at 09:30 Mupirocin (Bactroban) 1 applic BID TOP Last administered on 09/22/18 09:17; Admin Dose 1 APPLIC; Start 09/19/18 at 23:00 Docusate Sodium (Colace Liquid Cup) 100 mg BID PO Last administered on 09/21/18 09:18; Admin Dose 100 MG; Start 09/20/18 at 09:00 Mirtazapine (Remeron) 15 mg QHS PO Last administered on 09/20/18 21:46; Admin Dose 15 MG; Start 09/20/18 at 21:00 KRISTYN JAY MD Sep 22, 2018 09:30
[2018-09-22] MEDS ORDERED: BARIUM SULFATE 135 ML (E-Z HD) PO ONE (10:26)
[2018-09-22] MEDS: LORAZEPAM 2 MG INJ IV PRN ×2 (12:27→20:32)
[2018-09-22] MEDS ORDERED: VANCOMYCIN IV PER PHARMACY XX SCH (12:30)
--- NOTE | 2018-09-22 12:31 | NUR ---
WOUND CONSULT FOR SACROCOCCYX AREA: 82 year old female with history of respiratory failure, metastatic thyroid cancer s/p surgical resection, GERD, and hypertension. Patient trach to vent. Tan cath. Incontinent of bowel. WBC 5.7. H&H 10.4/33.4. BUN/Cr 1.16. Albumin 3.3. Dietitian consult per protocol. Dr. Zambrano on-case for hospice consult. ASSESSMENT: - Bilateral heels intact. - Trach with foam padding under trach plate. - Coccyx stage 2 pressure injury in combination with incontinent associated dermatitis. 0.5cmx0.5cmx<0.1cm. Partial thickness wound with pink wound bed. Periwound mild maceration. No drainage. No odor. - Left lower buttock stage 2 pressure injury. Non-intact blister with partial thickness pink wound bed. 1cmx0.5cmx<0.1cm. Periwound intact. Scant serous drainage. No odor. RECOMMENDATIONS: - Coccyx and Left lower buttock stage 2: Cleanse with normal saline. Pat dry. Apply Venelex ointment BID. Apply 3M Cavilon no-sting skin barrier to periwound skin. Then, cover with foam border dressing. Change foam border dressing every 3 days. - Low air loss surface. - Reposition every 2 hours. - Pericare with barrier cream for each incontinent episode. - Float heels off bed with pillows. - Bilateral heels and bilateral ankles: Protect with Allevyn heels foam border dressings. Assess skin under dressing every shift. Change every 3days. - StatLock to position Tan cath. Notify patient's grandson at bedside regarding pressure injury and treatment plan of care. Assessed patient with Lori MARTÍNEZ. Discussed plan of care with RN. RN to notify MD and obtain wound care recommendations from MD. Agata Glover BSN RN CWOCN
--- NOTE | 2018-09-22 13:11 | NUR ---
VANCOMYCIN PER RX (RE-STARTED) Current ABXs: VANCOMYCIN, ZOSYN Significant labs/imagin/22 SCR 5.7; WBC 1.16 Comments/Plan: LAST DOSE RECEIVED ON 09/20. RE-LOAD WITH VANCO 2 GM NOW, THEN RESTART VANCO 1 GM Q24H.
[2018-09-22] MEDS ORDERED: BUMETANIDE 6 MG in DEXTROSE 5% 36 ML IV ONE (13:30)
--- NOTE | 2018-09-22 13:40 | NUR ---
ST NOTE: VIDEO SWALLOW STUDY COMPLETED: family present reviewed: Recommendation: po for oral grat of puree with nectar thick via spoon with head turned left and effortful swallow; pt at high risk for aspiration. Puree given; multiple trials; first swallow mild spillage to valleculae; fast trigger of the swallow; second trial bolus spilled and overflowed to the pharynx; once triggered decreased tongue base retraction and sev. decreased elevation resulted in residue in valleculae and p.sinuses 3rd trial puree; spillage and penetration before the swallow 4th trials aspirated SILENTLY due to residue after the swallow spilling over into the airway. asked pt to voluntarily cough and pt did but weak and unproductive to clear asp.material from airway. head turned left and effortful swallow used on all other trials of puree which resulted in no aspiration, still transient pen. 6th trial no asp or pen with strategy; noted to have decreased esophageal stasis; some backflow noted; mild residue on the PPW. [place] thick via spoon with head turned left and effortful swallow; no asp/. multiple trials given. nctr cup resulted in penetration but no aspiration but sev. risk sec. to residue; straw not tested; repeated spoon with no asp. soft solid not tested as not safe thin via spoon resulted in aspiration Silent during and after the swallow; head turned and tucked not effective. Summary; Moderate oral phase and severe pharyngeal phase dysphagia characterized by decreased control resulting in spillage to the pharynx and pt asp. puree penetrated with head neutral and pt aspirated duringand after the swallow; sev. decreased laryngeal elevation and airway closure. decreased tongue base retraction to the PPW resulting in residue after the swallow. pt not safe for full po diet and would rec. oral grat but if family discusses with md and is aware of the risk for full po diet then puree;nctr spoon with head turned left with effortful swallow would be safest choice but again high risk to aspirate and all asp was silent; pt followed compensatory strategies well. rec. continue dysphagia therapy/swallow exercises to improve tongue base and focus on pharyngeal exercises.
--- NOTE | 2018-09-22 14:16 | NUR ---
ST NOTE; spoke with MAURICIO Sandoval reg recommendations; family not in room when st came back; spoke with MAURICIO Aranda via phone and discussed results and rec. per counselor marriage and family was giving thin via cup; pt coughing;choking; st rec. not for thin liquids at all as silently aspirated; rec. po oral kapil marcial to f/up with family what their wishes are. unable to review images as not sent yet since this am;
--- NOTE | 2018-09-22 14:48 | NUR ---
Per [place] Pharmacist okay to run Bumex drip and vancomycin on same line, medications are compatible.
--- NOTE | 2018-09-22 14:57 | CONS ---
Date/Time of Note Date/Time of Note DATE: 09/22/18 TIME: 14:54 Consult Date/Type/Reason Admit Date/Time Sep 13, 2018 at 05:56 Initial Consult Date Type of Consultation: Pulm/CCM Subjective Patient transferred to telemetry yesterday. Remains stable this morning no r espiratory distress. Continues mechanical ventilation FiO2 of 35% chest x-ray shows worsening right infiltrate. Objective Vital Signs Date Temp Pulse Resp B/P (MAP) Pulse Ox O2 O2 Flow FiO2 Time Delivery Rate 09/22/18 67 16 97 35 14:20 09/22/18 98.6 113/64 11:31 (80) 09/22/18 Mechanical 06:00 Ventilator Intake and Output 09/21/18 09/21/18 09/22/18 1515:00 23:00 07:00 IntakeIntake Total 100 ml OutputOutput Total 210 ml 160 ml 400 ml BalanceBalance -110 ml -160 ml -400 ml Exam GENERAL: Well-nourished well-developed lady on mechanical ventilation via tracheostomy VITAL SIGNS: per chart NECK: Supple. No JVD or lymphadenopathy. CARDIAC EXAM: S1, S2. No added sounds or murmurs. CHEST: Diminished air entry bilaterally ABDOMEN: Soft, nontender. No guarding or rebound. EXTREMITIES: No cyanosis, clubbing edema +2 NEUROLOGIC: Generalized weakness. No focal deficits. Results/Medications Result Diagram: 09/21/18 0456 09/21/18 0457 Medications Current Medications IV Flush (NS 3 ml) 3 ml PER PROTOCOL IV ; Start 09/13/18 at 07:00 Ondansetron HCl (Zofran Inj) 4 mg Q6H PRN IV NAUSEA AND/OR VOMITING; Start 09/13/18 at 07:00 Acetaminophen (Tylenol Tab) 650 mg Q6H PRN PO PAIN LEVEL 1-3 OR FEVER Last administered on 09/14/18at 03:18; Admin Dose 650 MG; Start 09/13/18 at 07:00 Heparin Sodium (Porcine) (Heparin (5000 Units/1ml)) 5,000 unit Q12 SC Last administered on 09/22/18at 09:29; Admin Dose 5,000 UNIT; Start 09/13/18 at 09:00 Levothyroxine Sodium (Synthroid) 25 mcg BEFORE BREAKFAST PO Last administered on 09/21/18at 06:28; Admin Dose 25 MCG; Start 09/13/18 at 07:00 Pantoprazole (Protonix Tab) 40 mg DAILY@06 PO Last administered on 09/21/18 06:28; Admin Dose 40 MG; Start 09/13/18 at 06:00 Levalbuterol (Xopenex Hfa) 1.25 puff Q4H PRN INH WHEEZING AND SOB; Start 09/13/18 at 10:00 Piperacillin Sod/ Tazobactam Sod 100 ml @ 200 mls/hr Q8 IVPB Last administered on 09/22/18 13:49; Admin Dose 200 MLS/HR; Start 09/13/18 at 22:00; Stop 09/27/18 at 21:59 Diphenhydramine HCl (Benadryl) 25 mg Q6H PRN IV ITCHING Last administered on 09/21/18 03:03; Admin Dose 25 MG; Start 09/15/18 at 20:00 IV Flush (NS 10 ml) 10 ml PRN PRN IV FLUSH LINE; Start 09/16/18 at 16:30 Levalbuterol (Xopenex Hfa) 2 puff Q6H RESP THERAPY INH Last administered on 09/22/18 13:00; Admin Dose 2 PUFF; Start 09/17/18 at 20:00 Hydromorphone HCl (Dilaudid) 0.5 mg Q6H PRN IV SEVERE PAIN LEVEL 7-10 Last administered on 09/21/18 09:20; Admin Dose 0.5 MG; Start 09/18/18 at 15:30 Lorazepam (Ativan) 2 mg Q8 PRN IV AGITATION/ANXIETY Last administered on 09/22/18 12:27; Admin Dose 2 MG; Start 09/19/18 at 09:30 Mupirocin (Bactroban) 1 applic BID TOP Last administered on 09/22/18 09:17; Admin Dose 1 APPLIC; Start 09/19/18 at 23:00 Docusate Sodium (Colace Liquid Cup) 100 mg BID PO Last administered on 09/21/18 09:18; Admin Dose 100 MG; Start 09/20/18 at 09:00 Mirtazapine (Remeron) 15 mg QHS PO Last administered on 09/20/18 21:46; Admin Dose 15 MG; Start 09/20/18 at 21:00 Bumetanide 6 mg/ Dextrose 60 ml @ 10 mls/hr Q6H ONCE IV Last administered on 09/22/18at 14:25; Admin Dose 10 MLS/HR; Start 09/22/18 at 13:30; Stop 09/22/18 at 19:29 Vancomycin HCl (Vanco Iv Per Pharmacy) VANCOMYCIN PER PHARMACY PER PROTOCOL XX ; Start 09/22/18 at 12:30 Vancomycin HCl 2 gm/Sodium Chloride 500 ml @ 125 mls/hr ONCE ONCE IVPB ; Start 09/22/18 at 15:00; Stop 09/22/18 at 18:59 Vancomycin HCl 250 ml @ 125 mls/hr Q24H IVPB ; Start 09/23/18 at 15:00 Assessment/Plan Chief Complaint/Hosp Course IMP: 1. 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 History of metastatic thyroid carcinoma 3. Healthcare versus community-acquired pneumonia 4. Encephalopathy, toxic metabolic-- 5. HypoK+ 6. Anemia 7. Dysphagia RECS: 1. Continue AC mechanical ventilation not for weaning given worsening radiographic changes 2. Trial of diuretics with Bumex reinitiate vancomycin given worsening infiltrates 3. Family wants to avoid seroquel given memory changes on the medication 4. continue mitrazepine at nights 5. Speech therapy recommendations however given worsening infiltrate would not recommend p.o. diet may require nasogastric tube feeding Critical care time 40 minutes. I spent a significant amount of time with the family discussing treatment options reviewing all recent chest x-rays also. Family requesting nebulizer therapy via facemask. I explained that patient is on tracheostomy and nebulized saline via facemask would not be appropriate level of care given that her respiratory needs are provided by tracheostomy and mechanical ventilation and bronchodilator through tracheostomy. ADILENE ANDINO MD, [facility] Sep 22, 2018 14:57
[2018-09-22] MEDS ORDERED: VANCOMYCIN HCL 2 GM in SOD CHLORIDE 0.9% 500 ML IVPB ONE (15:00)
--- NOTE | 2018-09-22 15:40 | NUR ---
PT [facility] Patient: Lori Young : 1935 Age/Sex: 82/F Unit#: [id number] Room/Bed: [facility]/A User: Simeon Siddiqui PT Date: 09/22/18 14:45 Type: PT Technical Record Therapy day number 1 Evaluation Start Time 14:45 Evaluation Total Time 0 min Subjective Denies pain Pain Scale NUMERIC Pain Intensity 0 (0-10) Patient Stated Goal for Pain Relief 0 (0-10) Pain Level Comment denies pain Pre Treatment Vital Signs Stable Yes - per tele monitor Exercise Assessment Label Bilat Lower Extremity Exercise Type Active ROM Additional Exercise Comments B semi-supine APs, heel slides, SLR Additional Mobility Comments rolling R with maxA, rolling L dependent; pt unwilling to attempt sitting Patient uses wheelchair Not Applicable Additional Gait Comments TBA Weight Bearing Assessment Label Bilat Lower Extremity Weight Bearing Status Weight Bearing as Wolf Additional Balance Assessments Comments pt unwilling to attempt sitting at EOB Safety Judgement Poor Activity Tolerance Poor Equipment Present A pump Tan Catheter IV pump Additional Equipment Present trach to vent, tele monitoring lines, Post Treatment Pain Intensity 0 0-10 Variance Documentation SEE PT EVAL PT Technical Record Comment PT EVAL Pt is a 82 yo F with PMH of metastatic thyroid CA s/p surgical resection with known pulmonary metastases with tracheostomy, h/o aspiration PNA, GERD, anemia, HTN, who presented after episode of respiratory distress with trach slightly dislogded. Chest XR showed interval increase in bilateral air space opacities greater on R. Brain CT showed no acute intracranial abnormality. Pt now on vent. Pt received in 5W, telemetry. Precautions: fall precautions, trach PLOF: Per dtr, pt lives with dtr in [facility] with ramp access. Pt ambulatory with assist 20-30 steps using FWW. Pt has a caregiver 10 hours each day with dtr assisting pt for the remainder of the time (23/03 care). CLOF: MAURICIO Sandoval cleared pt for PT evaluation. Pt received semi-supine in bed, caregiver at bedside, vitals stable via library monitor, pt on trach to vent. Pt nonverbal, mouthing words in Dominican. Communication via phone directory clerk with caregiver assisting, dtr assisting over the phone, and RN. Throughout session, pt uncooperative, refusing to perform movements at times for evaluation. AROM/strength assessment noted generalized weakness, limited LE ROM due to excess soft tissue. Bed mobility rolling L and R, max-dependent though pt appeared to be unwilling to assist. Pt unwilling EOB, educated in benefit of offloading to reduce risk of pressure injuries. Pt returned to semi-supine in bed, no signs of distress, bed alarm activated, RN notified of pt's status. A: Pt with generalized weakness, limiting pt's bed mobility, as well as low motivation to participate in physical therapy, refusing to attempt sitting at EOB. Recommend 2-person assist for future sessions to attempt EOB/OOB activities. Pt may benefit from additional skilled PT services during LOS to improve activity tolerance and strength. D/c recommendation pending pt progress, at this time pt may benefit from post-acute setting e.g. SNF once cleared by MD. P: Continue c PT POC (Daily x 5)
--- NOTE | 2018-09-22 17:00 | NUR ---
Nurses Note: Assumed care of this patient from Lori MARTÍNEZ. Pt. trach to ventilator. Pt. Alert to self. Family at bedside. Pt. stable.
--- NOTE | 2018-09-22 19:06 | NUR ---
EOSS: Pt. remained stable during shift. No acute events. Pt. anxious at times. Ativan given x1. Family at bedside. Hourly rounding complete. All needs meet. Bed in lowest position. Bed alarm on. Will continue to monitor and report care to [employer] shift supervisor.
--- NOTE | 2018-09-22 20:00 | NUR ---
pt awake, agitated family at bedside trying to calm her down. wants to have water to drink explained to family that she is a high risk for aspiration. verbalized understanding.
[2018-09-22] MEDS: MIRTAZAPINE 15 MG TAB PO SCH ×2 (21:00→21:29)
[2018-09-23] VITALS (24 sets, daily range): BP systolic 93–138; BP diastolic 55–81; PULSE 49–84; RESP 16–22
[2018-09-23] MEDS: LEVALBUTEROL (HFA) 15 GM INHALER INH SCH ×4 (01:23→19:26)
[2018-09-23] MEDS ORDERED: ALBUMIN HUMAN 25% 100 ML IV ONE (01:30)
[2018-09-23] MEDS ORDERED: LORAZEPAM 2 MG INJ IV ONE (01:30)
[2018-09-23] MEDS ORDERED: SOD CHLORIDE 0.9% 500 ML IV ONE (01:30)
--- NOTE | 2018-09-23 01:30 | NUR ---
Dr. Grullon called re pt concern of pt becoming dehydrated and not eating due to high risk of aspiration and systolic BP on the 90s ordered albumin IV x1.
--- NOTE | 2018-09-23 01:31 | NUR ---
pt grandson refused the albumin wanted NS instead. will notify .
--- NOTE | 2018-09-23 02:21 | NUR ---
pt still agitated notified Dr. Grullon ordered soft limb restraints rope machine setter made aware. 2 grandson in the room at this time.
--- NOTE | 2018-09-23 02:21 | NUR ---
called Dr Grullon for soft wrist restraint order per family request order given and carried out.
--- NOTE | 2018-09-23 02:36 | NUR ---
ativan 1 mg given IVP as per md order.
--- NOTE | 2018-09-23 03:16 | NUR ---
pt still agitated inspite of the ativan 1mg iv given at [address] Connor ordered haldol 3mg IM X1.
[2018-09-23] MEDS ORDERED: HALOPERIDOL 5 MG INJ IM ONE ×2 (03:30→20:30)
--- NOTE | 2018-09-23 03:34 | NUR ---
grandson refused haldol to be given at this time.
--- NOTE | 2018-09-23 05:30 | NUR ---
eoss; pt remained agitated at times grandson at bedside . wrist restraints on.fall precaution and aspiration precaution observed. had x1 NS bolus BP 131/81. will continue plan of care.
[2018-09-23] MEDS: PIPER-TAZO 3.375 GM IV (PMX) 100 ML IVPB SCH ×3 (05:31→20:48)
[2018-09-23] MEDS: PANTOPRAZOLE (EC) 40 MG TAB PO SCH (05:31)
[2018-09-23] MEDS: LEVOTHYROXINE 25 MCG TAB PO SCH (08:24)
[2018-09-23] MEDS: DOCUSATE SODIUM 10 MG/ML (10ML CUP) PO SCH ×3 (09:00→21:00)
[2018-09-23] MEDS: BALSAM PERU/CASTOR OIL 60 GM TUBE TOP SCH (09:00)
[2018-09-23] MEDS: MUPIROCIN 2% 22 GM OINT TOP SCH ×2 (09:00→20:48)
[2018-09-23] MEDS: HEPARIN 5,000 UNIT/1 ML VIAL SC SCH ×2 (09:00→20:50)
--- NOTE | 2018-09-23 10:05 | NUR ---
OT EVAL: Pt is a 82 yo F with PMH of metastatic thyroid CA s/p surgical resection with known pulmonary metastases with tracheostomy, h/o aspiration PNA, GERD, anemia, HTN, who presented after episode of respiratory distress with trach slightly dislodged. Chest XR showed interval increase in bilateral air space opacities greater on R. Brain CT showed no acute intracranial abnormality. Pt now on vent. Pt received in 5W, telemetry. Precautions: fall precautions, trach PLOF: Per dtr, pt lives with dtr in [facility] with ramp access. Pt ambulatory with SBA 20-30 steps using FWW. Pt requires assistance with ADl's. Pt has a caregiver 10 hours each day with dtr assisting pt for the remainder of the time (23/03 care). CLOF: MAURICIO Chapepll cleared pt for skilled OT tx. Pt's vitals stable and caregiver and daughter at bedside and provided translation. Pt on trach to vent, nonverbal, mouthing words in Yemeni. Pt is AOx4, follows directions and agreeable to tx. Pt required Max A to perform supine->sit at EOB. Seated at EOB with Fair balance patient completed UB bathing and dressing with Min A. Pt's HR elevated and pt returned to bed with Max A. RN notified. Recommend OT tx 1x daily for 3-5x week to increase safety awareness, balance, endurance and independence with self care. D/c recommendation pending OT progress, at this time pt may benefit from post-acute setting e.g. SNF once cleared by
[2018-09-23] MEDS: POTASSIUM CHLORIDE 100 ML IVPB SCH ×3 (10:30→20:47)
--- NOTE | 2018-09-23 10:54 | CONS ---
Date/Time of Note Date/Time of Note DATE: 09/23/18 TIME: 10:52 Consult Date/Type/Reason Admit Date/Time Sep 13, 2018 at 05:56 Initial Consult Date Type of Consultation: Pulm/CCM Subjective Moderate improvement with radiographic and clinical improvement noted. Signi ficant diuresis. Objective Vital Signs Date Temp Pulse Resp B/P (MAP) Pulse Ox O2 O2 Flow FiO2 Time Delivery Rate 09/23/18 62 20 100 35 09:18 09/23/18 97.6 106/55 Mechanical 08:01 (72) Ventilator Trach Collar Intake and Output 09/22/18 09/22/18 09/23/18 1515:00 23:00 07:00 IntakeIntake Total 160 ml 100 ml OutputOutput Total 800 ml 4300 ml BalanceBalance -640 ml -4200 ml Exam GENERAL: Well-nourished well-developed lady on mechanical ventilation via tracheostomy VITAL SIGNS: per chart NECK: Supple. No JVD or lymphadenopathy. CARDIAC EXAM: S1, S2. No added sounds or murmurs. CHEST: Diminished air entry bilaterally ABDOMEN: Soft, nontender. No guarding or rebound. EXTREMITIES: No cyanosis, clubbing edema +2 NEUROLOGIC: Generalized weakness. No focal deficits. Results/Medications Result Diagram: 09/23/18 0616 09/23/18 0616 Results 24 hrs Laboratory Tests Test 09/23/18 06:16 White Blood Count 5.4 Red Blood Count 3.79 L Hemoglobin 10.9 L Hematocrit 34.4 L Mean Corpuscular Volume 90.8 Mean Corpuscular Hemoglobin 28.8 L Mean Corpuscular Hemoglobin Concent 31.7 L Red Cell Distribution Width 14.5 Platelet Count 185 # Mean Platelet Volume 10.4 Immature Granulocytes % 0.600 H Neutrophils % 58.1 Lymphocytes % 22.8 Monocytes % 10.2 Eosinophils % 7.6 H Basophils % 0.7 Nucleated Red Blood Cells % 0.0 Immature Granulocytes # 0.030 Neutrophils # 3.1 Lymphocytes # 1.2 Monocytes # 0.6 Eosinophils # 0.4 Basophils # 0.0 Nucleated Red Blood Cells # 0.0 Sodium Level 144 Potassium Level 3.1 L Chloride Level 105 Carbon Dioxide Level 28 Anion Gap 11 Blood Urea Nitrogen 12 Creatinine 1.08 H Glucose Level 75 Calcium Level 8.6 Phosphorus Level 3.7 Magnesium Level 1.6 L Albumin 3.4 Medications Current Medications IV Flush (NS 3 ml) 3 ml PER PROTOCOL IV ; Start 09/13/18 at 07:00 Ondansetron HCl (Zofran Inj) 4 mg Q6H PRN IV NAUSEA AND/OR VOMITING; Start 09/13/18 at 07:00 Acetaminophen (Tylenol Tab) 650 mg Q6H PRN PO PAIN LEVEL 1-3 OR FEVER Last administered on 09/14/18 03:18; Admin Dose 650 MG; Start 09/13/18 at 07:00 Heparin Sodium (Porcine) (Heparin (5000 Units/1ml)) 5,000 unit Q12 SC Last administered on 09/22/18 21:15; Admin Dose 5,000 UNIT; Start 09/13/18 at 09:00 Levothyroxine Sodium (Synthroid) 25 mcg BEFORE BREAKFAST PO Last administered on 09/23/18 08:24; Admin Dose 25 MCG; Start 09/13/18 at 07:00 Pantoprazole (Protonix Tab) 40 mg DAILY@06 PO Last administered on 09/21/18at 06:28; Admin Dose 40 MG; Start 09/13/18 at 06:00 Levalbuterol (Xopenex Hfa) 1.25 puff Q4H PRN INH WHEEZING AND SOB; Start 09/13/18 at 10:00 Piperacillin Sod/ Tazobactam Sod 100 ml @ 200 mls/hr Q8 IVPB Last administered on 09/23/18at 05:31; Admin Dose 200 MLS/HR; Start 09/13/18 at 22:00; Stop 09/27/18 at 21:59 Diphenhydramine HCl (Benadryl) 25 mg Q6H PRN IV ITCHING Last administered on 09/21/18at 03:03; Admin Dose 25 MG; Start 09/15/18 at 20:00 IV Flush (NS 10 ml) 10 ml PRN PRN IV FLUSH LINE; Start 09/16/18 at 16:30 Levalbuterol (Xopenex Hfa) 2 puff Q6H RESP THERAPY INH Last administered on 09/23/18 08:14; Admin Dose 2 PUFF; Start 09/17/18 at 20:00 Hydromorphone HCl (Dilaudid) 0.5 mg Q6H PRN IV SEVERE PAIN LEVEL 7-10 Last administered on 09/21/18 09:20; Admin Dose 0.5 MG; Start 09/18/18 at 15:30 Lorazepam (Ativan) 2 mg Q8 PRN IV AGITATION/ANXIETY Last administered on 09/22/18at 20:32; Admin Dose 2 MG; Start 09/19/18 at 09:30 Mupirocin (Bactroban) 1 applic BID TOP Last administered on 09/22/18at 21:31; Admin Dose 1 APPLIC; Start 09/19/18 at 23:00 Docusate Sodium (Colace Liquid Cup) 100 mg BID PO Last administered on 09/21/18at 09:18; Admin Dose 100 MG; Start 09/20/18 at 09:00 Mirtazapine (Remeron) 15 mg QHS PO Last administered on 09/22/18at 21:29; Admin Dose 15 MG; Start 09/20/18 at 21:00 Vancomycin HCl (Vanco Iv Per Pharmacy) VANCOMYCIN PER PHARMACY PER PROTOCOL XX ; Start 09/22/18 at 12:30 Vancomycin HCl 250 ml @ 125 mls/hr Q24H IVPB ; Start 09/23/18 at 15:00 Potassium Chloride 100 ml @ 50 mls/hr Q2H IVPB ; Start 09/23/18 at 10:30; Stop 09/23/18 at 16:29 Assessment/Plan Chief Complaint/Hosp Course IMP: 1. 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 History of metastatic thyroid carcinoma 3. Healthcare versus community-acquired pneumonia 4. Encephalopathy, toxic metabolic-- 5. HypoK+ 6. Anemia 7. Dysphagia RECS: 1. Continue AC mechanical ventilation not for weaning given worsening radiogra phic changes 2. Continue Bumex today. 3. Family wants to avoid seroquel given memory changes on the medication 4. continue mitrazepine at nights 5. Speech therapy recommendations however given worsening infiltrate would not recommend p.o. diet may require nasogastric tube feeding Significant aspiration risk. Family declined feeding tube. Explained to family that patient not safe to come off mechanical ventilation at present. Continue diuretics ADILENE ANDINO MD, [facility] Sep 23, 2018 10:53
[2018-09-23] MEDS ORDERED: BUMETANIDE 3 MG in DEXTROSE 5% 18 ML IV ONE (13:00)
--- NOTE | 2018-09-23 14:51 | NUR ---
Nutrition Consult Consult regarding pressure injury was ordered. Recommend adding vitamin C 500mg BID, Zn 220mg daily X 10days, MVI daily. NPO per TOE PULLER. Please consider nutrition therapy to avoid malnutrition. Thank you!
[2018-09-23] MEDS: VANCOMYCIN 1 GM 250 ML IVPB SCH (15:00)
--- NOTE | 2018-09-23 15:09 | NUR ---
PT NOTE Approached pt's room. Pt was asleep w/caregiver present in room. Per RN Misti, she spoke w/pt's daughter and pt's daughter refused PT on behalf of pt stating, "I want him to rest. No therapy today. Try tomorrow instead." Therefore PT services aren't able to be provided at this time. Will respect's pt's daughter wishes. Will f/u on next PT session.
--- NOTE | 2018-09-23 16:04 | PN ---
Date/Time of Note Date/Time of Note DATE: 09/23/18 TIME: 15:59 Assessment/Plan VTE Prophylaxis Risk score (from Nsg)>0 risk: 10 SCD applied (from Nsg): Yes Pharmacological prophylaxis: LMWH Lines/Catheters IV Catheter Type (from Nrsg): Peripheral IV Urinary Cath still in place: Yes Reason Cath still needed: skin wounds contaminated by urine Assessment/Plan Assessment/Plan 1. Acute on chronic hypoxemic and hypercapnic on respiratory failure secondary to dislodged tracheostomy and pneumonia on chronic lung metastasis - Still remains on the vent given appearance of lungs of CXR and not safe for weaning today - Pulmonology consultation appreciated and continue diuresis - Continue on current antibiotics - Discussed with family aspirations most likely exacerbating pulmonary deterioration 2. Sepsis secondary to likely aspiration pneumonia - on antibiotics - WBC normal and remains afebrile 3. Acute metabolic encephalopathy secondary to hypercapnia-resolved - CT brain with no acute findings 4. Acute kidney injuryimproving - avoid nephrotoxic agents 5. Metastatic thyroid cancer status post surgical resection and radioactive iodine with known pulmonary metastasis - Follow-up with outpatient oncologist, patient did have a recent PET scan at [facility] and requested for records - Patient is status post tracheostomy several years ago 6. History of aspiration - Video swallow results noted and patient continues to aspirate. Per Speech she is still aspiration with thin liquids and less when head turned to left and given pureed. Still not safe for full meals but okay for oral gratification. Still recommending PEG placement 7. Hypothyroidism - Continue Synthroid 8. Anemia chronic disease - Monitor 9. Hypertension - hold home meds in setting of low BP 10. Dysphagia - Speech on board and recommending pureed for gratification only - will need to discussed PEG placement with family 11. Disposition - Will need to address PEG placement with family given patient still continue to aspirate and not safe for PO intake - CM on board assisting with arrangements for transition home on vent with [facility] care Result Diagram: 09/23/18 0616 09/23/18 0616 Results 24hrs Laboratory Tests Test 09/23/18 06:16 White Blood Count 5.4 Red Blood Count 3.79 L Hemoglobin 10.9 L Hematocrit 34.4 L Mean Corpuscular Volume 90.8 Mean Corpuscular Hemoglobin 28.8 L Mean Corpuscular Hemoglobin Concent 31.7 L Red Cell Distribution Width 14.5 Platelet Count 185 # Mean Platelet Volume 10.4 Immature Granulocytes % 0.600 H Neutrophils % 58.1 Lymphocytes % 22.8 Monocytes % 10.2 Eosinophils % 7.6 H Basophils % 0.7 Nucleated Red Blood Cells % 0.0 Immature Granulocytes # 0.030 Neutrophils # 3.1 Lymphocytes # 1.2 Monocytes # 0.6 Eosinophils # 0.4 Basophils # 0.0 Nucleated Red Blood Cells # 0.0 Sodium Level 144 Potassium Level 3.1 L Chloride Level 105 Carbon Dioxide Level 28 Anion Gap 11 Blood Urea Nitrogen 12 Creatinine 1.08 H Glucose Level 75 Calcium Level 8.6 Phosphorus Level 3.7 Magnesium Level 1.6 L Albumin 3.4 Subjective 24 Hr Interval Summary Free Text/Dictation Patient doing well and resting comfortable. Easily awoken and was smiling and mouthing words in Telugu. Exam/Review of Systems Exam Vitals Vital Signs Date Temp Pulse Resp B/P (MAP) Pulse Ox O2 O2 Flow FiO2 Time Delivery Rate 09/23/18 51 16 100 35 15:15 09/23/18 98.0 120/57 Mechanical 14:49 (78) Ventilator Trach Collar Intake and Output 09/22/18 09/22/18 09/23/18 1414:59 22:59 06:59 IntakeIntake Total 160 ml 100 ml OutputOutput Total 800 ml 4300 ml BalanceBalance -640 ml -4200 ml Physical exam General: Patient is laying in bed. no acute distress. smiling this am Eyes: EOMI, pupils reactive to light Neck: Supple, nontender, midline Respiratory: Clear to auscultation bilaterally. diminished but no wheezing or rhonchi Cardiovascular: regular rhythm, bradycardia, no obvious murmurs Gastrointestinal: soft, non-tender to palpation, nondistended, bowel sounds heard. Neurological: Moves all extremities spontaneously Skin: No new skin lesions Results Results 24hrs Laboratory Tests Test 09/23/18 06:16 White Blood Count 5.4 Red Blood Count 3.79 L Hemoglobin 10.9 L Hematocrit 34.4 L Mean Corpuscular Volume 90.8 Mean Corpuscular Hemoglobin 28.8 L Mean Corpuscular Hemoglobin Concent 31.7 L Red Cell Distribution Width 14.5 Platelet Count 185 # Mean Platelet Volume 10.4 Immature Granulocytes % 0.600 H Neutrophils % 58.1 Lymphocytes % 22.8 Monocytes % 10.2 Eosinophils % 7.6 H Basophils % 0.7 Nucleated Red Blood Cells % 0.0 Immature Granulocytes # 0.030 Neutrophils # 3.1 Lymphocytes # 1.2 Monocytes # 0.6 Eosinophils # 0.4 Basophils # 0.0 Nucleated Red Blood Cells # 0.0 Sodium Level 144 Potassium Level 3.1 L Chloride Level 105 Carbon Dioxide Level 28 Anion Gap 11 Blood Urea Nitrogen 12 Creatinine 1.08 H Glucose Level 75 Calcium Level 8.6 Phosphorus Level 3.7 Magnesium Level 1.6 L Albumin 3.4 KRISTYN JAY MD Sep 23, 2018 16:04
[2018-09-23] MEDS: LORAZEPAM 2 MG INJ IV PRN (18:19)
--- NOTE | 2018-09-23 19:20 | NUR ---
NURSE'S NOTES: Received in bed awake but confused, disoriented and anxious; reminders and reorientation provided during care. VS stable with monitoring analyst showing SB=50 and denies any discomfort. Tracheostomy connected to ventilator tolerating well. Family at bedside. Daughter kept asking to give pt Benadryl after Ativan given and pt still appears anxious and agitated. Informed daughter I will check with Dr Connor first since the HR=50s. Dr Connor notified with new order to give low dose Haldol noted and carried out. Maintained NPO as ordered. F/C in place and draining well. Kept clean and comfortable. Call light in reach. Hourly rounding done. Turned and repositioned q2hrs and as needed. All needs anticipated and attended promptly.
--- NOTE | 2018-09-23 19:42 | NUR ---
EOSS: Pt VSS, confused and non-verbal, agitated at times but quickly calmed down. Given ativan x1 in evening due to ing s/s. Dtr Breanna made aware and agreeable. Pt given pureed for oral gratification and discussed purpose with family. Family mentioned discussing gtube placement but no decision yet. Wound care complete and all other need met.
[2018-09-23] MEDS: MIRTAZAPINE 15 MG TAB PO SCH ×2 (20:48→21:00)
[2018-09-24] VITALS (22 sets, daily range): BP systolic 87–148; BP diastolic 47–75; PULSE 45–105; RESP 14–20
[2018-09-24] MEDS: LEVALBUTEROL (HFA) 15 GM INHALER INH SCH ×4 (01:30→19:42)
[2018-09-24] MEDS ORDERED: SOD CHLORIDE 0.9% 500 ML IV ONE (04:00)
[2018-09-24] MEDS: LEVOTHYROXINE 25 MCG TAB PO SCH (05:53)
[2018-09-24] MEDS: PANTOPRAZOLE (EC) 40 MG TAB PO SCH (05:53)
[2018-09-24] MEDS: ALBUMIN HUMAN 25% 100 ML IV SCH ×2 (05:53→06:24)
[2018-09-24] MEDS: PIPER-TAZO 3.375 GM IV (PMX) 100 ML IVPB SCH ×3 (05:53→22:11)
--- NOTE | 2018-09-24 06:00 | NUR ---
NURSE'S NOTES: BP=87/47. Dr Smiley notified with orders to bolus pt with NS 500ml and Albumin 25gm 100ml X2; noted and carried out. Pt BP dropped to 68/43. Dr smiley notified with new order to bolus pt with NS 1000ml; noted and carried out. Pt RB=341/58. Pt responds and opens eyes to tactile stimuli but goes right back to sleep. Dr Smiley in to examine pt and spoke to grandson regarding how far they want to be aggressive with medical intervention. Grandson claim he will discuss this concern with his family. Endorsed care to Rhina Mohan AM RN.
[2018-09-24] MEDS ORDERED: SOD CHLORIDE 0.9% 1,000 ML IV ONE (06:30)
[2018-09-24] MEDS ORDERED: MAGNESIUM SULFATE 2 GM/50 ML 50 ML IVPB ONE (08:30)
[2018-09-24] MEDS: BALSAM PERU/CASTOR OIL 60 GM TUBE TOP SCH (08:47)
[2018-09-24] MEDS: DOCUSATE SODIUM 10 MG/ML (10ML CUP) PO SCH ×2 (08:48→21:00)
[2018-09-24] MEDS: MUPIROCIN 2% 22 GM OINT TOP SCH ×2 (08:48→22:12)
[2018-09-24] MEDS: HEPARIN 5,000 UNIT/1 ML VIAL SC SCH ×2 (08:58→22:13)
--- NOTE | 2018-09-24 09:38 | PN ---
Date/Time of Note Date/Time of Note DATE: 09/24/18 TIME: 09:38 Assessment/Plan VTE Prophylaxis Risk score (from Nsg)>0 risk: 7 SCD applied (from Nsg): Yes Pharmacological prophylaxis: heparin Lines/Catheters IV Catheter Type (from Nrsg): Saline Lock Urinary Cath still in place: Yes Reason Cath still needed: skin wounds contaminated by urine Assessment/Plan Assessment/Plan 1. Acute on chronic hypoxemic and hypercapnic on respiratory failure secondary to dislodged tracheostomy and pneumonia on chronic lung metastasis - improving - Still remains on the vent given appearance of lungs of CXR - Pulmonology consultation appreciated - Continue on current antibiotics - Discussed with family aspirations most likely exacerbating pulmonary deteriora tion 2. Sepsis secondary to likely aspiration pneumonia - on antibiotics - WBC normal and remains afebrile 3. Acute metabolic encephalopathy secondary to hypercapnia-resolved - CT brain with no acute findings 4. Acute kidney injuryimproving - avoid nephrotoxic agents 5. Metastatic thyroid cancer status post surgical resection and radioactive iodine with known pulmonary metastasis - Follow-up with outpatient oncologist, patient did have a recent PET scan at [facility] and requested for records - Patient is status post tracheostomy several years ago 6. History of aspiration - Video swallow results noted and patient continues to aspirate. Per Speech she is still aspiration with thin liquids and less when head turned to left and given pureed. Still not safe for full meals but okay for oral gratification. Still recommending PEG placement - family do not believe she is aspirating 7. Hypothyroidism - Continue Synthroid 8. Anemia chronic disease - Monitor 9. Hypertension - hold home meds in setting of low BP 10. Dysphagia - Speech on board and recommending pureed for gratification only 11. Disposition - Patient continue to remain on vent but appears more comfortable - Accepting hospice found with vent management at home. Will discuss with chana horn discharge planning Result Diagram: 09/24/18 0603 09/24/18 0603 Results 24hrs Laboratory Tests Test 09/24/18 06:03 09/24/18 07:28 White Blood Count 4.7 L Red Blood Count 3.27 L Hemoglobin 9.3 L Hematocrit 29.1 L Mean Corpuscular Volume 89.0 Mean Corpuscular Hemoglobin 28.4 L Mean Corpuscular Hemoglobin Concent 32.0 Red Cell Distribution Width 14.4 Platelet Count 162 Mean Platelet Volume 10.2 Immature Granulocytes % 0.400 Neutrophils % 57.6 Lymphocytes % 22.6 Monocytes % 10.7 Eosinophils % 8.3 H Basophils % 0.4 Nucleated Red Blood Cells % 0.0 Immature Granulocytes # 0.020 Neutrophils # 2.7 Lymphocytes # 1.1 Monocytes # 0.5 Eosinophils # 0.4 Basophils # 0.0 Nucleated Red Blood Cells # 0.0 Sodium Level 143 Potassium Level 3.0 L Chloride Level 105 Carbon Dioxide Level 25 Anion Gap 13 Blood Urea Nitrogen 10 Creatinine 1.02 H Est Glomerular Filtrat Rate mL/min Glucose Level 66 L Calcium Level 8.2 L Phosphorus Level 3.3 Magnesium Level 1.5 L Lactic Acid Level 1.1 Subjective 24 Hr Interval Summary Free Text/Dictation Patient happy this am and denies any acute issues. With hypotension overnight but discussed with family most likely secondary to Ativan, Dilaudid, and Haldol given. Exam/Review of Systems Exam Vitals Vital Signs Date Temp Pulse Resp B/P (MAP) Pulse Ox O2 O2 Flow FiO2 Time Delivery Rate 09/24/18 48 16 100 40 09:23 09/24/18 98.4 08:19 09/24/18 104/52 Mechanical 07:50 (69) Ventilator Intake and Output 09/23/18 09/23/18 09/24/18 1515:00 23:00 07:00 OutputOutput Total 1250 ml 1800 ml BalanceBalance -1250 ml -1800 ml Physical exam General: Patient is laying in bed. no acute distress. in good spirits Eyes: EOMI, pupils reactive to light Neck: Supple, nontender, midline Respiratory: Clear to auscultation bilaterally. diminished but no wheezing or rhonchi Cardiovascular: regular rhythm, bradycardia, no obvious murmurs Gastrointestinal: soft, non-tender to palpation, nondistended, bowel sounds he gerald. Neurological: Moves all extremities spontaneously Skin: No new skin lesions Results Results 24hrs Laboratory Tests Test 09/24/18 06:03 09/24/18 07:28 White Blood Count 4.7 L Red Blood Count 3.27 L Hemoglobin 9.3 L Hematocrit 29.1 L Mean Corpuscular Volume 89.0 Mean Corpuscular Hemoglobin 28.4 L Mean Corpuscular Hemoglobin Concent 32.0 Red Cell Distribution Width 14.4 Platelet Count 162 Mean Platelet Volume 10.2 Immature Granulocytes % 0.400 Neutrophils % 57.6 Lymphocytes % 22.6 Monocytes % 10.7 Eosinophils % 8.3 H Basophils % 0.4 Nucleated Red Blood Cells % 0.0 Immature Granulocytes # 0.020 Neutrophils # 2.7 Lymphocytes # 1.1 Monocytes # 0.5 Eosinophils # 0.4 Basophils # 0.0 Nucleated Red Blood Cells # 0.0 Sodium Level 143 Potassium Level 3.0 L Chloride Level 105 Carbon Dioxide Level 25 Anion Gap 13 Blood Urea Nitrogen 10 Creatinine 1.02 H Est Glomerular Filtrat Rate mL/min Glucose Level 66 L Calcium Level 8.2 L Phosphorus Level 3.3 Magnesium Level 1.5 L Lactic Acid Level 1.1 KRISTYN JAY MD Sep 24, 2018 09:38
[2018-09-24] MEDS: POTASSIUM CHLORIDE 100 ML IVPB SCH ×4 (10:14→17:16)
--- NOTE | 2018-09-24 12:19 | CONS ---
Consult Date/Type/Reason Admit Date/Time Sep 13, 2018 at 05:56 Initial Consult Date Type of Consult Pulmonary Date/Time of Note DATE: 09/24/18 TIME: 12:17 Subjective Stable this morning. Hypotensive last night likely secondary to Ativan. Objective Vital Signs Date Temp Pulse Resp B/P (MAP) Pulse Ox O2 O2 Flow FiO2 Time Delivery Rate 09/24/18 98.0 52 14 117/67 100 11:58 (84) 09/24/18 40 09:23 09/24/18 Mechanical 07:50 Ventilator Intake and Output 09/23/18 09/23/18 09/24/18 1515:00 23:00 07:00 OutputOutput Total 1250 ml 1800 ml BalanceBalance -1250 ml -1800 ml Exam GENERAL: Elderly Occitan lady on mechanical ventilation via tracheostomy VITAL SIGNS: per chart NECK: Supple. No JVD or lymphadenopathy. CARDIAC EXAM: S1, S2. No added sounds or murmurs. CHEST: Diminished air entry bilaterally ABDOMEN: Soft, nontender. No guarding or rebound. EXTREMITIES: No cyanosis, clubbing or edema. NEUROLOGIC: Generalized weakness. No focal deficits. Vent Setting Ventilator Support Mode: AC Fraction of Inspired Oxygen pe: 40 Positive End Expiratory Pressu: 5.0 Results/Medications Result Diagram: 09/24/18 0603 09/24/18 0603 Results 24 hrs Laboratory Tests Test 09/24/18 06:03 09/24/18 07:28 White Blood Count 4.7 L Red Blood Count 3.27 L Hemoglobin 9.3 L Hematocrit 29.1 L Mean Corpuscular Volume 89.0 Mean Corpuscular Hemoglobin 28.4 L Mean Corpuscular Hemoglobin Concent 32.0 Red Cell Distribution Width 14.4 Platelet Count 162 Mean Platelet Volume 10.2 Immature Granulocytes % 0.400 Neutrophils % 57.6 Lymphocytes % 22.6 Monocytes % 10.7 Eosinophils % 8.3 H Basophils % 0.4 Nucleated Red Blood Cells % 0.0 Immature Granulocytes # 0.020 Neutrophils # 2.7 Lymphocytes # 1.1 Monocytes # 0.5 Eosinophils # 0.4 Basophils # 0.0 Nucleated Red Blood Cells # 0.0 Sodium Level 143 Potassium Level 3.0 L Chloride Level 105 Carbon Dioxide Level 25 Anion Gap 13 Blood Urea Nitrogen 10 Creatinine 1.02 H Est Glomerular Filtrat Rate mL/min Glucose Level 66 L Calcium Level 8.2 L Phosphorus Level 3.3 Magnesium Level 1.5 L Lactic Acid Level 1.1 Medications Current Medications IV Flush (NS 3 ml) 3 ml PER PROTOCOL IV ; Start 09/13/18 at 07:00 Ondansetron HCl (Zofran Inj) 4 mg Q6H PRN IV NAUSEA AND/OR VOMITING; Start 09/13/18 at 07:00 Acetaminophen (Tylenol Tab) 650 mg Q6H PRN PO PAIN LEVEL 1-3 OR FEVER Last administered on 09/14/18at 03:18; Admin Dose 650 MG; Start 09/13/18 at 07:00 Heparin Sodium (Porcine) (Heparin (5000 Units/1ml)) 5,000 unit Q12 SC Last administered on 09/24/18 08:58; Admin Dose 5,000 UNIT; Start 09/13/18 at 09:00 Levothyroxine Sodium (Synthroid) 25 mcg BEFORE BREAKFAST PO Last administered on 09/23/18 08:24; Admin Dose 25 MCG; Start 09/13/18 at 07:00 Pantoprazole (Protonix Tab) 40 mg DAILY@06 PO Last administered on 09/21/18 06:28; Admin Dose 40 MG; Start 09/13/18 at 06:00 Levalbuterol (Xopenex Hfa) 1.25 puff Q4H PRN INH WHEEZING AND SOB; Start 09/13/18 at 10:00 Piperacillin Sod/ Tazobactam Sod 100 ml @ 200 mls/hr Q8 IVPB Last administered on 09/24/18at 05:53; Admin Dose 200 MLS/HR; Start 09/13/18 at 22:00; Stop 09/27/18 at 21:59 Diphenhydramine HCl (Benadryl) 25 mg Q6H PRN IV ITCHING Last administered on 09/21/18at 03:03; Admin Dose 25 MG; Start 09/15/18 at 20:00 IV Flush (NS 10 ml) 10 ml PRN PRN IV FLUSH LINE; Start 09/16/18 at 16:30 Levalbuterol (Xopenex Hfa) 2 puff Q6H RESP THERAPY INH Last administered on 09/24/18 07:55; Admin Dose 2 PUFF; Start 09/17/18 at 20:00 Mupirocin (Bactroban) 1 applic BID TOP Last administered on 09/24/18at 08:48; Admin Dose 1 APPLIC; Start 09/19/18 at 23:00 Docusate Sodium (Colace Liquid Cup) 100 mg BID PO Last administered on 09/23/18at 09:00; Admin Dose 100 MG; Start 09/20/18 at 09:00 Mirtazapine (Remeron) 15 mg QHS PO Last administered on 09/22/18at 21:29; Admin Dose 15 MG; Start 09/20/18 at 21:00 Vancomycin HCl (Vanco Iv Per Pharmacy) VANCOMYCIN PER PHARMACY PER PROTOCOL XX ; Start 09/22/18 at 12:30 Vancomycin HCl 250 ml @ 125 mls/hr Q24H IVPB Last administered on 09/23/18at 15:00; Admin Dose 125 MLS/HR; Start 09/23/18 at 15:00 Potassium Chloride 100 ml @ 50 mls/hr Q2H IVPB Last administered on 09/24/18at 10:14; Admin Dose 50 MLS/HR; Start 09/24/18 at 10:00; Stop 09/24/18 at 17:59 Assessment/Plan Hospital Course (Demo Recall) IMP: 1. 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 History of metastatic thyroid carcinoma 3. Healthcare versus community-acquired pneumonia 4. Encephalopathy, toxic metabolic-- 5. HypoK+ 6. Anemia 7. Dysphagia RECS: 1. Continue AC mechanical ventilation not for weaning given worsening radiographic changes radiographic improvement with diuretics 2. Continue Bumex as tolerated 3. Family wants to avoid seroquel given memory changes on the medication would avoid benzodiazepines 4. continue mitrazepine at nights 5. Speech therapy recommendations however given worsening infiltrate would not recommend p.o. diet may require nasogastric tube feeding Significant aspiration risk. Family declined feeding tube. Explained to family that patient not safe to come off mechanical ventilation at present., Oh ADILENE Rodriguez MD, [facility] Sep 24, 2018 12:19
--- NOTE | 2018-09-24 14:25 | NUR ---
GUANAKITO NOTES: CALLED TO [facility] [phone] AND S/Manny ALCARAZ. WAS INFORMED THAT PT'S INSURANCE IS CLEARED AND THEY ARE READY TO TAKE PT ANYTIME FAMILY IS READY TO SIGN PAPERS. TO BE NOTIFIED. GRZEGORZ LOPEZ [id number] Addendum: 09/24/18 at 1440 by MADAI KHANNA RN Yuki/Manny SHARIF FROM [facility], NOT [facility].
--- NOTE | 2018-09-24 15:24 | NUR ---
PT NOTE [facility] Patient: Lori Young : 1935 Age/Sex: 82/F Unit#: [id number] Room/Bed: 8/A User: Simeon Siddiqui PT Date: 09/24/18 14:30 Type: PT Technical Record Therapy day number 3 Subjective Potential for pain Pain Scale NUMERIC Pain Intensity 0 (0-10) Patient Stated Goal for Pain Relief 0 (0-10) Pain Level Comment denies pain Pre Treatment Vital Signs Stable Yes - per security monitor Exercise Assessment Label Bilat Lower Extremity Exercise Type Active ROM Additional Exercise Comments B semi-supine APs, heel slides; seated LAQs, Exercise Start Time 14:30 Exercise End Time 14:55 Total Exercise Time 25 min (8-127) Transfer Training Start Time 14:55 Supine to Sit Maximum Assist Transfer Sit to Stand Ability Maximum Assist Bed Mobility Sit to Supine Dependent Sitting Tolerance 20 min Additional Mobility Comments scooting up in bed with modA x 2; rolling with modA; STS maxA x 2PA Transfer Training End Time 15:24 Total Transfer Training Time 29 min (8-127) Additional Gait Comments TBA Weight Bearing Assessment Label Bilat Lower Extremity Weight Bearing Status Weight Bearing as Wolf Static Sitting Balance Fair plus Dynamic Sitting Balance Fair Standing Static Balance Poor Additional Balance Assessments Comments FWW Safety Judgement Poor Activity Tolerance Good Equipment Present A pump Tan Catheter IV pump Additional Equipment Present trach to vent; telemetry monitoring lines Post Treatment Pain Intensity 0 0-10 Variance Documentation SEE BELOW Total Treament Time 54 min (8-127) Total Minutes 54 Total Units 4 PT Technical Record Comment PT NOTE S: "I'm hungry." Pt speaks Bahamian, mouthing words. Pt agreeable to PT session O: RN Eve cleared for PT session. Vitals stable per security monitor, caregiver at bedside. PT staff assisting with translation (Bahamian). Pt participated in interventions above. Pt able to sit at EOB with maxA x 2, maintained static sitting with fair+ balance. Attempted STS x 3; pt unable to achieve erect position. Pt returned to bed, all needs in reach no signs of distress, bed alarm activated, RN notifid of pt's status. Noted pt O2 sats decreased to as low as 86%, recovering within 1-2 minutes. A: Pt continues to demonstrate generalized weakness with low-moderately low motivation to participate in PT as pt initially refused earlier this morning. Pt unable to achieve full up right standing with sit to stand due to B LE weakness, low activity tolerance. P: Continue c PT POC
[2018-09-24] MEDS: metroNIDAZOLE 500 MG/NS (PMX) 100 ML IVPB SCH ×2 (16:25→23:26)
[2018-09-24] MEDS: VANCOMYCIN 1 GM 250 ML IVPB SCH (17:58)
--- NOTE | 2018-09-24 18:55 | NUR ---
EOSS: PT SITTING UP IN BED WITH FAMILY AT BEDSIDE. DENIES PAIN OR DISCOMFORT AT THIS TIME. NO S/S OF RESPIRATORY DISTRESS PT TRACH TO VENT. PT CLEAN AND DRY SCHEDULED WOUND CARE COMPLETED. SEEN BY DR. JAY TODAY. REPLACED K+ AND MAG TODAY SEE PHYSICIANS ORDERS. NOTIFIED MD OF PT NOTED WITH MANY BM'S THROUGHOUT THE SHIFT HOWEVER STOOL SOFT- DOES NOT MEET C-DIFF PROTOCOL, PT STARTED ON FLAGYL. ISOLATION PRECAUTIONS IN PLACE. FALL AND SAFETY PRECAUTIONS IMPLEMENTED, CALL LIGHT WITHIN REACH ABLE TO MAKE NEEDS KNOWN. BED IN LOWEST POSITION BRAKES LOCKED ROOM FREE OF CLUTTER. PERSONAL BELONGINGS PLACED CLOSE TO PATIENT. ENDORSED PT TO SENIOR LIBRARIAN RN ESME ACCORDINGLY.
[2018-09-24] MEDS: MIRTAZAPINE 15 MG TAB PO SCH (21:00)
[2018-09-25] VITALS (25 sets, daily range): BP systolic 106–165; BP diastolic 54–147; PULSE 56–86; RESP 16–24
--- NOTE | 2018-09-25 00:20 | NUR ---
Nursing Note: Per patient's grandson patient has increased swelling in right arm and face. Patient states she has swelling on right side of neck. Patient upset that patient was started on Flagyl and believes she is having an allergic reaction. Flagyl stopped per patient's request. No shortness of breath noted and patient denies itching. Dr. Connor notified and talked to family. New order for extremity study on right upper extremity. Will continue to monitor.
--- NOTE | 2018-09-25 00:49 | NUR ---
Nursing Note: Patient's grandson gave patient over the counter melatonin drops orally to help her sleep. Notified Dr. Connor. Per MD patient can continue to take.
--- NOTE | 2018-09-25 01:20 | NUR ---
Nursing Note: Asked patient's grandson permission to take melatonin drops to pharmacy for verification. Patient verbalizes understanding and refuses. shazia Batres RN aware.
[2018-09-25] MEDS: LEVALBUTEROL (HFA) 15 GM INHALER INH SCH ×4 (01:31→19:25)
--- NOTE | 2018-09-25 01:57 | NUR ---
Nursing Note: Patient agitated, pulling on suction tubing, blood pressure tubing, and pushing family. Notified Dr. Connor. New order for restraints.
--- NOTE | 2018-09-25 03:13 | NUR ---
Nursing Note: Called into patient's room because 299 BP on bedside monitor showed 165/97. VS taken again at 310. HR: 85, BP: 152/72, RR: 24, SpO2: 93%. Patient difficult to arouse. No reaction to sternal rub, slapping. Patient occasionally slaps visitor's hands back. Notified Dr. Connor. Per MD he will come to see patient.
--- NOTE | 2018-09-25 03:30 | NUR ---
Nursing Note: MD at bedside. CT Brain w/o IV contrast and ABGs ordered.
[2018-09-25] MEDS ORDERED: ASPIRIN 300 MG SUPP PR ONE (03:44)
--- NOTE | 2018-09-25 04:09 | NUR ---
Nursing Note: Patient awake, communicating with family, and moving her upper extremities. Family is relieved and does not want patient to go to CT nor take the aspirin. Dr. Connor notified. Will continue to monitor.
--- NOTE | 2018-09-25 05:45 | NUR ---
Nursing Notes: Xray called to report that patient has right basilic vein thrombosis. Notified Dr. Connor. notified patient's daughter. Per he will put new order for Lovenox.
[2018-09-25] MEDS: PANTOPRAZOLE (EC) 40 MG TAB PO SCH (06:00)
[2018-09-25] MEDS: metroNIDAZOLE 500 MG/NS (PMX) 100 ML IVPB SCH (06:00)
[2018-09-25] MEDS: PIPER-TAZO 3.375 GM IV (PMX) 100 ML IVPB SCH ×3 (06:09→21:08)
[2018-09-25] MEDS: ENOXAPARIN 100 MG/ML SYG SC SCH (06:14)
[2018-09-25] MEDS: LEVOTHYROXINE 25 MCG TAB PO SCH (06:26)
--- NOTE | 2018-09-25 06:30 | NUR ---
Nursing Note: Patient no longer needs restraints. Pt is calm and cooperative.
--- NOTE | 2018-09-25 07:00 | NUR ---
EOSS: Patient resting comfortably in stable condition. Pt a/o X1 and awake, back to baseline. VS stable. Will endorse to oncoming RN.
[2018-09-25] MEDS: DOCUSATE SODIUM 10 MG/ML (10ML CUP) PO SCH ×2 (09:00→20:34)
[2018-09-25] MEDS: BALSAM PERU/CASTOR OIL 60 GM TUBE TOP SCH (09:13)
[2018-09-25] MEDS: MUPIROCIN 2% 22 GM OINT TOP SCH ×2 (09:13→20:38)
--- NOTE | 2018-09-25 11:10 | CONS ---
Assessment/Plan Assessment/Plan Assessment/Plan (Daily) Ventilator setting; AC of 16, tidal volume 450, PEEP of 5, 35% FiO2. Assessment recommendations; 1. Patient admitted for respiratory failure due to bilateral pneumonia with history of metastatic thyroid cancer. Chest x-ray showing significant improvement. Patient however has not been able to be weaned off from invasive mechanical ventilation due to severe hypercapnia. 2. Hypothyroidism. Continue current supportive care. I did have a detailed discussion with the patient's family at bedside and answered all their questions. Consultation Date/Type/Reason Admit Date/Time Sep 13, 2018 at 05:56 Initial Consult Date Type of Consult Pulmonary/critical care Date/Time of Note DATE: 09/25/18 TIME: 11:07 24 HR Interval Summary Free Text/Dictation Patient's condition is stable. Remains completely awake and alert. Has remained hemodynamically stable. General exam; elderly female, on ventilator via tracheostomy, awake and alert. Currently in no distress. Exam/Review of Systems Exam Vitals Vital Signs Date Temp Pulse Resp B/P (MAP) Pulse Ox O2 O2 Flow FiO2 Time Delivery Rate 09/25/18 56 08:30 09/25/18 97.9 16 107/54 100 08:19 (71) 09/25/18 45 05:21 09/25/18 Mechanical 04:45 Ventilator Intake and Output 09/24/18 09/24/18 09/25/18 1515:00 23:00 07:00 IntakeIntake Total 200 ml 700 ml 150 ml OutputOutput Total 800 ml 500 ml BalanceBalance 200 ml -100 ml -350 ml Exam H HEENT exam; supple neck, positive JVD. No lymphadenopathy. Midline trachea. No thyromegaly. Tracheostomy in place. Patient is edentulous. No neck masses. Chest exam; diminished breath sounds bilateral. No added sounds. S1-S2 audib le, no murmurs. There is a well-healed sternal scar. Abdomen exam; soft. No organomegaly. Bowel sounds audible. Extremity exam; trace edema. EPIDEMIOLOGY INVESTIGATOR exam; no focal deficit. Results Result Diagram: 09/25/18 0552 09/25/18 0552 Results 24hrs Laboratory Tests Test 09/25/18 03:18 09/25/18 03:22 09/25/18 05:52 Bedside Glucose 84 Blood Gas Specimen Source Blood arterial Arterial Blood Date Drawn 09/25/2018 3:30:46 AM Arterial Blood pH 7.402 (Temp corrected) Arterial Blood pCO2 37.5 (Temp correct) Arterial Blood pO2 56.5 L (Temp corrected) Arterial Blood HCO3 22.8 Arterial Blood Base Excess -1.6 Arterial Blood 87.5 L Oxygen Saturation Tonny Test ACCEPTAB Arterial Blood Gas Left Radial Puncture Site Arterial 0.3 Blood Carboxyhemoglobin Arterial Blood Methemoglobin 0.2 Blood Gas A-a O2 149.5 H Differential Oxyhemoglobin Percent 87.1 L Blood Gas Temperature 37.0 Blood Gas Respiration Rate 16.0 Blood Gas Actual 16 Respiration Rate Blood Gas Modality VENT - AC FiO2 35.0 Blood Gas Tidal Volume 450.0 Blood Gas Low PEEP Setting 5.0 Blood Gas Inspiratory 35.0 Pressure Blood Gas Notified Whom MG Blood Gas Notified Time 09/25/2018 3:45:59 AM White Blood Count 5.6 Red Blood Count 3.54 L Hemoglobin 10.0 L Hematocrit 32.5 L Mean Corpuscular Volume 91.8 Mean Corpuscular Hemoglobin 28.2 L Mean Corpuscular 30.8 L Hemoglobin Concent Red Cell Distribution Width 14.4 Platelet Count 188 Mean Platelet Volume 10.0 Immature Granulocytes % 0.500 H Neutrophils % 67.1 Lymphocytes % 16.5 Monocytes % 7.8 Eosinophils % 7.4 H Basophils % 0.7 Nucleated Red Blood Cells % 0.0 Immature Granulocytes # 0.030 Neutrophils # 3.8 Lymphocytes # 0.9 Monocytes # 0.4 Eosinophils # 0.4 Basophils # 0.0 Nucleated Red Blood Cells # 0.0 Sodium Level 145 H Potassium Level 4.0 Chloride Level 104 Carbon Dioxide Level 26 Anion Gap 15 H Blood Urea Nitrogen 8 Creatinine 1.06 H Est Glomerular Filtrat Rate mL/min Glucose Level 67 L Calcium Level 8.3 L Phosphorus Level 3.5 Magnesium Level 2.1 Medications Medication Current Medications IV Flush (NS 3 ml) 3 ml PER PROTOCOL IV ; Start 09/13/18 at 07:00 Ondansetron HCl (Zofran Inj) 4 mg Q6H PRN IV NAUSEA AND/OR VOMITING; Start 09/13/18 at 07:00 Acetaminophen (Tylenol Tab) 650 mg Q6H PRN PO PAIN LEVEL 1-3 OR FEVER Last administered on 09/14/18at 03:18; Admin Dose 650 MG; Start 09/13/18 at 07:00 Levothyroxine Sodium (Synthroid) 25 mcg BEFORE BREAKFAST PO Last administered on 09/23/18 08:24; Admin Dose 25 MCG; Start 09/13/18 at 07:00 Pantoprazole (Protonix Tab) 40 mg DAILY@06 PO Last administered on 09/21/18 06:28; Admin Dose 40 MG; Start 09/13/18 at 06:00 Levalbuterol (Xopenex Hfa) 1.25 puff Q4H PRN INH WHEEZING AND SOB; Start 09/13/18 at 10:00 Piperacillin Sod/ Tazobactam Sod 100 ml @ 200 mls/hr Q8 IVPB Last administered on 09/25/18 06:09; Admin Dose 200 MLS/HR; Start 09/13/18 at 22:00; Stop 09/27/18 at 21:59 Diphenhydramine HCl (Benadryl) 25 mg Q6H PRN IV ITCHING Last administered on 09/21/18 03:03; Admin Dose 25 MG; Start 09/15/18 at 20:00 IV Flush (NS 10 ml) 10 ml PRN PRN IV FLUSH LINE; Start 09/16/18 at 16:30 Levalbuterol (Xopenex Hfa) 2 puff Q6H RESP THERAPY INH Last administered on 09/25/18 07:39; Admin Dose 2 PUFF; Start 09/17/18 at 20:00 Mupirocin (Bactroban) 1 applic BID TOP Last administered on 09/25/18 09:13; Admin Dose 1 APPLIC; Start 09/19/18 at 23:00 Docusate Sodium (Colace Liquid Cup) 100 mg BID PO Last administered on 09/23/18 09:00; Admin Dose 100 MG; Start 09/20/18 at 09:00 Mirtazapine (Remeron) 15 mg QHS PO Last administered on 09/22/18 21:29; Admin Dose 15 MG; Start 09/20/18 at 21:00 Vancomycin HCl (Vanco Iv Per Pharmacy) VANCOMYCIN PER PHARMACY PER PROTOCOL XX ; Start 09/22/18 at 12:30 Vancomycin HCl 250 ml @ 125 mls/hr Q24H IVPB Last administered on 09/24/18at 17:58; Admin Dose 125 MLS/HR; Start 09/23/18 at 15:00 Miscellaneous Information (*Rx Drug Level Order Reminder*) VANCO TR AT 1400 ONCE ONCE XX ; Start 09/25/18 at 14:00; Stop 09/25/18 at 14:01 Enoxaparin Sodium (Lovenox) 100 mg Q24H SC Last administered on 09/25/18at 06:14; Admin Dose 100 MG; Start 09/25/18 at 05:30 BRANDEN SCOTT Sep 25, 2018 11:10
[2018-09-25] MEDS ORDERED: LORAZEPAM 2 MG INJ IV PRN (12:00)
[2018-09-25] MEDS ORDERED: DIPHENHYDRAMINE 50 MG INJ IV ONE (12:00)
--- NOTE | 2018-09-25 12:39 | NUR ---
ST NOTE; pt seen for f/up; family present; daughter and grandson; per RN Misti they have been giving oral grat; puree;nctr with head turned left; seen this am; daughter giving cream of wheat; pt reporting feeling of food sticking; went to go get thickener and educated daughter pt needs thickener but when ST left room family gave thin via bottled water. upon returning pt in distress; trying to cough to clear; suctioned but nothing came out of trach; had RN gavin try with same result; then RT came; pt by then had cleared suspect it was pooling above trach more in oral cavity and pharynx. daughter then stated she gave thin liquids; again educated pt aspirated silently with this. pt not safe for full po; family considering peg placement but waiting for pt son to arrive for md;family to discuss; spoke with in person reg. pt; she is well aware of the situation and agrees pt not safe for full po diet and family not compliant. CXR: 09/24/18 1. Status post median sternotomy and tracheostomy as described above. 2. Coarse bilateral diffuse interstitial and alveolar infiltrates with bibasilar predominance. 3. Mild to moderate bilateral pleural effusion 4. Mild cardiomegaly and atherosclerotic vascular disease st to follow up for ongoing education and training
[2018-09-25] MEDS: NYSTATIN 30 GM POWDER BTL TOP SCH ×2 (14:30→20:38)
--- NOTE | 2018-09-25 14:58 | NUR ---
Spoke to Thalia at [facility] and she advised that they have to order a vent for home use and the son told them that his mom is going to have a G-Tube inserted. Any way they will not be able to take the pt this week end, but early next week.
[2018-09-25] MEDS: VANCOMYCIN 1 GM 250 ML IVPB SCH (15:00)
--- NOTE | 2018-09-25 16:40 | NUR ---
VANCO PER RX PROTOCOL: DAY #4 S/O: AFEB SCR/BUN = 1.06/8 WBC = 5.6 VANCO TR = 15.3 A/P: PT CLEARING VANCO ADEQUATELY, CONTINUE VANCO 1GM Q 24HR FOR NOW. WILL CONTINUE TO FOLLOW.
--- NOTE | 2018-09-25 16:42 | PN ---
Date/Time of Note Date/Time of Note DATE: 09/25/18 TIME: 16:36 Assessment/Plan VTE Prophylaxis Risk score (from Ns)>0 risk: 13 SCD applied (from Nsg): Yes Pharmacological prophylaxis: LMWH Lines/Catheters IV Catheter Type (from Nrsg): Peripheral IV Urinary Cath still in place: Yes Reason Cath still needed: skin wounds contaminated by urine Assessment/Plan Assessment/Plan 1. Acute on chronic hypoxemic and hypercapnic on respiratory failure secondary to dislodged tracheostomy and pneumonia on chronic lung metastasis - CXR this am reviewed and showing congestion and pleural effusions. - Still remains on the vent - Pulmonology consultation appreciated - Continue on current antibiotics - Discussed with family aspirations most likely exacerbating pulmonary deterioration 2. Sepsis secondary to likely aspiration pneumonia - on antibiotics until 09/27 - WBC normal and remains afebrile 3. Acute metabolic encephalopathy secondary to hypercapnia-resolved - CT brain with no acute findings 4. Acute kidney injurystable - avoid nephrotoxic agents 5. Metastatic thyroid cancer status post surgical resection and radioactive iodine with known pulmonary metastasis - Follow-up with outpatient oncologist, patient did have a recent PET scan at [facility] and requested for records - Patient is status post tracheostomy several years ago 6. History of aspiration - Video swallow results noted and patient continues to aspirate. Per Speech she is still aspiration with thin liquids and less when head turned to left and given pureed. Still not safe for full meals but okay for oral gratification. - Discussed with son this am and agreeable to PEG placement in order to get pt nutrition. GI consulted for placement 7. Hypothyroidism - Continue Synthroid 8. Anemia chronic disease - Monitor 9. Hypertension - hold home meds in setting of low BP 10. Dysphagia - Speech on board and recommending pureed for gratification only - PEG placement pending 11. Disposition - Will give dose of Lasix given CXR results - GI consulted for PEG placement - hospice on board for palliative with vent management once stable for discharge Result Diagram: 09/25/18 0552 09/25/18 0552 Results 24hrs Laboratory Tests Test 09/25/18 03:18 09/25/18 03:22 09/25/18 05:52 09/25/18 14:49 Bedside Glucose 84 Blood Gas Blood arterial Specimen Source Arterial Blood 09/25/2018 3:30:4 Date Drawn 6 AM Arterial Blood pH 7.402 (Temp corrected) Arterial Blood 37.5 pCO2 (Temp correct) Arterial Blood 56.5 L pO2 (Temp corrected) Arterial Blood 22.8 HCO3 Arterial Blood -1.6 Base Excess Arterial Blood 87.5 L Oxygen Saturation Tonny Test ACCEPTAB Arterial Blood Left Radial Gas Puncture Site Arterial 0.3 Blood Carboxyhemo globin Arterial Blood 0.2 Methemoglobin Blood Gas A-a O2 149.5 H Differential Oxyhemoglobin 87.1 L Percent Blood Gas 37.0 Temperature Blood Gas 16.0 Respiration Rate Blood Gas Actual 16 Respiration Rate Blood Gas VENT - AC Modality FiO2 35.0 Blood Gas Tidal 450.0 Volume Blood Gas Low 5.0 PEEP Setting Blood Gas 35.0 Inspiratory Pressure Blood Gas MG Notified Whom Blood Gas 09/25/2018 3:45:5 Notified Time 9 AM White Blood Count 5.6 Red Blood Count 3.54 L Hemoglobin 10.0 L Hematocrit 32.5 L Mean Corpuscular 91.8 Volume Mean Corpuscular 28.2 L Hemoglobin Mean Corpuscular 30.8 L Hemoglobin Concen t Red Cell 14.4 Distribution Width Platelet Count 188 Mean Platelet 10.0 Volume Immature 0.500 H Granulocytes % Neutrophils % 67.1 Lymphocytes % 16.5 Monocytes % 7.8 Eosinophils % 7.4 H Basophils % 0.7 Nucleated Red 0.0 Blood Cells % Immature 0.030 Granulocytes # Neutrophils # 3.8 Lymphocytes # 0.9 Monocytes # 0.4 Eosinophils # 0.4 Basophils # 0.0 Nucleated Red 0.0 Blood Cells # Sodium Level 145 H Potassium Level 4.0 Chloride Level 104 Carbon Dioxide 26 Level Anion Gap 15 H Blood Urea 8 Nitrogen Creatinine 1.06 H Est Glomerular Filtrat Rate mL/min Glucose Level 67 L Calcium Level 8.3 L Phosphorus Level 3.5 Magnesium Level 2.1 Vancomycin Level 15.3 Trough Subjective 24 Hr Interval Summary Free Text/Dictation Patient was agitated overnight and had an AMS scare. Also with questionable allergy to flagyl as well which was started due to concerns for Cdiff. Family meeting this am regarding plan of care for nutrition was held. Son agreeable to placement of PEG after discussed aspiration of liquids and oral gratification feeds not providing enough sustenance. Exam/Review of Systems Exam Vitals Vital Signs Date Temp Pulse Resp B/P (MAP) Pulse Ox O2 O2 Flow FiO2 Time Delivery Rate 09/25/18 61 16:29 09/25/18 98.4 16 111/57 98 16:13 (75) 09/25/18 35 13:45 09/25/18 Mechanical 04:45 Ventilator Intake and Output 09/24/18 09/24/18 09/25/18 1515:00 23:00 07:00 IntakeIntake Total 200 ml 700 ml 150 ml OutputOutput Total 800 ml 500 ml BalanceBalance 200 ml -100 ml -350 ml Exam General: Patient is laying in bed. no acute distress. Eyes: EOMI, pupils reactive to light Neck: Supple, nontender, midline Respiratory: Clear to auscultation bilaterally. diminished but no wheezing or rhonchi Cardiovascular: regular rhythm, bradycardia, no obvious murmurs Gastrointestinal: soft, non-tender to palpation, nondistended, bowel sounds heard. Neurological: Moves all extremities spontaneously Skin: No new skin lesions Results Results 24hrs Laboratory Tests Test 09/25/18 03:18 09/25/18 03:22 09/25/18 05:52 09/25/18 14:49 Bedside Glucose 84 Blood Gas Blood arterial Specimen Source Arterial Blood 09/25/2018 3:30:4 Date Drawn 6 AM Arterial Blood pH 7.402 (Temp corrected) Arterial Blood 37.5 pCO2 (Temp correct) Arterial Blood 56.5 L pO2 (Temp corrected) Arterial Blood 22.8 HCO3 Arterial Blood -1.6 Base Excess Arterial Blood 87.5 L Oxygen Saturation Tonny Test ACCEPTAB Arterial Blood Left Radial Gas Puncture Site Arterial 0.3 Blood Carboxyhemo globin Arterial Blood 0.2 Methemoglobin Blood Gas A-a O2 149.5 H Differential Oxyhemoglobin 87.1 L Percent Blood Gas 37.0 Temperature Blood Gas 16.0 Respiration Rate Blood Gas Actual 16 Respiration Rate Blood Gas VENT - AC Modality FiO2 35.0 Blood Gas Tidal 450.0 Volume Blood Gas Low 5.0 PEEP Setting Blood Gas 35.0 Inspiratory Pressure Blood Gas MG Notified Whom Blood Gas 09/25/2018 3:45:5 Notified Time 9 AM White Blood Count 5.6 Red Blood Count 3.54 L Hemoglobin 10.0 L Hematocrit 32.5 L Mean Corpuscular 91.8 Volume Mean Corpuscular 28.2 L Hemoglobin Mean Corpuscular 30.8 L Hemoglobin Concen t Red Cell 14.4 Distribution Width Platelet Count 188 Mean Platelet 10.0 Volume Immature 0.500 H Granulocytes % Neutrophils % 67.1 Lymphocytes % 16.5 Monocytes % 7.8 Eosinophils % 7.4 H Basophils % 0.7 Nucleated Red 0.0 Blood Cells % Immature 0.030 Granulocytes # Neutrophils # 3.8 Lymphocytes # 0.9 Monocytes # 0.4 Eosinophils # 0.4 Basophils # 0.0 Nucleated Red 0.0 Blood Cells # Sodium Level 145 H Potassium Level 4.0 Chloride Level 104 Carbon Dioxide 26 Level Anion Gap 15 H Blood Urea 8 Nitrogen Creatinine 1.06 H Est Glomerular Filtrat Rate mL/min Glucose Level 67 L Calcium Level 8.3 L Phosphorus Level 3.5 Magnesium Level 2.1 Vancomycin Level 15.3 Trough Medications Medication Current Medications IV Flush (NS 3 ml) 3 ml PER PROTOCOL IV ; Start 09/13/18 at 07:00 Ondansetron HCl (Zofran Inj) 4 mg Q6H PRN IV NAUSEA AND/OR VOMITING; Start 09/13/18 at 07:00 Acetaminophen (Tylenol Tab) 650 mg Q6H PRN PO PAIN LEVEL 1-3 OR FEVER Last administered on 09/14/18 03:18; Admin Dose 650 MG; Start 09/13/18 at 07:00 Levothyroxine Sodium (Synthroid) 25 mcg BEFORE BREAKFAST PO Last administered on 09/23/18 08:24; Admin Dose 25 MCG; Start 09/13/18 at 07:00 Pantoprazole (Protonix Tab) 40 mg DAILY@06 PO Last administered on 09/21/18 06:28; Admin Dose 40 MG; Start 09/13/18 at 06:00 Levalbuterol (Xopenex Hfa) 1.25 puff Q4H PRN INH WHEEZING AND SOB Last administered on 09/25/18 11:23; Admin Dose 1.25 PUFF; Start 09/13/18 at 10:00 Piperacillin Sod/ Tazobactam Sod 100 ml @ 200 mls/hr Q8 IVPB Last administered on 09/25/18 14:00; Admin Dose 200 MLS/HR; Start 09/13/18 at 22:00; Stop 09/27/18 at 21:59 Diphenhydramine HCl (Benadryl) 25 mg Q6H PRN IV ITCHING Last administered on 09/21/18 03:03; Admin Dose 25 MG; Start 09/15/18 at 20:00 IV Flush (NS 10 ml) 10 ml PRN PRN IV FLUSH LINE; Start 09/16/18 at 16:30 Levalbuterol (Xopenex Hfa) 2 puff Q6H RESP THERAPY INH Last administered on 09/25/18at 13:44; Admin Dose 2 PUFF; Start 09/17/18 at 20:00 Mupirocin (Bactroban) 1 applic BID TOP Last administered on 09/25/18at 09:13; Admin Dose 1 APPLIC; Start 09/19/18 at 23:00 Docusate Sodium (Colace Liquid Cup) 100 mg BID PO Last administered on 09/23/18 09:00; Admin Dose 100 MG; Start 09/20/18 at 09:00 Mirtazapine (Remeron) 15 mg QHS PO Last administered on 09/22/18at 21:29; Admin Dose 15 MG; Start 09/20/18 at 21:00 Vancomycin HCl (Vanco Iv Per Pharmacy) VANCOMYCIN PER PHARMACY PER PROTOCOL XX ; Start 09/22/18 at 12:30 Vancomycin HCl 250 ml @ 125 mls/hr Q24H IVPB Last administered on 09/24/18at 17:58; Admin Dose 125 MLS/HR; Start 09/23/18 at 15:00 Enoxaparin Sodium (Lovenox) 100 mg Q24H SC Last administered on 09/25/18at 06:14; Admin Dose 100 MG; Start 09/25/18 at 05:30 Lorazepam (Ativan) 1 mg Q6H PRN IV anxiety, agitation; Start 09/25/18 at 12:00 Nystatin (Nystatin Powder) 1 applic BID TOP ; Start 09/25/18 at 14:30 KRISTYN JAY MD Sep 25, 2018 16:42
[2018-09-25] MEDS ORDERED: FUROSEMIDE 40 MG INJ IV ONE (17:00)
--- NOTE | 2018-09-25 19:19 | CONS ---
Assessment/Plan Assessment/Plan Assessment/Plan (Daily) Assessment: Dysphagia Aspiration pneumonia Metastatic thyroid cancer Tracheostomy in place -on the ventilator Acute kidney injury Anemia of chronic disease Hypertension Hypothyroidism Obesity Plan: Family is refusing PEG placement Will sign off at this time and will be available to reconsult Patient seen in collaboration with Dr. Villavicencio Consultation Date/Type/Reason Admit Date/Time Sep 13, 2018 at 05:56 Date of Consultation: Sep 25, 2018 Type of Consult GI Reason for Consultation Dysphagia/PEG placement Date/Time of Note DATE: 09/25/18 TIME: 19:11 Hx of Present Illness This is an 82-year-old female with a history of metastatic thyroid cancer who was admitted for aspiration pneumonia. GI was consulted for possible PEG placement. Patient has tracheostomy in place on the ventilator. She has a history of gastrostomy tube that has been DC'd. Patient has been able to eat pured food by mouth. Due to recent history of aspirations PEG reinsertion has been offered to the family, however daughter who is the primary caregiver is refusing a PEG placement. Patient had speech evaluation with recommendation for pured diet and thickened fluids. Per daughter patient is tolerating the diet without choking or aspiration. Past medical history includes metastatic thyroid cancer with metastasis to the lungs status post resection and tracheostomy, h ypertension, chronic disease anemia and hypothyroidism. There is no evidence of nausea, vomiting, abdominal pain, hematochezia or fever. With no further recommendations GI will sign off and will be available to reconsult if the family reconsiders. Genitourinary: no complaints (See HPI) Past Medical History Hypothyroidism, dysphagia, status post tracheostomy, metastatic thyroid cancer Medical History: hypertension Home Meds Reported Medications Atorvastatin* (Atorvastatin*) 40 Mg Tablet, 40 MG ORAL HS 09/13/18 Gabapentin* (Gabapentin*) 100 Mg Capsule, 100 MG ORAL BID PRN for NERVE PAIN 09/13/18 Aspirin* (Aspirin* EC) 81 Mg Tablet., 81 MG ORAL DAILY 09/13/18 Colchicine* (Colcrys*) 0.6 Mg Tablet, 0.6 MG PO Q8H PRN for gout, TAB 09/13/18 Lorazepam* (Ativan*) 2 Mg Tablet, 2 MG PO BID PRN for ANXIETY, #30 TAB 09/13/18 Ibuprofen* (Ibuprofen*) 600 Mg Tablet, 600 MG ORAL Q6H PRN for PAIN LEVEL 1-5 09/13/18 Pioglitazone Hcl* (Pioglitazone Hcl*) 45 Mg Tablet, 45 MG ORAL DAILY 09/13/18 Ondansetron (Ondansetron Odt) 8 Mg Tab.rapdis, 8 MG PO Q6H PRN for NAUSEA AND/OR VOMITING, TAB 07/02/18 Levalbuterol* (Xopenex* HFA) 15 Gm Inha, 2 PUFFS INH Q4H PRN for WHEEZING AND SOB, INHALER 07/02/18 Spironolactone* (Aldactone*) 25 Mg Tablet, 12.5 MG PO DAILY, #30 TAB 07/02/18 Levothyroxine Sodium* (Levothyroxine Sodium*) 25 Mcg Tablet, 25 MCG PO BEFORE BREAKFAST, #30 TAB 07/02/18 Quetiapine Fumarate* (Seroquel*) 50 Mg Tablet, 50 MG PO HS, TAB 07/02/18 Sennosides* (Senna Lax*) 8.6 Mg Tablet, 1 TAB PO DAILY PRN for CONSTIPATION, TAB 07/02/18 Potassium Chloride* (Potassium Chloride*) 20 Meq Tablet.er, 20 MEQ PO DAILY, TAB.SA 07/02/18 Calcium Carbonate ([id number]) 500 Mg Tablet, 500 MG PO TID, TAB 07/02/18 Esomeprazole Mag Trihydrate (Nexium) 40 Mg Capsule.dr, 40 MG PO AC BREAKFAST, #30 CAP 07/02/18 Metoprolol Succinate* (Toprol XL*) 25 Mg Tab.sr.24h, 25 MG PO DAILY, #30 TAB 07/02/18 Magnesium Chloride* (Mag 64*) 64 Mg Tabsr, 64 MG PO DAILY, TAB 07/02/18 Furosemide* (Furosemide*) 20 Mg Tablet, 20 MG PO DAILY, #60 TAB 07/02/18 Ferrous Sulfate* (Ferrous Sulfate*) 325 Mg Tabec, 325 MG PO Q48H, TAB 07/02/18 Medications Current Medications IV Flush (NS 3 ml) 3 ml PER PROTOCOL IV ; Start 09/13/18 at 07:00 Ondansetron HCl (Zofran Inj) 4 mg Q6H PRN IV NAUSEA AND/OR VOMITING; Start 09/13/18 at 07:00 Acetaminophen (Tylenol Tab) 650 mg Q6H PRN PO PAIN LEVEL 1-3 OR FEVER Last administered on 09/14/18 03:18; Admin Dose 650 MG; Start 09/13/18 at 07:00 Levothyroxine Sodium (Synthroid) 25 mcg BEFORE BREAKFAST PO Last administered on 09/23/18 08:24; Admin Dose 25 MCG; Start 09/13/18 at 07:00 Pantoprazole (Protonix Tab) 40 mg DAILY@06 PO Last administered on 09/21/18 06:28; Admin Dose 40 MG; Start 09/13/18 at 06:00 Levalbuterol (Xopenex Hfa) 1.25 puff Q4H PRN INH WHEEZING AND SOB Last administered on 09/25/18 11:23; Admin Dose 1.25 PUFF; Start 09/13/18 at 10:00 Piperacillin Sod/ Tazobactam Sod 100 ml @ 200 mls/hr Q8 IVPB Last administered on 09/25/18 14:00; Admin Dose 200 MLS/HR; Start 09/13/18 at 22:00; Stop 09/27/18 at 21:59 Diphenhydramine HCl (Benadryl) 25 mg Q6H PRN IV ITCHING Last administered on 09/21/18 03:03; Admin Dose 25 MG; Start 09/15/18 at 20:00 IV Flush (NS 10 ml) 10 ml PRN PRN IV FLUSH LINE; Start 09/16/18 at 16:30 Levalbuterol (Xopenex Hfa) 2 puff Q6H RESP THERAPY INH Last administered on 09/25/18 13:44; Admin Dose 2 PUFF; Start 09/17/18 at 20:00 Mupirocin (Bactroban) 1 applic BID TOP Last administered on 09/25/18 09:13; Admin Dose 1 APPLIC; Start 09/19/18 at 23:00 Docusate Sodium (Colace Liquid Cup) 100 mg BID PO Last administered on 09/23/18 09:00; Admin Dose 100 MG; Start 09/20/18 at 09:00 Mirtazapine (Remeron) 15 mg QHS PO Last administered on 09/22/18 21:29; Admin Dose 15 MG; Start 09/20/18 at 21:00 Vancomycin HCl (Vanco Iv Per Pharmacy) VANCOMYCIN PER PHARMACY PER PROTOCOL XX ; Start 09/22/18 at 12:30 Vancomycin HCl 250 ml @ 125 mls/hr Q24H IVPB Last administered on 09/25/18at 15:00; Admin Dose 125 MLS/HR; Start 09/23/18 at 15:00 Enoxaparin Sodium (Lovenox) 100 mg Q24H SC Last administered on 09/25/18at 06:14; Admin Dose 100 MG; Start 09/25/18 at 05:30 Lorazepam (Ativan) 1 mg Q6H PRN IV anxiety, agitation Last administered on 09/25/18at 18:12; Admin Dose 1 MG; Start 09/25/18 at 12:00 Nystatin (Nystatin Powder) 1 applic BID TOP Last administered on 09/25/18at 14:30; Admin Dose 1 APPLIC; Start 09/25/18 at 14:30 Allergies: Coded Allergies: metronidazole (Verified Allergy, Intermediate, 09/25/18) prednisone (Verified Allergy, Mild, HALLUCINATIONS, 12/04/13) clindamycin (Verified Allergy, Unknown, 12/10/16) iodine (Verified Allergy, Unknown, RASHES, 07/03/18) morphine (Verified Allergy, Unknown, RASHES, 07/03/18) Past Surgical History Past Surgical Hx: other Social History Alcohol Use: none Smoking Status: Never smoker Drug Use: none Exam/Review of Systems Exam Vitals Vital Signs Date Temp Pulse Resp B/P (MAP) Pulse Ox O2 O2 Flow FiO2 Time Delivery Rate 09/25/18 66 16 98 35 17:23 09/25/18 98.4 111/57 16:13 (75) 09/25/18 Mechanical 04:45 Ventilator Intake and Output 09/24/18 09/24/18 09/25/18 1515:00 23:00 07:00 IntakeIntake Total 200 ml 700 ml 150 ml OutputOutput Total 800 ml 500 ml BalanceBalance 200 ml -100 ml -350 ml Exam PHYSICAL EXAMINATION: GENERAL: Well developed, well nourished, obese, tracheostomy in place, on the ventilator, alert, in no acute distress SKIN: No lesions, no stigmata chronic liver disease, no evidence of bleeding diathesis LYMPHATIC: No palpable lymphadenopathy. HEAD: Normocephalic, atraumatic, no tenderness. EYES: Pupils equal reactive to light and accommodation, full extraocular movements, sclera clear, non-icteric, no discharge. EARS/NOSE AND THROAT: Ears normal, nose normal, oropharynx normal, oral membranes well hydrated without lesions. NECK: Supple, no masses, thyroid normal, JVP within normal limits, carotids normal without bruits. Tracheostomy in place CHEST: Inspection within normal limits. CARDIOVASCULAR: Heart: Regular rate and rhythm, no murmurs, gallops or rubs. Peripheral pulses present within normal limits, no cyanosis, clubbing or edemas. No pulsatile abdominal mass RESPIRATORY: Lungs clear to auscultation and percussion, no wheezing, no rubs GASTROINTESTINAL AND LIVER: Abdomen: Soft, obese, non tenderness, non-distended, no hernias, no masses, no organomegaly, no ascites, no guarding, no rebound tenderness, normoactive bowel sounds. Rectal: Deferred. GENITOURINARY: Female genitalia within normal limits. EXTREMITIES: No cyanosis, clubbing or edema. Results Result Diagram: 09/25/18 0552 09/25/18 0552 Results 24hrs Laboratory Tests Test 09/25/18 03:18 09/25/18 03:22 09/25/18 05:52 09/25/18 14:49 Bedside Glucose 84 Blood Gas Blood arterial Specimen Source Arterial Blood 09/25/2018 3:30:4 Date Drawn 6 AM Arterial Blood pH 7.402 (Temp corrected) Arterial Blood 37.5 pCO2 (Temp correct) Arterial Blood 56.5 L pO2 (Temp corrected) Arterial Blood 22.8 HCO3 Arterial Blood -1.6 Base Excess Arterial Blood 87.5 L Oxygen Saturation Tonny Test ACCEPTAB Arterial Blood Left Radial Gas Puncture Site Arterial 0.3 Blood Carboxyhemo globin Arterial Blood 0.2 Methemoglobin Blood Gas A-a O2 149.5 H Differential Oxyhemoglobin 87.1 L Percent Blood Gas 37.0 Temperature Blood Gas 16.0 Respiration Rate Blood Gas Actual 16 Respiration Rate Blood Gas VENT - AC Modality FiO2 35.0 Blood Gas Tidal 450.0 Volume Blood Gas Low 5.0 PEEP Setting Blood Gas 35.0 Inspiratory Pressure Blood Gas MG Notified Whom Blood Gas 09/25/2018 3:45:5 Notified Time 9 AM White Blood Count 5.6 Red Blood Count 3.54 L Hemoglobin 10.0 L Hematocrit 32.5 L Mean Corpuscular 91.8 Volume Mean Corpuscular 28.2 L Hemoglobin Mean Corpuscular 30.8 L Hemoglobin Concen t Red Cell 14.4 Distribution Width Platelet Count 188 Mean Platelet 10.0 Volume Immature 0.500 H Granulocytes % Neutrophils % 67.1 Lymphocytes % 16.5 Monocytes % 7.8 Eosinophils % 7.4 H Basophils % 0.7 Nucleated Red 0.0 Blood Cells % Immature 0.030 Granulocytes # Neutrophils # 3.8 Lymphocytes # 0.9 Monocytes # 0.4 Eosinophils # 0.4 Basophils # 0.0 Nucleated Red 0.0 Blood Cells # Sodium Level 145 H Potassium Level 4.0 Chloride Level 104 Carbon Dioxide 26 Level Anion Gap 15 H Blood Urea 8 Nitrogen Creatinine 1.06 H Est Glomerular Filtrat Rate mL/min Glucose Level 67 L Calcium Level 8.3 L Phosphorus Level 3.5 Magnesium Level 2.1 Vancomycin Level 15.3 Trough Medications Medication Current Medications IV Flush (NS 3 ml) 3 ml PER PROTOCOL IV ; Start 09/13/18 at 07:00 Ondansetron HCl (Zofran Inj) 4 mg Q6H PRN IV NAUSEA AND/OR VOMITING; Start 09/13/18 at 07:00 Acetaminophen (Tylenol Tab) 650 mg Q6H PRN PO PAIN LEVEL 1-3 OR FEVER Last administered on 09/14/18at 03:18; Admin Dose 650 MG; Start 09/13/18 at 07:00 Levothyroxine Sodium (Synthroid) 25 mcg BEFORE BREAKFAST PO Last administered on 09/23/18at 08:24; Admin Dose 25 MCG; Start 09/13/18 at 07:00 Pantoprazole (Protonix Tab) 40 mg DAILY@06 PO Last administered on 09/21/18at 06:28; Admin Dose 40 MG; Start 09/13/18 at 06:00 Levalbuterol (Xopenex Hfa) 1.25 puff Q4H PRN INH WHEEZING AND SOB Last administered on 09/25/18at 11:23; Admin Dose 1.25 PUFF; Start 09/13/18 at 10:00 Piperacillin Sod/ Tazobactam Sod 100 ml @ 200 mls/hr Q8 IVPB Last administered on 09/25/18at 14:00; Admin Dose 200 MLS/HR; Start 09/13/18 at 22:00; Stop 09/27/18 at 21:59 Diphenhydramine HCl (Benadryl) 25 mg Q6H PRN IV ITCHING Last administered on 09/21/18 03:03; Admin Dose 25 MG; Start 09/15/18 at 20:00 IV Flush (NS 10 ml) 10 ml PRN PRN IV FLUSH LINE; Start 09/16/18 at 16:30 Levalbuterol (Xopenex Hfa) 2 puff Q6H RESP THERAPY INH Last administered on 09/25/18 13:44; Admin Dose 2 PUFF; Start 09/17/18 at 20:00 Mupirocin (Bactroban) 1 applic BID TOP Last administered on 09/25/18 09:13; Admin Dose 1 APPLIC; Start 09/19/18 at 23:00 Docusate Sodium (Colace Liquid Cup) 100 mg BID PO Last administered on 09/23/18 09:00; Admin Dose 100 MG; Start 09/20/18 at 09:00 Mirtazapine (Remeron) 15 mg QHS PO Last administered on 09/22/18 21:29; Admin Dose 15 MG; Start 09/20/18 at 21:00 Vancomycin HCl (Vanco Iv Per Pharmacy) VANCOMYCIN PER PHARMACY PER PROTOCOL XX ; Start 09/22/18 at 12:30 Vancomycin HCl 250 ml @ 125 mls/hr Q24H IVPB Last administered on 09/25/18 15:00; Admin Dose 125 MLS/HR; Start 09/23/18 at 15:00 Enoxaparin Sodium (Lovenox) 100 mg Q24H SC Last administered on 09/25/18 06:14; Admin Dose 100 MG; Start 09/25/18 at 05:30 Lorazepam (Ativan) 1 mg Q6H PRN IV anxiety, agitation Last administered on 09/25/18 18:12; Admin Dose 1 MG; Start 09/25/18 at 12:00 Nystatin (Nystatin Powder) 1 applic BID TOP Last administered on 09/25/18 14:30; Admin Dose 1 APPLIC; Start 09/25/18 at 14:30 MARCELLA WATTERS NP Sep 25, 2018 19:19
--- NOTE | 2018-09-25 19:51 | NUR ---
EOSS: Pt VSS, AOOx1, family had conference with and Lisa to discuss peg placement, adult dtr and son disagree still with the decision, MD made aware. Pt given bedbath, wound care complete, Q2 turning complete, needs met and questions answered.
[2018-09-25] MEDS: LORAZEPAM 2 MG INJ IV PRN (20:30)
[2018-09-25] MEDS: MIRTAZAPINE 15 MG TAB PO SCH (20:33)
[2018-09-25] MEDS: DIPHENHYDRAMINE 50 MG INJ IV PRN (21:06)
[2018-09-26] VITALS (22 sets, daily range): BP systolic 89–110; BP diastolic 47–64; PULSE 52–84; RESP 16–22
[2018-09-26] MEDS: LEVALBUTEROL (HFA) 15 GM INHALER INH SCH ×4 (01:00→19:33)
[2018-09-26] MEDS: PIPER-TAZO 3.375 GM IV (PMX) 100 ML IVPB SCH ×3 (05:30→21:01)
[2018-09-26] MEDS: LEVOTHYROXINE 25 MCG TAB PO SCH (05:32)
[2018-09-26] MEDS: PANTOPRAZOLE (EC) 40 MG TAB PO SCH (05:33)
[2018-09-26] MEDS: ENOXAPARIN 100 MG/ML SYG SC SCH (05:39)
--- NOTE | 2018-09-26 06:42 | NUR ---
EOSS Pt turned and repositioned q2 hours, vitals monitored and stable, pt with agitation during night managed with PRN meds. Incontinence, wound, and trach care provided, treatment applied, family at bedside, will endorse to oncoming RN.
--- NOTE | 2018-09-26 08:45 | PN ---
Date/Time of Note Date/Time of Note DATE: 09/26/18 TIME: 08:45 Assessment/Plan VTE Prophylaxis Risk score (from Nsg)>0 risk: 14 SCD applied (from Nsg): Yes Pharmacological prophylaxis: LMWH Lines/Catheters IV Catheter Type (from Nrsg): Peripheral IV Urinary Cath still in place: Yes Reason Cath still needed: urinary retention Assessment/Plan Assessment/Plan 1. Right jaw swelling - will check US to rule out pathology as cause for swelling - no erythema, open wounds, discharge or drainage appreciated 2. Acute on chronic hypoxemic and hypercapnic on respiratory failure secondary to dislodged tracheostomy and pneumonia on chronic lung metastasis - CXR this am reviewed and shows stable pulmonary congestion and edema - Still remains on the vent - Pulmonology consultation appreciated - Continue on current antibiotics - Discussed with family aspirations most likely exacerbating pulmonary deterioration 2. Sepsis secondary to likely aspiration pneumonia - on antibiotics until 09/27 - WBC normal and remains afebrile 3. Acute metabolic encephalopathy secondary to hypercapnia-resolved - CT brain with no acute findings 4. Acute kidney injurystable - avoid nephrotoxic agents 5. Metastatic thyroid cancer status post surgical resection and radioactive iodine with known pulmonary metastasis - Follow-up with outpatient oncologist, patient did have a recent PET scan at [facility] and requested for records - Patient is status post tracheostomy several years ago 6. History of aspiration - Video swallow results noted and patient continues to aspirate. Per Speech she is still aspiration with thin liquids and less when head turned to left and given pureed. Still not safe for full meals but okay for oral gratification. - GI consulted for placement of PEG after son agreeable. However, now daughter and grandson would like to hold off on placement 7. Hypothyroidism - Continue Synthroid 8. Anemia chronic disease - Monitor 9. Hypertension - hold home meds in setting of low BP 10. Dysphagia - Speech on board and recommending pureed for gratification only - PEG placement pending once family agreeable to one plan. Son would like to proceed with PEG placement but daughter and grandson requesting to hold off. discussed need for nutrition given albumin levels dropping. Grandson believes its healthier for patient to be fasting 11. Disposition - Family will need to discuss plan of care in terms of feeding patient given only safe for oral gratification due to high aspiration risk. All family me mbers not in agreement for PEG placement - US of left neck taken to assess swelling - Plan of care- once feeding issue addressed, family ultimately wants to take patient home on palliative hospice with vent management. Hospice arrangements already made Result Diagram: 09/26/18 0644 09/26/18 0645 Results 24hrs Laboratory Tests Test 09/25/18 14:49 09/26/18 06:44 09/26/18 06:45 Vancomycin Level Trough 15.3 White Blood Count 6.1 Red Blood Count 3.35 L Hemoglobin 9.6 L Hematocrit 30.5 L Mean Corpuscular Volume 91.0 Mean Corpuscular Hemoglobin 28.7 L Mean Corpuscular Hemoglobin Concent 31.5 L Red Cell Distribution Width 14.4 Platelet Count 198 Mean Platelet Volume 10.5 H Immature Granulocytes % 0.300 Neutrophils % 65.6 Lymphocytes % 18.5 Monocytes % 9.2 Eosinophils % 5.9 Basophils % 0.5 Nucleated Red Blood Cells % 0.0 Immature Granulocytes # 0.020 Neutrophils # 4.0 Lymphocytes # 1.1 Monocytes # 0.6 Eosinophils # 0.4 Basophils # 0.0 Nucleated Red Blood Cells # 0.0 Sodium Level 144 Potassium Level 3.5 Chloride Level 105 Carbon Dioxide Level 26 Anion Gap 13 Blood Urea Nitrogen 7 Creatinine 1.01 H Glucose Level 69 L Calcium Level 8.4 Phosphorus Level 3.1 Magnesium Level 2.0 Albumin 3.2 L Subjective 24 Hr Interval Summary Free Text/Dictation Patient is complaining of swelling of right side of face with discomfort at jaw line. Still remains on vent and CXR repeated this am. Exam/Review of Systems Exam Vitals Vital Signs Date Temp Pulse Resp B/P (MAP) Pulse Ox O2 O2 Flow FiO2 Time Delivery Rate 09/26/18 98.6 52 16 89/50 (63) 97 08:31 09/26/18 35 04:50 09/26/18 Mechanical 04:00 Ventilator Intake and Output 09/25/18 09/25/18 09/26/18 1515:00 23:00 07:00 IntakeIntake Total 200 ml 400 ml OutputOutput Total 550 ml 3400 ml BalanceBalance -350 ml -3000 ml Exam General: Patient is laying in bed. mild distress secondary to right jaw discomfort Eyes: EOMI, pupils reactive to light Neck: Supple, nontender, midline Respiratory: Clear to auscultation bilaterally. diminished but no wheezing or rhonchi Cardiovascular: regular rhythm, bradycardia, no obvious murmurs Gastrointestinal: soft, non-tender to palpation, nondistended, bowel sounds heard. Neurological: Moves all extremities spontaneously Skin: No new skin lesions Results Results 24hrs Laboratory Tests Test 09/25/18 14:49 09/26/18 06:44 09/26/18 06:45 Vancomycin Level Trough 15.3 White Blood Count 6.1 Red Blood Count 3.35 L Hemoglobin 9.6 L Hematocrit 30.5 L Mean Corpuscular Volume 91.0 Mean Corpuscular Hemoglobin 28.7 L Mean Corpuscular Hemoglobin Concent 31.5 L Red Cell Distribution Width 14.4 Platelet Count 198 Mean Platelet Volume 10.5 H Immature Granulocytes % 0.300 Neutrophils % 65.6 Lymphocytes % 18.5 Monocytes % 9.2 Eosinophils % 5.9 Basophils % 0.5 Nucleated Red Blood Cells % 0.0 Immature Granulocytes # 0.020 Neutrophils # 4.0 Lymphocytes # 1.1 Monocytes # 0.6 Eosinophils # 0.4 Basophils # 0.0 Nucleated Red Blood Cells # 0.0 Sodium Level 144 Potassium Level 3.5 Chloride Level 105 Carbon Dioxide Level 26 Anion Gap 13 Blood Urea Nitrogen 7 Creatinine 1.01 H Glucose Level 69 L Calcium Level 8.4 Phosphorus Level 3.1 Magnesium Level 2.0 Albumin 3.2 L Medications Medication Current Medications IV Flush (NS 3 ml) 3 ml PER PROTOCOL IV ; Start 09/13/18 at 07:00 Ondansetron HCl (Zofran Inj) 4 mg Q6H PRN IV NAUSEA AND/OR VOMITING; Start 09/13/18 at 07:00 Acetaminophen (Tylenol Tab) 650 mg Q6H PRN PO PAIN LEVEL 1-3 OR FEVER Last administered on 09/14/18at 03:18; Admin Dose 650 MG; Start 09/13/18 at 07:00 Levothyroxine Sodium (Synthroid) 25 mcg BEFORE BREAKFAST PO Last administered on 09/26/18at 05:32; Admin Dose 25 MCG; Start 09/13/18 at 07:00 Pantoprazole (Protonix Tab) 40 mg DAILY@06 PO Last administered on 09/26/18at 05:33; Admin Dose 40 MG; Start 09/13/18 at 06:00 Levalbuterol (Xopenex Hfa) 1.25 puff Q4H PRN INH WHEEZING AND SOB Last administered on 09/25/18 11:23; Admin Dose 1.25 PUFF; Start 09/13/18 at 10:00 Piperacillin Sod/ Tazobactam Sod 100 ml @ 200 mls/hr Q8 IVPB Last administered on 09/26/18 05:30; Admin Dose 200 MLS/HR; Start 09/13/18 at 22:00; Stop 09/27/18 at 21:59 Diphenhydramine HCl (Benadryl) 25 mg Q6H PRN IV ITCHING Last administered on 09/25/18 21:06; Admin Dose 25 MG; Start 09/15/18 at 20:00 IV Flush (NS 10 ml) 10 ml PRN PRN IV FLUSH LINE; Start 09/16/18 at 16:30 Levalbuterol (Xopenex Hfa) 2 puff Q6H RESP THERAPY INH Last administered on 09/26/18 07:31; Admin Dose 2 PUFF; Start 09/17/18 at 20:00 Mupirocin (Bactroban) 1 applic BID TOP Last administered on 09/25/18 20:38; Admin Dose 1 APPLIC; Start 09/19/18 at 23:00 Docusate Sodium (Colace Liquid Cup) 100 mg BID PO Last administered on 09/23/18 09:00; Admin Dose 100 MG; Start 09/20/18 at 09:00 Mirtazapine (Remeron) 15 mg QHS PO Last administered on 09/25/18at 20:33; Admin Dose 15 MG; Start 09/20/18 at 21:00 Vancomycin HCl (Vanco Iv Per Pharmacy) VANCOMYCIN PER PHARMACY PER PROTOCOL XX ; Start 09/22/18 at 12:30 Vancomycin HCl 250 ml @ 125 mls/hr Q24H IVPB Last administered on 09/25/18at 15:00; Admin Dose 125 MLS/HR; Start 09/23/18 at 15:00 Enoxaparin Sodium (Lovenox) 100 mg Q24H SC Last administered on 09/26/18 05:39; Admin Dose 100 MG; Start 09/25/18 at 05:30 Nystatin (Nystatin Powder) 1 applic BID TOP Last administered on 09/25/18at 20:38; Admin Dose 1 APPLIC; Start 09/25/18 at 14:30 Lorazepam (Ativan) 1 mg Q4H PRN IV anxiety, agitation Last administered on 09/25/18at 20:30; Admin Dose 1 MG; Start 09/25/18 at 20:00 Potassium Chloride 100 ml @ 50 mls/hr Q2H IVPB ; Start 09/26/18 at 09:00; Stop 09/26/18 at 12:59; Status UNV KRISTYN JAY MD Sep 26, 2018 08:45
[2018-09-26] MEDS: DOCUSATE SODIUM 10 MG/ML (10ML CUP) PO SCH ×2 (09:00→20:51)
[2018-09-26] MEDS: BALSAM PERU/CASTOR OIL 60 GM TUBE TOP SCH (09:50)
[2018-09-26] MEDS: NYSTATIN 30 GM POWDER BTL TOP SCH ×2 (09:50→20:56)
[2018-09-26] MEDS: POTASSIUM CHLORIDE 100 ML IVPB SCH ×2 (09:50→13:58)
[2018-09-26] MEDS: MUPIROCIN 2% 22 GM OINT TOP SCH ×2 (09:50→20:56)
[2018-09-26] MEDS: LORAZEPAM 2 MG INJ IV PRN ×2 (10:52→19:26)
--- NOTE | 2018-09-26 11:55 | CONS ---
Assessment/Plan Assessment/Plan Assessment/Plan (Daily) Ventilator setting; AC of 16, tidal volume 500, PEEP of 5, 30% FiO2. Assessment recommendations; 1. Patient admitted for respiratory failure due to severe hypercapnia with diffuse bilateral pneumonia with history of metastatic thyroid cancer. Chest x- ray has improved but with persistent background nodular changes suggestive of metastatic disease. 2. Failure to be weaned from ventilator despite multiple times. Continue current supportive care. Consultation Date/Type/Reason Admit Date/Time Sep 13, 2018 at 05:56 Initial Consult Date Type of Consult Pulmonary/critical care Date/Time of Note DATE: 09/26/18 TIME: 11:53 24 HR Interval Summary Free Text/Dictation Patient's condition is stable. Remains awake and alert. Has remained hemodynamically stable. General exam; elderly female, on ventilator via tracheostomy, awake, currently in no distress. Exam/Review of Systems Exam Vitals Vital Signs Date Temp Pulse Resp B/P (MAP) Pulse Ox O2 O2 Flow FiO2 Time Delivery Rate 09/26/18 98.4 63 102/ 11:52 09/26/18 95 11:52 09/26/18 35 04:50 09/26/18 Mechanical 04:00 Ventilator Intake and Output 09/25/18 09/25/18 09/26/18 1515:00 23:00 07:00 IntakeIntake Total 200 ml 400 ml OutputOutput Total 550 ml 3400 ml BalanceBalance -350 ml -3000 ml Exam HEENT exam; supple neck, no JVD. No lymphadenopathy. Midline trachea. No thyromegaly. Patient is edentulous. Tracheostomy in place. Chest exam; diminished but clear breath sounds. S1-S2 audible, no murmurs. There is a well-healed sternal scar. Abdomen exam; soft, no organomegaly. Bowel sounds audible. Extremity exam; no edema. HVAC CONTROLS TECHNICIAN exam; no focal deficit. Results Result Diagram: 09/26/18 0644 09/26/18 0645 Results 24hrs Laboratory Tests Test 09/25/18 14:49 09/26/18 06:44 09/26/18 06:45 Vancomycin Level Trough 15.3 White Blood Count 6.1 Red Blood Count 3.35 L Hemoglobin 9.6 L Hematocrit 30.5 L Mean Corpuscular Volume 91.0 Mean Corpuscular Hemoglobin 28.7 L Mean Corpuscular Hemoglobin Concent 31.5 L Red Cell Distribution Width 14.4 Platelet Count 198 Mean Platelet Volume 10.5 H Immature Granulocytes % 0.300 Neutrophils % 65.6 Lymphocytes % 18.5 Monocytes % 9.2 Eosinophils % 5.9 Basophils % 0.5 Nucleated Red Blood Cells % 0.0 Immature Granulocytes # 0.020 Neutrophils # 4.0 Lymphocytes # 1.1 Monocytes # 0.6 Eosinophils # 0.4 Basophils # 0.0 Nucleated Red Blood Cells # 0.0 Sodium Level 144 Potassium Level 3.5 Chloride Level 105 Carbon Dioxide Level 26 Anion Gap 13 Blood Urea Nitrogen 7 Creatinine 1.01 H Glucose Level 69 L Calcium Level 8.4 Phosphorus Level 3.1 Magnesium Level 2.0 Albumin 3.2 L Medications Medication Current Medications IV Flush (NS 3 ml) 3 ml PER PROTOCOL IV ; Start 09/13/18 at 07:00 Ondansetron HCl (Zofran Inj) 4 mg Q6H PRN IV NAUSEA AND/OR VOMITING; Start 09/13/18 at 07:00 Acetaminophen (Tylenol Tab) 650 mg Q6H PRN PO PAIN LEVEL 1-3 OR FEVER Last administered on 09/14/18at 03:18; Admin Dose 650 MG; Start 09/13/18 at 07:00 Levothyroxine Sodium (Synthroid) 25 mcg BEFORE BREAKFAST PO Last administered on 09/26/18 05:32; Admin Dose 25 MCG; Start 09/13/18 at 07:00 Pantoprazole (Protonix Tab) 40 mg DAILY@06 PO Last administered on 09/26/18 05:33; Admin Dose 40 MG; Start 09/13/18 at 06:00 Levalbuterol (Xopenex Hfa) 1.25 puff Q4H PRN INH WHEEZING AND SOB Last administered on 09/25/18 11:23; Admin Dose 1.25 PUFF; Start 09/13/18 at 10:00 Piperacillin Sod/ Tazobactam Sod 100 ml @ 200 mls/hr Q8 IVPB Last administered on 09/26/18 05:30; Admin Dose 200 MLS/HR; Start 09/13/18 at 22:00; Stop 09/27/18 at 21:59 Diphenhydramine HCl (Benadryl) 25 mg Q6H PRN IV ITCHING Last administered on 09/25/18at 21:06; Admin Dose 25 MG; Start 09/15/18 at 20:00 IV Flush (NS 10 ml) 10 ml PRN PRN IV FLUSH LINE; Start 09/16/18 at 16:30 Levalbuterol (Xopenex Hfa) 2 puff Q6H RESP THERAPY INH Last administered on 09/26/18 07:31; Admin Dose 2 PUFF; Start 09/17/18 at 20:00 Mupirocin (Bactroban) 1 applic BID TOP Last administered on 09/26/18 09:50; Admin Dose 1 APPLIC; Start 09/19/18 at 23:00 Docusate Sodium (Colace Liquid Cup) 100 mg BID PO Last administered on 09/23/18 09:00; Admin Dose 100 MG; Start 09/20/18 at 09:00 Mirtazapine (Remeron) 15 mg QHS PO Last administered on 09/25/18 20:33; Admin Dose 15 MG; Start 09/20/18 at 21:00 Vancomycin HCl (Vanco Iv Per Pharmacy) VANCOMYCIN PER PHARMACY PER PROTOCOL XX ; Start 09/22/18 at 12:30 Vancomycin HCl 250 ml @ 125 mls/hr Q24H IVPB Last administered on 09/25/18 15:00; Admin Dose 125 MLS/HR; Start 09/23/18 at 15:00 Enoxaparin Sodium (Lovenox) 100 mg Q24H SC Last administered on 09/26/18 05:39; Admin Dose 100 MG; Start 09/25/18 at 05:30 Nystatin (Nystatin Powder) 1 applic BID TOP Last administered on 09/26/18 09:50; Admin Dose 1 APPLIC; Start 09/25/18 at 14:30 Lorazepam (Ativan) 1 mg Q4H PRN IV anxiety, agitation Last administered on 09/26/18 10:52; Admin Dose 1 MG; Start 09/25/18 at 20:00 Potassium Chloride 100 ml @ 50 mls/hr Q2H IVPB Last administered on 09/26/18 09:50; Admin Dose 50 MLS/HR; Start 09/26/18 at 09:00; Stop 09/26/18 at 12:59 BRANDEN SCOTT Sep 26, 2018 11:55
[2018-09-26] MEDS: VANCOMYCIN 1 GM 250 ML IVPB SCH (15:00)
--- NOTE | 2018-09-26 18:57 | NUR ---
EOSS: Pt VSS, more alert and oriented during shift, ativan given x1 for agitation, bedbath given and wound care complete, family refused turning intermittently, pt has no signs of distress or SOB. Pt still on pureed for oral gratification only, family continued to be given education regarding safe swallowing and risk for aspiration. family verbalized understanding but continued to feed throughout shift. PEG placement held indefinitely, chest x-ray and us of neck complete. All other needs met and questions answerd
[2018-09-26] MEDS: MIRTAZAPINE 15 MG TAB PO SCH (20:51)
[2018-09-27] VITALS (23 sets, daily range): BP systolic 88–118; BP diastolic 51–71; PULSE 44–69; RESP 16–18
--- NOTE | 2018-09-27 00:10 | NUR ---
Nurse Note Low air loss mattress ordered for pt. Patient's grandson at bedside informed and educated on skin integrity and preventing pressure injuries. Grandson states he does not want the pt moved to low air loss. Grandson states he does not want pt to be exposed to a new bed and the bed could possibly be dirty. Grandson informed all beds are thoroughly cleaned prior to bringing to floor for new pt. Grandson continues to refuse low air loss. Low air loss mattress order stopped, LISBETH Pierre notified.
[2018-09-27] MEDS: LEVALBUTEROL (HFA) 15 GM INHALER INH SCH ×4 (01:03→19:26)
--- NOTE | 2018-09-27 02:40 | NUR ---
Nurse Note Called to pt bedside by grandson over concern of pt BP. BP 95/58, pt asymptomatic. Grandson states concern over pt dehydrating and insisting on starting pt on IV fluids. Grandson informed of pt stable condition and need for orders for IV fluids. Grandson states to call the doctor because he is concerned the pt is dehydrated. Dr Connor notified. BP, pt condition, and grandson request communicated. Dr Connor states "tell him she is fine. we will keep an eye on it." Delfin informed of MD communication and re-educated on pt condition and acceptable vitals. Will continue to monitor pt.
[2018-09-27] MEDS: PIPER-TAZO 3.375 GM IV (PMX) 100 ML IVPB SCH ×2 (05:19→13:21)
[2018-09-27] MEDS: ACETAMINOPHEN 325 MG TAB PO PRN ×2 (05:21→21:17)
[2018-09-27] MEDS: ENOXAPARIN 100 MG/ML SYG SC SCH (05:50)
[2018-09-27] MEDS: PANTOPRAZOLE (EC) 40 MG TAB PO SCH (06:46)
[2018-09-27] MEDS: LEVOTHYROXINE 25 MCG TAB PO SCH (06:46)
--- NOTE | 2018-09-27 07:04 | NUR ---
EOSS Pt with grandson at bedside at this time. Pt resting comfortably most of night. Grandson refused turning, repositioning, skin care, continually stating to let pt rest. Turning, repositioning, and skin care provided when grandson allowed, trach care provided, vitals monitored. Refer to previous RN notes regarding interactions with grandson throughout night, Dr Connor and LISBETH Pierre aware, will endorse to oncoming RN.
[2018-09-27] MEDS: DOCUSATE SODIUM 10 MG/ML (10ML CUP) PO SCH ×2 (08:58→21:00)
--- NOTE | 2018-09-27 09:25 | CONS ---
Assessment/Plan Assessment/Plan Assessment/Plan (Daily) Ventilator setting; AC of 16, tidal volume 500, PEEP of 5, 30% FiO2. Assessment and recommendations; 1. Patient with history of metastatic thyroid cancer admitted for respiratory failure due to severe hypercapnia without any ability to be weaned off from invasive mechanical ventilation. 2. Bilateral pneumonia with interval clinical and radiological improvement. 3. Right upper extremity DVT. 4. History of hypothyroidism. 5. Mild anemia and thrombocytopenia. Continue current supportive care. Overall prognosis is poor. Consider transfer to rehab center. Consultation Date/Type/Reason Admit Date/Time Sep 13, 2018 at 05:56 Initial Consult Date Type of Consult Pulmonary/critical care Date/Time of Note DATE: 09/27/18 TIME: 09:22 24 HR Interval Summary Free Text/Dictation Patient's condition is stable. Remains awake and alert. Has remained hemodynamically stable. General exam; elderly female, on ventilator via tracheostomy, awake, currently no distress. Patient appropriately responsive. Exam/Review of Systems Exam Vitals Vital Signs Date Temp Pulse Resp B/P (MAP) Pulse Ox O2 O2 Flow FiO2 Time Delivery Rate 09/27/18 98.2 62 18 118/71 94 08:00 (87) 09/27/18 35 07:54 09/27/18 Mechanical 04:00 Ventilator Intake and Output 09/26/18 09/26/18 09/27/18 1515:00 23:00 07:00 IntakeIntake Total 150 ml 170 ml OutputOutput Total 750 ml 350 ml BalanceBalance -600 ml -180 ml Exam H EENT exam; supple neck, no JVD. No lymphadenopathy. Midline trachea. No thyromegaly. Patient is edentulous. Tracheostomy in place. No neck masses. Chest exam; diminished breath sound lung bases. Upper lobes are fairly clear. S1-S2 audible, no murmurs. Regular rhythm. Abdomen exam; soft, nontender. No organomegaly. Bowel sounds audible. Extremity exam; no edema. BOTTOM SAW OPERATOR exam; no focal deficit. Results Result Diagram: 09/27/18 0548 09/27/18 0547 Results 24hrs Laboratory Tests Test 09/27/18 05:47 09/27/18 05:48 Sodium Level 143 Potassium Level 3.4 L Chloride Level 105 Carbon Dioxide Level 27 Anion Gap 11 Blood Urea Nitrogen 8 Creatinine 1.00 Glucose Level 101 Calcium Level 8.3 L Phosphorus Level 3.0 Magnesium Level 1.9 Albumin 3.1 L White Blood Count 6.5 Red Blood Count 3.35 L Hemoglobin 9.6 L Hematocrit 30.7 L Mean Corpuscular Volume 91.6 Mean Corpuscular Hemoglobin 28.7 L Mean Corpuscular Hemoglobin Concent 31.3 L Red Cell Distribution Width 14.6 H Platelet Count 181 Mean Platelet Volume 10.2 Immature Granulocytes % 0.600 H Neutrophils % 60.8 Lymphocytes % 20.3 Monocytes % 9.6 Eosinophils % 7.9 H Basophils % 0.8 Nucleated Red Blood Cells % 0.0 Immature Granulocytes # 0.040 H Neutrophils # 4.0 Lymphocytes # 1.3 Monocytes # 0.6 Eosinophils # 0.5 Basophils # 0.1 Nucleated Red Blood Cells # 0.0 Medications Medication Current Medications IV Flush (NS 3 ml) 3 ml PER PROTOCOL IV ; Start 09/13/18 at 07:00 Ondansetron HCl (Zofran Inj) 4 mg Q6H PRN IV NAUSEA AND/OR VOMITING; Start 09/13/18 at 07:00 Acetaminophen (Tylenol Tab) 650 mg Q6H PRN PO PAIN LEVEL 1-3 OR FEVER Last administered on 09/27/18at 05:21; Admin Dose 650 MG; Start 09/13/18 at 07:00 Levothyroxine Sodium (Synthroid) 25 mcg BEFORE BREAKFAST PO Last administered on 09/27/18at 06:46; Admin Dose 25 MCG; Start 09/13/18 at 07:00 Pantoprazole (Protonix Tab) 40 mg DAILY@06 PO Last administered on 09/27/18at 06:46; Admin Dose 40 MG; Start 09/13/18 at 06:00 Levalbuterol (Xopenex Hfa) 1.25 puff Q4H PRN INH WHEEZING AND SOB Last administered on 09/25/18at 11:23; Admin Dose 1.25 PUFF; Start 09/13/18 at 10:00 Piperacillin Sod/ Tazobactam Sod 100 ml @ 200 mls/hr Q8 IVPB Last administered on 09/27/18at 05:19; Admin Dose 200 MLS/HR; Start 09/13/18 at 22:00; Stop at 21:59 Diphenhydramine HCl (Benadryl) 25 mg Q6H PRN IV ITCHING Last administered on 09/25/18 21:06; Admin Dose 25 MG; Start 09/15/18 at 20:00 IV Flush (NS 10 ml) 10 ml PRN PRN IV FLUSH LINE; Start 09/16/18 at 16:30 Levalbuterol (Xopenex Hfa) 2 puff Q6H RESP THERAPY INH Last administered on 09/27/18 01:03; Admin Dose 2 PUFF; Start 09/17/18 at 20:00 Mupirocin (Bactroban) 1 applic BID TOP Last administered on 09/26/18 20:56; Admin Dose 1 APPLIC; Start 09/19/18 at 23:00 Docusate Sodium (Colace Liquid Cup) 100 mg BID PO Last administered on 09/23/18 09:00; Admin Dose 100 MG; Start 09/20/18 at 09:00 Mirtazapine (Remeron) 15 mg QHS PO Last administered on 09/26/18 20:51; Admin Dose 15 MG; Start 09/20/18 at 21:00 Vancomycin HCl (Vanco Iv Per Pharmacy) VANCOMYCIN PER PHARMACY PER PROTOCOL XX ; Start 09/22/18 at 12:30 Vancomycin HCl 250 ml @ 125 mls/hr Q24H IVPB Last administered on 09/26/18 15:00; Admin Dose 125 MLS/HR; Start 09/23/18 at 15:00 Enoxaparin Sodium (Lovenox) 100 mg Q24H SC Last administered on 09/27/18 05:50; Admin Dose 100 MG; Start 09/25/18 at 05:30 Nystatin (Nystatin Powder) 1 applic BID TOP Last administered on 09/26/18 20:56; Admin Dose 1 APPLIC; Start 09/25/18 at 14:30 Lorazepam (Ativan) 1 mg Q4H PRN IV anxiety, agitation Last administered on 09/26/18 19:26; Admin Dose 1 MG; Start 09/25/18 at 20:00 BRANDEN SCOTT Sep 27, 2018 09:25
[2018-09-27] MEDS: MUPIROCIN 2% 22 GM OINT TOP SCH ×2 (09:48→21:17)
[2018-09-27] MEDS: BALSAM PERU/CASTOR OIL 60 GM TUBE TOP SCH (09:50)
[2018-09-27] MEDS: NYSTATIN 30 GM POWDER BTL TOP SCH ×2 (09:50→21:18)
--- NOTE | 2018-09-27 09:55 | NUR ---
RN UPDATE PATIENT NEEDS LOW AIR LOSS MATTRESS TO PREVENT PRESSURE ULCER. PER NIGHT NURSE, HER GRANDSON REFUSED LOW AIR LOSS MATTRESS. TALKED TO THE GRANDSON AGAIN AND EXPLAINED THE BENEFITS AND THE RISK OF HAVING LOW AIRLOSS MATTRESS, HER GRANDSON AGAIN REFUSED. LOUISE STATED " SHE'S OK THE WAY SHE IS RIGHT NOW. PROBABLY WE CAN CHANGE THE BED IN THE NEXT FEW DAYS." WILL CONTINUE TO MONITOR. Addendum: 09/27/18 at 1703 by JUAN BRAND RN family verbalized understanding of the benefits and risk of having low air loss mattress. Stressed to the family that this kind of matress will prevent pressure ulcer but they still refused.
--- NOTE | 2018-09-27 11:04 | NUR ---
Patients family attempting to feed her scrambled eggs and juice. Patient has frequent coughing, and personally requested suctioning. no food items noted in aspirate. Instructed family to offer smaller portions with longer rest periods between swallow attempts. Speech therapy informe, states patient has had swallow eval and has offered same advice to family.
[2018-09-27] MEDS: LORAZEPAM 2 MG INJ IV PRN ×3 (11:42→22:39)
--- NOTE | 2018-09-27 11:52 | NUR ---
SW: CONSULTATION SW was consulted for "grandson refusing low air mattress for patient. Please speak with family regarding low air loss." FELICIA discussed case with Dr. Beavers, who states that he will further explore why family is refusing low air mattress, and requested that this principal technical writer primary explore hospice and goals of care for d/c planning. FELICIA met with patient, daughter / primary surrogate spokesperson Gertrudis ([phone]), grandshiv Menon and a second daughter at bedside. Gertrudis states she is primary surrogate spokesperson, but states that all family is involved in her care and they all work together with making any medical decisions. However, states she will be primary point person. Gertrudis states that the reason they do not want the air mattress is because patient is getting better, and they dont want to change the mattress because the patient will "sink inside the mattress." She said they want to wait a day or two and see if the still needs the air mattress before changing her mattress. Regarding hospice, Gertrudis stated that they do NOT want hospice at this time. She and her family state that they feel patient is getting better, and they have hope that she will over come this and be able to go home without hospice and without a vent. Stated that they are "taking it day by day." FELICIA sent a text message to Dr. Beavers to inform him that family does not want hospice at this time. SW remains available as needed.
[2018-09-27] MEDS: SOD CHLORIDE 0.9% 1,000 ML IV SCH (12:40)
--- NOTE | 2018-09-27 13:32 | NUR ---
RN UPDATE PATIENT IS CURRENTLY NPO ( ORAL GRATIFICATION ONLY). NO FLUIDS NOTED. NOTIFIED DR ZAMORANO REGARDING DIET STATUS OF THE PATIENT. MD ORDERED SODIUM CHLORIDE AT 40 CC/HR. DIET CONSULT WAS ORDERED WELL, PATIENT MAY BENEFIT FROM VITAMINS/ SUPPLEMENT. WILL CONTINUE TO MONITOR.
[2018-09-27] MEDS: VANCOMYCIN 1 GM 250 ML IVPB SCH (14:47)
--- NOTE | 2018-09-27 15:30 | NUR ---
PT NOTE Attempted to see PT in pm. Pt family/caregiver requested to allow pt to rest at this time. Pt and family educated in benefit of physical therapy. They requested PT to return tomorrow. Will follow up tomorrow. Communicated with RN
--- NOTE | 2018-09-27 17:17 | PN ---
Date/Time of Note Date/Time of Note DATE: 09/27/18 TIME: 17:13 Assessment/Plan VTE Prophylaxis Risk score (from Nsg)>0 risk: 14 SCD applied (from Nsg): Yes Pharmacological prophylaxis: LMWH Lines/Catheters IV Catheter Type (from Nrsg): Peripheral IV Assessment/Plan Hospital Course 1. Right jaw swelling -Ultrasound shows what looks like residual thyroid tissue - no erythema, open wounds, discharge or drainage appreciated 2. Acute on chronic hypoxemic and hypercapnic on respiratory failure secondary to dislodged tracheostomy and pneumonia on chronic lung metastasis - CXR this am reviewed and shows stable pulmonary congestion and edema - Still remains on the vent - Pulmonology consultation appreciated - Continue on current antibiotics - Discussed with family aspirations most likely exacerbating pulmonary deterioration 2. Sepsis secondary to likely aspiration pneumonia - on antibiotics until 09/27, DC antibiotics tomorrow - WBC normal and remains afebrile 3. Acute metabolic encephalopathy secondary to hypercapnia-resolved - CT brain with no acute findings 4. Acute kidney injurystable - avoid nephrotoxic agents 5. Metastatic thyroid cancer status post surgical resection and radioactive iodine with known pulmonary metastasis - Follow-up with outpatient oncologist, patient did have a recent PET scan at [facility] and requested for records - Patient is status post tracheostomy several years ago 6. History of aspiration - Video swallow results noted and patient continues to aspirate. Per Speech she is still aspiration with thin liquids and less when head turned to left and given pureed. Still not safe for full meals but okay for oral gratification. - GI consulted for placement of PEG after son agreeable. However, now daughter and grandson would like to hold off on placement 7. Hypothyroidism - Continue Synthroid 8. Anemia chronic disease - Monitor 9. Hypertension - hold home meds in setting of low BP 10. Dysphagia - Speech on board and recommending pureed for gratification only - PEG placement pending once family agreeable to one plan. Son would like to proceed with PEG placement but daughter and grandson requesting to hold off. discussed need for nutrition given albumin levels dropping. Grandson believes its healthier for patient to be fasting Prophylaxis: Lovenox DC planning: - Family will need to discuss plan of care in terms of feeding patient given only safe for oral gratification due to high aspiration risk. All family members not in agreement for PEG placement -Family meeting tomorrow - Plan of care- once feeding issue addressed, family ultimately wants to take patient home likely on palliative hospice with vent management. Hospice arrangements already made Result Diagram: 09/27/18 0548 09/27/18 0547 Results 24hrs Laboratory Tests Test 09/27/18 05:47 09/27/18 05:48 Sodium Level 143 Potassium Level 3.4 L Chloride Level 105 Carbon Dioxide Level 27 Anion Gap 11 Blood Urea Nitrogen 8 Creatinine 1.00 Glucose Level 101 Calcium Level 8.3 L Phosphorus Level 3.0 Magnesium Level 1.9 Albumin 3.1 L White Blood Count 6.5 Red Blood Count 3.35 L Hemoglobin 9.6 L Hematocrit 30.7 L Mean Corpuscular Volume 91.6 Mean Corpuscular Hemoglobin 28.7 L Mean Corpuscular Hemoglobin Concent 31.3 L Red Cell Distribution Width 14.6 H Platelet Count 181 Mean Platelet Volume 10.2 Immature Granulocytes % 0.600 H Neutrophils % 60.8 Lymphocytes % 20.3 Monocytes % 9.6 Eosinophils % 7.9 H Basophils % 0.8 Nucleated Red Blood Cells % 0.0 Immature Granulocytes # 0.040 H Neutrophils # 4.0 Lymphocytes # 1.3 Monocytes # 0.6 Eosinophils # 0.5 Basophils # 0.1 Nucleated Red Blood Cells # 0.0 Subjective 24 Hr Interval Summary Constitutional: no complaints Exam/Review of Systems Exam Vitals Vital Signs Date Temp Pulse Resp B/P (MAP) Pulse Ox O2 O2 Flow FiO2 Time Delivery Rate 09/27/18 44 16:00 09/27/18 100/65 15:15 (77) 09/27/18 99.5 16 97 15:11 09/27/18 35 15:02 09/27/18 Mechanical 04:00 Ventilator Intake and Output 09/26/18 09/26/18 09/27/18 1515:00 23:00 07:00 IntakeIntake Total 150 ml 170 ml OutputOutput Total 750 ml 350 ml BalanceBalance -600 ml -180 ml Constitutional: alert Respiratory: clear to auscultation Cardiovascular: regular rate and rhythm Gastrointestinal: soft; No distended Musculoskeletal: nl extremities to inspection Results Results 24hrs Laboratory Tests Test 09/27/18 05:47 09/27/18 05:48 Sodium Level 143 Potassium Level 3.4 L Chloride Level 105 Carbon Dioxide Level 27 Anion Gap 11 Blood Urea Nitrogen 8 Creatinine 1.00 Glucose Level 101 Calcium Level 8.3 L Phosphorus Level 3.0 Magnesium Level 1.9 Albumin 3.1 L White Blood Count 6.5 Red Blood Count 3.35 L Hemoglobin 9.6 L Hematocrit 30.7 L Mean Corpuscular Volume 91.6 Mean Corpuscular Hemoglobin 28.7 L Mean Corpuscular Hemoglobin Concent 31.3 L Red Cell Distribution Width 14.6 H Platelet Count 181 Mean Platelet Volume 10.2 Immature Granulocytes % 0.600 H Neutrophils % 60.8 Lymphocytes % 20.3 Monocytes % 9.6 Eosinophils % 7.9 H Basophils % 0.8 Nucleated Red Blood Cells % 0.0 Immature Granulocytes # 0.040 H Neutrophils # 4.0 Lymphocytes # 1.3 Monocytes # 0.6 Eosinophils # 0.5 Basophils # 0.1 Nucleated Red Blood Cells # 0.0 Medications Medication Current Medications IV Flush (NS 3 ml) 3 ml PER PROTOCOL IV ; Start 09/13/18 at 07:00 Ondansetron HCl (Zofran Inj) 4 mg Q6H PRN IV NAUSEA AND/OR VOMITING; Start 09/13/18 at 07:00 Acetaminophen (Tylenol Tab) 650 mg Q6H PRN PO PAIN LEVEL 1-3 OR FEVER Last administered on 09/27/18 05:21; Admin Dose 650 MG; Start 09/13/18 at 07:00 Levothyroxine Sodium (Synthroid) 25 mcg BEFORE BREAKFAST PO Last administered on 09/27/18at 06:46; Admin Dose 25 MCG; Start 09/13/18 at 07:00 Pantoprazole (Protonix Tab) 40 mg DAILY@06 PO Last administered on 09/27/18at 06:46; Admin Dose 40 MG; Start 09/13/18 at 06:00 Levalbuterol (Xopenex Hfa) 1.25 puff Q4H PRN INH WHEEZING AND SOB Last administered on 09/25/18at 11:23; Admin Dose 1.25 PUFF; Start 09/13/18 at 10:00 Piperacillin Sod/ Tazobactam Sod 100 ml @ 200 mls/hr Q8 IVPB Last administered on 09/27/18at 13:21; Admin Dose 200 MLS/HR; Start 09/13/18 at 22:00; Stop 09/27/18 at 21:59 Diphenhydramine HCl (Benadryl) 25 mg Q6H PRN IV ITCHING Last administered on 09/25/18 21:06; Admin Dose 25 MG; Start 09/15/18 at 20:00 IV Flush (NS 10 ml) 10 ml PRN PRN IV FLUSH LINE; Start 09/16/18 at 16:30 Levalbuterol (Xopenex Hfa) 2 puff Q6H RESP THERAPY INH Last administered on 09/27/18 14:02; Admin Dose 2 PUFF; Start 09/17/18 at 20:00 Mupirocin (Bactroban) 1 applic BID TOP Last administered on 09/27/18 09:48; Admin Dose 1 APPLIC; Start 09/19/18 at 23:00 Docusate Sodium (Colace Liquid Cup) 100 mg BID PO Last administered on 09/23/18 09:00; Admin Dose 100 MG; Start 09/20/18 at 09:00 Mirtazapine (Remeron) 15 mg QHS PO Last administered on 09/26/18 20:51; Admin Dose 15 MG; Start 09/20/18 at 21:00 Vancomycin HCl (Vanco Iv Per Pharmacy) VANCOMYCIN PER PHARMACY PER PROTOCOL XX ; Start 09/22/18 at 12:30 Vancomycin HCl 250 ml @ 125 mls/hr Q24H IVPB Last administered on 09/27/18 14:47; Admin Dose 125 MLS/HR; Start 09/23/18 at 15:00 Enoxaparin Sodium (Lovenox) 100 mg Q24H SC Last administered on 09/27/18 05:50; Admin Dose 100 MG; Start 09/25/18 at 05:30 Nystatin (Nystatin Powder) 1 applic BID TOP Last administered on 09/27/18 09 :50; Admin Dose 1 APPLIC; Start 09/25/18 at 14:30 Lorazepam (Ativan) 1 mg Q4H PRN IV anxiety, agitation Last administered on 09/27/18 11:42; Admin Dose 1 MG; Start 09/25/18 at 20:00 Sodium Chloride 1,000 ml @ 40 mls/hr Q24H IV Last administered on 09/27/18 12:40; Admin Dose 40 MLS/HR; Start 09/27/18 at 12:30 MAINE ZAMORANO Sep 27, 2018 17:17
[2018-09-27] MEDS: POTASSIUM CHLORIDE 100 ML IVPB SCH ×2 (17:52→22:39)
[2018-09-27] MEDS: MIRTAZAPINE 15 MG TAB PO SCH (21:17)
[2018-09-28] VITALS (22 sets, daily range): BP systolic 90–137; BP diastolic 48–80; PULSE 50–71; RESP 16–18
[2018-09-28] MEDS: LEVALBUTEROL (HFA) 15 GM INHALER INH SCH ×4 (01:35→19:58)
[2018-09-28] MEDS: PANTOPRAZOLE (EC) 40 MG TAB PO SCH (06:06)
[2018-09-28] MEDS: ENOXAPARIN 100 MG/ML SYG SC SCH (06:10)
--- NOTE | 2018-09-28 07:00 | NUR ---
Pt/a/ox1-2, VS stable, afebrile, denied pain, appeared comfortable. Ativan was given x1 and pt sleep through out the shift. Family refused to have low air mattress on shift supervisor melting. reposition q2 hrs. KCL was given . hygiene done. Continue care plan.
[2018-09-28] MEDS: LEVOTHYROXINE 25 MCG TAB PO SCH (07:35)
[2018-09-28] MEDS: DOCUSATE SODIUM 10 MG/ML (10ML CUP) PO SCH ×2 (09:00→21:00)
[2018-09-28] MEDS: NYSTATIN 30 GM POWDER BTL TOP SCH ×2 (09:37→21:34)
[2018-09-28] MEDS: BALSAM PERU/CASTOR OIL 60 GM TUBE TOP SCH (09:37)
[2018-09-28] MEDS: MUPIROCIN 2% 22 GM OINT TOP SCH ×2 (09:52→21:34)
[2018-09-28] MEDS: SOD CHLORIDE 0.9% 1,000 ML IV SCH (09:59)
--- NOTE | 2018-09-28 10:49 | CONS ---
Assessment/Plan Assessment/Plan Assessment/Plan (Daily) Assessment and recommendations; 1. Patient with history of metastatic thyroid cancer admitted for pneumonia and sepsis with significant interval improvement. 2. Underlying hypercapnic respiratory failure precluding weaning from ventilator. Continue current supportive care. Agree with stopping antibiotics. Patient will undergo G-tube placement. Will benefit from transfer to rehab center. Dima meganver the patient's family wants to take her home. I again had a very detailed discussion with the patient's extended family at bedside and answered all their questions. Consultation Date/Type/Reason Admit Date/Time Sep 13, 2018 at 05:56 Initial Consult Date Type of Consult Pulmonary/critical care Date/Time of Note DATE: 09/28/18 TIME: 10:41 24 HR Interval Summary Free Text/Dictation Patient's condition is stable. Remains completely awake and alert. Has remaine d hemodynamically stable. General exam; elderly female, on ventilator via tracheostomy, awake and alert. Currently in no distress. Exam/Review of Systems Exam Vitals Vital Signs Date Temp Pulse Resp B/P (MAP) Pulse Ox O2 O2 Flow FiO2 Time Delivery Rate 09/28/18 60 16 98 35 09:30 09/28/18 97.8 90/48 (62) Mechanical 04:00 Ventilator Intake and Output 09/27/18 09/27/18 09/28/18 1515:00 23:00 07:00 IntakeIntake Total 850 ml BalanceBalance 850 ml Exam H HEENT exam; supple neck, no JVD. No lymphadenopathy. Midline trachea. No thyromegaly. Tracheostomy in place. Patient is edentulous. Chest exam; diminished breath sounds in lung bases. S1-S2 audible, no murmurs. Regular rhythm. Abdomen exam; soft, nontender. No organomegaly. Bowel sounds audible. Extremity exam; no edema. CHILD WATCH ATTENDANT exam; no focal deficit. Results Result Diagram: 09/27/18 0548 09/28/18 0709 Results 24hrs Laboratory Tests Test 09/28/18 07:09 Sodium Level 145 H Potassium Level 3.8 Chloride Level 105 Carbon Dioxide Level 27 Anion Gap 13 Blood Urea Nitrogen 8 Creatinine 0.94 Est Glomerular Filtrat Rate mL/min Glucose Level 68 #L Calcium Level 8.2 L Medications Medication Current Medications IV Flush (NS 3 ml) 3 ml PER PROTOCOL IV ; Start 09/13/18 at 07:00 Ondansetron HCl (Zofran Inj) 4 mg Q6H PRN IV NAUSEA AND/OR VOMITING; Start 09/13/18 at 07:00 Acetaminophen (Tylenol Tab) 650 mg Q6H PRN PO PAIN LEVEL 1-3 OR FEVER Last adm inistered on 09/27/18 21:17; Admin Dose 650 MG; Start 09/13/18 at 07:00 Levothyroxine Sodium (Synthroid) 25 mcg BEFORE BREAKFAST PO Last administered on 09/28/18 07:35; Admin Dose 25 MCG; Start 09/13/18 at 07:00 Pantoprazole (Protonix Tab) 40 mg DAILY@06 PO Last administered on 09/28/18 06:06; Admin Dose 40 MG; Start 09/13/18 at 06:00 Levalbuterol (Xopenex Hfa) 1.25 puff Q4H PRN INH WHEEZING AND SOB Last administered on 09/25/18 11:23; Admin Dose 1.25 PUFF; Start 09/13/18 at 10:00 Diphenhydramine HCl (Benadryl) 25 mg Q6H PRN IV ITCHING Last administered on 09/25/18 21:06; Admin Dose 25 MG; Start 09/15/18 at 20:00 IV Flush (NS 10 ml) 10 ml PRN PRN IV FLUSH LINE; Start 09/16/18 at 16:30 Levalbuterol (Xopenex Hfa) 2 puff Q6H RESP THERAPY INH Last administered on 09/28/18 07:29; Admin Dose 2 PUFF; Start 09/17/18 at 20:00 Mupirocin (Bactroban) 1 applic BID TOP Last administered on 09/28/18 09:52; Admin Dose 1 APPLIC; Start 09/19/18 at 23:00 Docusate Sodium (Colace Liquid Cup) 100 mg BID PO Last administered on 09/23/18 09:00; Admin Dose 100 MG; Start 09/20/18 at 09:00 Mirtazapine (Remeron) 15 mg QHS PO Last administered on 09/27/18 21:17; Admin Dose 15 MG; Start 09/20/18 at 21:00 Vancomycin HCl (Vanco Iv Per Pharmacy) VANCOMYCIN PER PHARMACY PER PROTOCOL XX ; Start 09/22/18 at 12:30 Vancomycin HCl 250 ml @ 125 mls/hr Q24H IVPB Last administered on 09/27/18at 14:47; Admin Dose 125 MLS/HR; Start 09/23/18 at 15:00 Enoxaparin Sodium (Lovenox) 100 mg Q24H SC Last administered on 09/28/18at 06:10; Admin Dose 100 MG; Start 09/25/18 at 05:30 Nystatin (Nystatin Powder) 1 applic BID TOP Last administered on 09/28/18at 09:37; Admin Dose 1 APPLIC; Start 09/25/18 at 14:30 Lorazepam (Ativan) 1 mg Q4H PRN IV anxiety, agitation Last administered on 09/27/18at 22:39; Admin Dose 1 MG; Start 09/25/18 at 20:00 Sodium Chloride 1,000 ml @ 50 mls/hr Q20H IV Last administered on 09/28/18 09:59; Admin Dose 50 MLS/HR; Start 09/27/18 at 12:30 BRANDEN SCOTT Sep 28, 2018 10:49
--- NOTE | 2018-09-28 10:50 | NUR ---
PT NOTE Therapy day number 4 Subjective Potential for pain Pain Scale NUMERIC Pain Intensity 0 (0-10) Patient Stated Goal for Pain Relief 0 (0-10) Pain Level Comment Pt denies pain Exercise Assessment Label Bilat Lower Extremity Exercise Type Active Assist ROM Additional Exercise Comments EOB: AP's, knee flex/ext, marches Exercise Start Time 10:50 Exercise End Time 11:05 Total Exercise Time 15 min (8-127) Transfer Training Start Time 11:05 Supine to Sit Maximum Assist Bed Mobility Sit to Supine Dependent Additional Mobility Comments Bed mobility w/HOB elevated using BR MaxA x 2 Transfer Training End Time 11:33 Total Transfer Training Time 28 min (8-127) Patient uses wheelchair Not Applicable Additional Gait Comments Refused OOB activities Weight Bearing Assessment Label Bilat Lower Extremity Weight Bearing Status Weight Bearing as Wolf Static Sitting Balance Fair plus Dynamic Sitting Balance Fair Safety Judgement Fair Activity Tolerance Fair Equipment Present A pump Tan Catheter IV pump Additional Equipment Present trach to vent; telemetry monitoring lines Post Treatment Pain Intensity 0 0-10 Variance Documentation SEE BELOW AND PT NOTE Total Treament Time 43 min (8-127) Total Minutes 43 Total Units 3 PT Technical Record Comment PT NOTE S: Pt stated, "I want to exercise." Agreeable for PT and cleared per MAURICIO Collins. O: Received pt in long sitting w/HOB elevated, alert w/family and caregiver present in room. Bed mobility w/HOB elevated using BR MaxA x 2 w/VCs/TCs for hand placement & sequence. Pt performed EOB AAROM, see above for exercises, 2 sets x 10 per exercise. Pt also performed static/dynamic sitting balance exercises: multidirectional reaching exercises. Tolerated sitting 10 minutes. Reported fatigue and dizziness, therefore requested to go BTB. Positioned pt for comfort, dependent 2PA. Call light/phone within reach, SCD's reapplied, bed alarmed, and all needs met. MAURICIO Collins informed of pt's status. A: Fair tolerance to tx. Noted SOB upon exertion, therefore pt was educated w/breathing exercises for energy conservation. Limited sitting due to fatigue and dizziness. Pt refused OOB activities today despite max encouragement and pt being educated on the benefits and importance of OOB activities, however pt agreeable to attempt tomorrow. P: Continue POC and progress as tolerated.
--- NOTE | 2018-09-28 11:46 | NUR ---
WOUND CARE FOLLOW UP: 82 year old female with history of respiratory failure, metastatic thyroid cancer s/p surgical resection, GERD, and hypertension. Patient trach to vent. Tan cath. Incontinent of bowel. WBC 6.5. H&H 9.6/30.7. Albumin 3.1. Dietitian on case. Dr. Zambrano on-case for hospice consult. Physical therapist in-room to assist to turning for skin assessment. ASSESSMENT: - Coccyx healing stage 2 pressure injury in combination with incontinent associated dermatitis. [id number]. Jaars wound bed. Periwound intact. No drainage. No odor. - Left lower buttock healing stage 2 pressure injury. Linear partial thickness area with scatter scabs. 1cmx0.4cmx<0.1cm. Periwound intact. No drainage. No odor. Continue previous RECOMMENDATIONS: - Coccyx and Left lower buttock stage 2: Cleanse with normal saline. Pat dry. Apply Venelex ointment BID. Apply 3M Cavilon no-sting skin barrier to periwound skin. Then, cover with foam border dressing. Change foam border dressing every 3 days. - Low air loss surface. - Reposition every 2 hours. - Pericare with barrier cream for each incontinent episode. - Float heels off bed with pillows. - Bilateral heels and bilateral ankles: Protect with Allevyn heels foam border dressings. Assess skin under dressing every shift. Change every 3days. Discussed assessment and plan of care with charge manager, Sandy. Will rely above with Karina MARTÍNEZ. GABRIELLE SoniN RN CWOCN
[2018-09-28] MEDS: LORAZEPAM 2 MG INJ IV PRN (15:40)
--- NOTE | 2018-09-28 16:46 | CONS ---
Assessment/Plan Assessment/Plan Hospital Course (Demo Recall) Assessment: Dysphagia with history of aspiration Metastatic thyroid cancer -status post surgical resection/radioactive iodine -with known pulmonary metastasis Respiratory failure with tracheostomy mechanical ventilation Sepsis secondary to likely aspiration pneumonia- ABX d/x 09/27 Acute kidney injurystable Hypothyroidism Anemia chronic disease Plan: N.p.o. after midnight Plan for PEG placement tomorrow- check INR in am Endoscopy - risks/benefits/alternatives/indications of procedure and sedation/anesthesia discussed with patient's family who states understanding and gives informed consent to proceed. Patient seen in collaboration with Dr. Cox Consultation Date/Type/Reason Admit Date/Time Sep 13, 2018 at 05:56 Date of Consultation: Sep 28, 2018 Type of Consult GI Reason for Consultation Dysphagia requiring PEG Date/Time of Note DATE: 09/28/18 TIME: 16:34 Hx of Present Illness This is an 82-year-old female with past medical history of metastatic thyroid cancer status post resection and radioactive iodine with known pulmonary metastasis, hypothyroidism, chronic anemia, chronic respiratory failure with tracheostomy on mechanical ventilation, and history of aspiration evaluated by speech therapy who states patient is not safe for full p.o. diet recommends considering PEG placement. After speaking with the physician family is now agreeable to PEG placement I discussed procedure as well as risk/benefits alternatives all questions were answered family verbalized understanding and is agreeable to procedure and will plan for PEG placement. Review of Systems: A 12 system, review was conducted and is negative except as noted in the HPI or here. Past Medical History Medical History: hypertension Home Meds Reported Medications Atorvastatin* (Atorvastatin*) 40 Mg Tablet, 40 MG ORAL HS 09/13/18 Gabapentin* (Gabapentin*) 100 Mg Capsule, 100 MG ORAL BID PRN for NERVE PAIN 09/13/18 Aspirin* (Aspirin* EC) 81 Mg Tablet., 81 MG ORAL DAILY 09/13/18 Colchicine* (Colcrys*) 0.6 Mg Tablet, 0.6 MG PO Q8H PRN for gout, TAB 09/13/18 Lorazepam* (Ativan*) 2 Mg Tablet, 2 MG PO BID PRN for ANXIETY, #30 TAB 09/13/18 Ibuprofen* (Ibuprofen*) 600 Mg Tablet, 600 MG ORAL Q6H PRN for PAIN LEVEL 1-5 09/13/18 Pioglitazone Hcl* (Pioglitazone Hcl*) 45 Mg Tablet, 45 MG ORAL DAILY 09/13/18 Ondansetron (Ondansetron Odt) 8 Mg Tab.rapdis, 8 MG PO Q6H PRN for NAUSEA AND/OR VOMITING, TAB 07/02/18 Levalbuterol* (Xopenex* HFA) 15 Gm Inha, 2 PUFFS INH Q4H PRN for WHEEZING AND SOB, INHALER 07/02/18 Spironolactone* (Aldactone*) 25 Mg Tablet, 12.5 MG PO DAILY, #30 TAB 07/02/18 Levothyroxine Sodium* (Levothyroxine Sodium*) 25 Mcg Tablet, 25 MCG PO BEFORE BREAKFAST, #30 TAB 07/02/18 Quetiapine Fumarate* (Seroquel*) 50 Mg Tablet, 50 MG PO HS, TAB 07/02/18 Sennosides* (Senna Lax*) 8.6 Mg Tablet, 1 TAB PO DAILY PRN for CONSTIPATION, TAB 07/02/18 Potassium Chloride* (Potassium Chloride*) 20 Meq Tablet.er, 20 MEQ PO DAILY, TAB.SA 07/02/18 Calcium Carbonate ([id number]) 500 Mg Tablet, 500 MG PO TID, TAB 07/02/18 Esomeprazole Mag Trihydrate (Nexium) 40 Mg Capsule.dr, 40 MG PO AC BREAKFAST, #30 CAP 07/02/18 Metoprolol Succinate* (Toprol XL*) 25 Mg Tab.sr.24h, 25 MG PO DAILY, #30 TAB 07/02/18 Magnesium Chloride* (Mag 64*) 64 Mg Tabsr, 64 MG PO DAILY, TAB 07/02/18 Furosemide* (Furosemide*) 20 Mg Tablet, 20 MG PO DAILY, #60 TAB 07/02/18 Ferrous Sulfate* (Ferrous Sulfate*) 325 Mg Tabec, 325 MG PO Q48H, TAB 07/02/18 Medications Current Medications IV Flush (NS 3 ml) 3 ml PER PROTOCOL IV ; Start 09/13/18 at 07:00 Ondansetron HCl (Zofran Inj) 4 mg Q6H PRN IV NAUSEA AND/OR VOMITING; Start 09/13/18 at 07:00 Acetaminophen (Tylenol Tab) 650 mg Q6H PRN PO PAIN LEVEL 1-3 OR FEVER Last administered on 09/27/18at 21:17; Admin Dose 650 MG; Start 09/13/18 at 07:00 Levothyroxine Sodium (Synthroid) 25 mcg BEFORE BREAKFAST PO Last administered on 09/28/18 07:35; Admin Dose 25 MCG; Start 09/13/18 at 07:00 Pantoprazole (Protonix Tab) 40 mg DAILY@06 PO Last administered on 09/28/18 06:06; Admin Dose 40 MG; Start 09/13/18 at 06:00 Levalbuterol (Xopenex Hfa) 1.25 puff Q4H PRN INH WHEEZING AND SOB Last adm inistered on 09/25/18 11:23; Admin Dose 1.25 PUFF; Start 09/13/18 at 10:00 Diphenhydramine HCl (Benadryl) 25 mg Q6H PRN IV ITCHING Last administered on 09/25/18 21:06; Admin Dose 25 MG; Start 09/15/18 at 20:00 IV Flush (NS 10 ml) 10 ml PRN PRN IV FLUSH LINE; Start 09/16/18 at 16:30 Levalbuterol (Xopenex Hfa) 2 puff Q6H RESP THERAPY INH Last administered on 09/28/18 13:56; Admin Dose 2 PUFF; Start 09/17/18 at 20:00 Mupirocin (Bactroban) 1 applic BID TOP Last administered on 09/28/18 09:52; Admin Dose 1 APPLIC; Start 09/19/18 at 23:00 Docusate Sodium (Colace Liquid Cup) 100 mg BID PO Last administered on 09/23/18 09:00; Admin Dose 100 MG; Start 09/20/18 at 09:00 Mirtazapine (Remeron) 15 mg QHS PO Last administered on 09/27/18 21:17; Admin Dose 15 MG; Start 09/20/18 at 21:00 Enoxaparin Sodium (Lovenox) 100 mg Q24H SC Last administered on 09/28/18 06:10; Admin Dose 100 MG; Start 09/25/18 at 05:30 Nystatin (Nystatin Powder) 1 applic BID TOP Last administered on 09/28/18 09: 37; Admin Dose 1 APPLIC; Start 09/25/18 at 14:30 Lorazepam (Ativan) 1 mg Q4H PRN IV anxiety, agitation Last administered on 09/28/18at 15:40; Admin Dose 1 MG; Start 09/25/18 at 20:00 Sodium Chloride 1,000 ml @ 50 mls/hr Q20H IV Last administered on 09/28/18at 09:59; Admin Dose 50 MLS/HR; Start 09/27/18 at 12:30 Allergies: Coded Allergies: metronidazole (Verified Allergy, Intermediate, 09/25/18) prednisone (Verified Allergy, Mild, HALLUCINATIONS, 12/04/13) clindamycin (Verified Allergy, Unknown, 12/10/16) iodine (Verified Allergy, Unknown, RASHES, 07/03/18) morphine (Verified Allergy, Unknown, RASHES, 07/03/18) Past Surgical History Past Surgical Hx: other Social History Alcohol Use: none Smoking Status: Never smoker Drug Use: none Exam/Review of Systems Exam Vitals Vital Signs Date Temp Pulse Resp B/P (MAP) Pulse Ox O2 O2 Flow FiO2 Time Delivery Rate 09/28/18 63 16:24 09/28/18 35 16:00 09/28/18 99.0 15:45 09/28/18 18 114/64 99 15:41 (81) 09/28/18 Mechanical 04:00 Ventilator Intake and Output 09/27/18 09/27/18 09/28/18 1515:00 23:00 07:00 IntakeIntake Total 850 ml BalanceBalance 850 ml Constitutional: alert, oriented Head: normocephalic Eyes: nl conjunctiva ENMT: other (Tracheostomy on mechanical ventilation) Neck: masses (left neck masses x2), other Respiratory: normal air movement Cardiovascular: regular rate and rhythm Gastrointestinal: soft, bowel sounds; No ascites, No distended, No firm, No hepatomegaly Results Result Diagram: 09/27/18 0548 09/28/18 0709 Results 24hrs Laboratory Tests Test 09/28/18 07:09 Sodium Level 145 H Potassium Level 3.8 Chloride Level 105 Carbon Dioxide Level 27 Anion Gap 13 Blood Urea Nitrogen 8 Creatinine 0.94 Est Glomerular Filtrat Rate mL/min Glucose Level 68 #L Calcium Level 8.2 L Medications Medication Current Medications IV Flush (NS 3 ml) 3 ml PER PROTOCOL IV ; Start 09/13/18 at 07:00 Ondansetron HCl (Zofran Inj) 4 mg Q6H PRN IV NAUSEA AND/OR VOMITING; Start 09/13/18 at 07:00 Acetaminophen (Tylenol Tab) 650 mg Q6H PRN PO PAIN LEVEL 1-3 OR FEVER Last administered on 09/27/18 21:17; Admin Dose 650 MG; Start 09/13/18 at 07:00 Levothyroxine Sodium (Synthroid) 25 mcg BEFORE BREAKFAST PO Last administered on 09/28/18 07:35; Admin Dose 25 MCG; Start 09/13/18 at 07:00 Pantoprazole (Protonix Tab) 40 mg DAILY@06 PO Last administered on 09/28/18 06:06; Admin Dose 40 MG; Start 09/13/18 at 06:00 Levalbuterol (Xopenex Hfa) 1.25 puff Q4H PRN INH WHEEZING AND SOB Last administered on 09/25/18 11:23; Admin Dose 1.25 PUFF; Start 09/13/18 at 10:00 Diphenhydramine HCl (Benadryl) 25 mg Q6H PRN IV ITCHING Last administered on 09/25/18 21:06; Admin Dose 25 MG; Start 09/15/18 at 20:00 IV Flush (NS 10 ml) 10 ml PRN PRN IV FLUSH LINE; Start 09/16/18 at 16:30 Levalbuterol (Xopenex Hfa) 2 puff Q6H RESP THERAPY INH Last administered on 09/28/18 13:56; Admin Dose 2 PUFF; Start 09/17/18 at 20:00 Mupirocin (Bactroban) 1 applic BID TOP Last administered on 09/28/18 09:52; Admin Dose 1 APPLIC; Start 09/19/18 at 23:00 Docusate Sodium (Colace Liquid Cup) 100 mg BID PO Last administered on 09/23/18 09:00; Admin Dose 100 MG; Start 09/20/18 at 09:00 Mirtazapine (Remeron) 15 mg QHS PO Last administered on 09/27/18 21:17; Admin Dose 15 MG; Start 09/20/18 at 21:00 Enoxaparin Sodium (Lovenox) 100 mg Q24H SC Last administered on 09/28/18 06:10; Admin Dose 100 MG; Start 09/25/18 at 05:30 Nystatin (Nystatin Powder) 1 applic BID TOP Last administered on 09/28/18at 09:37; Admin Dose 1 APPLIC; Start 09/25/18 at 14:30 Lorazepam (Ativan) 1 mg Q4H PRN IV anxiety, agitation Last administered on 09/28/18at 15:40; Admin Dose 1 MG; Start 09/25/18 at 20:00 Sodium Chloride 1,000 ml @ 50 mls/hr Q20H IV Last administered on 09/28/18at 09:59; Admin Dose 50 MLS/HR; Start 09/27/18 at 12:30 CASS NOLAND Sep 28, 2018 16:45
--- NOTE | 2018-09-28 17:06 | PN ---
Date/Time of Note Date/Time of Note DATE: 09/28/18 TIME: 17:02 Assessment/Plan VTE Prophylaxis Risk score (from Nsg)>0 risk: 9 SCD applied (from Nsg): Yes Pharmacological prophylaxis: LMWH Lines/Catheters IV Catheter Type (from Nrsg): Peripheral IV Assessment/Plan Hospital Course 1. Right jaw swelling -Ultrasound shows what looks like residual thyroid tissue - no erythema, open wounds, discharge or drainage appreciated 2. Acute on chronic hypoxemic and hypercapnic on respiratory failure secondary to dislodged tracheostomy and pneumonia on chronic lung metastasis -Pulmonology believes the patient will need to continue vent support -DC antibiotics -Discussed with family aspirations most likely exacerbating pulmonary deterioration 2. Sepsis secondary to likely aspiration pneumonia-resolved -Status post antibiotics - WBC normal and remains afebrile 3. Acute metabolic encephalopathy secondary to hypercapnia-resolved - CT brain with no acute findings 4. Acute kidney injurystable - avoid nephrotoxic agents 5. Metastatic thyroid cancer status post surgical resection and radioactive iodine with known pulmonary metastasis - Follow-up with outpatient oncologist, patient did have a recent PET scan at [facility] and requested for records - Patient is status post tracheostomy several years ago 6. History of aspiration - Video swallow results noted and patient continues to aspirate. Per Speech she is still aspiration with thin liquids and less when head turned to left and given pureed. Still not safe for full meals but okay for oral gratification. - GI reconsulted for placement of PEG, family now agreeable 7. Hypothyroidism - Continue Synthroid 8. Anemia chronic disease - Monitor 9. Hypertension - hold home meds in setting of low BP 10. Dysphagia - Speech on board and recommending pureed for gratification only - PEG placement pending, family now agreeable Prophylaxis: Lovenox DC planning: Family would like to take patient back home with vent, tube feeds and hospice, director of social work to arrange with hospice agency Result Diagram: 09/27/18 0548 09/28/18 0709 Results 24hrs Laboratory Tests Test 09/28/18 07:09 Sodium Level 145 H Potassium Level 3.8 Chloride Level 105 Carbon Dioxide Level 27 Anion Gap 13 Blood Urea Nitrogen 8 Creatinine 0.94 Est Glomerular Filtrat Rate mL/min Glucose Level 68 #L Calcium Level 8.2 L Subjective 24 Hr Interval Summary Constitutional: no complaints Exam/Review of Systems Exam Vitals Vital Signs Date Temp Pulse Resp B/P (MAP) Pulse Ox O2 O2 Flow FiO2 Time Delivery Rate 09/28/18 63 16:24 09/28/18 35 16:00 09/28/18 99.0 15:45 09/28/18 18 114/64 99 15:41 (81) 09/28/18 Mechanical 04:00 Ventilator Intake and Output 09/27/18 09/27/18 09/28/18 1515:00 23:00 07:00 IntakeIntake Total 850 ml BalanceBalance 850 ml Constitutional: alert Respiratory: clear to auscultation Cardiovascular: regular rate and rhythm Gastrointestinal: soft; No distended Musculoskeletal: nl extremities to inspection Results Results 24hrs Laboratory Tests Test 09/28/18 07:09 Sodium Level 145 H Potassium Level 3.8 Chloride Level 105 Carbon Dioxide Level 27 Anion Gap 13 Blood Urea Nitrogen 8 Creatinine 0.94 Est Glomerular Filtrat Rate mL/min Glucose Level 68 #L Calcium Level 8.2 L Medications Medication Current Medications IV Flush (NS 3 ml) 3 ml PER PROTOCOL IV ; Start 09/13/18 at 07:00 Ondansetron HCl (Zofran Inj) 4 mg Q6H PRN IV NAUSEA AND/OR VOMITING; Start 09/13/18 at 07:00 Acetaminophen (Tylenol Tab) 650 mg Q6H PRN PO PAIN LEVEL 1-3 OR FEVER Last administered on 09/27/18at 21:17; Admin Dose 650 MG; Start 09/13/18 at 07:00 Levothyroxine Sodium (Synthroid) 25 mcg BEFORE BREAKFAST PO Last administered on 09/28/18 07:35; Admin Dose 25 MCG; Start 09/13/18 at 07:00 Pantoprazole (Protonix Tab) 40 mg DAILY@06 PO Last administered on 09/28/18 06:06; Admin Dose 40 MG; Start 09/13/18 at 06:00 Levalbuterol (Xopenex Hfa) 1.25 puff Q4H PRN INH WHEEZING AND SOB Last adm inistered on 09/25/18 11:23; Admin Dose 1.25 PUFF; Start 09/13/18 at 10:00 Diphenhydramine HCl (Benadryl) 25 mg Q6H PRN IV ITCHING Last administered on 09/25/18 21:06; Admin Dose 25 MG; Start 09/15/18 at 20:00 IV Flush (NS 10 ml) 10 ml PRN PRN IV FLUSH LINE; Start 09/16/18 at 16:30 Levalbuterol (Xopenex Hfa) 2 puff Q6H RESP THERAPY INH Last administered on 09/28/18 13:56; Admin Dose 2 PUFF; Start 09/17/18 at 20:00 Mupirocin (Bactroban) 1 applic BID TOP Last administered on 09/28/18 09:52; Admin Dose 1 APPLIC; Start 09/19/18 at 23:00 Docusate Sodium (Colace Liquid Cup) 100 mg BID PO Last administered on 09/23/18 09:00; Admin Dose 100 MG; Start 09/20/18 at 09:00 Mirtazapine (Remeron) 15 mg QHS PO Last administered on 09/27/18 21:17; Admin Dose 15 MG; Start 09/20/18 at 21:00 Enoxaparin Sodium (Lovenox) 100 mg Q24H SC Last administered on 09/28/18 06:10; Admin Dose 100 MG; Start 09/25/18 at 05:30 Nystatin (Nystatin Powder) 1 applic BID TOP Last administered on 09/28/18 09: 37; Admin Dose 1 APPLIC; Start 09/25/18 at 14:30 Lorazepam (Ativan) 1 mg Q4H PRN IV anxiety, agitation Last administered on 09/28/18 15:40; Admin Dose 1 MG; Start 09/25/18 at 20:00 Sodium Chloride 1,000 ml @ 50 mls/hr Q20H IV Last administered on 09/28/18 09:59; Admin Dose 50 MLS/HR; Start 09/27/18 at 12:30 MAINE ZAMORANO Sep 28, 2018 17:06
[2018-09-28] MEDS: MIRTAZAPINE 15 MG TAB PO SCH (21:33)
[2018-09-29] VITALS (23 sets, daily range): BP systolic 104–131; BP diastolic 51–87; PULSE 53–75; RESP 16–18
[2018-09-29] MEDS: LEVALBUTEROL (HFA) 15 GM INHALER INH SCH ×4 (01:07→19:33)
[2018-09-29] MEDS: LEVOTHYROXINE 25 MCG TAB PO SCH (06:42)
[2018-09-29] MEDS: PANTOPRAZOLE (EC) 40 MG TAB PO SCH (06:42)
[2018-09-29] MEDS: SOD CHLORIDE 0.9% 1,000 ML IV SCH (06:43)
[2018-09-29] MEDS: ENOXAPARIN 100 MG/ML SYG SC SCH (06:57)
--- NOTE | 2018-09-29 07:00 | NUR ---
Pt/a/ox1-2, VS stable, afebrile,Tolerate to vent setting, denied pain, appeared comfortable through out the night . Grandson at bedside , he concerned for SBP 130. He kept pressing the machine to check the BP. He also thought the machine was not working properly whenever see the number '0" on respiration. endorse to am nurse to give protonic and levothyroxine, pt was asleep. .Plan to have PEG placement today . Continue to monitor.
[2018-09-29] MEDS: NYSTATIN 30 GM POWDER BTL TOP SCH ×2 (08:57→20:17)
[2018-09-29] MEDS: BALSAM PERU/CASTOR OIL 60 GM TUBE TOP SCH (08:57)
[2018-09-29] MEDS: DOCUSATE SODIUM 10 MG/ML (10ML CUP) PO SCH ×2 (08:57→20:17)
[2018-09-29] MEDS: MUPIROCIN 2% 22 GM OINT TOP SCH ×2 (08:57→20:19)
[2018-09-29] MEDS: LORAZEPAM 2 MG INJ IV PRN ×3 (10:13→22:36)
--- NOTE | 2018-09-29 11:25 | NUR ---
PT NOTE Attempted to see pt in am. PT ashutosh Kincaid assisting with translation, caregiver at bedside. Pt adamantly refused to participate in physical therapy this date, refusing bed mobility and bed-level exercise. Pt educated in benefit of PT, but continued to refuse. Pt inquired about decreasing PT frequency, will follow up tomorrow as unable to assess pt's functional mobility today. Communicated with RN.
[2018-09-29] MEDS: POTASSIUM CHLORIDE 100 ML IVPB SCH ×2 (11:32→13:31)
--- NOTE | 2018-09-29 14:09 | NUR ---
nurse notes Per daughter request to re-schedule the PEG placement for tomorrow, spoke with Poornima from GI. notified regarding the daughter's request. PEG placement is rescheduled for tomorrow 09/29/18. will endorse accordingly
--- NOTE | 2018-09-29 15:40 | NUR ---
SW: FAMILY CONFERENCE SW was initially consulted to speak with family regarding their request for hospice. However, FELICIA spoke with patient's daughter/ surrogate spokesperson Gertrudis [phone], who states that the family has changed their mind and they want to send patient to rehab instead. FELICIA discussed with Dr. Beavers, who requested for a family conference to be arranged. FELICIA arranged a family conference for 3:00pm today with this web content writer, Dr. Beavers and CM Stacy, including patient's daughter Gertrudis, son and other family at bedside. Discussed in today's family conference was patient's medical condition and need for PEG tube, and consequences and risks of not getting the procedure. Family state that they considered hospice, but they changed their mind because after consulting with crop duster helper, they decided that it is better for patient to go to a facility, be weaned off of the vent first before going home if possible. The family requesting referral be made to [facility] for respiratory rehab. Also, Dr. Beavers spoke with family about the importance of recommendations provided by medical team. They stated that they do take into consideration what the physicians state, and are willing to become more receptive and not giving push back to most recommendations. At this time, no other questions/ concerns were reported. Plan is for CM to make referral to [facility]. Plan for PEG tube. SW remains available as needed.
--- NOTE | 2018-09-29 15:47 | PN ---
Date/Time of Note Date/Time of Note DATE: 09/29/18 TIME: 15:45 Assessment/Plan VTE Prophylaxis Risk score (from Nsg)>0 risk: 8 SCD applied (from Ns): Yes Pharmacological prophylaxis: other (scds) Lines/Catheters IV Catheter Type (from Nrsg): Peripheral IV Urinary Cath still in place: Yes Reason Cath still needed: other (indicate) (monitor output) Assessment/Plan Hospital Course Assessment Dysphagia with history of aspiration Metastatic thyroid cancer -status post surgical resection/radioactive iodine -with known pulmonary metastasis Respiratory failure with tracheostomy mechanical ventilation Sepsis secondary to likely aspiration pneumonia- ABX d/x 09/27 Acute kidney injurystable Hypothyroidism Anemia chronic disease Plan: per family wishes PEG canceled today - will reschedule for tomorrow Pt is NPO Endoscopy - risks/benefits/alternatives/indications of procedure and sedation/anesthesia discussed with patient's family who states understanding and gives informed consent to proceed. Patient seen in collaboration with Dr. Cox/Saud Subjective: Course reviewed with nursing staff Patient interviewed and examined All labs, imaging and other results reviewed The patient appears comfortable, in no acute distress Family at bedside. Pt apparently did not feel well this am. Per family request we rescheduled PEG for tomorrow Constitutional: alert, oriented Head: normocephalic Eyes: nl conjunctiva ENMT: other (Tracheostomy on mechanical ventilation) Neck: masses (left neck masses x2), other Respiratory: normal air movement Cardiovascular: regular rate and rhythm Gastrointestinal: soft, bowel sounds; No ascites, No distended, No firm, No hepatomegaly Result Diagram: 09/29/18 0653 09/29/18 0653 Results 24hrs Laboratory Tests Test 09/29/18 06:53 White Blood Count 6.2 Red Blood Count 3.47 L Hemoglobin 9.7 L Hematocrit 31.9 L Mean Corpuscular Volume 91.9 Mean Corpuscular Hemoglobin 28.0 L Mean Corpuscular Hemoglobin Concent 30.4 L Red Cell Distribution Width 14.8 H Platelet Count 213 Mean Platelet Volume 10.1 Immature Granulocytes % 0.300 Neutrophils % 55.4 Lymphocytes % 23.8 Monocytes % 10.5 Eosinophils % 9.4 H Basophils % 0.6 Nucleated Red Blood Cells % 0.0 Immature Granulocytes # 0.020 Neutrophils # 3.4 Lymphocytes # 1.5 Monocytes # 0.7 Eosinophils # 0.6 H Basophils # 0.0 Nucleated Red Blood Cells # 0.0 Prothrombin Time 14.7 Prothrombin Time Ratio 1.1 INR International Normalized Ratio 1.14 Sodium Level 144 Potassium Level 3.3 L Chloride Level 109 Carbon Dioxide Level 26 Anion Gap 9 Blood Urea Nitrogen 8 Creatinine 0.88 Est Glomerular Filtrat Rate mL/min Glucose Level 70 Calcium Level 8.7 Exam/Review of Systems Exam Vitals Vital Signs Date Temp Pulse Resp B/P (MAP) Pulse Ox O2 O2 Flow FiO2 Time Delivery Rate 09/29/18 98.1 75 17 112/61 100 15:39 (78) 09/29/18 35 12:06 09/28/18 Mechanical 04:00 Ventilator Intake and Output 09/28/18 09/28/18 09/29/18 1414:59 22:59 06:59 IntakeIntake Total 1000 ml OutputOutput Total 120 ml BalanceBalance -120 ml 1000 ml Results Results 24hrs Laboratory Tests Test 09/29/18 06:53 White Blood Count 6.2 Red Blood Count 3.47 L Hemoglobin 9.7 L Hematocrit 31.9 L Mean Corpuscular Volume 91.9 Mean Corpuscular Hemoglobin 28.0 L Mean Corpuscular Hemoglobin Concent 30.4 L Red Cell Distribution Width 14.8 H Platelet Count 213 Mean Platelet Volume 10.1 Immature Granulocytes % 0.300 Neutrophils % 55.4 Lymphocytes % 23.8 Monocytes % 10.5 Eosinophils % 9.4 H Basophils % 0.6 Nucleated Red Blood Cells % 0.0 Immature Granulocytes # 0.020 Neutrophils # 3.4 Lymphocytes # 1.5 Monocytes # 0.7 Eosinophils # 0.6 H Basophils # 0.0 Nucleated Red Blood Cells # 0.0 Prothrombin Time 14.7 Prothrombin Time Ratio 1.1 INR International Normalized Ratio 1.14 Sodium Level 144 Potassium Level 3.3 L Chloride Level 109 Carbon Dioxide Level 26 Anion Gap 9 Blood Urea Nitrogen 8 Creatinine 0.88 Est Glomerular Filtrat Rate mL/min Glucose Level 70 Calcium Level 8.7 Medications Medication Current Medications IV Flush (NS 3 ml) 3 ml PER PROTOCOL IV ; Start 09/13/18 at 07:00 Ondansetron HCl (Zofran Inj) 4 mg Q6H PRN IV NAUSEA AND/OR VOMITING; Start 09/13/18 at 07:00 Acetaminophen (Tylenol Tab) 650 mg Q6H PRN PO PAIN LEVEL 1-3 OR FEVER Last administered on 09/27/18 21:17; Admin Dose 650 MG; Start 09/13/18 at 07:00 Levothyroxine Sodium (Synthroid) 25 mcg BEFORE BREAKFAST PO Last administered on 09/29/18 06:42; Admin Dose 25 MCG; Start 09/13/18 at 07:00 Pantoprazole (Protonix Tab) 40 mg DAILY@06 PO Last administered on 09/29/18 06:42; Admin Dose 40 MG; Start 09/13/18 at 06:00 Levalbuterol (Xopenex Hfa) 1.25 puff Q4H PRN INH WHEEZING AND SOB Last administered on 09/25/18 11:23; Admin Dose 1.25 PUFF; Start 09/13/18 at 10:00 Diphenhydramine HCl (Benadryl) 25 mg Q6H PRN IV ITCHING Last administered on 09/25/18 21:06; Admin Dose 25 MG; Start 09/15/18 at 20:00 IV Flush (NS 10 ml) 10 ml PRN PRN IV FLUSH LINE; Start 09/16/18 at 16:30 Levalbuterol (Xopenex Hfa) 2 puff Q6H RESP THERAPY INH Last administered on 09/29/18 07:37; Admin Dose 2 PUFF; Start 09/17/18 at 20:00 Mupirocin (Bactroban) 1 applic BID TOP Last administered on 09/29/18 08:57; Admin Dose 1 APPLIC; Start 09/19/18 at 23:00 Docusate Sodium (Colace Liquid Cup) 100 mg BID PO Last administered on 09/29/18 08:57; Admin Dose 100 MG; Start 09/20/18 at 09:00 Mirtazapine (Remeron) 15 mg QHS PO Last administered on 09/28/18 21:33; Admin Dose 15 MG; Start 09/20/18 at 21:00 Enoxaparin Sodium (Lovenox) 100 mg Q24H SC Last administered on 09/29/18 06:57; Admin Dose 100 MG; Start 09/25/18 at 05:30 Nystatin (Nystatin Powder) 1 applic BID TOP Last administered on 09/29/18 08:57; Admin Dose 1 APPLIC; Start 09/25/18 at 14:30 Lorazepam (Ativan) 1 mg Q4H PRN IV anxiety, agitation Last administered on 09/29/18at 10:13; Admin Dose 1 MG; Start 09/25/18 at 20:00 Sodium Chloride 1,000 ml @ 50 mls/hr Q20H IV Last administered on 09/29/18at 06:43; Admin Dose 50 MLS/HR; Start 09/27/18 at 12:30 CASS NOLAND Sep 29, 2018 15:47
--- NOTE | 2018-09-29 16:25 | PN ---
Date/Time of Note Date/Time of Note DATE: 09/29/18 TIME: 16:23 Assessment/Plan VTE Prophylaxis Risk score (from Nsg)>0 risk: 8 SCD applied (from Nsg): Yes Pharmacological prophylaxis: LMWH Lines/Catheters IV Catheter Type (from Nrsg): Peripheral IV Assessment/Plan Hospital Course 1. Right jaw swelling -Ultrasound shows what looks like residual thyroid tissue - no erythema, open wounds, discharge or drainage appreciated 2. Acute on chronic hypoxemic and hypercapnic on respiratory failure secondary to dislodged tracheostomy and pneumonia on chronic lung metastasis -Pulmonology believes the patient will need to continue vent support -Status post antibiotics -Discussed with family aspirations most likely exacerbating pulmonary deterioration 2. Sepsis secondary to likely aspiration pneumonia-resolved -Status post antibiotics - WBC normal and remains afebrile 3. Acute metabolic encephalopathy secondary to hypercapnia-resolved - CT brain with no acute findings 4. Acute kidney injurystable - avoid nephrotoxic agents 5. Metastatic thyroid cancer status post surgical resection and radioactive iodine with known pulmonary metastasis - Follow-up with outpatient oncologist, patient did have a recent PET scan at [facility] and requested for records - Patient is status post tracheostomy several years ago 6. History of aspiration - Video swallow results noted and patient continues to aspirate. Per Speech she is still aspiration with thin liquids and less when head turned to left and given pureed. Still not safe for full meals but okay for oral gratification. - GI reconsulted for placement of PEG, family now agreeable 7. Hypothyroidism - Continue Synthroid 8. Anemia chronic disease - Monitor 9. Hypertension - hold home meds in setting of low BP 10. Dysphagia - Speech on board and recommending pureed for gratification only - PEG placement pending, family now agreeable Prophylaxis: Lovenox DC planning: Plan is for PEG tube tomorrow, family now interested in LTAC, nurse case management to arrange for DC to [place] Result Diagram: 09/29/18 0653 09/29/18 0653 Results 24hrs Laboratory Tests Test 09/29/18 06:53 White Blood Count 6.2 Red Blood Count 3.47 L Hemoglobin 9.7 L Hematocrit 31.9 L Mean Corpuscular Volume 91.9 Mean Corpuscular Hemoglobin 28.0 L Mean Corpuscular Hemoglobin Concent 30.4 L Red Cell Distribution Width 14.8 H Platelet Count 213 Mean Platelet Volume 10.1 Immature Granulocytes % 0.300 Neutrophils % 55.4 Lymphocytes % 23.8 Monocytes % 10.5 Eosinophils % 9.4 H Basophils % 0.6 Nucleated Red Blood Cells % 0.0 Immature Granulocytes # 0.020 Neutrophils # 3.4 Lymphocytes # 1.5 Monocytes # 0.7 Eosinophils # 0.6 H Basophils # 0.0 Nucleated Red Blood Cells # 0.0 Prothrombin Time 14.7 Prothrombin Time Ratio 1.1 INR International Normalized Ratio 1.14 Sodium Level 144 Potassium Level 3.3 L Chloride Level 109 Carbon Dioxide Level 26 Anion Gap 9 Blood Urea Nitrogen 8 Creatinine 0.88 Est Glomerular Filtrat Rate mL/min Glucose Level 70 Calcium Level 8.7 Subjective 24 Hr Interval Summary Constitutional: no complaints Exam/Review of Systems Exam Vitals Vital Signs Date Temp Pulse Resp B/P (MAP) Pulse Ox O2 O2 Flow FiO2 Time Delivery Rate 09/29/18 35 16:03 09/29/18 98.1 75 17 112/61 100 15:39 (78) 09/28/18 Mechanical 04:00 Ventilator Intake and Output 09/28/18 09/28/18 09/29/18 1515:00 23:00 07:00 IntakeIntake Total 1000 ml OutputOutput Total 120 ml 225 ml BalanceBalance -120 ml 775 ml Constitutional: alert, oriented Respiratory: clear to auscultation Cardiovascular: regular rate and rhythm Gastrointestinal: soft; No distended Musculoskeletal: nl extremities to inspection Results Results 24hrs Laboratory Tests Test 09/29/18 06:53 White Blood Count 6.2 Red Blood Count 3.47 L Hemoglobin 9.7 L Hematocrit 31.9 L Mean Corpuscular Volume 91.9 Mean Corpuscular Hemoglobin 28.0 L Mean Corpuscular Hemoglobin Concent 30.4 L Red Cell Distribution Width 14.8 H Platelet Count 213 Mean Platelet Volume 10.1 Immature Granulocytes % 0.300 Neutrophils % 55.4 Lymphocytes % 23.8 Monocytes % 10.5 Eosinophils % 9.4 H Basophils % 0.6 Nucleated Red Blood Cells % 0.0 Immature Granulocytes # 0.020 Neutrophils # 3.4 Lymphocytes # 1.5 Monocytes # 0.7 Eosinophils # 0.6 H Basophils # 0.0 Nucleated Red Blood Cells # 0.0 Prothrombin Time 14.7 Prothrombin Time Ratio 1.1 INR International Normalized Ratio 1.14 Sodium Level 144 Potassium Level 3.3 L Chloride Level 109 Carbon Dioxide Level 26 Anion Gap 9 Blood Urea Nitrogen 8 Creatinine 0.88 Est Glomerular Filtrat Rate mL/min Glucose Level 70 Calcium Level 8.7 Medications Medication Current Medications IV Flush (NS 3 ml) 3 ml PER PROTOCOL IV ; Start 09/13/18 at 07:00 Ondansetron HCl (Zofran Inj) 4 mg Q6H PRN IV NAUSEA AND/OR VOMITING; Start 09/13/18 at 07:00 Acetaminophen (Tylenol Tab) 650 mg Q6H PRN PO PAIN LEVEL 1-3 OR FEVER Last administered on 09/27/18 21:17; Admin Dose 650 MG; Start 09/13/18 at 07:00 Levothyroxine Sodium (Synthroid) 25 mcg BEFORE BREAKFAST PO Last administered on 09/29/18 06:42; Admin Dose 25 MCG; Start 09/13/18 at 07:00 Pantoprazole (Protonix Tab) 40 mg DAILY@06 PO Last administered on 09/29/18 06:42; Admin Dose 40 MG; Start 09/13/18 at 06:00 Levalbuterol (Xopenex Hfa) 1.25 puff Q4H PRN INH WHEEZING AND SOB Last administered on 09/25/18 11:23; Admin Dose 1.25 PUFF; Start 09/13/18 at 10:00 Diphenhydramine HCl (Benadryl) 25 mg Q6H PRN IV ITCHING Last administered on 09/25/18 21:06; Admin Dose 25 MG; Start 09/15/18 at 20:00 IV Flush (NS 10 ml) 10 ml PRN PRN IV FLUSH LINE; Start 09/16/18 at 16:30 Levalbuterol (Xopenex Hfa) 2 puff Q6H RESP THERAPY INH Last administered on 09/29/18 07:37; Admin Dose 2 PUFF; Start 09/17/18 at 20:00 Mupirocin (Bactroban) 1 applic BID TOP Last administered on 09/29/18 08:57; Admin Dose 1 APPLIC; Start 09/19/18 at 23:00 Docusate Sodium (Colace Liquid Cup) 100 mg BID PO Last administered on 09/29/18 08:57; Admin Dose 100 MG; Start 09/20/18 at 09:00 Mirtazapine (Remeron) 15 mg QHS PO Last administered on 09/28/18 21:33; Admin Dose 15 MG; Start 09/20/18 at 21:00 Enoxaparin Sodium (Lovenox) 100 mg Q24H SC Last administered on 09/29/18 06:57; Admin Dose 100 MG; Start 09/25/18 at 05:30 Nystatin (Nystatin Powder) 1 applic BID TOP Last administered on 09/29/18 08:57; Admin Dose 1 APPLIC; Start 09/25/18 at 14:30 Lorazepam (Ativan) 1 mg Q4H PRN IV anxiety, agitation Last administered on 09/29/18 10:13; Admin Dose 1 MG; Start 09/25/18 at 20:00 Sodium Chloride 1,000 ml @ 50 mls/hr Q20H IV Last administered on 09/29/18 06:43; Admin Dose 50 MLS/HR; Start 09/27/18 at 12:30 MAINE ZAMORANO Sep 29, 2018 16:25
--- NOTE | 2018-09-29 18:27 | NUR ---
eoss no significant changes noted at this time, son at the bedside, no c/o pain no sob or distress, suctioned as per request. pt repositioned every 2 hours, pt kept clean, dry, and comfortable. scheduled for placement tomorrow, will endorse accordingly. Call light within reach, bed locked, and low. all needs were met
[2018-09-29] MEDS: MIRTAZAPINE 15 MG TAB PO SCH (20:11)
[2018-09-30] VITALS (25 sets, daily range): BP systolic 16–122; BP diastolic 50–95; PULSE 48–102; RESP 16–21
--- NOTE | 2018-09-30 00:55 | NUR ---
RN NOTES: Patient stable. Son, Dm, requested not to give Colace. Daughter, Breanna, requested Ativan for him mom as the patient was starting to get agitated. Patient is stable and currently resting. Will continue to monitor patient.
[2018-09-30] MEDS: SOD CHLORIDE 0.9% 1,000 ML IV SCH (01:04)
[2018-09-30] MEDS: LEVALBUTEROL (HFA) 15 GM INHALER INH SCH ×4 (01:28→20:14)
[2018-09-30] MEDS: ENOXAPARIN 100 MG/ML SYG SC SCH (05:00)
--- NOTE | 2018-09-30 05:01 | NUR ---
RN NOTES: Obtained order from Dr. Beckman to hold Lovenox since patient will be having PEG placement today. Family aware.
[2018-09-30] MEDS: PANTOPRAZOLE (EC) 40 MG TAB PO SCH (06:00)
[2018-09-30] MEDS: LEVOTHYROXINE 25 MCG TAB PO SCH (06:13)
[2018-09-30] MEDS: ACETAMINOPHEN 325 MG TAB PO PRN (07:58)
--- NOTE | 2018-09-30 08:20 | NUR ---
EOSS: Patient alert to name only, family at bedside. Patient on trach to vent. Trach care provided. Ativan given x1 per family's request. Patient kept NPO after midnight for PEG placement today, Lovenox held per Dr. Beckman. Patient kept clean and dry. Patient repositioned q2h, except for midnight per family's request. AM care refused, patient's daughter wanted the morning shift to do it since she wanted the patient to sleep. Hourly rounding conducted, bed alarm turned on. Continue with plan of care. Endorsed to AM nurse.
[2018-09-30] MEDS: DOCUSATE SODIUM 10 MG/ML (10ML CUP) PO SCH ×2 (09:00→20:10)
[2018-09-30] MEDS: MUPIROCIN 2% 22 GM OINT TOP SCH ×2 (09:14→20:09)
[2018-09-30] MEDS: BALSAM PERU/CASTOR OIL 60 GM TUBE TOP SCH (09:14)
[2018-09-30] MEDS: NYSTATIN 30 GM POWDER BTL TOP SCH ×2 (09:14→20:09)
--- NOTE | 2018-09-30 09:56 | CONS ---
Assessment/Plan Assessment/Plan Assessment/Plan (Daily) Ventilator setting; AC of 16, tidal volume 450, PEEP of 5, 30% FiO2. Assessment and recommendations; 1. Patient admitted with severe pneumonia as well as acute hypercapnic respiratory failure with failure to be weaned from invasive mechanical ventilation patient previously was maintained on T-piece at long-term., 2. Metastatic thyroid cancer likely to significant pulmonary involvement as we ll. 3. Status post treatment for pneumonia. 4. Dysphagia. 5. Hypothyroidism. Continue current supportive care. Patient scheduled for G-tube placement today. Presently,patient cannot be weaned off from invasive mechanical ventilation. Consultation Date/Type/Reason Admit Date/Time Sep 13, 2018 at 05:56 Initial Consult Date Type of Consult Pulmonary/critical care Date/Time of Note DATE: 09/30/18 TIME: 09:53 24 HR Interval Summary Free Text/Dictation Patient's condition is stable. Remains awake and alert. Has remained hemodynamically stable. Scheduled for G-tube placement today. General exam; elderly female, on ventilator via tracheostomy, currently no di stress. Exam/Review of Systems Exam Vitals Vital Signs Date Temp Pulse Resp B/P (MAP) Pulse Ox O2 O2 Flow FiO2 Time Delivery Rate 09/30/18 56 08:54 09/30/18 30 08:00 09/30/18 97.7 20 113/63 100 07:52 (80) 09/28/18 Mechanical 04:00 Ventilator Intake and Output 09/29/18 09/29/18 09/30/18 1515:00 23:00 07:00 IntakeIntake Total 600 ml 675 ml OutputOutput Total 300 ml 200 ml BalanceBalance 300 ml 475 ml Exam H EENT exam; supple neck, tracheostomy in place. Patient is edentulous. No neck masses. Chest exam; upper lobes are clear to auscultation. S1-S2 audible, no murmurs. Regular rhythm. There is a well-healed sternal scar. Abdomen exam; soft, protuberant. Nontender. Bowel sounds audible. Extremity exam; no peripheral edema. LOCOMOTIVE FIRER/FIREMAN exam; no focal deficit. Results Result Diagram: 09/29/18 0653 09/30/18 0839 Results 24hrs Laboratory Tests Test 09/30/18 08:39 Sodium Level 143 Potassium Level 3.7 Chloride Level 109 Carbon Dioxide Level 23 Anion Gap 11 Blood Urea Nitrogen 7 Creatinine 0.83 Est Glomerular Filtrat Rate mL/min Glucose Level 72 Calcium Level 8.5 Medications Medication Current Medications IV Flush (NS 3 ml) 3 ml PER PROTOCOL IV ; Start 09/13/18 at 07:00 Ondansetron HCl (Zofran Inj) 4 mg Q6H PRN IV NAUSEA AND/OR VOMITING; Start 09/13/18 at 07:00 Acetaminophen (Tylenol Tab) 650 mg Q6H PRN PO PAIN LEVEL 1-3 OR FEVER Last administered on 09/30/18 07:58; Admin Dose 650 MG; Start 09/13/18 at 07:00 Levothyroxine Sodium (Synthroid) 25 mcg BEFORE BREAKFAST PO Last administered on 09/29/18 06:42; Admin Dose 25 MCG; Start 09/13/18 at 07:00 Pantoprazole (Protonix Tab) 40 mg DAILY@06 PO Last administered on 09/29/18 06:42; Admin Dose 40 MG; Start 09/13/18 at 06:00 Levalbuterol (Xopenex Hfa) 1.25 puff Q4H PRN INH WHEEZING AND SOB Last administered on 09/25/18 11:23; Admin Dose 1.25 PUFF; Start 09/13/18 at 10:00 Diphenhydramine HCl (Benadryl) 25 mg Q6H PRN IV ITCHING Last administered on 09/25/18 21:06; Admin Dose 25 MG; Start 09/15/18 at 20:00 IV Flush (NS 10 ml) 10 ml PRN PRN IV FLUSH LINE; Start 09/16/18 at 16:30 Levalbuterol (Xopenex Hfa) 2 puff Q6H RESP THERAPY INH Last administered on 09/30/18 07:50; Admin Dose 2 PUFF; Start 09/17/18 at 20:00 Mupirocin (Bactroban) 1 applic BID TOP Last administered on 09/30/18 09:14; Admin Dose 1 APPLIC; Start 09/19/18 at 23:00 Docusate Sodium (Colace Liquid Cup) 100 mg BID PO Last administered on 08:57; Admin Dose 100 MG; Start 09/20/18 at 09:00 Mirtazapine (Remeron) 15 mg QHS PO Last administered on 09/29/18 20:11; Admin Dose 15 MG; Start 09/20/18 at 21:00 Enoxaparin Sodium (Lovenox) 100 mg Q24H SC Last administered on 09/29/18 06:57; Admin Dose 100 MG; Start 09/25/18 at 05:30 Nystatin (Nystatin Powder) 1 applic BID TOP Last administered on 09/30/18 09:14; Admin Dose 1 APPLIC; Start 09/25/18 at 14:30 Lorazepam (Ativan) 1 mg Q4H PRN IV anxiety, agitation Last administered on 09/29/18 22:36; Admin Dose 1 MG; Start 09/25/18 at 20:00 Sodium Chloride 1,000 ml @ 50 mls/hr Q20H IV Last administered on 09/30/18 01:04; Admin Dose 50 MLS/HR; Start 09/27/18 at 12:30 BRANDEN SCOTT Sep 30, 2018 09:56
[2018-09-30] MEDS: LORAZEPAM 2 MG INJ IV PRN ×2 (11:58→17:26)
--- NOTE | 2018-09-30 13:10 | NUR ---
PT NOTE Attempted to see pt in pm, caregiver at bedside, PT ashutosh Kincaid assisting with translation. Pt initially agreeable to PT session but then adamantly refused. Pt educated in benefit of physical therapy, but continued to refuse despite maximum encouragement, pushing therapist away when attempting to initiate treatment. Will follow up tomorrow . Communicated with RN.
--- NOTE | 2018-09-30 14:38 | PN ---
Date/Time of Note Date/Time of Note DATE: 09/30/18 TIME: 14:37 Assessment/Plan VTE Prophylaxis Risk score (from Nsg)>0 risk: 10 SCD applied (from Nsg): Yes Pharmacological prophylaxis: LMWH Lines/Catheters IV Catheter Type (from Nrsg): Peripheral IV Assessment/Plan Hospital Course 1. Right jaw swelling -Ultrasound shows what looks like residual thyroid tissue - no erythema, open wounds, discharge or drainage appreciated 2. Acute on chronic hypoxemic and hypercapnic on respiratory failure secondary to dislodged tracheostomy and pneumonia on chronic lung metastasis -Pulmonology believes the patient will need to continue vent support -Status post antibiotics -Discussed with family aspirations most likely exacerbating pulmonary deterioration 2. Sepsis secondary to likely aspiration pneumonia-resolved -Status post antibiotics - WBC normal and remains afebrile 3. Acute metabolic encephalopathy secondary to hypercapnia-resolved - CT brain with no acute findings 4. Acute kidney injurystable - avoid nephrotoxic agents 5. Metastatic thyroid cancer status post surgical resection and radioactive iodine with known pulmonary metastasis - Follow-up with outpatient oncologist, patient did have a recent PET scan at [facility] and requested for records - Patient is status post tracheostomy several years ago 6. History of aspiration - Video swallow results noted and patient continues to aspirate. Per Speech she is still aspiration with thin liquids and less when head turned to left and given pureed. Still not safe for full meals but okay for oral gratification. - GI reconsulted for placement of PEG, family now agreeable 7. Hypothyroidism - Continue Synthroid 8. Anemia chronic disease - Monitor 9. Hypertension - hold home meds in setting of low BP 10. Dysphagia - Speech on board and recommending pureed for gratification only - PEG placement pending, family now agreeable Prophylaxis: Lovenox DC planning: Plan is for PEG tube today, family now interested in LTAC, case reviewer to arrange for DC to [place] Result Diagram: 09/29/18 0653 09/30/18 0839 Results 24hrs Laboratory Tests Test 09/30/18 08:39 Sodium Level 143 Potassium Level 3.7 Chloride Level 109 Carbon Dioxide Level 23 Anion Gap 11 Blood Urea Nitrogen 7 Creatinine 0.83 Est Glomerular Filtrat Rate mL/min Glucose Level 72 Calcium Level 8.5 Subjective 24 Hr Interval Summary Constitutional: no complaints Exam/Review of Systems Exam Vitals Vital Signs Date Temp Pulse Resp B/P (MAP) Pulse Ox O2 O2 Flow FiO2 Time Delivery Rate 09/30/18 52 16 95 30 13:30 09/30/18 98.8 97/50 (66) 11:48 09/28/18 Mechanical 04:00 Ventilator Intake and Output 09/29/18 09/29/18 09/30/18 1515:00 23:00 07:00 IntakeIntake Total 600 ml 675 ml OutputOutput Total 300 ml 200 ml BalanceBalance 300 ml 475 ml Constitutional: alert Respiratory: clear to auscultation Cardiovascular: regular rate and rhythm Gastrointestinal: soft; No distended Musculoskeletal: nl extremities to inspection Results Results 24hrs Laboratory Tests Test 09/30/18 08:39 Sodium Level 143 Potassium Level 3.7 Chloride Level 109 Carbon Dioxide Level 23 Anion Gap 11 Blood Urea Nitrogen 7 Creatinine 0.83 Est Glomerular Filtrat Rate mL/min Glucose Level 72 Calcium Level 8.5 Medications Medication Current Medications IV Flush (NS 3 ml) 3 ml PER PROTOCOL IV ; Start 09/13/18 at 07:00 Ondansetron HCl (Zofran Inj) 4 mg Q6H PRN IV NAUSEA AND/OR VOMITING; Start 09/13/18 at 07:00 Acetaminophen (Tylenol Tab) 650 mg Q6H PRN PO PAIN LEVEL 1-3 OR FEVER Last administered on 09/30/18at 07:58; Admin Dose 650 MG; Start 09/13/18 at 07:00 Levothyroxine Sodium (Synthroid) 25 mcg BEFORE BREAKFAST PO Last administered on 09/29/18 06:42; Admin Dose 25 MCG; Start 09/13/18 at 07:00 Pantoprazole (Protonix Tab) 40 mg DAILY@06 PO Last administered on 09/29/18 06:42; Admin Dose 40 MG; Start 09/13/18 at 06:00 Levalbuterol (Xopenex Hfa) 1.25 puff Q4H PRN INH WHEEZING AND SOB Last administered on 09/25/18 11:23; Admin Dose 1.25 PUFF; Start 09/13/18 at 10:00 Diphenhydramine HCl (Benadryl) 25 mg Q6H PRN IV ITCHING Last administered on 09/25/18 21:06; Admin Dose 25 MG; Start 09/15/18 at 20:00 IV Flush (NS 10 ml) 10 ml PRN PRN IV FLUSH LINE; Start 09/16/18 at 16:30 Levalbuterol (Xopenex Hfa) 2 puff Q6H RESP THERAPY INH Last administered on 09/30/18 13:34; Admin Dose 2 PUFF; Start 09/17/18 at 20:00 Mupirocin (Bactroban) 1 applic BID TOP Last administered on 09/30/18 09:14; Admin Dose 1 APPLIC; Start 09/19/18 at 23:00 Docusate Sodium (Colace Liquid Cup) 100 mg BID PO Last administered on 09/29/18 08:57; Admin Dose 100 MG; Start 09/20/18 at 09:00 Mirtazapine (Remeron) 15 mg QHS PO Last administered on 09/29/18 20:11; Admin Dose 15 MG; Start 09/20/18 at 21:00 Enoxaparin Sodium (Lovenox) 100 mg Q24H SC Last administered on 09/29/18 06:57; Admin Dose 100 MG; Start 09/25/18 at 05:30 Nystatin (Nystatin Powder) 1 applic BID TOP Last administered on 09/30/18 09:14; Admin Dose 1 APPLIC; Start 09/25/18 at 14:30 Lorazepam (Ativan) 1 mg Q4H PRN IV anxiety, agitation Last administered on 09/30 11:58; Admin Dose 1 MG; Start 09/25/18 at 20:00 Sodium Chloride 1,000 ml @ 50 mls/hr Q20H IV Last administered on 09/30/18 01:04; Admin Dose 50 MLS/HR; Start 09/27/18 at 12:30 MAINE ZAMORANO Sep 30, 2018 14:38
--- NOTE | 2018-09-30 15:51 | NUR ---
CM NOTES: FROM FAMILY MEETING YESTERDAY, FAMILY WAS AGREEABLE TO [facility]. REFERRALS WAS SENT AND PER TEJAL, PT HAS BEEN ACCEPTED. SHE IS JUST WORKING ON A BED. PT TO HAVE PEG PLACED TODAY. PT TO GO TO [facility] WHEN BED IS AVAILABLE AND WHEN MEDICALLY CLEARED. MADAI KHANNA, RNCM [id number]
--- NOTE | 2018-09-30 15:54 | PREAC ---
Date/Time of Note Date/Time of Note DATE: 09/30/18 TIME: 15:49 Anesthesia Eval and Record Evaluation Time Pre-Procedure Interview DATE: 09/30/18 TIME: 15:49 Age 82 Sex female NPO: 8 hrs Preoperative diagnosis dysphagia Planned procedure PEG placement Past Medical History Past Medical History: Includes Cardio: HTN Endo: Hypothyroid, Other (thyroid cancer s/p resection with mets to lungs) Pulm: Other (respiratory failure, vent dependent) Neuro: Other (metabolic encephalopathy) Surgery & Anesthesia Issues No known issue Meds Anticoagulation: Yes (lovenox subQ) Beta Farrah within 24 hr: No Reason Beta Farrah not given: Pt. not on B-Farrah Reported Medications Atorvastatin* (Atorvastatin*) 40 Mg Tablet, 40 MG ORAL HS 09/13/18 Gabapentin* (Gabapentin*) 100 Mg Capsule, 100 MG ORAL BID PRN for NERVE PAIN 09/13/18 Aspirin* (Aspirin* EC) 81 Mg Tablet.dr, 81 MG ORAL DAILY 09/13/18 Colchicine* (Colcrys*) 0.6 Mg Tablet, 0.6 MG PO Q8H PRN for gout, TAB 09/13/18 Lorazepam* (Ativan*) 2 Mg Tablet, 2 MG PO BID PRN for ANXIETY, #30 TAB 09/13/18 Ibuprofen* (Ibuprofen*) 600 Mg Tablet, 600 MG ORAL Q6H PRN for PAIN LEVEL 1-5 09/13/18 Pioglitazone Hcl* (Pioglitazone Hcl*) 45 Mg Tablet, 45 MG ORAL DAILY 09/13/18 Ondansetron (Ondansetron Odt) 8 Mg Tab.rapdis, 8 MG PO Q6H PRN for NAUSEA AND/OR VOMITING, TAB 07/02/18 Levalbuterol* (Xopenex* HFA) 15 Gm Inha, 2 PUFFS INH Q4H PRN for WHEEZING AND SOB, INHALER 07/02/18 Spironolactone* (Aldactone*) 25 Mg Tablet, 12.5 MG PO DAILY, #30 TAB 07/02/18 Levothyroxine Sodium* (Levothyroxine Sodium*) 25 Mcg Tablet, 25 MCG PO BEFORE BREAKFAST, #30 TAB 07/02/18 Quetiapine Fumarate* (Seroquel*) 50 Mg Tablet, 50 MG PO HS, TAB 07/02/18 Sennosides* (Senna Lax*) 8.6 Mg Tablet, 1 TAB PO DAILY PRN for CONSTIPATION, TAB 07/02/18 Potassium Chloride* (Potassium Chloride*) 20 Meq Tablet.er, 20 MEQ PO DAILY, TAB.SA 07/02/18 Calcium Carbonate ([id number]) 500 Mg Tablet, 500 MG PO TID, TAB 07/02/18 Esomeprazole Mag Trihydrate (Nexium) 40 Mg Capsule.dr, 40 MG PO AC BREAKFAST, #30 CAP 07/02/18 Metoprolol Succinate* (Toprol XL*) 25 Mg Tab.sr.24h, 25 MG PO DAILY, #30 TAB 07/02/18 Magnesium Chloride* (Mag 64*) 64 Mg Tabsr, 64 MG PO DAILY, TAB 07/02/18 Furosemide* (Furosemide*) 20 Mg Tablet, 20 MG PO DAILY, #60 TAB 07/02/18 Ferrous Sulfate* (Ferrous Sulfate*) 325 Mg Tabec, 325 MG PO Q48H, TAB 07/02/18 Current Medications IV Flush (NS 3 ml) 3 ml PER PROTOCOL IV ; Start 09/13/18 at 07:00 Ondansetron HCl (Zofran Inj) 4 mg Q6H PRN IV NAUSEA AND/OR VOMITING; Start 09/13/18 at 07:00 Acetaminophen (Tylenol Tab) 650 mg Q6H PRN PO PAIN LEVEL 1-3 OR FEVER Last administered on 09/30/18at 07:58; Admin Dose 650 MG; Start 09/13/18 at 07:00 Levothyroxine Sodium (Synthroid) 25 mcg BEFORE BREAKFAST PO Last administered on 09/29/18 06:42; Admin Dose 25 MCG; Start 09/13/18 at 07:00 Pantoprazole (Protonix Tab) 40 mg DAILY@06 PO Last administered on 09/29/18 06:42; Admin Dose 40 MG; Start 09/13/18 at 06:00 Levalbuterol (Xopenex Hfa) 1.25 puff Q4H PRN INH WHEEZING AND SOB Last administered on 09/25/18 11:23; Admin Dose 1.25 PUFF; Start 09/13/18 at 10:00 Diphenhydramine HCl (Benadryl) 25 mg Q6H PRN IV ITCHING Last administered on 09/25/18at 21:06; Admin Dose 25 MG; Start 09/15/18 at 20:00 IV Flush (NS 10 ml) 10 ml PRN PRN IV FLUSH LINE; Start 09/16/18 at 16:30 Levalbuterol (Xopenex Hfa) 2 puff Q6H RESP THERAPY INH Last administered on 09/30/18at 13:34; Admin Dose 2 PUFF; Start 09/17/18 at 20:00 Mupirocin (Bactroban) 1 applic BID TOP Last administered on 09/30/18 09:14; Admin Dose 1 APPLIC; Start 09/19/18 at 23:00 Docusate Sodium (Colace Liquid Cup) 100 mg BID PO Last administered on 09/29/18 08:57; Admin Dose 100 MG; Start 09/20/18 at 09:00 Mirtazapine (Remeron) 15 mg QHS PO Last administered on 09/29/18 20:11; Admin Dose 15 MG; Start 09/20/18 at 21:00 Enoxaparin Sodium (Lovenox) 100 mg Q24H SC Last administered on 09/29/18 06:57; Admin Dose 100 MG; Start 09/25/18 at 05:30 Nystatin (Nystatin Powder) 1 applic BID TOP Last administered on 09/30/18 09:14; Admin Dose 1 APPLIC; Start 09/25/18 at 14:30 Lorazepam (Ativan) 1 mg Q4H PRN IV anxiety, agitation Last administered on 09/30/18at 11:58; Admin Dose 1 MG; Start 09/25/18 at 20:00 Sodium Chloride 1,000 ml @ 50 mls/hr Q20H IV Last administered on 09/30/18at 01:04; Admin Dose 50 MLS/HR; Start 09/27/18 at 12:30 Meds reviewed: Yes Allergies Coded Allergies: metronidazole (Verified Allergy, Intermediate, 09/25/18) prednisone (Verified Allergy, Mild, HALLUCINATIONS, 12/04/13) clindamycin (Verified Allergy, Unknown, 12/10/16) iodine (Verified Allergy, Unknown, RASHES, 07/03/18) morphine (Verified Allergy, Unknown, RASHES, 07/03/18) Allergies Reviewed: Yes Labs/Studies Labs Reviewed: Reviewed by anesthesiologist Result Diagram: 09/29/18 0653 09/30/18 0839 Laboratory Tests 09/30/18 08:39 test: N/A Pre-procedure Exam Last vitals Vital Signs Date Temp Pulse Resp B/P (MAP) Pulse Ox O2 O2 Flow FiO2 Time Delivery Rate 09/30/18 53 19 122/60 100 Trach 15:37 (80) Collar 09/30/18 30 15:05 09/30/18 98.8 11:48 Airway: Adequate mouth opening, Adequate thyromental dist Mallampati: Mallampati II (vent dependent ) Teeth: Normal Lung: Normal Heart: Normal ASA Physical Status ASA physical status: 3 Emergency: None Planned Anesthetic General/MAC: Other (trach) Planned Pain Management Parenteral pain med Pre-operative Attestations Prior to commencing anesthesia and surgery, the patient was re-evaluated, there was verification of: *The patient's identity *The results of appropriate recent lab work and preoperative vital signs *The above evaluation not changing prior to induction *Anesthetic plan, risk benefits, alternative and complications discussed with patient/family; questions answered; patient/family understands, accepts and wishes to proceed. NILSA STRATTON MD Sep 30, 2018 15:54
[2018-09-30] MEDS ORDERED: FENTAnyl 50 MCG/ML VIAL ONE ×2 (15:55→16:29)
[2018-09-30] MEDS ORDERED: ETOMIDATE 20 MG INJ ONE ×2 (15:56→16:29)
--- NOTE | 2018-09-30 16:06 | HPN ---
Date/Time of Note Date/Time of Note DATE: 09/30/18 TIME: 16:06 Interval H&P Admission Note Pt. seen H&P reviewed: No system changes ZAINA AMEZCUA Sep 30, 2018 16:06
[2018-09-30] MEDS ORDERED: PROPOFOL 20 ML ONE (16:29)
--- NOTE | 2018-09-30 16:31 | NUR ---
GUANAKITO NOTES: RECEIVED A MESSAGE FROM TEJAL FROM [facility] THAT PT HAS A ROOM NOW (ROOM: 3363) AND THEY ARE READY FOR TONIGHT. INFORMED DR. ZAMORANO AND HE SAID HE WILL ENTER D/C ORDER. INFORMED FREDERICK (MAURICIO). MADAI KHANNA, MAURICIOCM [id number]
--- NOTE | 2018-09-30 17:14 | NUR ---
GI PEG procedure cancelled per pt request after IV site infiltration during sedation attempt by anesthesiologist. Pre-procedure IV site was flushed and infusing IVF, IV site assessed WNL at the time. IV site infiltration noted while anesthesiologist was administering sedation medication before procedure start. New IV access was attempted, pt refused further attempts. Pt's son requested for procedure to be tried tomorrow. MD Cox and MD Rockwell explained plan of care to pt's son and addressed questions and concerns. Pt's son at bedside after procedure cancellation. Primary RN resumed care of pt.
--- NOTE | 2018-09-30 17:14 | QN ---
Documentation Comment GI PROCEDURE ATTEMPT 09/30/18 Arrived with entire GI team assembled to perform G-tube placement according to patient and son's wishes for aspiration pneumonia. Patient's IV access in the L shoulder infiltrated and was not effective with any sedation despite propofol 200mg infusion. IV nurses were consulted to place a new IV access. However patient started to refuse IV placement attempts. She was able to mouth out her desires to "stop" further attempts. Refused G-tube placement. We asked her son to come in to see if he could calm her and talk to her to consi cindy IV placement, however even he was unsuccessful. Son requested we retry tomorrow if she can get IV access later today or tomorrow once she is "more calm". GI team will wait for full consensus of G-tube before placement attempt again. Hospitalist team will need to get IV access for patient to get her medications and IVF while she is NPO with her dysphagia. Will follow alongside team. ZAINA AMEZCUA Sep 30, 2018 17:14
[2018-09-30] MEDS ORDERED: LIDOCAINE 1% (MPF) 5 ML VIAL SC ONE ×2 (17:30→18:00)
--- NOTE | 2018-09-30 18:06 | NUR ---
Eoss Peg tube placement to be rescheduled for tomorrow, iv's infiltrated at this time, Don pharmacist in charge owner attempted to start new iv's- unsuccessful, ICU nurse attempted to do midline, pt refused. Son at the bedside. Son requested for peg to be rescheduled tomorrow. Pt pending transfer to [facility], [facility] transfer cancelled. Spoke with Dr. Beavers per to get PICC line to be inserted. Spoke with Mark from radiology, per Mark will try to get someone to do PICC. Pt stable at this time. Will continue to monitor
[2018-09-30] MEDS: MIRTAZAPINE 15 MG TAB PO SCH (20:16)
[2018-09-30] MEDS ORDERED: HALOPERIDOL 5 MG INJ IM ONE (20:38)
--- NOTE | 2018-09-30 21:10 | NUR ---
EOSS: Pending Midline placement, no IV access. Patient given Haldol IM 5mg to relax as patient was becoming agitated and trying to get out of bed. ER said ER nurse will be up soon to place midline. Waiting for ER nurse to arrive.
[2018-10-01] VITALS (25 sets, daily range): BP systolic 83–141; BP diastolic 50–102; PULSE 46–99; RESP 16–20
[2018-10-01] MEDS: LEVALBUTEROL (HFA) 15 GM INHALER INH SCH ×4 (01:06→20:00)
[2018-10-01] MEDS: SOD CHLORIDE 0.9% 1,000 ML IV SCH ×2 (03:39→19:20)
[2018-10-01] MEDS: ENOXAPARIN 100 MG/ML SYG SC SCH (05:30)
[2018-10-01] MEDS: PANTOPRAZOLE (EC) 40 MG TAB PO SCH (06:00)
[2018-10-01] MEDS: LEVOTHYROXINE 25 MCG TAB PO SCH (06:09)
--- NOTE | 2018-10-01 06:10 | NUR ---
EOSS: Patient alert to name and place. Midline was placed around 2200 last night. Patient repositioned per family's request, sometimes refusing to have patient repositioned while she's sleeping. Family requested to have bed bath to done by AM shift. Patient was cleaned, x1 BM, wound care treatment provided. Trach care provided. Hourly rounding was done. Patient kept clean and dry. Continue with plan of care. Will endorse to AM nurse.
[2018-10-01] MEDS: DOCUSATE SODIUM 10 MG/ML (10ML CUP) PO SCH ×2 (09:00→21:00)
[2018-10-01] MEDS: NYSTATIN 30 GM POWDER BTL TOP SCH ×2 (09:11→20:59)
[2018-10-01] MEDS: MUPIROCIN 2% 22 GM OINT TOP SCH ×2 (09:11→20:59)
[2018-10-01] MEDS: BALSAM PERU/CASTOR OIL 60 GM TUBE TOP SCH (09:12)
--- NOTE | 2018-10-01 13:00 | NUR ---
OT NOTE Attempted to see pt for OT tx- pt was undergoing a procedure. Will f/u later if time permits.
[2018-10-01] MEDS: LORAZEPAM 2 MG INJ IV PRN ×2 (14:07→18:41)
[2018-10-01] MEDS ORDERED: PHENYLephrine (100 MCG/ML) 5ML SYG ONE (14:10)
--- NOTE | 2018-10-01 14:12 | PREAC ---
Date/Time of Note Date/Time of Note DATE: 10/01/18 TIME: 14:11 Anesthesia Eval and Record Evaluation Time Pre-Procedure Interview DATE: 10/01/18 TIME: 14:11 Age 82 Sex female NPO: 8 hrs Preoperative diagnosis PEG required Planned procedure Peg Placement Past Medical History Past Medical History: Includes Cardio: HTN, Dyslipidemia, CAD Endo: Diabetes, Hypothyroid Pulm: Sleep Apnea Neuro: CVA Musculoskeletal: Osteoarthritis GI: GERD Heme: Anemia Surgery & Anesthesia Issues No known issue Meds Anticoagulation: No Beta Farrah within 24 hr: No Reason Beta Farrah not given: Pt. not on B-Farrah Reported Medications Atorvastatin* (Atorvastatin*) 40 Mg Tablet, 40 MG ORAL HS 09/13/18 Gabapentin* (Gabapentin*) 100 Mg Capsule, 100 MG ORAL BID PRN for NERVE PAIN 09/13/18 Aspirin* (Aspirin* EC) 81 Mg Tablet.dr, 81 MG ORAL DAILY 09/13/18 Colchicine* (Colcrys*) 0.6 Mg Tablet, 0.6 MG PO Q8H PRN for gout, TAB 09/13/18 Lorazepam* (Ativan*) 2 Mg Tablet, 2 MG PO BID PRN for ANXIETY, #30 TAB 09/13/18 Ibuprofen* (Ibuprofen*) 600 Mg Tablet, 600 MG ORAL Q6H PRN for PAIN LEVEL 1-5 09/13/18 Pioglitazone Hcl* (Pioglitazone Hcl*) 45 Mg Tablet, 45 MG ORAL DAILY 09/13/18 Ondansetron (Ondansetron Odt) 8 Mg Tab.rapdis, 8 MG PO Q6H PRN for NAUSEA AND/OR VOMITING, TAB 07/02/18 Levalbuterol* (Xopenex* HFA) 15 Gm Inha, 2 PUFFS INH Q4H PRN for WHEEZING AND SOB, INHALER 07/02/18 Spironolactone* (Aldactone*) 25 Mg Tablet, 12.5 MG PO DAILY, #30 TAB 07/02/18 Levothyroxine Sodium* (Levothyroxine Sodium*) 25 Mcg Tablet, 25 MCG PO BEFORE BREAKFAST, #30 TAB 07/02/18 Quetiapine Fumarate* (Seroquel*) 50 Mg Tablet, 50 MG PO HS, TAB 07/02/18 Sennosides* (Senna Lax*) 8.6 Mg Tablet, 1 TAB PO DAILY PRN for CONSTIPATION, TAB 07/02/18 Potassium Chloride* (Potassium Chloride*) 20 Meq Tablet.er, 20 MEQ PO DAILY, TAB.SA 07/02/18 Calcium Carbonate ([id number]) 500 Mg Tablet, 500 MG PO TID, TAB 07/02/18 Esomeprazole Mag Trihydrate (Nexium) 40 Mg Capsule.dr, 40 MG PO AC BREAKFAST, #30 CAP 07/02/18 Metoprolol Succinate* (Toprol XL*) 25 Mg Tab.sr.24h, 25 MG PO DAILY, #30 TAB 07/02/18 Magnesium Chloride* (Mag 64*) 64 Mg Tabsr, 64 MG PO DAILY, TAB 07/02/18 Furosemide* (Furosemide*) 20 Mg Tablet, 20 MG PO DAILY, #60 TAB 07/02/18 Ferrous Sulfate* (Ferrous Sulfate*) 325 Mg Tabec, 325 MG PO Q48H, TAB 07/02/18 Current Medications IV Flush (NS 3 ml) 3 ml PER PROTOCOL IV ; Start 09/13/18 at 07:00 Ondansetron HCl (Zofran Inj) 4 mg Q6H PRN IV NAUSEA AND/OR VOMITING; Start 09/13/18 at 07:00 Acetaminophen (Tylenol Tab) 650 mg Q6H PRN PO PAIN LEVEL 1-3 OR FEVER Last administered on 09/30/18at 07:58; Admin Dose 650 MG; Start 09/13/18 at 07:00 Levothyroxine Sodium (Synthroid) 25 mcg BEFORE BREAKFAST PO Last administered on 09/29/18 06:42; Admin Dose 25 MCG; Start 09/13/18 at 07:00 Pantoprazole (Protonix Tab) 40 mg DAILY@06 PO Last administered on 09/29/18at 06:42; Admin Dose 40 MG; Start 09/13/18 at 06:00 Levalbuterol (Xopenex Hfa) 1.25 puff Q4H PRN INH WHEEZING AND SOB Last administered on 09/25/18at 11:23; Admin Dose 1.25 PUFF; Start 09/13/18 at 10:00 Diphenhydramine HCl (Benadryl) 25 mg Q6H PRN IV ITCHING Last administered on 09/25/18at 21:06; Admin Dose 25 MG; Start 09/15/18 at 20:00 IV Flush (NS 10 ml) 10 ml PRN PRN IV FLUSH LINE; Start 09/16/18 at 16:30 Levalbuterol (Xopenex Hfa) 2 puff Q6H RESP THERAPY INH Last administered on 10/01/18 10:58; Admin Dose 2 PUFF; Start 09/17/18 at 20:00 Mupirocin (Bactroban) 1 applic BID TOP Last administered on 10/01/18 09:11; Admin Dose 1 APPLIC; Start 09/19/18 at 23:00 Docusate Sodium (Colace Liquid Cup) 100 mg BID PO Last administered on 09/29/18 08:57; Admin Dose 100 MG; Start 09/20/18 at 09:00 Mirtazapine (Remeron) 15 mg QHS PO Last administered on 09/30/18 20:16; Admin Dose 15 MG; Start 09/20/18 at 21:00 Enoxaparin Sodium (Lovenox) 100 mg Q24H SC Last administered on 09/29/18 06:57; Admin Dose 100 MG; Start 09/25/18 at 05:30 Nystatin (Nystatin Powder) 1 applic BID TOP Last administered on 10/01/18 09:11; Admin Dose 1 APPLIC; Start 09/25/18 at 14:30 Lorazepam (Ativan) 1 mg Q4H PRN IV anxiety, agitation Last administered on 10/01/18 14:07; Admin Dose 1 MG; Start 09/25/18 at 20:00 Sodium Chloride 1,000 ml @ 50 mls/hr Q20H IV Last administered on 10/01/18 03:39; Admin Dose 50 MLS/HR; Start 09/27/18 at 12:30 Meds reviewed: Yes Allergies Coded Allergies: metronidazole (Verified Allergy, Intermediate, 09/25/18) prednisone (Verified Allergy, Mild, HALLUCINATIONS, 12/04/13) clindamycin (Verified Allergy, Unknown, 12/10/16) iodine (Verified Allergy, Unknown, RASHES, 07/03/18) morphine (Verified Allergy, Unknown, RASHES, 07/03/18) Allergies Reviewed: Yes Labs/Studies Labs Reviewed: Reviewed by anesthesiologist Result Diagram: 10/01/1806 10/01/18 0606 Laboratory Tests 10/01/18 06:06 test: Negative Studies: ECG Pre-procedure Exam Last vitals Vital Signs Date Temp Pulse Resp B/P (MAP) Pulse Ox O2 O2 Flow FiO2 Time Delivery Rate 10/01/18 67 20 120/57 94 Trach 13:23 (78) Collar 10/01/18 30 13:00 10/01/18 98.6 11:28 Airway: Adequate mouth opening, Adequate thyromental dist Mallampati: Mallampati II Teeth: Normal Lung: Normal Heart: Normal ASA Physical Status ASA physical status: 3 Emergency: None Planned Anesthetic General/MAC: Mask Pre-operative Attestations Prior to commencing anesthesia and surgery, the patient was re-evaluated, there was verification of: *The patient's identity *The results of appropriate recent lab work and preoperative vital signs *The above evaluation not changing prior to induction *Anesthetic plan, risk benefits, alternative and complications discussed with patient/family; questions answered; patient/family understands, accepts and wishes to proceed. KENY REHMAN Oct 01, 2018 14:12
--- NOTE | 2018-10-01 14:15 | HPN ---
Date/Time of Note Date/Time of Note DATE: 10/01/18 TIME: 14:15 Interval H&P Admission Note Pt. seen H&P reviewed: No system changes DOUG ARMSTRONG MD Oct 01, 2018 14:15
--- NOTE | 2018-10-01 14:29 | NUR ---
Nutrition consult: Pt's PEG procedure cancelled per pt request after IV site infiltration but pt received IV placement yesterday and PEG placement pending today per RN. Once stable, pt will be transferred to [place]. Rec Fibersource @60ml/hr with 100ml q6 water flush or per MD, which provides 1728 kcals and 78g protein. Pt noted to have two st 2 pressure ulcers (left buttocks and posterior sacrococcyx).
--- NOTE | 2018-10-01 14:43 | PN ---
Date/Time of Note Date/Time of Note DATE: 10/01/18 TIME: 14:42 Assessment/Plan VTE Prophylaxis Risk score (from Ns)>0 risk: 11 SCD applied (from Ns): Yes Pharmacological prophylaxis: LMWH Assessment/Plan Hospital Course 1. Right jaw swelling -Ultrasound shows what looks like residual thyroid tissue - no erythema, open wounds, discharge or drainage appreciated 2. Acute on chronic hypoxemic and hypercapnic on respiratory failure secondary to dislodged tracheostomy and pneumonia on chronic lung metastasis -Pulmonology believes the patient will need to continue vent support -Status post antibiotics -Discussed with family aspirations most likely exacerbating pulmonary deterioration 2. Sepsis secondary to likely aspiration pneumonia-resolved -Status post antibiotics - WBC normal and remains afebrile 3. Acute metabolic encephalopathy secondary to hypercapnia-resolved - CT brain with no acute findings 4. Acute kidney injurystable - avoid nephrotoxic agents 5. Metastatic thyroid cancer status post surgical resection and radioactive iodine with known pulmonary metastasis - Follow-up with outpatient oncologist, patient did have a recent PET scan at [facility] and requested for records - Patient is status post tracheostomy several years ago 6. History of aspiration - Video swallow results noted and patient continues to aspirate. Per Speech she is still aspiration with thin liquids and less when head turned to left and given pureed. Still not safe for full meals but okay for oral gratification. - GI reconsulted for placement of PEG, family now agreeable 7. Hypothyroidism - Continue Synthroid 8. Anemia chronic disease - Monitor 9. Hypertension - hold home meds in setting of low BP 10. Dysphagia - Speech on board and recommending pureed for gratification only - PEG placement pending, family now agreeable Prophylaxis: Lovenox DC planning: Plan is for PEG tube today, family now interested in LTAC, family independence case manager to arrange for DC to [place] Result Diagram: 10/01/18 0606 10/01/18 0606 Results 24hrs Laboratory Tests Test 10/01/18 06:06 White Blood Count 5.7 Red Blood Count 3.06 L Hemoglobin 8.8 L Hematocrit 28.3 L Mean Corpuscular Volume 92.5 Mean Corpuscular Hemoglobin 28.8 L Mean Corpuscular Hemoglobin Concent 31.1 L Red Cell Distribution Width 14.4 Platelet Count 218 Mean Platelet Volume 10.6 H Immature Granulocytes % 0.200 Neutrophils % 51.6 Lymphocytes % 26.8 Monocytes % 10.1 Eosinophils % 10.4 H Basophils % 0.9 Nucleated Red Blood Cells % 0.0 Immature Granulocytes # 0.010 Neutrophils # 2.9 Lymphocytes # 1.5 Monocytes # 0.6 Eosinophils # 0.6 H Basophils # 0.1 Nucleated Red Blood Cells # 0.0 Sodium Level 142 Potassium Level 3.7 Chloride Level 115 H Carbon Dioxide Level 24 Anion Gap 3 #L Blood Urea Nitrogen 7 Creatinine 0.83 Est Glomerular Filtrat Rate mL/min Glucose Level 64 L Calcium Level 8.3 L Subjective 24 Hr Interval Summary Constitutional: no complaints Exam/Review of Systems Exam Vitals Vital Signs Date Temp Pulse Resp B/P (MAP) Pulse Ox O2 O2 Flow FiO2 Time Delivery Rate 10/01/18 67 20 120/57 94 Trach 13:23 (78) Collar 10/01/18 30 13:00 10/01/18 98.6 11:28 Intake and Output 09/30/18 09/30/18 10/01/18 1515:00 23:00 07:00 IntakeIntake Total 510 ml 480 ml OutputOutput Total 350 ml 200 ml BalanceBalance 160 ml 280 ml Constitutional: alert, oriented Respiratory: clear to auscultation Cardiovascular: regular rate and rhythm Gastrointestinal: soft; No distended Musculoskeletal: nl extremities to inspection Results Results 24hrs Laboratory Tests Test 10/01/18 06:06 White Blood Count 5.7 Red Blood Count 3.06 L Hemoglobin 8.8 L Hematocrit 28.3 L Mean Corpuscular Volume 92.5 Mean Corpuscular Hemoglobin 28.8 L Mean Corpuscular Hemoglobin Concent 31.1 L Red Cell Distribution Width 14.4 Platelet Count 218 Mean Platelet Volume 10.6 H Immature Granulocytes % 0.200 Neutrophils % 51.6 Lymphocytes % 26.8 Monocytes % 10.1 Eosinophils % 10.4 H Basophils % 0.9 Nucleated Red Blood Cells % 0.0 Immature Granulocytes # 0.010 Neutrophils # 2.9 Lymphocytes # 1.5 Monocytes # 0.6 Eosinophils # 0.6 H Basophils # 0.1 Nucleated Red Blood Cells # 0.0 Sodium Level 142 Potassium Level 3.7 Chloride Level 115 H Carbon Dioxide Level 24 Anion Gap 3 #L Blood Urea Nitrogen 7 Creatinine 0.83 Est Glomerular Filtrat Rate mL/min Glucose Level 64 L Calcium Level 8.3 L Medications Medication Current Medications IV Flush (NS 3 ml) 3 ml PER PROTOCOL IV ; Start 09/13/18 at 07:00 Ondansetron HCl (Zofran Inj) 4 mg Q6H PRN IV NAUSEA AND/OR VOMITING; Start 09/13/18 at 07:00 Acetaminophen (Tylenol Tab) 650 mg Q6H PRN PO PAIN LEVEL 1-3 OR FEVER Last administered on 09/30/18 07:58; Admin Dose 650 MG; Start 09/13/18 at 07:00 Levothyroxine Sodium (Synthroid) 25 mcg BEFORE BREAKFAST PO Last administered on 09/29/18 06:42; Admin Dose 25 MCG; Start 09/13/18 at 07:00 Pantoprazole (Protonix Tab) 40 mg DAILY@06 PO Last administered on 09/29/18 06:42; Admin Dose 40 MG; Start 09/13/18 at 06:00 Levalbuterol (Xopenex Hfa) 1.25 puff Q4H PRN INH WHEEZING AND SOB Last admin istered on 09/25/18 11:23; Admin Dose 1.25 PUFF; Start 09/13/18 at 10:00 Diphenhydramine HCl (Benadryl) 25 mg Q6H PRN IV ITCHING Last administered on 09/25/18 21:06; Admin Dose 25 MG; Start 09/15/18 at 20:00 IV Flush (NS 10 ml) 10 ml PRN PRN IV FLUSH LINE; Start 09/16/18 at 16:30 Levalbuterol (Xopenex Hfa) 2 puff Q6H RESP THERAPY INH Last administered on 10/01/18 10:58; Admin Dose 2 PUFF; Start 09/17/18 at 20:00 Mupirocin (Bactroban) 1 applic BID TOP Last administered on 10/01/18 09:11; A dmin Dose 1 APPLIC; Start 09/19/18 at 23:00 Docusate Sodium (Colace Liquid Cup) 100 mg BID PO Last administered on 09/29/18 08:57; Admin Dose 100 MG; Start 09/20/18 at 09:00 Mirtazapine (Remeron) 15 mg QHS PO Last administered on 09/30/18 20:16; Admin Dose 15 MG; Start 09/20/18 at 21:00 Enoxaparin Sodium (Lovenox) 100 mg Q24H SC Last administered on 09/29/18at 06:57; Admin Dose 100 MG; Start 09/25/18 at 05:30 Nystatin (Nystatin Powder) 1 applic BID TOP Last administered on 10/01/18at 09:11; Admin Dose 1 APPLIC; Start 09/25/18 at 14:30 Lorazepam (Ativan) 1 mg Q4H PRN IV anxiety, agitation Last administered on 10/01/18at 14:07; Admin Dose 1 MG; Start 09/25/18 at 20:00 Sodium Chloride 1,000 ml @ 50 mls/hr Q20H IV Last administered on 10/01/18at 03:39; Admin Dose 50 MLS/HR; Start 09/27/18 at 12:30 MAINE ZAMORANO Oct 01, 2018 14:43
[2018-10-01] MEDS: DIPHENHYDRAMINE 50 MG INJ IV PRN (15:29)
--- NOTE | 2018-10-01 16:25 | NUR ---
PT NOTE Attempted to see pt in pm. Pt undergoing PEG placement upon first attempt. Attempted again later in pm, pt unable to be roused due to medications. Communicated with RN.
--- NOTE | 2018-10-01 19:30 | NUR ---
EOSS A&Ox1. Egyptian speaking. Mouths words. Trach to vent AC 16 TV 450 PEEP 5 FIO2 35%. Ada 4. Bed rest. Diagnosis Pneumonia. PEG placed by Dr. Villavicencio. OK for meds. Tube feeding to start 10/02/18. To be transferred to [place]. Report given to Dominguez mccray RN. Transfer packet completed and given to volleyball referee. Photos of healing wounds taken and placed in chart. WHITING MACHINE OPERATOR during change of shift due to trach not aligned and desat. Respiratory came and reinforce trach ties. Patient SPO2 100%. No signs of pain or respiratory distress. Bed brakes on, side rails up, call light within reach. Stable vital signs. Will endorse to overnight associate.
[2018-10-01] MEDS: MIRTAZAPINE 15 MG TAB PO SCH (20:59)
--- NOTE | 2018-10-01 22:34 | NUR ---
pt calm, family at bedside, vital signs stable, HR in 60s, pt safely transferred to [place] around 2140. midline and davies cath in placed, RT and charge nurse went with patient.
--- NOTE | 2018-10-02 11:15 | DS ---
Date/Time of Note Date/Time of Note DATE: 10/02/18 TIME: 11:07 Discharge Summary Admission/Discharge Info Admit Date/Time Sep 13, 2018 at 05:56 Discharge Date/Time Oct 01, 2018 at 21:40 Discharge Diagnosis 1. Right jaw swelling -Ultrasound shows what looks like residual thyroid tissue - no erythema, open wounds, discharge or drainage appreciated 2. Acute on chronic hypoxemic and hypercapnic on respiratory failure secondary to dislodged tracheostomy and pneumonia on chronic lung metastasis -Pulmonology believes the patient will need to continue vent support -Status post antibiotics -Discussed with family aspirations most likely exacerbating pulmonary deterioration -DC to [place] to attempt weaning off vent 2. Sepsis secondary to likely aspiration pneumonia-resolved -Status post antibiotics - WBC normal and remains afebrile 3. Acute metabolic encephalopathy secondary to hypercapnia-resolved - CT brain with no acute findings 4. Acute kidney injurystable - avoid nephrotoxic agents 5. Metastatic thyroid cancer status post surgical resection and radioactive iodine with known pulmonary metastasis - Follow-up with outpatient oncologist, patient did have a recent PET scan at [facility], [place] and requested for records - Patient is status post tracheostomy several years ago 6. History of aspiration - Video swallow results noted and patient continues to aspirate. Per Speech she is still aspiration with thin liquids and less when head turned to left and given pureed. Still not safe for full meals but okay for oral gratification. -PEG tube has been placed 7. Hypothyroidism - Continue Synthroid 8. Anemia chronic disease - Monitor 9. Hypertension -Continue home meds as BP tolerates 10. Dysphagia - Speech on board and recommending pureed for gratification only - PEG has been placed 11. Right upper extremity DVT -On Lovenox Patient Condition: Good Hospital Course Patient is an 82-year-old female with a history of morbid obesity, metastatic thyroid cancer status post thyroidectomy and radioactive iodine, chronic restaurant failure status post tracheostomy on room air. Patient presented with several days of encephalopathy as well as respiratory distress, patient was found to be septic with possible pneumonia. Patient's encephalopathy was secondary to hypercapnia as noted on ABG, patient was transferred ICU and connected to ventilatory support with resolution of encephalopathy. Patient was diagnosed with aspiration pneumonia as well as sepsis and did receive a prolonged course of antibiotics. Patient was unable to be weaned off the vent as she would become hypercapnic and hypoxic. Patient hypercapnia was likely secondary to OHS and pickwickian syndrome and hypoxia was thought to be secondary to metastatic thyroid cancer which involved her lungs. Patient's hypoxia did not drastically improve with antibiotic course and hence was unable to be weaned off the vent. Patient was seen by speech therapy and was at high aspiration risk, family did ultimately consent to a PEG tube. Family initially wanted to take patient home with hospice with vent but ultimately decided for LTAC to attempt to wean off vent. Patient was stable for DC to [facility], on the day of discharge patient's vitals, labs and physical exam are stable patient has no acute complaints and questions are answered. Home Meds Reported Medications Atorvastatin* (Atorvastatin*) 40 Mg Tablet, 40 MG ORAL HS 09/13/18 Gabapentin* (Gabapentin*) 100 Mg Capsule, 100 MG ORAL BID PRN for NERVE PAIN 09/13/18 Aspirin* (Aspirin* EC) 81 Mg Tablet.dr, 81 MG ORAL DAILY 09/13/18 Colchicine* (Colcrys*) 0.6 Mg Tablet, 0.6 MG PO Q8H PRN for gout, TAB 09/13/18 Lorazepam* (Ativan*) 2 Mg Tablet, 2 MG PO BID PRN for ANXIETY, #30 TAB 09/13/18 Ibuprofen* (Ibuprofen*) 600 Mg Tablet, 600 MG ORAL Q6H PRN for PAIN LEVEL 1-5 09/13/18 Pioglitazone Hcl* (Pioglitazone Hcl*) 45 Mg Tablet, 45 MG ORAL DAILY 09/13/18 Ondansetron (Ondansetron Odt) 8 Mg Tab.rapdis, 8 MG PO Q6H PRN for NAUSEA AND/OR VOMITING, TAB 07/02/18 Levalbuterol* (Xopenex* HFA) 15 Gm Inha, 2 PUFFS INH Q4H PRN for WHEEZING AND SOB, INHALER 07/02/18 Spironolactone* (Aldactone*) 25 Mg Tablet, 12.5 MG PO DAILY, #30 TAB 07/02/18 Levothyroxine Sodium* (Levothyroxine Sodium*) 25 Mcg Tablet, 25 MCG PO BEFORE BREAKFAST, #30 TAB 07/02/18 Quetiapine Fumarate* (Seroquel*) 50 Mg Tablet, 50 MG PO HS, TAB 07/02/18 Sennosides* (Senna Lax*) 8.6 Mg Tablet, 1 TAB PO DAILY PRN for CONSTIPATION, TAB 07/02/18 Potassium Chloride* (Potassium Chloride*) 20 Meq Tablet.er, 20 MEQ PO DAILY, TAB.SA 07/02/18 Calcium Carbonate ([id number]) 500 Mg Tablet, 500 MG PO TID, TAB 07/02/18 Esomeprazole Mag Trihydrate (Nexium) 40 Mg Capsule.dr, 40 MG PO AC BREAKFAST, #30 CAP 07/02/18 Metoprolol Succinate* (Toprol XL*) 25 Mg Tab.sr.24h, 25 MG PO DAILY, #30 TAB 07/02/18 Magnesium Chloride* (Mag 64*) 64 Mg Tabsr, 64 MG PO DAILY, TAB 07/02/18 Furosemide* (Furosemide*) 20 Mg Tablet, 20 MG PO DAILY, #60 TAB 07/02/18 Ferrous Sulfate* (Ferrous Sulfate*) 325 Mg Tabec, 325 MG PO Q48H, TAB 07/02/18 Follow-up Plan Follow-up with physicians at [facility] Primary Care Provider Vargas Stout MD Time spent on discharge: > 30 minutes MAINE ZAMORANO Oct 02, 2018 11:15
== END 2018-10-01 21:40 | DRG 870 ==
LOC: E/R 04:21 → 6WM 05:56 → CANRESERV 07:08 → ICU 09-14 11:50 → TEL 09-21 19:29
PROVIDERS: ADMIT Family Medicine; ATTEND Internal Medicine
PROC: 5A1955Z Respiratory Ventilation, Greater than 96 Consecutive Hours (ICD-10-PCS; principal; 2018-09-13)
PROC: 05HY33Z Insertion of Infusion Device into Upper Vein, Percutaneous Approach (ICD-10-PCS; 2018-09-16)
PROC: 02HV33Z Insertion of Infusion Device into Superior Vena Cava, Percutaneous Approach (ICD-10-PCS; 2018-09-16)
PROC: 0DB68ZZ Excision of Stomach, Via Natural or Artificial Opening Endoscopic (ICD-10-PCS; 2018-10-01)
PROC: 0DHA3UZ Insertion of Feeding Device into Jejunum, Percutaneous Approach (ICD-10-PCS; 2018-10-01)
DX: A41.9 Sepsis, unspecified organism (principal); J69.0 Pneumonitis due to inhalation of food and vomit; J96.22 Acute and chronic respiratory failure with hypercapnia; J96.21 Acute and chronic respiratory failure with hypoxia; J18.9 Pneumonia, unspecified organism; G92 Toxic encephalopathy; J95.03 Malfunction of tracheostomy stoma; N17.9 Acute kidney failure, unspecified; C78.00 Secondary malignant neoplasm of unspecified lung; I82.621 Acute embolism and thrombosis of deep veins of right upper extremity; Z66 Do not resuscitate; R65.20 Severe sepsis without septic shock; K21.9 Gastro-esophageal reflux disease without esophagitis; E03.9 Hypothyroidism, unspecified; D63.8 Anemia in other chronic diseases classified elsewhere; Y95 Nosocomial condition; D69.6 Thrombocytopenia, unspecified; E87.6 Hypokalemia; R13.10 Dysphagia, unspecified; I11.0 Hypertensive heart disease with heart failure; I50.9 Heart failure, unspecified; R22.0 Localized swelling, mass and lump, head; R63.3 Feeding difficulties; Z85.850 Personal history of malignant neoplasm of thyroid; Z98.890 Other specified postprocedural states; Z87.01 Personal history of pneumonia (recurrent)
CPT/HCPCS: 36415; 36569; 36600; 70450; 71045; 74230; 76536; 76937; 80048; 80053; 80069; 80202; 82803; 82962; 83036; 83605; 83735; 84100; 84443; 84484; 85025; 85610; 85730; 87040; 87070; 87081; 89220; 92526; 92610; 92611; 93005; 93971; 94002; 94003; 94640; 94664; 97110; 97161; 97165; 97530; C1769; J0153; J0282; J0692; J1170; J1200; J1630; J1644; J1650; J1940; J2060; J2370; J2543; J3010; J3370; J3475; J3480; J7030; J7040; J7060; P9047

== ENCOUNTER 2018-12-27 09:52 | Emergency (ER) | payer MEDICARE, OTHER ==
[~2018-12-27] VITALS: Ht 154.9 cm; Wt 81.8 kg
[~2018-12-27 09:52] MED LIST changes: -AMOX1TAB10 PO; +ASPI-817 ORAL; +ATOR40TA68 ORAL; +BALS60OI TOP; +COLC0.6T6 PO; -DEXA0.5T PO; +ENOX40DI12 SC; +GABA100C14 ORAL; +IBUP-1542 ORAL; +LEVA15HF5 INH; +LEVO100T8 GTB; +LORA-444 PO; +METO-448 GTB; +MIRT15TA5 GTB; +Nystatin Powder TOP; +PIOG45TA64 GTB; +POTA20PA23 GTB; +QUET25TA33 GTB
--- NOTE | 2018-12-27 10:04 | ERD ---
ER Documentation Chief Complaint Chief Complaint HPI 82-year-old woman brought in by EMS from home for shortness of breath and oxygen desaturation. Patient does have a history of COPD and tracheostomy placement and breathing spontaneously using oxygen at home, despite home oxygen saturation fell to the mid 70s for a few minutes. Patient herself complains of right upper quadrant abdominal pain, constant, severe. Patient has had no recent fevers, no vomiting or diarrhea, no complaints of chest pain. Patient transported here on high flow oxygen. HPI was limited given patient's mental status ROS All systems reviewed and are negative except as per history of present illness. Medications Home Meds Active Scripts [Nystatin Powder] 1 APPLIC POWDER No Conflict Check, 1 APPLIC TOP BID, #30 Prov:NESS WHITESIDE 11/01/18 Balsam Brandywine/[place] Oil (Venelex Ointment) 60 Gm Oint..gm., 1 APPLIC TOP PRN PRN for SOILED, #30 Prov:NESS WHITESIDE 11/01/18 Levothyroxine Sodium* (Levothyroxine Sodium*) 100 Mcg Tablet, 200 MCG GTB DA RAINE@06 for 30 Days, TAB Prov:NESS WHITESIDE 11/01/18 Potassium Chloride (Potassium Chloride) 20 Meq Packet, 20 MEQ GTB DAILY for 30 Days, PACKET Prov:NESS WHITESIDE 11/01/18 Quetiapine Fumarate* (Quetiapine Fumarate*) 25 Mg Tablet, 25 MG GTB Q6H PRN for AGITATION, #30 TAB Prov:NESS WHITESIDE 11/01/18 Mirtazapine* (Mirtazapine*) 15 Mg Tablet, 15 MG GTB HS for 30 Days, TAB Prov:NESS WHITESIDE 11/01/18 Metoprolol Tartrate* (Lopressor*) 25 Mg Tab, 12.5 MG GTB BID for 30 Days, TAB Prov:NESS WHITESIDE 11/01/18 Enoxaparin Sodium (Enoxaparin Sodium) 40 Mg/0.4 Ml Syringe, 40 MG SC DAILY for 30 Days Prov:NESS WHITESIDE 11/01/18 Levalbuterol Tartrate (Levalbuterol Tartrate Hfa) 15 Gm Hfa.aer.ad, 1 PUFF INH Q6H RESP THERAPY for 30 Days Prov:NESS WHITESIDE 11/01/18 Sennosides* (Senna Lax*) 8.6 Mg Tablet, 1 TAB PO DAILY PRN for CONSTIPATION, #30 TAB Prov:NESS WHITESIDE 11/01/18 Furosemide* (Furosemide*) 20 Mg Tablet, 20 MG PO DAILY, #30 TAB Prov:NESS WHITESIDE 11/01/18 Reported Medications Atorvastatin* (Atorvastatin*) 40 Mg Tablet, 40 MG ORAL HS 09/13/18 Gabapentin* (Gabapentin*) 100 Mg Capsule, 100 MG ORAL BID PRN for NERVE PAIN 09/13/18 Aspirin* (Aspirin* EC) 81 Mg Tablet.dr, 81 MG ORAL DAILY 09/13/18 Colchicine* (Colcrys*) 0.6 Mg Tablet, 0.6 MG PO Q8H PRN for gout, TAB 09/13/18 Lorazepam* (Ativan*) 2 Mg Tablet, 2 MG PO BID PRN for ANXIETY, #30 TAB 09/13/18 Ibuprofen* (Ibuprofen*) 600 Mg Tablet, 600 MG ORAL Q6H PRN for PAIN LEVEL 1-5 09/13/18 Pioglitazone Hcl* (Pioglitazone Hcl*) 45 Mg Tablet, 45 MG ORAL DAILY 09/13/18 Ondansetron (Ondansetron Odt) 8 Mg Tab.rapdis, 8 MG PO Q6H PRN for NAUSEA AND/OR VOMITING, TAB 07/02/18 Levalbuterol* (Xopenex* HFA) 15 Gm Inha, 2 PUFFS INH Q4H PRN for WHEEZING AND SOB, INHALER 07/02/18 Spironolactone* (Aldactone*) 25 Mg Tablet, 12.5 MG PO DAILY, #30 TAB 07/02/18 Levothyroxine Sodium* (Levothyroxine Sodium*) 25 Mcg Tablet, 25 MCG PO BEFORE BREAKFAST, #30 TAB 07/02/18 Quetiapine Fumarate* (Seroquel*) 50 Mg Tablet, 50 MG PO HS, TAB 07/02/18 Potassium Chloride* (Potassium Chloride*) 20 Meq Tablet.er, 20 MEQ PO DAILY, TAB.SA 07/02/18 Calcium Carbonate ([id number]) 500 Mg Tablet, 500 MG PO TID, TAB 07/02/18 Esomeprazole Mag Trihydrate (Nexium) 40 Mg Capsule.dr, 40 MG PO AC BREAKFAST, #30 CAP 07/02/18 Metoprolol Succinate* (Toprol XL*) 25 Mg Tab.sr.24h, 25 MG PO DAILY, #30 TAB 07/02/18 Magnesium Chloride* (Mag 64*) 64 Mg Tabsr, 64 MG PO DAILY, TAB 07/02/18 Ferrous Sulfate* (Ferrous Sulfate*) 325 Mg Tabec, 325 MG PO Q48H, TAB 07/02/18 Allergies Allergies: Coded Allergies: cefepime (Verified Allergy, Severe, rash, pruritis, 12/27/18) noted 10/31/2018. Pt tolerates Zosyn metronidazole (Verified Allergy, Intermediate, 12/27/18) prednisone (Verified Allergy, Mild, HALLUCINATIONS, 12/27/18) clindamycin (Verified Allergy, Unknown, 12/27/18) iodine (Verified Allergy, Unknown, RASHES, 12/27/18) morphine (Verified Allergy, Unknown, RASHES, 12/27/18) PMhx/Soc Chronic hypoxemic respiratory failure with tracheostomy tube, chronic lung metastasis, chronic renal insufficiency, metastatic thyroid cancer with pulmonary mets, hypertension, anemia, dysphagia with PEG tube, right upper extremity DVT History of Surgery: Yes (Thyroid resection) Anesthesia Reaction: No Hx Neurological Disorder: No Hx Respiratory Disorders: Yes Hx Cardiac Disorders: Yes (HTN) Hx Psychiatric Problems: Yes (anxiety) Hx Miscellaneous Medical Probl: Yes (metastatic thyroid CA s/p surgical resection with known pulmonary mets with) Hx Alcohol Use: No Hx Substance Use: No Hx Tobacco Use: No Physical Exam Vitals Vital Signs Date Temp Pulse Resp B/P (MAP) Pulse Ox O2 O2 Flow FiO2 Time Delivery Rate 12/27/18 88 18 107/50 15 Non 11:30 (69) Rebreather 12/27/18 Nasal 15.0 10:37 Cannula 12/27/18 60 17 100 Non 15.0 100 10:30 Rebreather Mask 12/27/18 Nasal 15 10:22 Cannula 12/27/18 98.9 72 18 115/62 88 10:11 (79) Physical Exam GENERAL: Well-developed, well-nourished, dyspneic, afebrile HEENT: Moist mucous membranes, pink conjunctiva, no cervical spine tenderness or step-off deformities, no goiter, no jaundice or icterus, extraocular movements intact without pain. NEURO: Alert and oriented 3, cranial nerves II through XII intact bilaterally, pupils equal round reactive to light, no focal deficits or facial asymmetry, sensation intact distally Strength 5/5 in upper and lower extremities bilaterally CARDIAC: Regular rate and rhythm, no murmurs rubs or gallops LUNGS: Poor breath sounds bilaterally ABDOMEN: Abdomen is generally soft although tender to the right mid abdomen, there is a palpable mass there without rigidity or rebound SKIN: Warm and dry to touch, no abrasions, contusions, or hematomas, no lacerations, no ecchymosis, no target lesions, and without ulcers EXTREMITIES: No clubbing cyanosis, 3+ pitting edema in the lower extremities bilaterally, calves are bilaterally symmetrical, no Homans sign, no popliteal cord sign. Distal pulses equal and bilateral PSYCH: Normal affect without agitation or irritability Result Diagram: 12/27/18 1018 12/27/18 1018 Results 24 hrs Laboratory Tests Test 12/27/18 10:13 12/27/18 10:17 12/27/18 10:18 POC Venous Lactate 1.5 mmol/L Urine Color YELLOW Urine Clarity CLEAR Urine pH 6.0 Urine Specific [place] 1.017 Urine Ketones NEGATIVE mg/dL Urine Nitrite NEGATIVE mg/dL Urine Bilirubin NEGATIVE mg/dL Urine Urobilinogen NEGATIVE mg/dL Urine Leukocyte Esterase 2+ Machelle/ul Urine Microscopic RBC 0 /HPF Urine Microscopic WBC 10 /HPF Urine Hemoglobin NEGATIVE mg/dL Urine Glucose NEGATIVE mg/dL Urine Total Protein NEGATIVE mg/dl White Blood Count 7.5 10^3/ul Red Blood Count 3.63 10^6/ul Hemoglobin 10.1 g/dl Hematocrit 33.2 % Mean Corpuscular Volume 91.5 fl Mean Corpuscular Hemoglobin 27.8 pg Mean Corpuscular 30.4 g/dl Hemoglobin Concent Red Cell Distribution Width 14.6 % Platelet Count 242 10^3/UL Mean Platelet Volume 9.9 fl Immature Granulocytes % 0.500 % Neutrophils % 62.0 % Lymphocytes % 27.7 % Monocytes % 5.9 % Eosinophils % 3.2 % Basophils % 0.7 % Nucleated Red Blood Cells % 0.0 /100WBC Immature Granulocytes # 0.040 10^3/ul Neutrophils # 4.6 10^3/ul Lymphocytes # 2.1 10^3/ul Monocytes # 0.4 10^3/ul Eosinophils # 0.2 10^3/ul Basophils # 0.1 10^3/ul Nucleated Red Blood Cells # 0.0 10^3/ul Prothrombin Time 12.8 Sec Prothrombin Time Ratio 1.0 INR International 0.95 Normalized Ratio Activated Partial Thromboplast 23.8 Sec Time Sodium Level 140 mmol/L Potassium Level 4.8 mmol/L Chloride Level 99 mmol/L Carbon Dioxide Level 33 mmol/L Anion Gap 8 Blood Urea Nitrogen 16 mg/dl Creatinine 0.69 mg/dl Est Glomerular Filtrat mL/min Rate mL/min Glucose Level 106 mg/dl Calcium Level 8.9 mg/dl Total Bilirubin 0.2 mg/dl Direct Bilirubin 0.00 mg/dl Indirect Bilirubin 0.2 mg/dl Aspartate Amino 30 IU/L Transf (AST/SGOT) Alanine 12 IU/L Aminotransferase (ALT/SGPT) Alkaline Phosphatase 53 IU/L Troponin I < 0.012 ng/ml C-Reactive Protein 0.7 mg/dl Total Protein 7.0 g/dl Albumin 3.7 g/dl Globulin 3.30 g/dl Albumin/Globulin Ratio 1.12 Lipase 57 U/L Current Medications Medications Dose Sig/Dahiana Start Time Status Last (Trade) Ordered Route PRN Stop Time Admin Dose Reason Admin Albuterol 10 mg ONCE STAT 12/27/18 DC 12/27/18 (Proventil INH 10:07 10:24 0.5% (Neb)) 12/27/18 10:14 Sodium 2,000 ml BOLUS OVER 2 12/27/18 DC 12/27/18 Chloride HOURS STAT 10:07 10:29 (NS) IV* 12/27/18 10:14 650 mg ONCE STAT 12/27/18 DC Acetaminophen ND 10:07 (Tylenol 12/27/18 10:14 Supp) 150 ml @ ONCE ONCE 12/27/18 DC 12/27/18 Levofloxacin/ 100 mls/hr IVPB 10:30 10:47 Dextrose 12/27/18 11:59 Aspirin 162 mg ONCE ONCE 12/27/18 DC 12/27/18 (Aspirin) PO 11:00 11:02 12/27/18 11:01 Furosemide 40 mg ONCE ONCE 12/27/18 DC 12/27/18 (Lasix) IV 11:00 11:02 12/27/18 11:01 Procedures/MDM IV line was established patient was placed on rn cardiac rhythm strip revealed a sinus rhythm at about 60 bpm with upright P and T waves. Patient was afebrile, blood and urine cultures have been ordered results are pending I will follow-up. EKG performed, read by me: 62 bpm, normal sinus rhythm, normal axis, no acute ST segment changes, narrow QRS complex, with good R-wave progression in precordial leads. 1 view chest x-ray performed, read by me revealed bilateral interstitial edema and cardiomegaly, concerning for decompensated heart failure. I administered albuterol 10 mg via nebulizer and levofloxacin 750 mg IV x1 for abnormal x-ray and shortness of breath. I also administered aspirin 162 mg p.o. for cardioprotective measures and Lasix 60 mg IV x1 CBC was normal, electrolytes unremarkable, liver function tests normal, troponin negative, urine analysis positive for infection, lactic acid level is low. CT scan of the abdomen and pelvis was performed revealing a large right-sided ventral hernia, IMPRESSION: 1. Multiple pulmonary nodules in the visualized lung bases compatible with metastases, seen on prior imaging. 2. Otherwise, within the limitations of a noncontrast enhanced exam, no mass, bulky lymphadenopathy, or acute inflammatory process in the abdomen/pelvis. No organized fluid collection to suggest abscess. 3. Right lower quadrant ventral abdominal wall hernia containing a loop of bowel, though without evidence of strangulation or obstruction. 4. Left adnexal prominence stable compared to the 12/11/2016 CT abdomen/pelvis. A follow-up pelvic ultrasound may be obtained for further evaluation. 5. Additional findings as above. Critical Care: Time: 45 minutes, this was time separate from other billable procedures. Treatments/Evaluations: Close monitoring and treatment of unstable vital signs, cardiorespiratory, and neurologic status, while maintaining tight balance of fluid, respiratory, and cardiac interventions. Patient will be admitted to telemetry setting for continued medical management and possible surgical consultation. Departure Diagnosis: Primary Impression: CHF (congestive heart failure) Heart failure type: combined systolic and diastolic Heart failure chronicity: acute Qualified Codes: I50.41 - Acute combined systolic (congestive) and diastolic (congestive) heart failure Additional Impressions: Acute UTI Abdominal wall hernia Ruled Out: Shortness of breath Condition: CHAITANYA Solis MD Dec 27, 2018 10:04
[2018-12-27] MEDS ORDERED: ALBUTEROL 0.5% (NEB) 2.5 MG/0.5 ML AMP INH STA (10:07)
[2018-12-27] MEDS ORDERED: SODIUM CHLORIDE 0.9% 1L BAG IV* STA (10:07)
[2018-12-27] MEDS ORDERED: ACETAMINOPHEN 650 MG SUPP PR STA (10:07)
[2018-12-27 10:11] VITALS: Ht 154.9 cm; Wt 81.8 kg
[2018-12-27] MEDS ORDERED: LEVOFLOXACIN 750MG/D5W (PMX) 150 ML IVPB ONE (10:30)
[2018-12-27] MEDS ORDERED: ASPIRIN 81 MG TAB PO ONE (11:00)
[2018-12-27] MEDS ORDERED: FUROSEMIDE 40 MG INJ IV ONE (11:00)
--- NOTE | 2018-12-27 12:44 | HP ---
Date/Time of Note Date/Time of Note DATE: 12/27/18 TIME: 12:44 Assessment/Plan VTE Prophylaxis SCD applied (from Nsg): Yes Pharmacological prophylaxis: LMWH Lines/Catheters IV Catheter Type (from Nrsg): Saline Lock Urinary Cath still in place: No Assessment/Plan Assessment/Plan 1. Acute hypoxic respiratory failure - resolved following suction - given a dose of Lasix as well. - Per grandson, caregivers have not been very attentive. Discussed breathing treatment if experiencing SOB 2. UTI - UA + and patient experiencing increased frequency - tolerated Levaquin and will continue current antibiotic 3. Hypothyroidism - continue replacement 4. Systolic HF - mildly elevated BNP - given a dose of Lasix in ED - enforced Lasix use as outpatient with johnnie 5. h/o metastatic thyroid cancer 6. HTN - continue home medications 7. Dysphagia - PEG in place 8. Disposition - Patient is back to baseline and family requesting to take her home. She will be discharged with PO Levaquin to treat UTI. Result Diagram: 12/27/18 1018 12/27/18 1018 Results 24hrs Laboratory Tests Test 12/27/18 10:13 12/27/18 10:17 12/27/18 10:18 POC Venous Lactate 1.5 Urine Color YELLOW Urine Clarity CLEAR Urine pH 6.0 Urine Specific [place] 1.017 Urine Ketones NEGATIVE Urine Nitrite NEGATIVE Urine Bilirubin NEGATIVE Urine Urobilinogen NEGATIVE Urine Leukocyte Esterase 2+ H Urine Microscopic RBC 0 Urine Microscopic WBC 10 H Urine Hemoglobin NEGATIVE Urine Glucose NEGATIVE Urine Total Protein NEGATIVE White Blood Count 7.5 Red Blood Count 3.63 #L Hemoglobin 10.1 #L Hematocrit 33.2 #L Mean Corpuscular Volume 91.5 Mean Corpuscular Hemoglobin 27.8 L Mean Corpuscular Hemoglobin Concent 30.4 L Red Cell Distribution Width 14.6 H Platelet Count 242 Mean Platelet Volume 9.9 Immature Granulocytes % 0.500 H Neutrophils % 62.0 Lymphocytes % 27.7 Monocytes % 5.9 Eosinophils % 3.2 Basophils % 0.7 Nucleated Red Blood Cells % 0.0 Immature Granulocytes # 0.040 H Neutrophils # 4.6 Lymphocytes # 2.1 Monocytes # 0.4 Eosinophils # 0.2 Basophils # 0.1 Nucleated Red Blood Cells # 0.0 Prothrombin Time 12.8 Prothrombin Time Ratio 1.0 INR International Normalized Ratio 0.95 Activated Partial Thromboplast Time 23.8 Sodium Level 140 Potassium Level 4.8 Chloride Level 99 Carbon Dioxide Level 33 H Anion Gap 8 Blood Urea Nitrogen 16 Creatinine 0.69 Est Glomerular Filtrat Rate mL/min Glucose Level 106 Calcium Level 8.9 Total Bilirubin 0.2 Direct Bilirubin 0.00 Indirect Bilirubin 0.2 Aspartate Amino Transf (AST/SGOT) 30 Alanine Aminotransferase (ALT/SGPT) 12 L Alkaline Phosphatase 53 Troponin I < 0.012 C-Reactive Protein 0.7 Total Protein 7.0 Albumin 3.7 Globulin 3.30 H Albumin/Globulin Ratio 1.12 Lipase 57 HPI/ROS Admit Date/Time Admit Date/Time 12/27/18 Hx of Present Illness 82 yo F with PMH metastatic thyroid cancer on trach, CHF, hypothyroidism, anemia of chronic disease, and HTN presented to ED with acute shortness of breath. Patient has trach in place and nonverbal. History obtained from grandson and ED physician. Patient comes from home with acute respiratory distress and found with saturations of 78%. Patient was given breathing treatment and suctioned w ith improvement to baseline. Patient has been experiencing increased frequency with urination but denies any fevers, chills, nausea, vomiting, chest pain, or abdominal issues. Per family, patient is at baseline and requesting to go home. ROS All 12 systems reviewed and pertinent positives as per HPI. All others negative. Constitutional: No chills, No nausea Eyes: No discharge ENT: No congestion Respiratory: shortness of breath; No cough, No sputum, No wheezing Cardiovascular: No chest pain, No lightheadedness, No palpitations Gastrointestinal: No constipation, No diarrhea, No nausea, No vomiting Genitourinary: other (frequency); No bleeding, No discharge Skin: No laceration, No rash Neurologic: No confusion, No focal-weakness, No syncope Endocrine: no complaints Lymphatic: no complaints Psychological: nl mood/affect Immunologic: no complaints PMH/Family/Social Past Medical History Medical History: congestive heart failure, coronary artery disease, hypertension, hypothyroid, other (metastatic thyroid cancer) Medications Current Medications Aspirin (Halfprin) 81 mg DAILY PO ; Start 12/28/18 at 09:00; Status UNV Atorvastatin Calcium (Lipitor) 40 mg HS PO ; Start 12/27/18 at 21:00; Status UNV Calcium Carbonate (Oyster Shell Calcium) 0.5 gm TID PO ; Start 12/27/18 at 13:00; Status UNV Colchicine (Colchicine) 0.6 mg Q8H PRN PO gout; Start 12/27/18 at 13:00; St atus UNV Enoxaparin Sodium (Lovenox) 40 mg DAILY SC ; Start 12/28/18 at 09:00; Status UNV Gabapentin (Neurontin) 100 mg BID PRN PO NERVE PAIN; Start 12/27/18 at 13:00; Status UNV Levalbuterol (Xopenex Hfa) 1 puff Q6H RESP THERAPY INH ; Start 12/27/18 at 14:00; Status UNV Levalbuterol (Xopenex Hfa) 1 puff Q4H PRN INH WHEEZING AND SOB; Start 12/27/18 at 13:00; Status UNV Levothyroxine Sodium (Synthroid) 25 mcg BEFORE BREAKFAST PO ; Start 12/28/18 at 07:00; Status UNV Lorazepam (Ativan) 2 mg BID PRN PO ANXIETY; Start 12/27/18 at 13:00; Status UNV Mirtazapine (Remeron) 15 mg HS GTB ; Start 12/27/18 at 21:00; Status UNV Senna (Senokot) 1 tab DAILY PRN PO CONSTIPATION; Start 12/27/18 at 13:00; Status UNV Spironolactone (Aldactone) 12.5 mg DAILY PO ; Start 12/28/18 at 09:00; Status UNV Furosemide (Lasix) 20 mg BID DIURETICS IV ; Start 12/27/18 at 18:00; Status UNV Levofloxacin/ Dextrose 100 ml @ 100 mls/hr Q24H IVPB ; Start 12/27/18 at 13:00; Status UNV Coded Allergies: cefepime (Verified Allergy, Severe, rash, pruritis, 12/27/18) noted 10/31/2018. Pt tolerates Zosyn metronidazole (Verified Allergy, Intermediate, 12/27/18) prednisone (Verified Allergy, Mild, HALLUCINATIONS, 12/27/18) clindamycin (Verified Allergy, Unknown, 12/27/18) iodine (Verified Allergy, Unknown, RASHES, 12/27/18) morphine (Verified Allergy, Unknown, RASHES, 12/27/18) Past Surgical History Past Surgical Hx: other Family History Significant Family History: no pertinent family hx Social History Alcohol Use: none Smoking Status: Never smoker Drug Use: none Exam/Review of Systems Vital Signs Vitals Vital Signs Date Temp Pulse Resp B/P (MAP) Pulse Ox O2 O2 Flow FiO2 Time Delivery Rate 12/27/18 88 18 107/50 15 Non 11:30 (69) Rebreather 12/27/18 15.0 10:37 12/27/18 100 10:30 12/27/18 98.9 10:11 Exam Exam General: Pleasant female, no acute distress. mouthing questions and responding appropriately HEENT: NC/AT. PERRL. EOM intact Neck: Supple, nontender, midline, trach in place Respiratory: Clear to auscultation bilaterally. diminished but no wheezing or rhonchi Cardiovascular: S1, S2, regular rate and rhythm, no obvious murmurs Gastrointestinal: soft, non-tender to palpation, nondistended, bowel sounds heard. PEG in place Neurological: Moves all extremities spontaneously Skin: No new skin lesions Additional Comments Home medications reviewed PROCEDURE: XR Chest. CLINICAL INDICATION: Chest pain TECHNIQUE: Single frontal view of the chest was obtained COMPARISON: CHEST 11/02/2018; MP CHEST 05/04/2016 FINDINGS: The heart is enlarged. The thoracic aorta is calcified. There are patchy bilateral upper lobe and lower lobe increased interstitial changes. There is a tracheostomy tube in place. There is no pleural effusion or pneumothorax. RPTAT: AA IMPRESSION: Mild cardiomegaly. Patchy bilateral upper lobe and lower lobe increased interstitial changes, susp icious for pulmonary vascular congestion. Calcified aorta consistent with atherosclerotic disease. .Clint Olivares MD, MD Date Time Electronically viewed and signed by .Clint Olivares MD, on 12/27/2018 10:31 PROCEDURE: CT Abdomen and Pelvis without contrast. CLINICAL INDICATION: Abdominal pain, fever TECHNIQUE: CT scan of the abdomen and pelvis without IV contrast was performed on a multi-detector high-resolution CT scanner. Oral contrast was not administered. Coronal and sagittal reformatted images were obtained from the axial source images. DICOM images are available. CTDI equals 22.21 mGy, and DLP equals 1163.06 mGy-cm. One or more of the following dose reduction techniques were used: - Automated exposure control. - Adjustment of the mA and/or kV according to patient size. - Use of iterative reconstruction technique. COMPARISON: CT BRAIN 09/13/2018; CT CHESTW 07/02/2018; CT 12/11/2016. FINDINGS: In the absence of intravenous contrast, the study constitutes a limited assessment of the solid organs, bowel and vessels. Lower thorax: Multiple pulmonary nodules in the visualized lung bases compatible with metastatic disease. Hypoattenuation of the blood pole suggestive of anemia. Coronary artery calcifications, partially visualized. Liver: Normal. Bile Ducts: No biliary dilatation. Gallbladder: Normal Pancreas: Mild fatty involution of the pancreas. Spleen: Normal. Adrenal Glands: Normal. Kidneys/Ureters: The kidneys appear somewhat atrophic. Left renal cysts are identified. Bladder: Bladder is partially collapsed around a Tan catheter. Reproductive organs: Uterus is present. There is left adnexal prominence, grossly stable compared to the 12/11/2016 exam. Gastrointestinal Tract: A peg tube is present. Scattered colonic diverticula without evidence of diverticulitis. No right lower quadrant fat stranding to suggest appendicitis. Right lower ventral abdominal wall hernia containing a loop of small bowel, though without evidence of bowel obstruction, or strangulation of the loop in the hernia sac. Peritoneum/Retroperitoneum: No free fluid or free air. Lymph nodes: No bulky adenopathy. Vessels: Marked atherosclerotic calcifications of the aorta and its branches. Right common iliac artery measures up to 2.2 cm in diameter, and the left up to 2.3 cm in diameter. Musculoskeletal: The bones are demineralized. Moderate multilevel degenerative changes of the visualized spine. Exaggerated lumbar lordosis. Grade 1 anterolisthesis at L4-L5 L5-S1.. IMPRESSION: 1. Multiple pulmonary nodules in the visualized lung bases compatible with metastases, seen on prior imaging. 2. Otherwise, within the limitations of a noncontrast enhanced exam, no mass, bulky lymphadenopathy, or acute inflammatory process in the abdomen/pelvis. No organized fluid collection to suggest abscess. 3. Right lower quadrant ventral abdominal wall hernia containing a loop of bowel, though without evidence of strangulation or obstruction. 4. Left adnexal prominence stable compared to the 12/11/2016 CT abdomen/pelvis. A follow-up pelvic ultrasound may be obtained for further evaluation. 5. Additional findings as above. RPTAT: HH Angel Galloway, Physician Date Time Electronically viewed and signed by Angel Galloway Physician on 12/27/2018 12:30 KRISTYN JAY MD Dec 27, 2018 12:44
[2018-12-27] MEDS ORDERED: CALCIUM CARBONATE 1.25 GM TAB PO SCH (13:00)
[2018-12-27] MEDS ORDERED: ACETAMINOPHEN 325 MG TAB PO PRN (13:00)
[2018-12-27] MEDS ORDERED: NACL 0.9% 3 ML SYG IV SCH (13:00)
[2018-12-27] MEDS ORDERED: ONDANSETRON 4 MG INJ IV PRN (13:00)
[2018-12-27] MEDS ORDERED: LEVALBUTEROL (HFA) 15 GM INHALER INH PRN (13:00)
[2018-12-27] MEDS ORDERED: BALSAM PERU/CASTOR OIL 60 GM TUBE TOP PRN (13:00)
[2018-12-27] MEDS ORDERED: GABAPENTIN 100 MG CAP PO PRN (13:00)
[2018-12-27] MEDS ORDERED: SENNA TAB PO PRN (13:00)
[2018-12-27] MEDS ORDERED: LORAZEPAM 1 MG TAB PO PRN (13:00)
[2018-12-27] MEDS ORDERED: COLCHICINE 0.6 MG TAB PO PRN (13:00)
[2018-12-27] MEDS ORDERED: QUET50TA22 GTB (13:06)
[2018-12-27] MEDS ORDERED: NYST1POW22 TOPICAL (13:07)
[2018-12-27] MEDS ORDERED: LEVO200T6 GTB (13:09)
[2018-12-27] MEDS ORDERED: IBUP-1542 GTB (13:11)
[2018-12-27] MEDS ORDERED: RISP1TAB3 GTB (13:12)
[2018-12-27] MEDS ORDERED: ALBU90AE INHALATION (13:18)
[2018-12-27] MEDS ORDERED: FURO20TA3 GTB (13:26)
[2018-12-27] MEDS ORDERED: LEVO500T10 PO (13:37)
[2018-12-27] MEDS ORDERED: LACT1TAB11 PO (13:37)
--- NOTE | 2018-12-27 13:41 | PDOCDIS ---
Discharge Instructions DIAGNOSIS Discharge Diagnosis 1. Urinary tract infection 2. Acute respiratory failure, resolved 3. Chronic anemia CONDITION [id number] Patient Condition: [id number] Stable HOME CARE INSTRUCTIONS: [id number] Diet Instructions: [id number] Low Fat /Cholesterol FOLLOW UP/APPOINTMENTS Follow-up Plan 1. Follow up with your primary care physician in 1 week 2. Take antibiotics, Levaquin, daily for 5 days with next dose, 12/28. If experiencing worsening symptoms, fevers, chills, nausea, or vomiting, please return to the ED 3. If experiencing shortness of breath, make sure to administer a breathing treatment to help clear any secretions 4. If experiencing any other concerning symptoms, please return to your nearest emergency department 5. Continue all medications as previously prescribed KRISTYN JAY MD Dec 27, 2018 13:41
[2018-12-27] MEDS ORDERED: LEVALBUTEROL (HFA) 15 GM INHALER INH SCH (14:00)
[2018-12-27 14:45] VITALS: BP 147/59; PULSE 73; RESP 20
[2018-12-27] MEDS ORDERED: FUROSEMIDE 20 MG INJ IV SCH (18:00)
--- NOTE | 2018-12-27 18:27 | DS ---
Date/Time of Note Date/Time of Note DATE: 12/27/18 TIME: 18:25 Discharge Summary Admission/Discharge Info Admit Date/Time 12/27/18 Discharge Date/Time 12/27/18 Discharge Diagnosis 1. Urinary tract infection 2. Acute respiratory failure, resolved 3. Chronic anemia Patient Condition: Stable Hx of Present Illness 82 yo F with PMH metastatic thyroid cancer on trach, CHF, hypothyroidism, anemia of chronic disease, and HTN presented to ED with acute shortness of breath. Patient has trach in place and nonverbal. History obtained from grandson and ED physician. Patient comes from home with acute respiratory distress and found with saturations of 78%. Patient was given breathing treatment and suctioned with improvement to baseline. Patient has been experiencing increased frequency with urination but denies any fevers, chills, nausea, vomiting, chest pain, or abdominal issues. Per family, patient is at baseline and requesting to go home. Hospital Course Patient stabilized in the ED and returned back to baseline. Discussion was held with family regarding comfort with taking patient home to continue treatment of UTI. Patient denied any further shortness of breath following suctioning of trach. Family was instructed to administer breathing treatments if experiencing shortness of breath and be vigilant about giving patient her diuretics daily. Patients presenting symptoms resolved completely and she was discharged home in stable condition. Home Meds Active Scripts Lactobacillus Acidophilus (ACIDOPHILUS) 1 Each Tablet, 1 EACH PO TIDM A for 30 Days, #90 TAB Prov:KRISTYN JAY MD 12/27/18 Levofloxacin* (Levofloxacin*) 500 Mg Tablet, 500 MG PO DAILY for 5 Days, #5 TAB Prov:KRISTYN JAY MD 12/27/18 Balsam Samantha/[place] Oil (Venelex Ointment) 60 Gm Oint..gm., 1 APPLIC TOP PRN PRN for SOILED, #30 Prov:NESS WHITESIDE 11/01/18 Mirtazapine* (Mirtazapine*) 15 Mg Tablet, 15 MG GTB HS for 30 Days, TAB Prov:NESS WHITESIDE 11/01/18 Levalbuterol Tartrate (Levalbuterol Tartrate Hfa) 15 Gm Hfa.aer.ad, 1 PUFF INH Q6H RESP THERAPY for 30 Days Prov:NESS WHITESIDE 11/01/18 Sennosides* (Senna Lax*) 8.6 Mg Tablet, 1 TAB PO DAILY PRN for CONSTIPATION, #30 TAB Prov:NESS WHITESIDE 11/01/18 Reported Medications Furosemide* (Furosemide*) 20 Mg Tablet, 20 MG GTB DAILY, #60 TAB 12/27/18 Albuterol Sulfate (Proair Respiclick) 90 Mcg Aer.pow.ba, 1 PUFF INHALATION Q4 PRN for WHEEZING AND SOB, #1 BOTTLE 12/27/18 Levothyroxine Sodium* (Levothyroxine Sodium*) 200 Mcg Tablet, 200 MCG GTB BEFORE BREAKFAST, #30 TAB 12/27/18 Nystatin (Nystatin Powder) 1 Each Powder.ea., 1 APPLIC TOPICAL Q8, BOTTLE 12/27/18 Atorvastatin* (Atorvastatin*) 40 Mg Tablet, 40 MG ORAL HS 09/13/18 Gabapentin* (Gabapentin*) 100 Mg Capsule, 100 MG ORAL BID PRN for NERVE PAIN 09/13/18 Aspirin* (Aspirin* EC) 81 Mg Tablet.dr, 81 MG ORAL DAILY 09/13/18 Colchicine* (Colcrys*) 0.6 Mg Tablet, 0.6 MG PO Q8H PRN for gout, TAB 09/13/18 Lorazepam* (Ativan*) 2 Mg Tablet, 2 MG PO BID PRN for ANXIETY, #30 TAB 09/13/18 Pioglitazone Hcl* (Pioglitazone Hcl*) 45 Mg Tablet, 45 MG GTB DAILY 09/13/18 Discontinued Reported Medications Risperidone* (Risperidone*) 1 Mg Tablet, 1 MG GTB DAILY, TAB 12/27/18 Ibuprofen* (Ibuprofen*) 600 Mg Tablet, 600 MG GTB BID, TAB 12/27/18 Quetiapine Fumarate* (Quetiapine Fumarate*) 50 Mg Tablet, 50 MG GTB HS, TAB 12/27/18 Ibuprofen* (Ibuprofen*) 600 Mg Tablet, 600 MG ORAL Q6H PRN for PAIN LEVEL 1-5 09/13/18 Ondansetron (Ondansetron Odt) 8 Mg Tab.rapdis, 8 MG PO Q6H PRN for NAUSEA AND/OR VOMITING, TAB 07/02/18 Levalbuterol* (Xopenex* HFA) 15 Gm Inha, 2 PUFFS INH Q4H PRN for WHEEZING AND SOB, INHALER 07/02/18 Spironolactone* (Aldactone*) 25 Mg Tablet, 12.5 MG PO DAILY, #30 TAB 07/02/18 Levothyroxine Sodium* (Levothyroxine Sodium*) 25 Mcg Tablet, 25 MCG PO BEFORE BREAKFAST, #30 TAB 07/02/18 Quetiapine Fumarate* (Seroquel*) 50 Mg Tablet, 50 MG PO HS, TAB 07/02/18 Potassium Chloride* (Potassium Chloride*) 20 Meq Tablet.er, 20 MEQ PO DAILY, TAB.SA 07/02/18 Calcium Carbonate ([id number]) 500 Mg Tablet, 500 MG PO TID, TAB 07/02/18 Esomeprazole Mag Trihydrate (Nexium) 40 Mg Capsule.dr, 40 MG PO AC BREAKFAST, #30 CAP 07/02/18 Metoprolol Succinate* (Toprol XL*) 25 Mg Tab.sr.24h, 25 MG PO DAILY, #30 TAB 07/02/18 Magnesium Chloride* (Mag 64*) 64 Mg Tabsr, 64 MG PO DAILY, TAB 07/02/18 Ferrous Sulfate* (Ferrous Sulfate*) 325 Mg Tabec, 325 MG PO Q48H, TAB 07/02/18 Discontinued Scripts [Nystatin Powder] 1 APPLIC POWDER No Conflict Check, 1 APPLIC TOP BID, #30 Prov:NESS WHITESIDE 11/01/18 Levothyroxine Sodium* (Levothyroxine Sodium*) 100 Mcg Tablet, 200 MCG GTB DAILY@06 for 30 Days, TAB Prov:NESS WHITESIDE 11/01/18 Potassium Chloride (Potassium Chloride) 20 Meq Packet, 20 MEQ GTB DAILY for 30 Days, PACKET Prov:NESS WHITESIDE 11/01/18 Quetiapine Fumarate* (Quetiapine Fumarate*) 25 Mg Tablet, 25 MG GTB Q6H PRN for AGITATION, #30 TAB Prov:NESS WHITESIDE 11/01/18 Metoprolol Tartrate* (Lopressor*) 25 Mg Tab, 12.5 MG GTB BID for 30 Days, TAB Prov:NESS WHITESIDE 11/01/18 Enoxaparin Sodium (Enoxaparin Sodium) 40 Mg/0.4 Ml Syringe, 40 MG SC DAILY for 30 Days Prov:NESS WHITESIDE 11/01/18 Furosemide* (Furosemide*) 20 Mg Tablet, 20 MG PO DAILY, #30 TAB Prov:NESS WHITESIDE 11/01/18 Follow-up Plan 1. Follow up with your primary care physician in 1 week 2. Take antibiotics, Levaquin, daily for 5 days with next dose, 12/28. If experiencing worsening symptoms, fevers, chills, nausea, or vomiting, please r eturn to the ED 3. If experiencing shortness of breath, make sure to administer a breathing treatment to help clear any secretions 4. If experiencing any other concerning symptoms, please return to your nearest emergency department 5. Continue all medications as previously prescribed Primary Care Provider Vargas Stout MD Time spent on discharge: < 30 minutes Pending Labs Laboratory Tests Test 12/27/18 10:13 12/27/18 10:17 12/27/18 10:18 POC Venous Lactate 1.5 mmol/L (0.5-2.0) Urine Color YELLOW (YELLOW) Urine Clarity CLEAR (CLEAR) Urine pH 6.0 (5.0-9.0) Urine Specific 1.017 (1.003-1.030 [place] ) Urine Ketones NEGATIVE mg/dL (NEGATIVE) Urine Nitrite NEGATIVE mg/dL (NEGATIVE) Urine Bilirubin NEGATIVE mg/dL (NEGATIVE) Urine Urobilinogen NEGATIVE mg/dL (NEGATIVE) Urine Leukocyte 2+ Esterase Machelle/ul (NEGATIVE) Urine Microscopic 0 /HPF (0-5) RBC Urine Microscopic 10 /HPF (0-5) WBC Urine Hemoglobin NEGATIVE mg/dL (NEGATIVE) Urine Glucose NEGATIVE mg/dL (NEGATIVE) Urine Total NEGATIVE Protein mg/dl (NEGATIVE) White Blood Count 7.5 10^3/ul (4.8-10.8) Red Blood Count 3.63 10^6/ul (4.20-5.40 ) Hemoglobin 10.1 g/dl (12.0-16.0) Hematocrit 33.2 % (37.0-47.0) Mean Corpuscular 91.5 Volume fl (82.0-101.0) Mean Corpuscular 27.8 Hemoglobin pg (29.0-33.0) Mean Corpuscular 30.4 Hemoglobin Concent g/dl (32.0-37.0) Red Cell 14.6 % (11.5-14.5) Distribution Width Platelet Count 242 10^3/UL (140-415) Mean Platelet 9.9 fl (7.4-10.4) Volume Immature 0.500 Granulocytes % % (0.001-0.429) Neutrophils % 62.0 % (39.0-77.0) Lymphocytes % 27.7 % (15.0-51.0) Monocytes % 5.9 % (0.0-11.0) Eosinophils % 3.2 % (0.0-7.0) Basophils % 0.7 % (0.0-2.0) Nucleated Red Blood 0.0 Cells % /100WBC (0.0-0.0) Immature 0.040 Granulocytes # 10^3/ul (0.0-0.031 ) Neutrophils # 4.6 10^3/ul (1.6-7.5) Lymphocytes # 2.1 10^3/ul (0.8-2.9) Monocytes # 0.4 10^3/ul (0.3-0.9) Eosinophils # 0.2 10^3/ul (0.0-0.5) Basophils # 0.1 10^3/ul (0.0-0.1) Nucleated Red Blood 0.0 Cells # 10^3/ul (0.0-0.0) Prothrombin Time 12.8 Sec (11.9-14.9) Prothrombin Time 1.0 Ratio INR International 0.95 Normalized Ratio Activated 23.8 Partial Thromboplas Sec (23.0-35.0) t Time Sodium Level 140 mmol/L (135-144) Potassium Level 4.8 mmol/L (3.5-5.1) Chloride Level 99 mmol/L (97-110) Carbon Dioxide 33 mmol/L (21-31) Level Anion Gap 8 (5-13) Blood Urea 16 mg/dl (7-20) Nitrogen Creatinine 0.69 mg/dl (0.44-1.00) Est Glomerular mL/min (>60) Filtrat Rate mL/min Glucose Level 106 mg/dl (70-220) Calcium Level 8.9 mg/dl (8.4-10.2) Total Bilirubin 0.2 mg/dl (0.2-1.3) Direct Bilirubin 0.00 mg/dl (0.00-0.20) Indirect Bilirubin 0.2 mg/dl (0-1.1) Aspartate Amino 30 IU/L (15-46) Transf (AST/SGOT) Alanine 12 IU/L (13-69) Aminotransferase (A LT/SGPT) Alkaline 53 IU/L (42-121) Phosphatase Troponin I < 0.012 ng/ml (0.000-0.120 ) C-Reactive Protein 0.7 mg/dl (0.0-0.9) B-Type Natriuretic 784 PG/ML (0-450) Peptide Total Protein 7.0 g/dl (6.1-8.1) Albumin 3.7 g/dl (3.3-4.9) Globulin 3.30 g/dl (1.3-3.2) Albumin/Globulin 1.12 Ratio Lipase 57 U/L (23-300) KRISTYN JAY MD Dec 27, 2018 18:27
[2018-12-27] MEDS ORDERED: ATORVASTATIN 40 MG TAB PO SCH (21:00)
[2018-12-27] MEDS ORDERED: MIRTAZAPINE 15 MG TAB GTB SCH (21:00)
[2018-12-28] MEDS ORDERED: LEVOTHYROXINE 25 MCG TAB PO SCH (07:00)
[2018-12-28] MEDS ORDERED: SPIRONOLACTONE 25 MG TAB PO SCH (09:00)
[2018-12-28] MEDS ORDERED: ASPIRIN (EC) 81 MG TAB PO SCH (09:00)
[2018-12-28] MEDS ORDERED: ENOXAPARIN 40 MG/0.4 ML SYG SC SCH (09:00)
[2018-12-28] MEDS ORDERED: LEVOFLOXACIN 500MG/D5W (PMX) 100 ML IVPB SCH (13:00)
== END 2018-12-27 14:47 | disposition home or self-care (01) ==
LOC: E/R 09:52 → CANBEDREQ 12-29 20:08
DX: I11.0 Hypertensive heart disease with heart failure (principal); I50.41 Acute combined systolic (congestive) and diastolic (congestive) heart failure; N39.0 Urinary tract infection, site not specified; K43.9 Ventral hernia without obstruction or gangrene; J44.9 Chronic obstructive pulmonary disease, unspecified; Z85.850 Personal history of malignant neoplasm of thyroid; Z79.82 Long term (current) use of aspirin; Z79.84 Long term (current) use of oral hypoglycemic drugs
CPT/HCPCS: 36415; 51702; 71045; 74176; 80053; 81001; 83605; 83690; 83880; 84484; 85025; 85610; 85730; 86140; 87040; 87086; 93005; 94664; 96374; 96375; 99285; J1940; J1956; J7030